=== PATIENT | male | born 1975 | race African-American/Black ===

== ENCOUNTER 2020-08-04 17:53 | Emergency (ER) | payer MEDICAID, SELFPAY ==
[2020-08-04 18:26] VITALS: BP 136/89; PULSE 88; RESP 16; TEMP 36.7; O2SAT 99; BMI 27.6
--- NOTE | 2020-08-04 19:12 | ED.SKABFB ---
HPI - Skin/Abscess/Foreign Bdy General Chief complaint: Skin/Abscess/Foreign Body Stated complaint: abscess Time Seen by Provider: 08/04/20 18:47 Source: patient Mode of arrival: ambulatory Limitations: language barrier History of Present Illness HPI narrative: 45-year-old male with past medical history of diabetes presents with a lump to his right axilla. States that it started several days ago and has gotten larger. He tried to drain it at home however he was unable to get the wound open. He does not describe any other symptoms, denies fevers, chills, chest pain or pressure, palpitations, shortness breath, abdominal pain, abdominal distention, dysuria, hematuria, and edema. Related Data Allergies Allergy/AdvReac Type Severity Reaction Status Date / Time No Known Allergies Allergy Verified 08/04/20 18:33 Review of Systems Review of Systems: Constitutional: No Fever, No Chills ENT/Mouth: No Ear Pain, No Hoarseness, No sore throat Eyes: No Eye Pain, No Swelling, No Redness, No Foreign Body Cardiovascular: No Chest Pain, No SOB Respiratory: No Cough, No Dyspnea Gastrointestinal: No Nausea, No Vomiting, No Diarrhea, No abdominal Pain Genitourinary: No Dysuria, No Hematuria Musculoskeletal: positive right axilla pain, No Myalgias, No Joint Swelling Skin: Positive abscess of right axilla, No Skin lacerations, No rash Neuro: No Weakness, No Numbness, No Paresthesias, No Loss of Consciousness, No Dizziness, No Headache Psych: No Anxiety/Panic, No Depression Heme/Lymph: no easy bruising, no Lymphadenopathy Endocrine: No Polyuria, No Polydipsia Yes all other systems are reviewed and are negative [facility] Past Medical History Attestation statement: The following information was validated with the patient. Source: old records reviewed Medical History Diabetes Social History Social History Advance Directives: No Advance Directives Information Provided: Yes Physical Exam Vital Signs: Vital Signs: Last Vital Signs Temp 98.2 F 08/04/20 20:00 Pulse 84 08/04/20 20:00 Resp 16 08/04/20 20:00 BP 132/67 08/04/20 20:00 Pulse Ox 97 08/04/20 20:00 Body Mass Index 27.6 Appearance: Alert. Oriented X3. No acute distress. Eyes: Pupils equal, round and reactive to light. ENT: Pharynx normal. Neck: Normal inspection. Neck supple. CVS: Normal heart rate and rhythm. Pulses normal. Respiratory: No respiratory distress. Breath sounds normal. Abdomen: Soft and nontender. Skin: 2 cm in diameter abscess to the right axilla, Skin warm and dry. Normal skin color. Normal skin turgor. Extremities: No lower extremity edema. Pulses equal to all extremities, no edema noted. No bilateral cervical or axillary lymphadenopathy noted. Neuro: No motor deficit. No sensory deficit. Cranial nerves 2-12 intact, no focal neural deficits. Course Course Course Narrative: 45-year-old male with past medical history of diabetes presents with abscess to the right axilla. Plan is for I&D. Prepped and draped in sterile fashion, patient tolerated procedure well. Please refer to procedure note for full details. Patient verbalized understanding of and agrees plan of care discharge home. test facility engineer utilized for all correspondence, Google translate utilized for discharge instructions. Procedures Abscess I/D Site: upper extremity Side (if applicable): right Local Anesthetic: lidocaine 2% Amount of anesthesia used (mL): 2 Technique: incised with blade Amount of fluid expressed (mL): 5 Sent for culture/gram staining?: No Irrigation: No Packing used?: none MDM - Skin/Abscess/Foreign Bdy Differential Diagnosis Differential diagnosis: Likely abscess of skin or subcutaneous tissue Medical Records Attestation: I reviewed the patient's medical records. Discharge Plan Discharge Clinical Impression: Abscess of skin or subcutaneous tissue, Encounter for incision and drainage procedure Patient Disposition: Home, Self-Care Instructions: Abscess (ED), Abscess Incision and Drainage (DC) Additional Instructions: Te evaluaron por absceso en la axilla derecha. Hicimos clotilde marlo?a incisi?n y drenamos thompson absceso. Si los s?ntomas persisten, anamaria un seguimiento con el m?dico de atenci?n primaria y/o la emergencia. Por favor, tome Tylenol y o Motrin seg?n sea necesario para el manejo del dolor. Leeanna por elegir cristy departamento de emergencias para etienne evaluaci?n. Por favor, anamaria un seguimiento con el m?dico de atenci?n primaria seg?n sea necesario. Regrese al servicio de emergencias para cualquier s?ntoma nuevo, preocupante o que empeore. You were evaluated for abscess to the right axilla. We made a small incision and drained that abscess. If symptoms persist please follow-up with primary care physician and/or emergency. Please take Tylenol and or Motrin as needed for pain management. Thank you for choosing this emergency department for evaluation. Please follow-up with primary care physician as needed. Return to the emergency department for any new, concerning, or worsening symptoms. Interventions: ED Discharge Assessment Last Done: 08/04/20 20:15 Discharge Date/Time: 08/04/20 20:15 Print Language: Citizen [place]
[2020-08-04] MEDS: Lidocaine HCl 2 % MPF 5 ML VIAL SUBCUT (19:21)
[2020-08-04 20:00] VITALS: BP 132/67; PULSE 84; RESP 16; TEMP 36.8; O2SAT 97
== END 2020-08-04 20:15 | disposition home or self-care (01) ==
PROVIDERS: Emergency Provider Emergency Medicine; PCP Internal Medicine
DX: L02.411 Cutaneous abscess of right axilla (principal); E11.9 Type 2 diabetes mellitus without complications
CPT/HCPCS: 10060; 99284

== ENCOUNTER → 2020-11-28 13:26 | Outpatient (BNVA) | payer MEDICAID, SELFPAY | PROVIDERS: PCP Internal Medicine; Referring Provider Internal Medicine; Visit Provider Nurse Practitioner Family | DX: Z01.818 Encounter for other preprocedural examination (principal); R00.2 Palpitations; I38 Endocarditis, valve unspecified; I10 Essential (primary) hypertension; Z79.899 Other long term (current) drug therapy; Z72.0 Tobacco use; Z71.6 Tobacco abuse counseling | CPT/HCPCS: 93005; 99212 ==

== ENCOUNTER → 2020-12-04 10:45 | Outpatient (REF) | payer MEDICAID, SELFPAY ==
--- NOTE | 2020-12-04 11:00 | HM_ITS ---
Total monitoring time 10 days and 22 hours. Underlying rhythm is sinus. Minimum heart rate 54/Min. Maximum 158/Min. Average 85/Min. No atrial fibrillation or flutter. No pauses or AV blocks. 3 episodes of nonsustained ventricular tachycardia; longest 4 beats. Overall PVC burden 0.23%. 3 morphologies noted. 5 couplets. Rare supraventricular ectopy. No patient events. MTDD
== END ==
LOC: HO.CARD 10:45
PROVIDERS: Visit Provider Nurse Practitioner Family
DX: R00.2 Palpitations (principal)
CPT/HCPCS: 93246

== ENCOUNTER → 2021-01-09 14:54 | Outpatient (BNVA) | payer MEDICAID, SELFPAY | PROVIDERS: PCP Internal Medicine; Visit Provider Nurse Practitioner Family | DX: I38 Endocarditis, valve unspecified (principal); I10 Essential (primary) hypertension; R00.2 Palpitations; I49.3 Ventricular premature depolarization | CPT/HCPCS: 99212 ==

== ENCOUNTER → 2021-02-13 08:23 | Outpatient (REF) | payer MEDICAID, SELFPAY ==
--- NOTE | 2021-02-13 08:27 | CA_ITS ---
Transthoracic Echocardiogram Patient (Last, First, Middle): Satya Vyas A Gender: Male Date of : 1975 Age: 46 Procedure Date: 02/13/2021 Procedure Type: Transthoracic Echocardiogram Location: OP Height: 170.18 cm Weight: 74.84 kg BSA: 1.86 m2 Heart Rate: bpm BP: 124 / 80 mmHg Retail Sales Associate: VH Referring MD: Lianne Martinez MATERIAL HANDLING WAREHOUSE SUPERVISORBharathi Symptoms: I49.3 - Ventricular premature depolarization Study Quality: Good ECG Rhythm: Sinus Conclusions: - The left ventricular systolic function is normal. The visually estimated ejection fraction is between 60-65%. - No obvious valvular pathology seen on this study. Findings Left Ventricle Normal left ventricular cavity size. There is normal left ventricular wall thickness. The left ventricular systolic function is normal. The visually estimated ejection fraction is between 60-65%. There is no evidence of regional wall motion abnormalities. Diastolic function is normal for age. Right Ventricle Normal right ventricular cavity size and systolic function. Atria Both atria are normal in size. Aortic Valve There is a normal trileaflet aortic valve. There is no aortic valve stenosis. There is trace (trivial) aortic valve regurgitation. Mitral Valve The mitral valve appears normal. There is trace mitral valve regurgitation. There is no mitral valve stenosis. Pulmonic Valve The pulmonic valve was not well visualized. Tricuspid Valve Normal tricuspid valve structure. There is no tricuspid valve regurgitation. The pulmonary artery systolic pressure is normal. Great Vessels The aortic annulus, sinuses of valsalva, and asc aorta are normal in size. Venous The inferior vena cava is normal in size and collapses greater than 50% with inspiration. Pericardium/Pleural There is no evidence of pericardial effusion. Prior Study Comparison No significant change compared to prior study dated: 11/20/2018. Recommendations, Care & Conclusions No obvious valvular pathology seen on this study. Measurements 2D Linear Measurements IVSd: 0.99 0.6-0.9/0.6-1.0 cm LVIDd: 4.15 3.9-5.3/4.2-5.9 cm LVIDd Index: 2.23 2.4-3.2/2.2-3.1 cm/m2 LVIDs: 2.31 2.0-3.6 cm LVPWd: 1.01 0.7-1.1 cm Ao Root: 3.40 2.1-3.5 cm LA Diam: 3.60 2.7-3.8/3.0-4.0 cm LAIDs Index: 1.94 1.5-2.3 cm/m2 LV Mass: 167.93 67-162/88-224 g LV Mass Index: 90.29 43-95/49-115 g/m2 LVOT Diam: 2.40 3.0+(-)1.3 cm Mitral Valve MV Pk E: 0.91 MV PK A: 0.68 MV Decel Time: 196.00 E/A: 1.30 E'Lateral: 12.50 E'Medial: 10.30 E/E' Med: 8.90 E/E' Lat: 7.30 PHT: 58.00 MVA PHT: 3.79 Decel Hidalgo: 4.65 Aortic Valve AoV Pk Jsoue: 1.32 AoV Mn Josue: 0.84 AoV VTI: 0.32 AoV Pk Grad: 7.00 Aov Mn Grad: 3.00 JAIR Cont.VTI: 2.98 LVOT LVOT Pk Josue: 0.91 LVOT Mn Josue: 0.58 LVOT VTI: 0.21 LVOT Pk Grad: 3.00 LVOT Mn Grad: 2.00 LVOT Diam: 2.40 LVOT Area: 4.52 Diastolic Function MV Pk E: 0.91 MV Pk A: 0.68 E/A: 1.30 E'Medial: 10.30 E/E' Med: 8.90 E' Laterial: 12.50 E/E' Lat: 7.30 Right Ventricle TAPSE (mm): 30.00 TVS' Josue: 13.00 Tricuspid Valve TR Pk Josue: 1.66 TR Pk Grad: 11.00 Great Vessels Aorta Ao Root-2D: 3.40 2.0-3.7 cm Ao Asc: 3.10 2.1-3.4 cm Pulmonary Valve PV Pk Josue: 1.08 Peak PV Grad: 5.00 Updated in Other Vendor System with Status of Final Jordon Hall MD electronically signed on 02/13/2021 4:42:23 PM with status of Final
[2021-02-13 10:45] LABS: Anion Gap 12 (12-20); Blood Urea Nitrogen 16 mg/dL (9-16); Calcium 9.3 mg/dL (8.4-10.2); Carbon Dioxide 26 mmol/L (22-29); Chloride 101 mmol/L (96-108); Estimated Glomerular Filt Rate 60; Potassium 5.3 mmol/L (3.3-5.1); Sodium 134 mmol/L (135-145)
[2021-02-13 11:22] LABS: Appearance Urine CLEAR; Color Urine YELLOW; Glucose Urine UA >=1000 MG/DL (NEG); Leukocyte Esterase Urine NEG (NEG); Nitrite Urine NEG (NEG); Urine Blood NEG (NEG); Urine Ketones 15 MG/DL (NEG); Urine Protein NEG (NEG-TRACE)
[2021-02-13 11:41] LABS: Squamous Epithelial Cell Urine 1+ /LPF
[2021-02-13 11:42] LABS: WBC Urine 0 /HPF (0-4)
[2021-02-13 11:56] LABS: Creatinine Urine 38.61 mg/dL; Microalbum/Creatinine Ratio Ur 225.3 ug/mg cr
== END ==
LOC: HO.CARD 08:23
PROVIDERS: Internal Medicine Nephrology; PCP Internal Medicine; Visit Provider Nurse Practitioner Family
DX: I49.3 Ventricular premature depolarization (principal); R00.2 Palpitations; I12.9 Hypertensive chronic kidney disease with stage 1 through stage 4 chronic kidney disease, or unspecified chronic kidney disease; E11.22 Type 2 diabetes mellitus with diabetic chronic kidney disease; N18.9 Chronic kidney disease, unspecified
CPT/HCPCS: 36415; 80051; 81001; 82043; 82310; 82565; 84520; 93306

== ENCOUNTER → 2021-02-20 12:57 | Outpatient (BNVA) | payer MEDICAID, SELFPAY | PROVIDERS: PCP Internal Medicine; Referring Provider Internal Medicine; Visit Provider Nurse Practitioner Family | DX: I49.3 Ventricular premature depolarization (principal); I38 Endocarditis, valve unspecified; I10 Essential (primary) hypertension; R00.2 Palpitations; R42 Dizziness and giddiness | CPT/HCPCS: 99212 ==

== ENCOUNTER → 2021-03-21 10:42 | Outpatient (REF) | payer MEDICAID, SELFPAY | LOC: HO.CARD 10:42 | PROVIDERS: PCP Internal Medicine; Visit Provider Nurse Practitioner Family | DX: R00.2 Palpitations (principal); I49.3 Ventricular premature depolarization | CPT/HCPCS: 93270 ==

== ENCOUNTER 2021-10-24 10:08 | Outpatient (REF) | payer MEDICAID, SELFPAY ==
[2021-10-24 11:04] LABS: Hematocrit 40.9 % (42.0-52.0); Hemoglobin 13.3 g/dl (14.0-18.0); Mean Corpuscular HGB Conc 32.5 g/dl (31.0-36.0); Platelet Count 302 X10*3/uL (160-400); Red Blood Count 4.93 X10*6/uL (4.60-5.80); Red Cell Distribution Width 13.3 % (11.0-16.0); White Blood Count 4.3 X10*3/uL (4.8-10.8)
[2021-10-24 12:07] LABS: TSH reflex Free T4 0.37 uIU/mL (0.32-4.0)
[2021-10-24 12:08] LABS: Alanine Aminotransferase 18 U/L (0-40); Alkaline Phosphatase 73 U/L (39-117); Anion Gap 11 (12-20); Aspartate Amino Transferase 13 U/L (5-37); Bilirubin Total 1.2 mg/dL (0.0-1.0); Blood Urea Nitrogen 16 mg/dL (9-16); Calcium 8.9 mg/dL (8.4-10.2); Carbon Dioxide 27 mmol/L (22-29); Chloride 104 mmol/L (96-108); Estimated Glomerular Filt Rate > 60; Glucose Random 220 mg/dL (60-115); Lipase 16 U/L (8-78); Sodium 137 mmol/L (135-145); Total Protein 6.9 g/dL (6.5-8.0)
== END 2021-10-24 10:09 | disposition home or self-care (01) ==
LOC: HO.LAB 10:08
PROVIDERS: PCP Internal Medicine; Visit Provider Nurse Practitioner Family
DX: R10.9 Unspecified abdominal pain (principal); K59.04 Chronic idiopathic constipation; R11.2 Nausea with vomiting, unspecified
CPT/HCPCS: 36415; 80053; 83690; 84443; 85027; 99202; 99212

== ENCOUNTER → 2021-12-04 08:28 | Outpatient (BNVA) | payer MEDICAID, SELFPAY | PROVIDERS: PCP Internal Medicine; Referring Provider Internal Medicine; Visit Provider Nurse Practitioner Family | DX: Z01.818 Encounter for other preprocedural examination (principal); K59.01 Slow transit constipation; R11.2 Nausea with vomiting, unspecified; K21.9 Gastro-esophageal reflux disease without esophagitis | CPT/HCPCS: 83013; 99212 ==

== ENCOUNTER 2021-12-04 15:50 | Outpatient (REF) | payer MEDICAID, SELFPAY ==
[2021-12-05 15:42] LABS: H Pylori Breath Test Negative (Negative)
== END 2021-12-04 15:51 | disposition home or self-care (01) ==
LOC: HO.LNP 15:50
PROVIDERS: Visit Provider Nurse Practitioner Family
DX: Z11.2 Encounter for screening for other bacterial diseases (principal)
CPT/HCPCS: 83013

== ENCOUNTER → 2022-03-28 11:25 | Day surgery (SDC) | payer MEDICAID, SELFPAY ==
[2022-03-21 14:15] VITALS: BMI 28.1
--- NOTE | 2022-03-27 14:06 | HO.ANESPROP2 ---
Documented by User: Mitzy Mcelroy NP 03/27/22 14:07 HPI - Anesthesia Eval Consult details Narrative: 47yo M for Upper Endoscopy and Colonoscopy [facility] Active Problems Active Problems: All Active Problems (Updated 03/21/22 @ 14:16 by Anna Fang, MAY) Palpitations (Acute) Preop cardiovascular exam (Acute) Ventricular ectopy (Acute) Lightheadedness (Acute) Endocarditis (Acute) HTN (hypertension) (Acute) Past Medical History Medical History Diabetes Elevated cholesterol Endocarditis HTN (hypertension) Family History Family History Father No problems noted. Mother No problems noted. Surgical History Surgical History H/O eye surgery Social History Social History Alcohol intake: never Patient Tobacco Use Status: Never used Tobacco Use of substances other than those prescribed or required for medical reasons: No Are you DNR?: No Advance Directives: No Advance Directives Information Provided: Yes Meds Allergies Allergy/AdvReac Type Severity Reaction Status Date / Time No Known Allergies Allergy Verified 03/28/22 11:49 Home Medications Medication Instructions Recorded Confirmed Last Taken Type amlodipine 5 mg tablet 5 mg PO DAILY 11/28/20 03/21/22 Unknown History atorvastatin 40 mg tablet 40 mg PO BEDTIME 11/28/20 03/21/22 Unknown History hydrochlorothiazide 12.5 mg tablet 12.5 mg PO DAILY 11/28/20 03/21/22 Unknown History insulin aspart U-100 100 unit/mL See Rx Instructions subcut TID 11/28/20 03/21/22 Unknown History (3 mL) subcutaneous pen (Novolog Flexpen U-100 Insulin aspart) insulin glargine 100 unit/mL (3 50 unit subcut QPM 11/28/20 03/21/22 Unknown History mL) subcutaneous pen (Lantus Solostar U-100 Insulin) metformin 500 mg tablet 500 mg PO BID 11/28/20 03/21/22 Unknown History hydralazine 25 mg tablet 25 mg PO BID 02/20/21 03/21/22 Unknown History cholecalciferol (vitamin D3) 25 25 mcg PO QAM 12/04/21 03/21/22 Unknown History mcg (1,000 unit) capsule (Vitamin D3) dulaglutide 1.5 mg/0.5 mL 1.5 mg subcut QWEEK 12/04/21 03/21/22 Unknown History subcutaneous pen injector (Trulicity) fluoxetine 20 mg capsule 20 mg PO QAM 12/04/21 03/21/22 Unknown History lancets 33 gauge (TRUEplus Lancets) #100 ea 12/04/21 Unknown History losartan 50 mg tablet 50 mg PO QAM 12/04/21 03/21/22 Unknown History Exam Exam Date and Time: March 27, 2022 1406 Height,Weight and Vital Signs: Height 5 ft 7 in Weight 81.647 kg Pertinent Lab Results Pertinent Lab Results: Laboratory Tests 10/24/21 10/24/21 10:29 10:29 WBC 4.3 L Hgb 13.3 L Hct 40.9 L Plt Count 302 Sodium 137 Potassium 5.0 Chloride 104 Carbon Dioxide 27 BUN 16 Creatinine 0.91 Narrative Narrative: ECHO 2020 Conclusions: - The left ventricular systolic function is normal.? The visually estimated ejection fraction is between 60-65%. ? - No obvious valvular pathology seen on this study.? ? Assessment and Plan Assessment Anesthesia Assessment: Chart Reviewed Documented by User: Tashia Ferguson MD 03/28/22 11:56 [facility] Past Medical History Medical History Diabetes Elevated cholesterol Endocarditis HTN (hypertension) Family History Family History Father No problems noted. Mother No problems noted. Surgical History Surgical History H/O eye surgery History of Problems with Anesthesia: No Social History Social History Alcohol intake: never Patient Tobacco Use Status: Never used Tobacco Use of substances other than those prescribed or required for medical reasons: No Are you DNR?: No Advance Directives: No Advance Directives Information Provided: Yes Meds Allergies Allergy/AdvReac Type Severity Reaction Status Date / Time No Known Allergies Allergy Verified 03/28/22 11:49 Home Medications Medication Instructions Recorded Confirmed Last Taken Type amlodipine 5 mg tablet 5 mg PO DAILY 11/28/20 03/21/22 Unknown History atorvastatin 40 mg tablet 40 mg PO BEDTIME 11/28/20 03/21/22 Unknown History hydrochlorothiazide 12.5 mg tablet 12.5 mg PO DAILY 11/28/20 03/21/22 Unknown History insulin aspart U-100 100 unit/mL See Rx Instructions subcut TID 11/28/20 03/21/22 Unknown History (3 mL) subcutaneous pen (Novolog Flexpen U-100 Insulin aspart) insulin glargine 100 unit/mL (3 50 unit subcut QPM 11/28/20 03/21/22 Unknown History mL) subcutaneous pen (Lantus Solostar U-100 Insulin) metformin 500 mg tablet 500 mg PO BID 11/28/20 03/21/22 Unknown History hydralazine 25 mg tablet 25 mg PO BID 02/20/21 03/21/22 Unknown History cholecalciferol (vitamin D3) 25 25 mcg PO QAM 12/04/21 03/21/22 Unknown History mcg (1,000 unit) capsule (Vitamin D3) dulaglutide 1.5 mg/0.5 mL 1.5 mg subcut QWEEK 12/04/21 03/21/22 Unknown History subcutaneous pen injector (Trulicity) fluoxetine 20 mg capsule 20 mg PO QAM 12/04/21 03/21/22 Unknown History lancets 33 gauge (TRUEplus Lancets) #100 ea 12/04/21 Unknown History losartan 50 mg tablet 50 mg PO QAM 12/04/21 03/21/22 Unknown History Exam Airway Mallampati Class: III TM Dist: >3cm Neck ROM: Full Loose/Missing/Broken Teeth: No Heart: RRR Lungs: CTA Assessment and Plan Assessment Anesthesia Assessment: Anesthesia Plan Discussed Final Anesthetic Review History of Problems with Anesthesia: No NPO: Yes ASA Class: II Final Preanesthetic Review: Meds/Allgs Chart Reviewed, Consent Obtained/Reviewed and Anes Risks/Benef Reviewed Patient Risk: Low Procedure Risk: Intermediate Anesthetic Plan Anesthetic Plan: MAC: Disposition: Standard PACU
--- NOTE | 2022-03-28 11:33 | MHC.SHP ---
Pre-Procedural Eval Section A Date of Service: 03/28/22 Section B Chief Complaint: screening,reflux Relevant Family History (Specify if Yes): No Relevant Social History: None Present Medications: see Short Stay Collaborative assessment Medical History: Significant History (Diabetes Elevated cholesterol Endocarditis HTN (hypertension)) History of Previous Operations: No relevant previous surgery Allergies: Allergies Allergy/AdvReac Type Severity Reaction Status Date / Time No Known Allergies Allergy Verified 12/04/21 08:32 Review of Systems Sugical H&P ROS: Negative: Constitution, Cardiovascular, Respiratory, Neurological, Psychiatric, Hem-Onc, Allergic/Immunologic, Gastrointestinal, Genitourinary, Musculoskeletal, Integumentary, Endocrine and Eyes/Ears/Nose/Throat Exam Surgical H&P Exam: Normal: HEENT, Normal: Heart, Normal: Lungs, Normal: Extremities, Normal: Abdomen, Normal: Skin and Normal: Neurological Plan Diagnosis/Plan: Unchanged I have reviewed the history and physical and performed a pertinent physical examination on my patient. No changes have occurred unless specified.
[2022-03-28 11:45] VITALS: BMI 29.0
[2022-03-28 11:46] LABS: Glucose, Whole Blood 144 mg/dL (60-115)
[2022-03-28 11:48] VITALS: BP 141/79; PULSE 77; RESP 16; TEMP 36.3; O2SAT 100
--- NOTE | 2022-03-28 11:52 | W.PM.OPN ---
Operative Note Operative Note Date of Service: 03/28/22 Narrative: Operative Information Procedure Description: EGD, Colonoscopy Indication: GERD,screening Anesthesia: MAC FLEXIBLE TRANSORAL UPPER GASTROINTESTINAL ENDOSCOPY AND COLONOSCOPY PROCEDURE NOTE UPPER ENDOSCOPY Consent: Indications for the procedure and potential complications of bleeding, perforation, reaction to medications and missed diagnosis were discussed with the patient and informed consent was obtained. Instrument: Olympus GIF H 190 J mid size upper endoscope Monitoring: Vital signs and clinical assessment, continuous EKG monitoring, Pulse oximetry, Carbon Dioxide monitoring and blood pressure monitoring were done throughout the procedure. Procedure: The patient was placed in the left lateral decubitis position and pre-procedure medications were administered and a bite block was placed. The endoscope was inserted into the mouth and advanced under direct vision to the third part of duodenum. A careful inspection was made as the upper endoscope was withdrawn including a retroflexed examination of the proximal stomach; Findings and interventions are described below. Findings: Larynx:normal Esophagus: GE junction at 38 cm, diaphragm hiatus at 38 cm, possible short segment barretts with few islands and tongues of salmon pink tissue, bx taken from GEJ and distal esohagus Stomach: Patchy erythema and atrophy. Biopsies were obtained. Grade 3 flap valve on retroflexed examination of the cardia consistent with lax LES Duodenum: Normal bulb and descending duodenum, Intervention: Biopsies as noted above COLONOSCOPY Instrument: Olympus variable stiffness pediatric scope 190L Colonoscopy Monitoring: Vital signs and clinical assessment, continuous EKG monitoring, Pulse oximetry, Carbon Dioxide monitoring and blood pressure monitoring were done throughout the procedure. Colon withdrawal time was 12 minutes. Procedure: The patient was placed in the left lateral decubitis position and pre-procedure medications were administered. After a digital rectal examination of the ano-rectum, the video colonoscope was inserted into the rectum and advanced through the colon to the cecum/TI. The colonoscope was slowly withdrawn in a retrograde panoramic fashion and the colon mucosa was carefully examined including a retroflexed view of the rectum. Findings and interventions are described below. Procedure Difficulty:moderate, pressure applied Findings: Terminal Ileum-normal Cecum:normal Ascending Colon: normal Transverse Colon -normal Descending Colon:normal Sigmoid Colon: moderate diverticulosis Rectum: Retroflexion with small internal hemorrhoids, grade I, 10 mm sessile polyp removed with cold snare Anorectum - normal Colon preparation: [place] Bowel Preparation Scale Right colon; 1-2 Transverse colon: 2 Left colon; 2 (0 = Unprepared colon segment with mucosa not seen due to solid stool that cannot be cleared. 1 = Portion of mucosa of the colon segment seen, but other areas of the colon segment not well seen due to staining, residual stool and/or opaque liquid. 2 = Minor amount of residual staining, small fragments of stool and/or opaque liquid, but mucosa of colon segment seen well. 3 = Entire mucosa of colon segment seen well with no residual staining, small fragments of stool or opaque liquid) Impression and Post Procedure Diagnosis: Endoscopy Findings: atrophic gastritis lax LES possible barretts Colonoscopy Findings: polyp internal hemorrhoids diverticular disease Plan: Await Pathology results Repeat Colonoscopy in 3-4 years due to polyp and fair prep or earlier if clinically indicated High fiber diet leaflet avoid straining at stool, epsom salts and sitz bath, anusol supps or cream if H pylori pos then treat Above findings were reviewed with the patient and relevant handouts were provided if indicated.
[2022-03-28 12:42] VITALS: BP 90/56; PULSE 73; RESP 16; TEMP 36.6; O2SAT 98
[2022-03-28 12:57] VITALS: BP 117/73; PULSE 64; RESP 18; O2SAT 100
[2022-03-28 13:12] VITALS: TEMP 36.6
== END | disposition home or self-care (01) ==
PROVIDERS: PCP Internal Medicine; Visit Provider Internal Medicine Gastroenterology
PROC: (CPT 45385; principal; 2022-03-28 13:00)
DX: Z12.11 Encounter for screening for malignant neoplasm of colon (principal); D12.8 Benign neoplasm of rectum; K57.30 Diverticulosis of large intestine without perforation or abscess without bleeding; K64.0 First degree hemorrhoids; K59.01 Slow transit constipation; I10 Essential (primary) hypertension; K21.9 Gastro-esophageal reflux disease without esophagitis; K29.40 Chronic atrophic gastritis without bleeding; K22.4 Dyskinesia of esophagus; K44.9 Diaphragmatic hernia without obstruction or gangrene; I38 Endocarditis, valve unspecified; E11.9 Type 2 diabetes mellitus without complications; Z79.4 Long term (current) use of insulin; Z79.899 Other long term (current) drug therapy
CPT/HCPCS: 45385; 43239; 82947; 88305; 88342

== ENCOUNTER 2022-04-10 10:19 | Outpatient (REF) | payer MEDICAID, SELFPAY ==
[2022-04-10 10:49] LABS: MANUAL DIFF FLAG NO
[2022-04-10 11:00] LABS: Basophils Absolute Auto 0.1 X10*3/uL (0.0-0.2); Basophils Percent Auto 1.3 % (0-2); Eosinophils Absolute Auto 0.2 X10*3/uL (0.0-0.4); Hematocrit 43.9 % (42.0-52.0); Hemoglobin 14.4 g/dl (14.0-18.0); Lymphocytes Absolute Auto 1.2 X10*3/uL (1.2-4.9); Lymphocytes Percent Auto 27.3 % (20-40); Mean Corpuscular HGB Conc 32.8 g/dl (31.0-36.0); Mean Corpuscular Hemoglobin 26.8 pg (27.0-33.0); Mean Corpuscular Volume 81.8 fL (80.0-98.0); Mean Platelet Volume 9.6 fL (9.4-12.4); Monocytes Absolute Auto 0.4 X10*3/uL (0.1-1.2); Monocytes Percent Auto 8.8 % (2-11); Neutrophils Absolute Auto 2.7 x10*3/uL (2.0-8.3); Neutrophils Percent Auto 58.6 % (45-73); Platelet Count 289 X10*3/uL (160-400); Red Blood Count 5.37 X10*6/uL (4.60-5.80); Red Cell Distribution Width 13.2 % (11.0-16.0); White Blood Count 4.5 X10*3/uL (4.8-10.8)
[2022-04-10 11:33] LABS: Albumin Level 3.9 g/dL (3.5-5.0); Anion Gap 13 (12-20); Blood Urea Nitrogen 15 mg/dL (9-16); Calcium 9.3 mg/dL (8.4-10.2); Carbon Dioxide 28 mmol/L (22-29); Chloride 103 mmol/L (96-108); Estimated Glomerular Filt Rate > 60; Magnesium 2.1 mg/dL (1.6-2.6); Phosphorus 3.1 mg/dL (2.7-4.5); Potassium 4.8 mmol/L (3.3-5.1); Sodium 139 mmol/L (135-145)
[2022-04-10 11:55] LABS: Vitamin D 25-OH Total 15.9 ng/mL (>30)
[2022-04-10 12:16] LABS: Appearance Urine Clear; Color Urine Dark Yellow; Glucose Urine UA >=1000 mg/dL (Negative); Leukocyte Esterase Urine Negative (Negative); Nitrite Urine Negative (Negative); PH 5.5 (5.0-9.0); Specific Gravity - Urine >= 1.030 (1.005-1.025); UMIC TRIGGER UA YES; Urine Blood Negative (Negative); Urine Ketones Trace mg/dL (Negative); Urine Protein 300 (3+) mg/dL (Neg-Trace)
[2022-04-10 12:21] LABS: Bacteria Urine None Seen (None Seen); Hyaline Casts Urine 0-2 /LPF (0-2); Squamous Epithelial Cell Urine 0-2 /HPF (0-2); WBC Urine 0-5 /HPF (0-5)
[2022-04-10 13:40] LABS: Creatinine Urine 311.45 mg/dL
[2022-04-10 13:57] LABS: Microalbum/Creatinine Ratio Ur 779.2 ug/mg cr; Protein/Creatinine Ratio, Ur 1.02 (<0.2); Total Protein Urine Random 318 mg/dL (<12)
[2022-04-12 13:44] LABS: Calcium (PTHI) 9.3 mg/dL (8.6-10.3); PTHI 57 pg/mL (16-77)
== END 2022-04-10 10:20 | disposition home or self-care (01) ==
LOC: HO.LAB 10:19
PROVIDERS: PCP Internal Medicine; Visit Provider Internal Medicine Nephrology
DX: I12.9 Hypertensive chronic kidney disease with stage 1 through stage 4 chronic kidney disease, or unspecified chronic kidney disease (principal); N18.2 Chronic kidney disease, stage 2 (mild)
CPT/HCPCS: 36415; 80051; 81001; 82040; 82043; 82306; 82310; 82565; 83735; 83970; 84100; 84156; 84520; 85025; 87086; 99212

== ENCOUNTER 2022-04-12 | Outpatient (REF) | payer MEDICAID, SELFPAY | END 2022-04-12 00:01 | disposition home or self-care (01) | LOC: HO.LNP | PROVIDERS: Visit Provider Nurse Practitioner Family | DX: K21.9 Gastro-esophageal reflux disease without esophagitis (principal); N18.2 Chronic kidney disease, stage 2 (mild) | CPT/HCPCS: 87338 ==

== ENCOUNTER 2022-05-14 16:07 | Emergency (ER) | payer MEDICAID, SELFPAY ==
--- NOTE | ~2022-05-14 | XR_ITS ---
EXAMINATION: XR CHEST CLINICAL INFORMATION: Dizziness COMPARISON: 01/11/2020 TECHNIQUE: Frontal view of the chest was obtained. FINDINGS: No significant abnormality is noted involving the heart, lungs, mediastinum, bony thorax or soft tissues. XR/XR chest 1V IMPRESSION: Unremarkable examination.
--- NOTE | ~2022-05-14 | CT_ITS ---
EXAMINATION: CT HEAD WITHOUT CONTRAST CLINICAL INFORMATION: Off balance COMPARISON: None TECHNIQUE: Contiguous axial imaging was performed from the skull base to vertex without intravenous administration of contrast. This CT examination was performed using dose optimization techniques as appropriate, variously including the following: *Automated exposure control *Adjustment of mA and/or kV according to patient size (this includes techniques or standardized protocols for targeted exams where dose is matched to indication/reason for exam; i.e. extremities or head) *Use of iterative reconstruction technique DLP: 657 mGy-cm FINDINGS: There is no evidence of acute intracranial hemorrhage or territorial infarction. No abnormal mass effect or midline shift is seen. No to white matter differentiation is well preserved. No extra-axial fluid collections are identified. The ventricles are normal in size. No abnormal attenuation in the brain parenchyma. No acute calvarial fracture.. There is opacification of the inferior left maxillary sinus, partially imaged, could represent mucosal thickening or mucocele. Paranasal sinuses otherwise and mastoid air cells are well-aerated. CT/CT head/brain wo IV con IMPRESSION: No CT evidence of acute intracranial hemorrhage or edematous territorial infarction. Etiology of the patient's symptoms has not been determined by noncontrast CT. Further evaluation with CTA or MRI as clinically warranted.
--- NOTE | 2022-05-14 17:07 | ED.NAVMDI ---
HPI - Nausea/Vomiting/Diarrhea General Chief complaint: General Medical <GUANACO Toussaint - Last Filed: 05/14/22 17:10> Stated complaint: Vomiting/ Fever after taking antibiotics <GUANACO Toussaint - Last Filed: 05/14/22 17:10> Time Seen by Provider: 05/14/22 21:53 <GUANACO Toussaint - Last Filed: 05/14/22 17:10> Source: patient and family <Cindy Goldman MD - Last Filed: 05/14/22 22:19> Mode of arrival: ambulatory <Cindy Goldman MD - Last Filed: 05/14/22 22:19> Limitations: no limitations <Cindy Goldman MD - Last Filed: 05/14/22 22:19> History of Present Illness HPI Narrative: 47-year-old male came in for evaluation of generalized body ache, joint pains, fever, chills, sneezing and coughing. Patient also been having nausea, vomiting, diarrhea.. Symptoms started 4 days ago. No exposure to sick contacts, no recent travel. <Cindy Goldman MD - Last Filed: 05/14/22 22:19> Related Data Home medications: Home Medications Medication Instructions Recorded Confirmed amlodipine 5 mg tablet 5 mg PO DAILY 11/28/20 03/21/22 atorvastatin 40 mg tablet 40 mg PO BEDTIME 11/28/20 03/21/22 hydrochlorothiazide 12.5 mg tablet 12.5 mg PO DAILY 11/28/20 03/21/22 insulin aspart U-100 100 unit/mL See Rx Instructions subcut TID 11/28/20 03/21/22 (3 mL) subcutaneous pen (Novolog FlexPen U-100 Insulin aspart) insulin glargine 100 unit/mL (3 50 unit subcut QPM 11/28/20 03/21/22 mL) subcutaneous pen (Lantus Solostar U-100 Insulin) metformin 500 mg tablet 500 mg PO BID 11/28/20 03/21/22 hydralazine 25 mg tablet 25 mg PO BID 02/20/21 03/21/22 cholecalciferol (vitamin D3) 25 25 mcg PO QAM 12/04/21 03/21/22 mcg (1,000 unit) capsule (Vitamin D3) dulaglutide 1.5 mg/0.5 mL 1.5 mg subcut QWEEK 12/04/21 03/21/22 subcutaneous pen injector (Trulicity) fluoxetine 20 mg capsule 20 mg PO QAM 12/04/21 03/21/22 lancets 33 gauge (TRUEplus Lancets) #100 ea 12/04/21 losartan 50 mg tablet 50 mg PO QAM 12/04/21 03/21/22 Previous Rx's Medication Instructions Recorded sennosides 8.6 mg tablet (Natural 8.6 mg PO BEDTIME constipation #90 04/10/22 Senna Laxative) tabs famotidine 20 mg tablet (Pepcid) 20 mg PO BEDTIME #90 tabs 04/17/22 omeprazole 20 mg capsule,delayed 20 mg PO DAILY #90 caps 04/17/22 release bismuth subsalicylate 262 mg 2 tab PO QID 14 days #112 tabs 04/22/22 chewable tablet metronidazole 500 mg tablet 1,000 mg PO BID #56 tabs 04/22/22 tetracycline 500 mg capsule 1,000 mg PO Q12H #56 caps 04/22/22 <GUANACO Toussaint - Last Filed: 05/14/22 17:10> Allergies/Adverse reactions: Allergies Allergy/AdvReac Type Severity Reaction Status Date / Time No Known Allergies Allergy Verified 04/10/22 09:37 <GUANACO Toussaint - Last Filed: 05/14/22 17:10> Review of Systems Review of Systems: All other systems are reviewed and are negative Constitutional: Reports as per HPI and Reports no additional constitutional complaints Eyes: Reports as per HPI and Reports no additional eye complaints Reports system reviewed and no additional complaints, except as documented Cardiovascular: Reports as per HPI and Reports no additional cardiovascular complaints Respiratory: Reports as per HPI and Reports no additional respiratory complaints Gastrointestinal: Reports as per HPI and Reports no additional gastrointestinal complaints Genitourinary: Reports no additional female genitourinary complaints Musculoskeletal: Reports no additional musculoskeletal complaints Skin/Breast: Reports system reviewed and no additional complaints, except as docu Psychiatric: Reports no additional psychiatric complaints Endocrine: Reports no additional endocrine complaints Hematologic/Lymphatic: Reports no additional hematologic/lymphatic complaints Allergic/Immunologic: Reports no additional allergic/immunologic complaints Reports system reviewed and no additional complaints, except as documented and Reports Abnormal speech present <Cindy Goldman MD - Last Filed: 05/14/22 22:19> [facility] Past Medical History Medical History: Medical History Diabetes Elevated cholesterol Endocarditis HTN (hypertension) Tubular adenoma <GUANACO Toussaint - Last Filed: 05/14/22 17:10> Surgical History: Surgical History H/O eye surgery History of esophagogastroduodenoscopy (EGD) Hx of colonoscopy <GUANACO Toussaint - Last Filed: 05/14/22 17:10> Family History Family History: Family History Father No problems noted. Mother No problems noted. <GUANACO Toussaint - Last Filed: 05/14/22 17:10> Social History Social History: Social History Alcohol intake: never Patient Tobacco Use Status: Never used Tobacco Advance Directives: No Advance Directives Information Provided: No <GUANACO Toussaint - Last Filed: 05/14/22 17:10> Physical Exam Vital Signs: Vital Signs: Last Vital Signs Temp 98.1 F 05/14/22 21:49 Pulse 76 05/14/22 21:49 Resp 18 05/14/22 21:49 BP 151/85 H 05/14/22 21:49 Pulse Ox 98 05/14/22 21:49 O2 Del Method 05/14/22 21:49 BMI result Body Mass Index 27.3 <GUANACO Toussaint - Last Filed: 05/14/22 17:10> Vital Signs: Last Vital Signs Temp 98.1 F 05/14/22 21:49 Pulse 76 05/14/22 21:49 Resp 18 05/14/22 21:49 BP 151/85 H 05/14/22 21:49 Pulse Ox 98 05/14/22 21:49 O2 Del Method 05/14/22 21:49 BMI result Body Mass Index 27.3 Vital signs have been reviewed as appeared to be correct. Blood pressure normal. Heart rate normal. Respiration rate normal. Temperature normal. Oxygen saturation normal. <Cindy Goldman MD - Last Filed: 05/14/22 22:19> Appearance: Alert. Oriented X3. No acute distress. Head: Normal external exam. Normocephalic. Atraumatic. No Quan signs noted. No raccoon eyes noted Eyes: PERRLA. EOMI. Conjunctiva and sclera normal. Eyelids normal. ENT: TM's Normal. Pharynx normal. Uvula midline. Moist mucous membranes. No trismus noted. No drooling noted. No muffled voice noted. Neck: Normal inspection. Neck supple. FROM. No adenopathy. Thyroid Normal. No meningeal signs. No neck mass noted. CVS: Normal heart rate and rhythm. Heart sound normal. No murmurs noted. Pulses normal throughout. Respiratory: No respiratory distress. Painless inspiration. Breath sounds normal. No wheezes/rales/rhonchi noted. Chest nontender. No accessory muscle usage noted or decreased air movement noted. Abdomen: Soft and nontender. Bowel sounds normal in all 4 quadrants. No distention noted. No organomegaly noted. No visible injury noted. Back: No CVA tenderness. Full range of motion noted. Skin: Skin warm and dry. Normal skin color. Normal skin turgor. No rashes/lesions/lacerations noted. Extremities: No lower extremity edema. Extremities exhibit normal range of motion. Extremities nontender. Neuro: Oriented X 3. Cranial nerve exam: II-XII are grossly intact No motor deficit. No sensory deficit. Reflexes normal. <Cindy Goldman MD - Last Filed: 05/14/22 22:19> Course Course Course Narrative: RME--47-year-old male with a past medical history of diabetes, HLD, endocarditis, HTN, tubular adenoma, presenting to the ED complaining of fever, diarrhea, vomiting, cough, chest pain when coughing, & dizziness described as feeling off balance x2 weeks. Ambulating with steady gait EKG, labs, UA, CXR, head CT, orthostatics ordered in triage <GUANACO Toussaint - Last Filed: 05/14/22 17:10> Reevaluation(s) Reevaluation #1: Influenza a positive with nausea and vomiting patient is hyperglycemic use insulin and Trulicity at home. Patient's symptoms started about 4 days ago no benefit from Tamiflu. Will discharge the patient instructed to drink plenty of fluids. <Cindy Goldman MD - Last Filed: 05/14/22 22:19> Time: 22:15 <Cindy Goldman MD - Last Filed: 05/14/22 22:19> Medications Administered Discontinued Medications Generic Name Dose Route Start Last Admin Trade Name Freq PRN Reason Stop Dose Admin Sodium Chloride 1,000 mls @ 999 mls/hr 05/14/22 17:15 05/14/22 21:51 Ns IV 05/14/22 18:15 999 mls/hr .Q1H1M LAKESHA Administration <GUANACO Toussaint - Last Filed: 05/14/22 17:10> Medications Administered Discontinued Medications Generic Name Dose Route Start Last Admin Trade Name Freq PRN Reason Stop Dose Admin Sodium Chloride 1,000 mls @ 999 mls/hr 05/14/22 17:15 05/14/22 21:51 Ns IV 05/14/22 18:15 999 mls/hr .Q1H1M LAKESHA Administration <Cindy Goldman MD - Last Filed: 05/14/22 22:19> Medical Decision Making Differential Diagnosis Differential Diagnoses: The differential diagnosis associated with the presentation includes (Influenza a, COVID, RSV, viral infection, hyperglycemia, DKA, intracranial pathology.) <Cindy Goldman MD - Last Filed: 05/14/22 22:19> Lab Data MDM Lab Attestation statement: I reviewed the patient's lab results. <Cindy Goldman MD - Last Filed: 05/14/22 22:19> Result Diagrams: : 05/14/22 17:34 05/14/22 17:34 <GUANACO Toussaint - Last Filed: 05/14/22 17:10> Labs: Lab Results 05/14/22 05/14/22 05/14/22 Range/Units 17:34 17:34 17:34 WBC 4.1 L (4.8-10.8) X10*3/uL RBC 5.11 (4.60-5.80) X10*6/uL Hgb 13.6 L (14.0-18.0) g/dl Hct 41.0 L (42.0-52.0) % MCV 80.2 (80.0-98.0) fL MCH 26.6 L (27.0-33.0) pg MCHC 33.2 (31.0-36.0) g/dl RDW 12.6 (11.0-16.0) % Plt Count 202 D (160-400) X10*3/uL MPV 10.1 (9.4-12.4) fL Immature Gran % (Auto) 0.0 (0.0-0.4) % Neut % (Auto) 60.4 (45-73) % Lymph % (Auto) 29.8 (20-40) % [place] % (Auto) 9.1 (2-11) % Eos % (Auto) 0.2 (0-4) % Baso % (Auto) 0.5 (0-2) % Lymph # (Auto) 1.2 (1.2-4.9) X10*3/uL [place] # (Auto) 0.4 (0.1-1.2) X10*3/uL Eos # (Auto) 0.0 (0.0-0.4) X10*3/uL Baso # (Auto) 0.0 (0.0-0.2) X10*3/uL Abs Immat Gran (auto) 0.00 (0.00-0.03) X10*3/uL Absolute Neuts (auto) 2.5 (2.0-8.3) x10*3/uL Absolute Nucleated RBC 0.000 (0.0-0.012) X10*3/uL Nucleated RBC % (auto) 0.0 (0.0-0.2) /100WBC Smear Tech's Comments VERIFIED PT 11.0 (10.0-13.1) SEC INR 1.0 (0.9-1.1) VBG pH (7.32-7.43) VBG pCO2 mmHg VBG pO2 mmHg VBG HCO3 (22-26) mmol/L VBG O2 Saturation % VBG Base Excess mmol/L Sodium 134 L (135-145) mmol/L Potassium 5.0 (3.3-5.1) mmol/L Chloride 100 (96-108) mmol/L Carbon Dioxide 28 (22-29) mmol/L Anion Gap 11 L (12-20) BUN 19 H (9-16) mg/dL Creatinine 1.31 (0.5-1.4) mg/dL Estim Creat Clear Calc 69.6 Estimated GFR 58 Random Glucose 404 H* (60-115) mg/dL Calcium 9.3 (8.4-10.2) mg/dL Magnesium 1.9 (1.6-2.6) mg/dL Total Bilirubin 0.4 (0.0-1.0) mg/dL Direct Bilirubin < 0.2 (0.0-0.5) mg/dL AST 15 (5-37) U/L ALT 21 (0-40) U/L Alkaline Phosphatase 73 (39-117) U/L Troponin I High Sens (<3.5-35.0) ng/L Total Protein 6.5 (6.5-8.0) g/dL Albumin 3.6 (3.5-5.0) g/dL Lipase 20 (8-78) U/L Urine Color Urine Appearance Urine pH (5.0-9.0) Ur Specific [place] (1.005-1.025) Urine Protein (Neg-Trace) mg/dL Urine Glucose (UA) (Negative) mg/dL Urine Ketones (Negative) mg/dL Urine Blood (Negative) Urine Nitrite (Negative) Ur Leukocyte Esterase (Negative) Urine RBC (0-2) /HPF Urine WBC (0-5) /HPF Ur Squamous Epith Cells (0-2) /HPF Urine Bacteria (None Seen) Hyaline Casts (0-2) /LPF Acetone, Qual Negative (Negative) Influenza Type A (PCR) (Negative) Influenza Type B (PCR) (Negative) RSV RNA Qual (PCR) (Negative) SARS-CoV-2 RNA (RT-PCR) (Negative) 05/14/22 05/14/22 05/14/22 Range/Units 17:34 17:34 17:47 WBC (4.8-10.8) X10*3/uL RBC (4.60-5.80) X10*6/uL Hgb (14.0-18.0) g/dl Hct (42.0-52.0) % MCV (80.0-98.0) fL MCH (27.0-33.0) pg MCHC (31.0-36.0) g/dl RDW (11.0-16.0) % Plt Count (160-400) X10*3/uL MPV (9.4-12.4) fL Immature Gran % (Auto) (0.0-0.4) % Neut % (Auto) (45-73) % Lymph % (Auto) (20-40) % [place] % (Auto) (2-11) % Eos % (Auto) (0-4) % Baso % (Auto) (0-2) % Lymph # (Auto) (1.2-4.9) X10*3/uL [place] # (Auto) (0.1-1.2) X10*3/uL Eos # (Auto) (0.0-0.4) X10*3/uL Baso # (Auto) (0.0-0.2) X10*3/uL Abs Immat Gran (auto) (0.00-0.03) X10*3/uL Absolute Neuts (auto) (2.0-8.3) x10*3/uL Absolute Nucleated RBC (0.0-0.012) X10*3/uL Nucleated RBC % (auto) (0.0-0.2) /100WBC Smear Tech's Comments PT (10.0-13.1) SEC INR (0.9-1.1) VBG pH (7.32-7.43) VBG pCO2 mmHg VBG pO2 mmHg VBG HCO3 (22-26) mmol/L VBG O2 Saturation % VBG Base Excess mmol/L Sodium (135-145) mmol/L Potassium (3.3-5.1) mmol/L Chloride (96-108) mmol/L Carbon Dioxide (22-29) mmol/L Anion Gap (12-20) BUN (9-16) mg/dL Creatinine (0.5-1.4) mg/dL Estim Creat Clear Calc Estimated GFR Random Glucose (60-115) mg/dL Calcium (8.4-10.2) mg/dL Magnesium (1.6-2.6) mg/dL Total Bilirubin (0.0-1.0) mg/dL Direct Bilirubin (0.0-0.5) mg/dL AST (5-37) U/L ALT (0-40) U/L Alkaline Phosphatase (39-117) U/L Troponin I High Sens < 3.5 (<3.5-35.0) ng/L Total Protein (6.5-8.0) g/dL Albumin (3.5-5.0) g/dL Lipase (8-78) U/L Urine Color Yellow Urine Appearance Clear Urine pH 5.5 (5.0-9.0) Ur Specific [place] >= 1.030 H (1.005-1.025) Urine Protein 30 (1+) H (Neg-Trace) mg/dL Urine Glucose (UA) >=1000 H (Negative) mg/dL Urine Ketones Negative (Negative) mg/dL Urine Blood Negative (Negative) Urine Nitrite Negative (Negative) Ur Leukocyte Esterase Negative (Negative) Urine RBC 0-2 (0-2) /HPF Urine WBC 0-5 (0-5) /HPF Ur Squamous Epith Cells 0-2 (0-2) /HPF Urine Bacteria None Seen (None Seen) Hyaline Casts 0-2 (0-2) /LPF Acetone, Qual (Negative) Influenza Type A (PCR) POSITIVE A (Negative) Influenza Type B (PCR) NEGATIVE (Negative) RSV RNA Qual (PCR) NEGATIVE (Negative) SARS-CoV-2 RNA (RT-PCR) NEGATIVE (Negative) 05/14/22 Range/Units 19:00 WBC (4.8-10.8) X10*3/uL RBC (4.60-5.80) X10*6/uL Hgb (14.0-18.0) g/dl Hct (42.0-52.0) % MCV (80.0-98.0) fL MCH (27.0-33.0) pg MCHC (31.0-36.0) g/dl RDW (11.0-16.0) % Plt Count (160-400) X10*3/uL MPV (9.4-12.4) fL Immature Gran % (Auto) (0.0-0.4) % Neut % (Auto) (45-73) % Lymph % (Auto) (20-40) % [place] % (Auto) (2-11) % Eos % (Auto) (0-4) % Baso % (Auto) (0-2) % Lymph # (Auto) (1.2-4.9) X10*3/uL [place] # (Auto) (0.1-1.2) X10*3/uL Eos # (Auto) (0.0-0.4) X10*3/uL Baso # (Auto) (0.0-0.2) X10*3/uL Abs Immat Gran (auto) (0.00-0.03) X10*3/uL Absolute Neuts (auto) (2.0-8.3) x10*3/uL Absolute Nucleated RBC (0.0-0.012) X10*3/uL Nucleated RBC % (auto) (0.0-0.2) /100WBC Smear Tech's Comments PT (10.0-13.1) SEC INR (0.9-1.1) VBG pH 7.39 (7.32-7.43) VBG pCO2 43 mmHg VBG pO2 37 mmHg VBG HCO3 26 (22-26) mmol/L VBG O2 Saturation 57.0 % VBG Base Excess 1.6 mmol/L Sodium (135-145) mmol/L Potassium (3.3-5.1) mmol/L Chloride (96-108) mmol/L Carbon Dioxide (22-29) mmol/L Anion Gap (12-20) BUN (9-16) mg/dL Creatinine (0.5-1.4) mg/dL Estim Creat Clear Calc Estimated GFR Random Glucose (60-115) mg/dL Calcium (8.4-10.2) mg/dL Magnesium (1.6-2.6) mg/dL Total Bilirubin (0.0-1.0) mg/dL Direct Bilirubin (0.0-0.5) mg/dL AST (5-37) U/L ALT (0-40) U/L Alkaline Phosphatase (39-117) U/L Troponin I High Sens (<3.5-35.0) ng/L Total Protein (6.5-8.0) g/dL Albumin (3.5-5.0) g/dL Lipase (8-78) U/L Urine Color Urine Appearance Urine pH (5.0-9.0) Ur Specific [place] (1.005-1.025) Urine Protein (Neg-Trace) mg/dL Urine Glucose (UA) (Negative) mg/dL Urine Ketones (Negative) mg/dL Urine Blood (Negative) Urine Nitrite (Negative) Ur Leukocyte Esterase (Negative) Urine RBC (0-2) /HPF Urine WBC (0-5) /HPF Ur Squamous Epith Cells (0-2) /HPF Urine Bacteria (None Seen) Hyaline Casts (0-2) /LPF Acetone, Qual (Negative) Influenza Type A (PCR) (Negative) Influenza Type B (PCR) (Negative) RSV RNA Qual (PCR) (Negative) SARS-CoV-2 RNA (RT-PCR) (Negative) <GUANACO Toussaint - Last Filed: 05/14/22 17:10> Lab Results 05/14/22 05/14/22 05/14/22 Range/Units 17:34 17:34 17:34 WBC 4.1 L (4.8-10.8) X10*3/uL RBC 5.11 (4.60-5.80) X10*6/uL Hgb 13.6 L (14.0-18.0) g/dl Hct 41.0 L (42.0-52.0) % MCV 80.2 (80.0-98.0) fL MCH 26.6 L (27.0-33.0) pg MCHC 33.2 (31.0-36.0) g/dl RDW 12.6 (11.0-16.0) % Plt Count 202 D (160-400) X10*3/uL MPV 10.1 (9.4-12.4) fL Immature Gran % (Auto) 0.0 (0.0-0.4) % Neut % (Auto) 60.4 (45-73) % Lymph % (Auto) 29.8 (20-40) % [place] % (Auto) 9.1 (2-11) % Eos % (Auto) 0.2 (0-4) % Baso % (Auto) 0.5 (0-2) % Lymph # (Auto) 1.2 (1.2-4.9) X10*3/uL [place] # (Auto) 0.4 (0.1-1.2) X10*3/uL Eos # (Auto) 0.0 (0.0-0.4) X10*3/uL Baso # (Auto) 0.0 (0.0-0.2) X10*3/uL Abs Immat Gran (auto) 0.00 (0.00-0.03) X10*3/uL Absolute Neuts (auto) 2.5 (2.0-8.3) x10*3/uL Absolute Nucleated RBC 0.000 (0.0-0.012) X10*3/uL Nucleated RBC % (auto) 0.0 (0.0-0.2) /100WBC Smear Tech's Comments VERIFIED PT 11.0 (10.0-13.1) SEC INR 1.0 (0.9-1.1) VBG pH (7.32-7.43) VBG pCO2 mmHg VBG pO2 mmHg VBG HCO3 (22-26) mmol/L VBG O2 Saturation % VBG Base Excess mmol/L Sodium 134 L (135-145) mmol/L Potassium 5.0 (3.3-5.1) mmol/L Chloride 100 (96-108) mmol/L Carbon Dioxide 28 (22-29) mmol/L Anion Gap 11 L (12-20) BUN 19 H (9-16) mg/dL Creatinine 1.31 (0.5-1.4) mg/dL Estim Creat Clear Calc 69.6 Estimated GFR 58 Random Glucose 404 H* (60-115) mg/dL Calcium 9.3 (8.4-10.2) mg/dL Magnesium 1.9 (1.6-2.6) mg/dL Total Bilirubin 0.4 (0.0-1.0) mg/dL Direct Bilirubin < 0.2 (0.0-0.5) mg/dL AST 15 (5-37) U/L ALT 21 (0-40) U/L Alkaline Phosphatase 73 (39-117) U/L Troponin I High Sens (<3.5-35.0) ng/L Total Protein 6.5 (6.5-8.0) g/dL Albumin 3.6 (3.5-5.0) g/dL Lipase 20 (8-78) U/L Urine Color Urine Appearance Urine pH (5.0-9.0) Ur Specific [place] (1.005-1.025) Urine Protein (Neg-Trace) mg/dL Urine Glucose (UA) (Negative) mg/dL Urine Ketones (Negative) mg/dL Urine Blood (Negative) Urine Nitrite (Negative) Ur Leukocyte Esterase (Negative) Urine RBC (0-2) /HPF Urine WBC (0-5) /HPF Ur Squamous Epith Cells (0-2) /HPF Urine Bacteria (None Seen) Hyaline Casts (0-2) /LPF Acetone, Qual Negative (Negative) Influenza Type A (PCR) (Negative) Influenza Type B (PCR) (Negative) RSV RNA Qual (PCR) (Negative) SARS-CoV-2 RNA (RT-PCR) (Negative) 05/14/22 05/14/22 05/14/22 Range/Units 17:34 17:34 17:47 WBC (4.8-10.8) X10*3/uL RBC (4.60-5.80) X10*6/uL Hgb (14.0-18.0) g/dl Hct (42.0-52.0) % MCV (80.0-98.0) fL MCH (27.0-33.0) pg MCHC (31.0-36.0) g/dl RDW (11.0-16.0) % Plt Count (160-400) X10*3/uL MPV (9.4-12.4) fL Immature Gran % (Auto) (0.0-0.4) % Neut % (Auto) (45-73) % Lymph % (Auto) (20-40) % [place] % (Auto) (2-11) % Eos % (Auto) (0-4) % Baso % (Auto) (0-2) % Lymph # (Auto) (1.2-4.9) X10*3/uL [place] # (Auto) (0.1-1.2) X10*3/uL Eos # (Auto) (0.0-0.4) X10*3/uL Baso # (Auto) (0.0-0.2) X10*3/uL Abs Immat Gran (auto) (0.00-0.03) X10*3/uL Absolute Neuts (auto) (2.0-8.3) x10*3/uL Absolute Nucleated RBC (0.0-0.012) X10*3/uL Nucleated RBC % (auto) (0.0-0.2) /100WBC Smear Tech's Comments PT (10.0-13.1) SEC INR (0.9-1.1) VBG pH (7.32-7.43) VBG pCO2 mmHg VBG pO2 mmHg VBG HCO3 (22-26) mmol/L VBG O2 Saturation % VBG Base Excess mmol/L Sodium (135-145) mmol/L Potassium (3.3-5.1) mmol/L Chloride (96-108) mmol/L Carbon Dioxide (22-29) mmol/L Anion Gap (12-20) BUN (9-16) mg/dL Creatinine (0.5-1.4) mg/dL Estim Creat Clear Calc Estimated GFR Random Glucose (60-115) mg/dL Calcium (8.4-10.2) mg/dL Magnesium (1.6-2.6) mg/dL Total Bilirubin (0.0-1.0) mg/dL Direct Bilirubin (0.0-0.5) mg/dL AST (5-37) U/L ALT (0-40) U/L Alkaline Phosphatase (39-117) U/L Troponin I High Sens < 3.5 (<3.5-35.0) ng/L Total Protein (6.5-8.0) g/dL Albumin (3.5-5.0) g/dL Lipase (8-78) U/L Urine Color Yellow Urine Appearance Clear Urine pH 5.5 (5.0-9.0) Ur Specific [place] >= 1.030 H (1.005-1.025) Urine Protein 30 (1+) H (Neg-Trace) mg/dL Urine Glucose (UA) >=1000 H (Negative) mg/dL Urine Ketones Negative (Negative) mg/dL Urine Blood Negative (Negative) Urine Nitrite Negative (Negative) Ur Leukocyte Esterase Negative (Negative) Urine RBC 0-2 (0-2) /HPF Urine WBC 0-5 (0-5) /HPF Ur Squamous Epith Cells 0-2 (0-2) /HPF Urine Bacteria None Seen (None Seen) Hyaline Casts 0-2 (0-2) /LPF Acetone, Qual (Negative) Influenza Type A (PCR) POSITIVE A (Negative) Influenza Type B (PCR) NEGATIVE (Negative) RSV RNA Qual (PCR) NEGATIVE (Negative) SARS-CoV-2 RNA (RT-PCR) NEGATIVE (Negative) 05/14/22 Range/Units 19:00 WBC (4.8-10.8) X10*3/uL RBC (4.60-5.80) X10*6/uL Hgb (14.0-18.0) g/dl Hct (42.0-52.0) % MCV (80.0-98.0) fL MCH (27.0-33.0) pg MCHC (31.0-36.0) g/dl RDW (11.0-16.0) % Plt Count (160-400) X10*3/uL MPV (9.4-12.4) fL Immature Gran % (Auto) (0.0-0.4) % Neut % (Auto) (45-73) % Lymph % (Auto) (20-40) % [place] % (Auto) (2-11) % Eos % (Auto) (0-4) % Baso % (Auto) (0-2) % Lymph # (Auto) (1.2-4.9) X10*3/uL [place] # (Auto) (0.1-1.2) X10*3/uL Eos # (Auto) (0.0-0.4) X10*3/uL Baso # (Auto) (0.0-0.2) X10*3/uL Abs Immat Gran (auto) (0.00-0.03) X10*3/uL Absolute Neuts (auto) (2.0-8.3) x10*3/uL Absolute Nucleated RBC (0.0-0.012) X10*3/uL Nucleated RBC % (auto) (0.0-0.2) /100WBC Smear Tech's Comments PT (10.0-13.1) SEC INR (0.9-1.1) VBG pH 7.39 (7.32-7.43) VBG pCO2 43 mmHg VBG pO2 37 mmHg VBG HCO3 26 (22-26) mmol/L VBG O2 Saturation 57.0 % VBG Base Excess 1.6 mmol/L Sodium (135-145) mmol/L Potassium (3.3-5.1) mmol/L Chloride (96-108) mmol/L Carbon Dioxide (22-29) mmol/L Anion Gap (12-20) BUN (9-16) mg/dL Creatinine (0.5-1.4) mg/dL Estim Creat Clear Calc Estimated GFR Random Glucose (60-115) mg/dL Calcium (8.4-10.2) mg/dL Magnesium (1.6-2.6) mg/dL Total Bilirubin (0.0-1.0) mg/dL Direct Bilirubin (0.0-0.5) mg/dL AST (5-37) U/L ALT (0-40) U/L Alkaline Phosphatase (39-117) U/L Troponin I High Sens (<3.5-35.0) ng/L Total Protein (6.5-8.0) g/dL Albumin (3.5-5.0) g/dL Lipase (8-78) U/L Urine Color Urine Appearance Urine pH (5.0-9.0) Ur Specific [place] (1.005-1.025) Urine Protein (Neg-Trace) mg/dL Urine Glucose (UA) (Negative) mg/dL Urine Ketones (Negative) mg/dL Urine Blood (Negative) Urine Nitrite (Negative) Ur Leukocyte Esterase (Negative) Urine RBC (0-2) /HPF Urine WBC (0-5) /HPF Ur Squamous Epith Cells (0-2) /HPF Urine Bacteria (None Seen) Hyaline Casts (0-2) /LPF Acetone, Qual (Negative) Influenza Type A (PCR) (Negative) Influenza Type B (PCR) (Negative) RSV RNA Qual (PCR) (Negative) SARS-CoV-2 RNA (RT-PCR) (Negative) <Cindy Goldman MD - Last Filed: 05/14/22 22:19> Independent Interpretation I performed an independent interpretation of an: EKG (Normal sinus rhythm at 82 beats per minutes, normal intervals, normal axis deviation, no ST-T changes.), Plain X-Ray (No acute intrathoracic pathology.) and CT Scan (Head: No acute intracranial pathology.) <Cindy Goldman MD - Last Filed: 05/14/22 22:19> Radiology Impression Discussion of test interpretation with radiology: I have reviewed the radiologist's reading. <Cindy Goldman MD - Last Filed: 05/14/22 22:19> Discharge Plan Discharge Clinical Impression: Influenza A, Hyperglycemia <GUANACO Toussaint - Last Filed: 05/14/22 17:10> Patient Disposition: Home, Self-Care <GUANACO Toussaint - Last Filed: 05/14/22 17:10> Instructions: Influenza (ED) <GUANACO Toussaint - Last Filed: 05/14/22 17:10> Prescriptions: No Action omeprazole 20 mg capsule,delayed release(DR/EC) 20 mg PO DAILY Qty: 90 3RF famotidine [Pepcid] 20 mg tablet 20 mg PO BEDTIME Qty: 90 3RF bismuth subsalicylate 262 mg tablet,chewable 2 tab PO QID 14 Days Qty: 112 0RF metronidazole 500 mg tablet 1,000 mg PO BID Qty: 56 0RF tetracycline 500 mg capsule 1,000 mg PO Q12H Qty: 56 0RF hydrochlorothiazide 12.5 mg tablet 12.5 mg PO DAILY amlodipine 5 mg tablet 5 mg PO DAILY atorvastatin 40 mg tablet 40 mg PO BEDTIME metformin 500 mg tablet 500 mg PO BID Lantus Solostar U-100 Insulin 100 unit/mL (3 mL) insulin pen 50 unit subcut QPM insulin aspart U-100 [Novolog FlexPen U-100 Insulin] 100 unit/mL (3 mL) insulin pen See Rx Instructions subcut TID Rx Instructions: as directed per sliding scale subcut 3 times a day; hydralazine 25 mg tablet 25 mg PO BID Trulicity 1.5 mg/0.5 mL pen injector 1.5 mg subcut QWEEK (DME) lancets [TRUEplus Lancets] 33 gauge misc See Rx Instructions Not Applicable QID Qty: 100 Rx Instructions: As directed cholecalciferol (vitamin D3) [Vitamin D3] 25 mcg (1,000 unit) capsule 25 mcg PO QAM fluoxetine 20 mg capsule 20 mg PO QAM losartan 50 mg tablet 50 mg PO QAM sennosides [Natural Senna Laxative] 8.6 mg tablet 8.6 mg PO BEDTIME Qty: 90 3RF <GUANACO Toussaint - Last Filed: 05/14/22 17:10> Referrals: Vince River MD [Primary Care Provider] - <GUANACO Toussaint - Last Filed: 05/14/22 17:10>
[2022-05-14 17:08] VITALS: BP 142/83; PULSE 87; RESP 18; TEMP 36.4; O2SAT 97; BMI 27.3
--- NOTE | 2022-05-14 17:09 | ECG_ITS ---
Test Reason : CHEST PAIN Blood Pressure : / mmHG Vent. Rate : 082 BPM Atrial Rate : 082 BPM P-R Int : 162 ms QRS Dur : 072 ms QT Int : 390 ms P-R-T Axes : 060 014 041 degrees QTc Int : 455 ms Normal sinus rhythm Normal ECG When compared with ECG of 04-SEP-2011 07:14, Vent. rate has increased BY 28 BPM Referred By: Vera Garcia Electronically Signed By:АННА CERVANTES
[2022-05-14 17:47] LABS: Basophils Percent Auto 0.5 % (0-2); Eosinophils Percent Auto 0.2 % (0-4); Hemoglobin 13.6 g/dl (14.0-18.0); Lymphocytes Absolute Auto 1.2 X10*3/uL (1.2-4.9); Lymphocytes Percent Auto 29.8 % (20-40); MANUAL DIFF FLAG SCAN; Mean Corpuscular HGB Conc 33.2 g/dl (31.0-36.0); Mean Corpuscular Hemoglobin 26.6 pg (27.0-33.0); Mean Corpuscular Volume 80.2 fL (80.0-98.0); Mean Platelet Volume 10.1 fL (9.4-12.4); Monocytes Absolute Auto 0.4 X10*3/uL (0.1-1.2); Monocytes Percent Auto 9.1 % (2-11); Neutrophils Absolute Auto 2.5 x10*3/uL (2.0-8.3); Neutrophils Percent Auto 60.4 % (45-73); Platelet Count 202 X10*3/uL (160-400); Red Blood Count 5.11 X10*6/uL (4.60-5.80); Red Cell Distribution Width 12.6 % (11.0-16.0); SCAN SMEAR FLAG 1; White Blood Count 4.1 X10*3/uL (4.8-10.8)
[2022-05-14 17:55] LABS: Appearance Urine Clear; Color Urine Yellow; Glucose Urine UA >=1000 mg/dL (Negative); Leukocyte Esterase Urine Negative (Negative); Nitrite Urine Negative (Negative); PH 5.5 (5.0-9.0); Specific Gravity - Urine >= 1.030 (1.005-1.025); UMIC TRIGGER UACC YES; Urine Blood Negative (Negative); Urine Ketones Negative (Negative); Urine Protein 30 (1+) mg/dL (Neg-Trace)
[2022-05-14 18:00] LABS: Bacteria Urine None Seen (None Seen); Hyaline Casts Urine 0-2 /LPF (0-2); RBC Urine 0-2 /HPF (0-2); Squamous Epithelial Cell Urine 0-2 /HPF (0-2); WBC Urine 0-5 /HPF (0-5)
[2022-05-14 18:06] LABS: SLIDE REVIEW VERIFIED
[2022-05-14 18:14] LABS: Alanine Aminotransferase 21 U/L (0-40); Albumin Level 3.6 g/dL (3.5-5.0); Alkaline Phosphatase 73 U/L (39-117); Anion Gap 11 (12-20); Aspartate Amino Transferase 15 U/L (5-37); Bilirubin Direct < 0.2 mg/dL (0.0-0.5); Bilirubin Total 0.4 mg/dL (0.0-1.0); Blood Urea Nitrogen 19 mg/dL (9-16); Calcium 9.3 mg/dL (8.4-10.2); Carbon Dioxide 28 mmol/L (22-29); Chloride 100 mmol/L (96-108); Creatinine Clr Calc Pharmacy 69.6; Estimated Glomerular Filt Rate 58; Glucose Random 404 mg/dL (60-115); Lipase 20 U/L (8-78); Magnesium 1.9 mg/dL (1.6-2.6); Sodium 134 mmol/L (135-145); Total Protein 6.5 g/dL (6.5-8.0)
[2022-05-14 18:17] LABS: Troponin-I High Sensitivity < 3.5 ng/L (<3.5-35.0)
[2022-05-14 18:25] LABS: Influenza A PCR POSITIVE (Negative); Influenza B PCR NEGATIVE (Negative); Resp Syncy Virus RNA Qual PCR NEGATIVE (Negative); SARS COV2 PCR INHOUSE NEGATIVE (Negative)
[2022-05-14 19:05] LABS: Venous Blood Gas Refer to POC result
[2022-05-14 19:06] LABS: VBG Base Excess 1.6 mmol/L; VBG HCO3 26 mmol/L (22-26); VBG pCO2 43 mmHg; VBG pH 7.39 (7.32-7.43); VBG pO2 37 mmHg
[2022-05-14 20:45] LABS: Acetone, serum QL Negative (Negative)
[2022-05-14 21:49] VITALS: BP 151/85; PULSE 76; RESP 18; TEMP 36.7; O2SAT 98
[2022-05-14] MEDS: 0.9 % Sodium Chloride 1,000 ML 999 ML IV ×2 (21:51→23:04)
--- NOTE | 2022-05-14 21:57 | PC.NURSE ---
Patient is alert and oriented x3. 20G was placed to Left AC with no problem. Patient is on Fluids right now, continue with plan of care.
[2022-05-14] MEDS: Insulin Regular, Human 100 UNIT/ML 3 ML VIAL IVPUSH (23:02)
[2022-05-14 23:07] VITALS: BP 161/82; PULSE 70
[2022-05-14 23:12] VITALS: BP 161/85; PULSE 78
[2022-05-14 23:13] VITALS: BP 148/82; PULSE 91
[2022-05-14 23:54] LABS: Glucose, Whole Blood 124 mg/dL (60-115)
== END 2022-05-15 00:18 | disposition home or self-care (01) ==
PROVIDERS: Physician Assistant; Emergency Provider Emergency Medicine; PCP Internal Medicine
DX: J11.1 Influenza due to unidentified influenza virus with other respiratory manifestations (principal); E11.65 Type 2 diabetes mellitus with hyperglycemia; R11.2 Nausea with vomiting, unspecified; Z20.822 Contact with and (suspected) exposure to COVID-19; I10 Essential (primary) hypertension; E78.5 Hyperlipidemia, unspecified; Z79.02 Long term (current) use of antithrombotics/antiplatelets; Z79.4 Long term (current) use of insulin; Z79.899 Other long term (current) drug therapy
CPT/HCPCS: 0241U; 36415; 70450; 71045; 80048; 80076; 81001; 82009; 82803; 82947; 83690; 83735; 84484; 85025; 85610; 93005; 96361; 96374; 99284

== ENCOUNTER → 2022-08-09 08:52 | Outpatient (BNVA) | payer MEDICAID, SELFPAY | PROVIDERS: PCP Internal Medicine; Visit Provider Nurse Practitioner Family | DX: K21.00 Gastro-esophageal reflux disease with esophagitis, without bleeding (principal); A04.8 Other specified bacterial intestinal infections | CPT/HCPCS: 99212 ==

== ENCOUNTER → 2022-10-22 14:11 | Outpatient (BNVA) | payer MEDICAID, SELFPAY | PROVIDERS: PCP Internal Medicine; Visit Provider Nurse Practitioner Family | DX: K21.9 Gastro-esophageal reflux disease without esophagitis (principal); A04.8 Other specified bacterial intestinal infections; K59.01 Slow transit constipation; Z86.010 Personal history of colon polyps | CPT/HCPCS: 99212 ==

== ENCOUNTER 2022-12-17 17:58 | Outpatient (REF) | payer MEDICAID, SELFPAY ==
[2022-12-17 18:50] LABS: Influenza A PCR NEGATIVE (Negative); Influenza B PCR NEGATIVE (Negative); Resp Syncy Virus RNA Qual PCR NEGATIVE (Negative); SARS COV2 PCR INHOUSE NEGATIVE (Negative)
== END 2022-12-17 17:59 | disposition home or self-care (01) ==
LOC: HO.HHCLNP 17:58
PROVIDERS: Visit Provider Nurse Practitioner Primary Care
DX: J02.9 Acute pharyngitis, unspecified (principal); Z20.822 Contact with and (suspected) exposure to COVID-19
CPT/HCPCS: 0241U; 87070; 87147

== ENCOUNTER 2023-03-14 11:35 | Outpatient (REF) | payer OTHER, SELFPAY | END 2023-03-14 11:36 | disposition home or self-care (01) | LOC: HO.LNP 11:35 | PROVIDERS: Visit Provider Nurse Practitioner Family | DX: K21.9 Gastro-esophageal reflux disease without esophagitis (principal) | CPT/HCPCS: 87338 ==

== ENCOUNTER 2023-06-17 09:47 | Outpatient (AMB) | payer OTHER, SELFPAY ==
--- NOTE | 2023-06-17 09:53 | A.OFFVIS_ITS ---
Intake Vital Signs 06/17/23 09:58 Height 5 ft 7 in Weight 170 lb BMI 26.6 BP 142/69 H Blood Pressure Location Lt brachial Position Sitting Pulse 82 Intake Visit Reasons: 6 mnth followup Intake Note: Patient 6 month follow up for acid reflex. Patient cc: acid reflex with gasses and constipation. Denies any other GI issues. 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 Will add famotidine at bedtime. Patient continues to her the epigastric burning night time in morning. History of H pylori will need to repeat that. Patient was encouraged to get the stool to the lab for testing. Will treat empirically positive. Helicobacter pylori (H. pylori) History of H pylori treated in the past. Will check for eradication. He continues to have mild symptoms, better with omeprazole. Constipation Occasional constipation patient can take senna daily or on as needed basis if no bowel movement in 1-2 days. Patient was encouraged to increase fluid intake and activity to promote better bowel motility. I will see him in 6 months, sooner on as needed basis. Patient is agreeable to this plan and verbalizes understanding of instructions. He was given the opportunity to ask questions and all questions answered. ? Thank you for allowing participate in care Plan Medications Refilled famotidine (Pepcid) 20 mg PO BEDTIME 90 tabs 3RF K21.9 - Gastro-esophageal reflux disease without esophagitis TODAY'S VISIT: Patient is here today for follow-up. Patient reports that he has been feeling better, however he continues to have constipation. Patient currently is using senna moves his bowels, however sometimes patient will feel constipated. Patient reports occasional dyspepsia depending on what he eats. Patient is taking omeprazole in the morning and famotidine at bedtime. Patient denies any nausea or vomiting. Patient eats mostly [place] food. Denies abdominal pain or discomfort. Denies melena, hematochezia, unintentional weight loss or ribbon like stools. Patient will be due to go for colonoscopy in March of 2025 [facility] Medical History Diabetes Elevated cholesterol Endocarditis HTN (hypertension) Tubular adenoma Surgical History Hx of colonoscopy History of esophagogastroduodenoscopy (EGD) H/O eye surgery Family History Father No problems noted. Mother No problems noted. Social History Alcohol intake: never Patient Tobacco Use Status: Never used Tobacco Review of Systems Const Denies weight gain and Denies weight loss ENT Reports no additional complaints, Denies dysphagia and Denies odynophagia Card Reports no additional complaints Resp Reports no additional complaints GI Reports abdominal pain (Epigastric pain), Denies belching, Denies melena, Reports bloating, Reports constipation, Denies dysphagia, Denies excessive flatus, Reports dyspepsia, Reports heartburn, Denies diarrhea, Denies loose stools, Denies nausea, Denies odynophagia and Denies vomiting Reports no additional complaints Musc Reports no additional complaints Neuro Reports no additional complaints Psych Reports no additional complaints Endo Reports no additional complaints Physical Exam Vital Signs: Last Vital Signs Pulse 82 06/17/23 09:58 BP 142/69 H 06/17/23 09:58 BMI result Body Mass Index 26.6 Const General: healthy appearing, no acute distress and well developed Nutritional Appearance: well nourished Orientation/consciousness: patient oriented x3 Resp Effort & Inspection: normal respiratory effort, able to speak in complete sentences, no tracheal deviation and symmetric chest movement Auscultation: clear to auscultation bilaterally Cardio Rate: regular rate GI Inspection: Yes normal to inspection and No distended Palpation (GI): Soft to palpation, not firm, nontender and No hepatosplenomegaly present Auscultation: normal bowel sounds General: Yes no CVA tenderness Back/Spine/Pelvis Back: no CVA tenderness Skin General skin exam: elasticity normal, turgor normal and dry skin Neuro General: patient oriented x3 Psych Appearance: grossly normal Mental Status: mental status grossly normal Assessment & Plan Assessment & Plan (1) GERD (gastroesophageal reflux disease): Code(s): K21.9 - Gastro-esophageal reflux disease without esophagitis Qualifiers: Esophagitis presence: esophagitis presence not specified Qualified Code(s): K21.9 - Gastro-esophageal reflux disease without esophagitis (2) Constipation: Code(s): K59.00 - Constipation, unspecified Qualifiers: Constipation type: slow transit constipation Qualified Code(s): K59.01 - Slow transit constipation (3) Postprandial epigastric pain: Code(s): R10.13 - Epigastric pain (4) History of Helicobacter pylori infection: Code(s): Z86.19 - Personal history of other infectious and parasitic diseases Plan H pylori negative. Discussed with patient avoiding dietary triggers and late night snacking. Patient can continue omeprazole in the morning and famotidine at bedtime. Patient can continue with senna. Can start taking stool softeners. Patient was also encouraged to increase fluid intake and activity to promote better bowel motility. I will see him in 6 months, sooner on as needed basis. Patient is agreeable to this plan and verbalizes understanding he was questions and all questions Thank you for allowing me to participate in his care Medications: New docusate sodium 100 mg PO BEDTIME 90 caps 3RF K59.00 - Constipation, unspecified Refilled famotidine (Pepcid) 20 mg PO BEDTIME 90 tabs 3RF K21.9 - Gastro-esophageal reflux disease without esophagitis omeprazole 20 mg PO DAILY 90 caps 3RF K21.9 - Gastro-esophageal reflux disease without esophagitis Coding Level of Care Code Est Pt Level 3 (01413) Diagnoses Gastroesophageal reflux disease, unspecified whether esophagitis present K21.9 Esophagitis presence: esophagitis presence not specified Slow transit constipation K59.01 Constipation type: slow transit constipation Postprandial epigastric pain R10.13 History of Helicobacter pylori infection Z86.19 Time Spent (min) 25 Comment 15 minutes spent with patient and additional 10 minutes spent reviewing his records
[2023-06-17 09:58] VITALS: BP 142/69; PULSE 82; BMI 26.6
== END 2023-06-17 10:18 | disposition home or self-care (01) ==
PROVIDERS: PCP Internal Medicine; Visit Provider Nurse Practitioner Family
DX: K21.9 Gastro-esophageal reflux disease without esophagitis (principal); K59.01 Slow transit constipation; R10.13 Epigastric pain; Z86.19 Personal history of other infectious and parasitic diseases
CPT/HCPCS: 99213

== ENCOUNTER → 2023-06-17 09:47 | Outpatient (BNVA) | payer OTHER, SELFPAY | PROVIDERS: PCP Internal Medicine; Visit Provider Nurse Practitioner Family | DX: K21.9 Gastro-esophageal reflux disease without esophagitis (principal); K59.01 Slow transit constipation; R10.13 Epigastric pain; Z86.19 Personal history of other infectious and parasitic diseases | CPT/HCPCS: 99212 ==

== ENCOUNTER 2023-10-29 10:05 | Outpatient (REF) | payer OTHER, SELFPAY ==
[2023-10-29 11:00] LABS: Appearance Urine Clear; Color Urine Yellow; Glucose Urine UA >=1000 mg/dL (Negative); Leukocyte Esterase Urine Negative (Negative); Nitrite Urine Negative (Negative); Specific Gravity - Urine >= 1.030 (1.005-1.025); UMIC TRIGGER UA YES; UMIC TRIGGER UACC YES; Urine Blood Negative (Negative); Urine Ketones Negative (Negative); Urine Protein 30 (1+) mg/dL (Neg-Trace)
[2023-10-29 11:03] LABS: Bacteria Urine None Seen (None Seen); Hyaline Casts Urine 0-2 /LPF (0-2); RBC Urine 0-2 /HPF (0-2); Squamous Epithelial Cell Urine 0-2 /HPF (0-2); WBC Urine 0-5 /HPF (0-5)
[2023-10-29 12:02] LABS: Anion Gap 9 (12-20); Blood Urea Nitrogen 10 mg/dL (9-16); Calcium 8.6 mg/dL (8.4-10.2); Carbon Dioxide 25 mmol/L (22-29); Chloride 105 mmol/L (96-108); Estimated Glomerular Filt Rate > 60; Potassium 4.6 mmol/L (3.3-5.1); Sodium 134 mmol/L (135-145)
[2023-10-29 12:05] LABS: Creatinine Urine 33.15 mg/dL; Protein/Creatinine Ratio, Ur 1.21 (<0.2); Total Protein Urine Random 40 mg/dL (<12)
== END 2023-10-29 10:06 | disposition home or self-care (01) ==
LOC: HO.LAB 10:05
PROVIDERS: Visit Provider Internal Medicine Nephrology
DX: I12.9 Hypertensive chronic kidney disease with stage 1 through stage 4 chronic kidney disease, or unspecified chronic kidney disease (principal); N18.2 Chronic kidney disease, stage 2 (mild); R80.1 Persistent proteinuria, unspecified
CPT/HCPCS: 36415; 80051; 81001; 81003; 82310; 82565; 82570; 84156; 84520

== ENCOUNTER 2023-11-08 07:58 | Outpatient (REF) | payer OTHER, SELFPAY ==
[2023-11-08 09:48] LABS: Alanine Aminotransferase 13 U/L (0-40); Albumin Level 3.3 g/dL (3.5-5.0); Alkaline Phosphatase 76 U/L (39-117); Anion Gap 10 (12-20); Aspartate Amino Transferase 10 U/L (5-37); Bilirubin Total 0.8 mg/dL (0.0-1.0); Blood Urea Nitrogen 14 mg/dL (9-16); Calcium 8.9 mg/dL (8.4-10.2); Carbon Dioxide 30 mmol/L (22-29); Chloride 104 mmol/L (96-108); Cholesterol 172 mg/dL (<200); Estimated Glomerular Filt Rate > 60; Glucose Random 277 mg/dL (60-115); HDL Cholesterol 44 mg/dL (>40); LDL Cholesterol Calculated 108 mg/dL (<100); Potassium 4.5 mmol/L (3.3-5.1); Sodium 139 mmol/L (135-145); Total Protein 6.3 g/dL (6.5-8.0); Triglycerides 101 mg/dL (<150)
[2023-11-08 10:06] LABS: TSH reflex Free T4 0.58 uIU/mL (0.32-4.0)
[2023-11-08 10:14] LABS: Creatinine Urine 122.34 mg/dL; Microalbum/Creatinine Ratio Ur 601.6 ug/mg cr (<30)
== END 2023-11-08 07:59 | disposition home or self-care (01) ==
LOC: HO.LAB 07:58
PROVIDERS: PCP Internal Medicine; Visit Provider Internal Medicine
DX: E78.2 Mixed hyperlipidemia (principal); E11.3491 Type 2 diabetes mellitus with severe nonproliferative diabetic retinopathy without macular edema, right eye; Z79.4 Long term (current) use of insulin; I10 Essential (primary) hypertension
CPT/HCPCS: 36415; 80053; 80061; 82043; 82570; 84443

== ENCOUNTER 2023-12-16 09:48 | Outpatient (AMB) | payer OTHER, SELFPAY ==
--- NOTE | 2023-12-16 09:57 | MHC.OFFVIS ---
Vital Signs 12/16/23 09:58 Height 5 ft 7 in Weight 171 lb 15.369 oz BMI 26.9 BP 153/88 H Blood Pressure Location Lt brachial Position Sitting Pulse 81 Intake Visit Reasons: 6 month follow up Intake Note: Satya presents in the office as a 6 month follow up. CC: He states that he gets reflux in his epigastric region. 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 Discussed with patient avoiding dietary triggers and late night snacking. Patient can continue omeprazole in the morning and famotidine at bedtime. Patient can continue with senna. Can start taking stool softeners. Patient was also encouraged to increase fluid intake and activity to promote better bowel motility. I will see him in 6 months, sooner on as needed basis. Patient is agreeable to this plan and verbalizes understanding he was questions and all questions ? Thank you for allowing me to participate in his care Medications New docusate sodium 100 mg PO BEDTIME 90 caps 3RF K59.00 Refilled famotidine (Pepcid) 20 mg PO BEDTIME 90 tabs 3RF K21.9 omeprazole 20 mg PO DAILY 90 caps 3RF K21.9 TODAY'S VISIT Patient is here today for follow-up. Patient reports that he was unable to get his medication as insurance was not covering. He has not been taking anything for his reflux. Patient reports that his reflux happens few times throughout the day depending on what he eats. Patient reports occasional dyspepsia without dysphagia or odynophagia. Patient reports postprandial abdominal bloating and epigastric discomfort. Patient was given omeprazole 20 mg in the morning and famotidine 20 mg at bedtime. Patient denies any melena, hematochezia, unintentional weight loss or ribbon like stools. Patient had colonoscopy in March of 2022 suboptimal prep and recommendation was made for patient to return for colorectal screening in 3-5 years. [facility] Medical History Tubular adenoma Elevated cholesterol HTN (hypertension) Endocarditis Diabetes Surgical History Hx of colonoscopy History of esophagogastroduodenoscopy (EGD) H/O eye surgery Family History Father No problems noted. Mother No problems noted. Social History Alcohol intake: never Patient Tobacco Use Status: Never used Tobacco Review of Systems Const Denies weight gain and Denies weight loss ENT Reports no additional complaints, Denies dysphagia and Denies odynophagia Card Reports no additional complaints Resp Reports no additional complaints GI Reports abdominal pain (Epigastric pain), Denies belching, Denies melena, Reports bloating, Denies constipation, Denies dysphagia, Denies excessive flatus, Denies dyspepsia, Reports heartburn, Denies diarrhea, Denies loose stools, Denies nausea, Denies odynophagia and Denies vomiting Reports no additional complaints Musc Reports no additional complaints Neuro Reports no additional complaints Psych Reports no additional complaints Endo Reports no additional complaints Physical Exam Vital Signs: Last Vital Signs Pulse 81 12/16/23 09:58 BP 153/88 H 12/16/23 09:58 BMI result Body Mass Index 26.9 Const General: healthy appearing, no acute distress and well developed Nutritional Appearance: well nourished Orientation/consciousness: patient oriented x3 Resp Effort & Inspection: normal respiratory effort, able to speak in complete sentences, no tracheal deviation and symmetric chest movement Auscultation: clear to auscultation bilaterally Cardio Rate: regular rate GI Inspection: Yes normal to inspection and No distended Palpation (GI): Soft to palpation, not firm, nontender and No hepatosplenomegaly present Auscultation: normal bowel sounds General: Yes no CVA tenderness Back/Spine/Pelvis Back: no CVA tenderness Skin General skin exam: elasticity normal, turgor normal and dry skin Neuro General: patient oriented x3 Psych Appearance: grossly normal Mental Status: mental status grossly normal Assessment & Plan Assessment & Plan (1) GERD (gastroesophageal reflux disease): Code(s): K21.9 - Gastro-esophageal reflux disease without esophagitis Qualifiers: Esophagitis presence: esophagitis presence not specified Qualified Code(s): K21.9 - Gastro-esophageal reflux disease without esophagitis (2) Constipation: Code(s): K59.00 - Constipation, unspecified Qualifiers: Constipation type: slow transit constipation Qualified Code(s): K59.01 - Slow transit constipation (3) Postprandial epigastric pain: Code(s): R10.13 - Epigastric pain (4) History of Helicobacter pylori infection: Code(s): Z86.19 - Personal history of other infectious and parasitic diseases Plan Patient will start taking pantoprazole in the morning. Will order 40 mg daily. Avoid dietary triggers and late night snacking. Staying upright for minimum 3 hours after meals discussed with patient. Patient reports that he is no longer need to take senna as he is moving his bowels without any issues. Increase fluid intake and activity to promote better bowel motility. Patient report in the office in 6 months, sooner on as needed basis. He is agreeable to this plan and verbalizes understanding of instructions. He was given the opportunity to ask questions and all questions answered. Thank you for allowing me to participate in his care Patient will be due to go for colonoscopy in March of 2025, sooner if clinically necessary Medications: New pantoprazole take one tablet half an hour before breakfast 40 mg PO DAILY 30 tabs 2RF K21.9 - Gastro-esophageal reflux disease without esophagitis Discontinued sennosides (Natural Senna Laxative) Discontinued Reason: Patient no longer taking 8.6 mg PO BEDTIME 90 tabs 3RF constipation K59.00 - Constipation, unspecified famotidine (Pepcid) Discontinued Reason: Doctor's Order 20 mg PO BEDTIME 90 tabs 3RF K21.9 - Gastro-esophageal reflux disease without esophagitis omeprazole Discontinued Reason: Doctor's Order 20 mg PO DAILY 90 caps 3RF K21.9 - Gastro-esophageal reflux disease without esophagitis Coding Level of Care Code Est Pt Level 3 (21401) Diagnoses Gastroesophageal reflux disease, unspecified whether esophagitis present K21.9 Esophagitis presence: esophagitis presence not specified Slow transit constipation K59.01 Constipation type: slow transit constipation Postprandial epigastric pain R10.13 History of Helicobacter pylori infection Z86.19 Time Spent (min) 25 Comment 15 minutes spent with patient and additional 10 minutes spent reviewing his records
[2023-12-16 09:58] VITALS: BP 153/88; PULSE 81; BMI 26.9
== END 2023-12-16 10:19 | disposition home or self-care (01) ==
PROVIDERS: PCP Internal Medicine; Visit Provider Nurse Practitioner Family
DX: K21.9 Gastro-esophageal reflux disease without esophagitis (principal); K59.01 Slow transit constipation; R10.13 Epigastric pain; Z86.19 Personal history of other infectious and parasitic diseases
CPT/HCPCS: 99213

== ENCOUNTER → 2023-12-16 09:48 | Outpatient (BNVA) | payer OTHER, SELFPAY | PROVIDERS: PCP Internal Medicine; Visit Provider Nurse Practitioner Family | DX: K21.9 Gastro-esophageal reflux disease without esophagitis (principal); K59.01 Slow transit constipation; R10.13 Epigastric pain; Z86.19 Personal history of other infectious and parasitic diseases | CPT/HCPCS: 99212 ==

== ENCOUNTER 2024-02-02 16:37 | Outpatient (REF) | payer OTHER, SELFPAY ==
[2024-02-02 18:14] LABS: MANUAL DIFF FLAG NO
[2024-02-02 18:31] LABS: Basophils Absolute Auto 0.1 X10*3/uL (0.0-0.2); Basophils Percent Auto 0.8 % (0-2); Eosinophils Absolute Auto 0.2 X10*3/uL (0.0-0.4); Eosinophils Percent Auto 2.6 % (0-4); Hematocrit 40.8 % (42.0-52.0); Hemoglobin 13.5 g/dl (14.0-18.0); Imm Gran Abs Auto 0.02 X10*3/uL (0.00-0.03); Imm Gran Pct Auto 0.3 % (0.0-0.4); Lymphocytes Absolute Auto 1.2 X10*3/uL (1.2-4.9); Lymphocytes Percent Auto 20.2 % (20-40); Mean Corpuscular HGB Conc 33.1 g/dl (31.0-36.0); Mean Corpuscular Hemoglobin 27.1 pg (27.0-33.0); Mean Corpuscular Volume 81.8 fL (80.0-98.0); Mean Platelet Volume 10.6 fL (9.4-12.4); Monocytes Absolute Auto 0.5 X10*3/uL (0.1-1.2); Monocytes Percent Auto 7.4 % (2-11); Neutrophils Absolute Auto 4.2 x10*3/uL (2.0-8.3); Neutrophils Percent Auto 68.7 % (45-73); Platelet Count 281 X10*3/uL (160-400); Red Blood Count 4.99 X10*6/uL (4.60-5.80); Red Cell Distribution Width 13.3 % (11.0-16.0); White Blood Count 6.1 X10*3/uL (4.8-10.8)
[2024-02-02 18:47] LABS: B Type Natriuretic Peptide 16 pg/mL (<100)
[2024-02-02 19:06] LABS: Alanine Aminotransferase 10 U/L (0-40); Albumin Level 3.5 g/dL (3.5-5.0); Alkaline Phosphatase 86 U/L (39-117); Anion Gap 13 (12-20); Aspartate Amino Transferase 9 U/L (5-37); Bilirubin Total 0.6 mg/dL (0.0-1.0); Blood Urea Nitrogen 15 mg/dL (9-16); Calcium 9.2 mg/dL (8.4-10.2); Carbon Dioxide 24 mmol/L (22-29); Chloride 93 mmol/L (96-108); Estimated Glomerular Filt Rate 50; Glucose Random 846 mg/dL (60-115); Potassium 5.5 mmol/L (3.3-5.1); Sodium 124 mmol/L (135-145); Total Protein 6.7 g/dL (6.5-8.0)
[2024-02-03 08:05] LABS: HIV AB/AG Nonreactive (Nonreactive); HIV Num 1 0.05 S/CO (0.00-0.99)
[2024-02-03 15:13] LABS: RPR Rapid Plasma Reagin NON-REACTIVE (NON-REACTIVE)
== END 2024-02-02 16:38 | disposition home or self-care (01) ==
LOC: HO.HHCL 16:37
PROVIDERS: Visit Provider Nurse Practitioner Family
DX: R60.0 Localized edema (principal); N48.1 Balanitis
CPT/HCPCS: 36415; 80053; 83880; 85025; 86592; 87389

== ENCOUNTER 2024-03-23 13:35 | Outpatient (REF) | payer OTHER, SELFPAY ==
[2024-03-23 16:57] LABS: Alanine Aminotransferase 11 U/L (0-40); Albumin Level 3.3 g/dL (3.5-5.0); Alkaline Phosphatase 78 U/L (39-117); Anion Gap 13 (12-20); Aspartate Amino Transferase 14 U/L (5-37); Bilirubin Total 0.4 mg/dL (0.0-1.0); Blood Urea Nitrogen 13 mg/dL (9-16); Calcium 8.9 mg/dL (8.4-10.2); Carbon Dioxide 24 mmol/L (22-29); Chloride 101 mmol/L (96-108); Estimated Glomerular Filt Rate 56; Glucose Random 408 mg/dL (60-115); Potassium 4.2 mmol/L (3.3-5.1); Sodium 134 mmol/L (135-145); Total Protein 6.3 g/dL (6.5-8.0)
== END 2024-03-23 13:36 | disposition home or self-care (01) ==
LOC: HO.HHCL 13:35
PROVIDERS: Visit Provider Internal Medicine
DX: E11.3491 Type 2 diabetes mellitus with severe nonproliferative diabetic retinopathy without macular edema, right eye (principal); Z79.4 Long term (current) use of insulin
CPT/HCPCS: 36415; 80053

== ENCOUNTER 2024-04-20 10:15 | Outpatient (AMB) | payer OTHER, SELFPAY ==
[2024-04-20 10:19] VITALS: BP 98/64; PULSE 107; BMI 26.8
--- NOTE | 2024-04-20 10:19 | A.OFFVIS_ITS ---
Vital Signs 04/20/24 10:19 Height 5 ft 7 in Weight 171 lb 4.787 oz BMI 26.8 BP 98/64 Blood Pressure Location Rt brachial Position Sitting Pulse 107 H Pulse Source Pulse Oximeter Intake Visit Reasons: T2DM/CONF Intake Note: New patient externally referred by PCP for T2DM management. Last Diabetic Eye exam: About 2 years ago Last Podiatry Visit: Doesn't have one Random Glucose: 333 mg/dl HgA1C: 15.0% 03/23/24 PCP office Relay Worker Required: Yes Relay Worker Language: [place] Manager Services: Relay Worker Present Information Interpreted: non-clinical & clinical Accompanied by: Self / Same As Patient Allergies No Known Allergies Allergy (Verified 04/20/24 10:24) HPI Comments Details: This is a 49-year-old male with a past medical history of hypertension, endocarditis, tubular adenoma, CKD 3a, diabetic retinopathy and palpitations presenting for initial consult for diabetic management. Vietnamese video network liaison used her visit. He was diagnosed with Type II diabetes more than 12 years ago. He endorses a family history of Type II diabetes (mother, father, uncle). Hemoglobin a1c 15% 03/23/24. Current medication regimen: Trulicity 0.75 mg weekly, NovoLog 3 times a day with meals per sliding scale (100-149 8 units, 150-199 10 units, 200-249 12 units, and greater than 250 14 units, Lantus 50 units at bedtime, metformin 500 mg 2 tablets twice daily, Januvia 100 mg. His emg technician prescribed Farxiga, but it was denied due to insurance. Compliance issues: Patient says his insurance stopped covering Trulicity so that is why he started Januvia couple of months ago, taking Metformin only 1 tablet twice daily, misses. 2-3 Lantus injections per week, not taking Novolog He checks his blood sugar sometimes, but not consistently. No download today. 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 Hyperlipidemia: treated with atorvastatin 40 mg ROS: Constitutional: + weight fluctuations with diabetes, no fevers or chills, +fatigue Eyes: Per HPI Respiratory: No shortness of breath Cardiovascular: No chest pain, chest pressure or chest discomfort. No palpitations or pedal edema. Gastrointestinal: No anorexia, nausea, vomiting or diarrhea. No abdominal pain Neurologic: No headache, dizziness, syncope or weakness. Skin: No wounds or ulcers. Endocrine: See HPI Physical exam: Constitutional: Alert, in no distress. Head: Normocephalic. Neck: Supple, Full range of motion. No lymphadenopathy. No palpable thyroid masses. Respiratory: Clear to auscultation. Cardiovascular: S1 S2 regular. No murmurs. Right foot: Warm and well perfused. No clubbing, cyanosis or edema. Decreased vi bratory sensation. Intact sensation to monofilament. Left foot: Warm and well perfused. No clubbing, cyanosis or edema. Decreased vibratory sensation. Intact sensation to monofilament. [facility] Medical History (Updated 04/20/24 @ 12:43 by GUANACO Albrecht) Diabetes mellitus with microalbuminuria CKD stage 3a, GFR 45-59 ml/min Proliferative diabetic retinopathy of both eyes Type 2 diabetes mellitus with hyperglycemia Tubular adenoma Elevated cholesterol HTN (hypertension) Endocarditis Diabetes Surgical History Hx of colonoscopy History of esophagogastroduodenoscopy (EGD) H/O eye surgery Family History Father No problems noted. Mother No problems noted. Social History Alcohol intake: never Patient Tobacco Use Status: Never used Tobacco Physical Exam Vital Signs: Last Vital Signs Pulse 107 H 04/20/24 10:19 BP 98/64 04/20/24 10:19 BMI result Body Mass Index 26.8 Results Reviewed Results Reviewed: Laboratory Last Values Glucose (Clinic) 333 mg/dL (60-115) H 04/20/24 10:27 Laboratory Tests 11/08/23 11/08/23 02/02/24 08:12 08:56 16:42 Creatinine 1.02 1.49 H Estimated GFR 50 Triglycerides 101 Cholesterol 172 LDL Cholesterol, Calc 108 H HDL Cholesterol 44 TSH 0.58 Urine Creatinine 122.34 Urine Microalbumin 736.0 Microalb/Creat Ratio 601.6 H 03/23/24 13:40 Creatinine 1.34 Estimated GFR 56 Triglycerides Cholesterol LDL Cholesterol, Calc HDL Cholesterol TSH Urine Creatinine Urine Microalbumin Microalb/Creat Ratio Assessment & Plan Assessment & Plan (1) Type 2 diabetes mellitus with hyperglycemia: Code(s): E11.65 - Type 2 diabetes mellitus with hyperglycemia Category: Medical (2) Proliferative diabetic retinopathy of both eyes: Code(s): E11.3593 - Type 2 diabetes mellitus with proliferative diabetic retinopathy without macular edema, bilateral Category: Medical (3) CKD stage 3a, GFR 45-59 ml/min: Code(s): N18.31 - Chronic kidney disease, stage 3a Category: Medical (4) Diabetes mellitus with microalbuminuria: Code(s): E11.29 - Type 2 diabetes mellitus with other diabetic kidney complication; R80.9 - Proteinuria, unspecified Category: Medical Plan In summary this is a 49-year-old male with uncontrolled type 2 diabetes with macrovascular complications. BMI is only 26.8. Weight loss could be due to hyperglycemia however I will check labs to evaluate for type 1 versus type 2. I will send Trulicity 0.75 mg weekly to the pharmacy. This will require a prior authorization which may take a couple weeks to process. The medication is medically necessary since he is taking Januvia, metformin and basal insulin with continued hyperglycemia. Increase Lantus 55 units nightly. Change metformin to extended release to improve compliance and take 4 tablets q.a.m. Continue Januvia 100 mg daily. Patient is not willing to do prandial insulin. We will revisit this. If it is necessary after adjusting his medications and improving compliance we could consider a Cequr device for him. We reviewed complications of uncontrolled diabetes and lifestyle modifications in detail. I will submit the sensors to the pharmacy. This will require a prior authorization which may take a couple weeks to process. If it is too expensive for the co-pay I asked him to let me know so I can send an alternative device. Advised patient to start checking blood every every morning and evening and try checking blood sugars twice during the day. 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 I sent glucose tablets to the pharmacy and reviewed proper treatment of hypoglycemia. Patient referred to dietitian and supervisor treating and pumping. Follow up for type 2 diabetes 05/07/2024. Orders: Orders C Peptide Today E11.65 - Type 2 diabetes mellitus with hyperglycemia Glutamic acid decarboxylase Ab Today E11.65 - Type 2 diabetes mellitus with hyperglycemia B Type Natriuretic Peptide Today E11.65 - Type 2 diabetes mellitus with hyperglycemia, E11.9 - Type 2 diabetes mellitus without complications Islet Cell Antibody Scrn/Titer Today E11.65 - Type 2 diabetes mellitus with hyperglycemia Creatinine Today E11.65 - Type 2 diabetes mellitus with hyperglycemia Referrals Diabetes Education Referral E11.65 - Type 2 diabetes mellitus with hyperglycemia Flyer Maker Nutrition Referral E11.65 - Type 2 diabetes mellitus with hyperglycemia Medications: New metformin ER 2,000 mg (4 x 500 mg) PO DAILY 360 tabs 1RF 90 days dulaglutide (Trulicity) 0.75 mg (0.5 mL) subcut QWEEK 2 mL 2RF insulin glargine (Lantus Solostar U-100 Insulin) 55 units (0.55 mL) subcut BEDTIME 30 mL 5RF glucose (Dex4 Glucose) until symptoms of low blood sugar are controlled 16 grams (4 x 4 gram) PO Q15M PRN 10 tabs 4RF hypoglycemia blood-glucose sensor (Dexcom G7 Sensor device) apply new sensor every 10 days as directed 3 ea 11RF E11.65 - Type 2 diabetes mellitus with hyperglycemia blood-glucose meter,continuous (Dexcom G7 Chopped Strand Operator) As directed 1 ea 0RF E11.65 - Type 2 diabetes mellitus with hyperglycemia Patient Instructions: Change Metformin to extended release pill and take 4 tablets in the morning. I will send Trulicity 0.75 mg weekly to the pharmacy. This will require a prior authorization which may take a couple weeks to process. Increase Lantus 55 units nightly. Continue Januvia 100 mg daily. I will submit the sensors to the pharmacy. This will require a prior authorization which may take a couple weeks to process. If it is too expensive for the co-pay please let me know so I can send an alternative. If you experience low blood sugar, treat this by eating a chewable fruit candy like skittles or jelly beans (about 8 pieces), 4 ounces (1/2 cup) of fruit juice (not diet), 1 tablespoon of honey or 4 glucose tablets. If your blood sugar is under 50, take double the amount of one of the above. Recheck your blood sugar in 15 minutes. We will call for you to schedule an appointment with munitions worker and supervisor treating and pumping. Bring your sensors and machine to the appointment with the supervisor treating and pumping if you receive them from the pharmacy. Cambie la metformina por clotilde pastilla de liberaci?n prolongada y tome 4 pastillas por la ma?martell. Enviar? Trulicity 0.75 mg semanalmente a la farmacia. [place] [employer] requerir? clotilde autorizaci?n previa que puede tardar un par de semanas en procesarse. Aumente Lantus 55 unidades cada noche. Contin?e con Januvia 100 mg al d?a. Enviar? los sensores a la farmacia. [place] requerir? clotilde autorizaci?n previa que puede tardar un par de semanas en procesarse. Si es demasiado cline para el copago, h?gamelo saber para poder enviarle clotilde alternativa. Si experimenta un nivel bajo de az?car en la isidro, tr?telo comiendo un joleen de fruta masticable nimco bolos o gominolas (aproximadamente 8 piezas), 4 onzas (1/2 taza) de jugo de fruta (no diet?latrice), 1 cucharada de miel o 4 tabletas de glucosa. . Si etienne nivel de az?car en isidro es inferior a 50, tome el doble de frankie de los anteriores. Vuelva a controlar etienne nivel de az?car en la isidro en 15 minutos. Le llamaremos para programar clotilde monique con un dietista y un educador en diabetes. Lleva tus sensores y m?quina a la monique con el educador en diabetes si los recibes en la farmacia. Coding Level of Care Code New Pt Level 5 (60835) Complex EM visit Add On G2211 Diagnoses Type 2 diabetes mellitus with hyperglycemia E11.65 Proliferative diabetic retinopathy of both eyes E11.3593 CKD stage 3a, GFR 45-59 ml/min N18.31 Diabetes mellitus with microalbuminuria E11.29; R80.9 Time Spent (min) 70 Comment Direct patient care, chart review, completing documentation
[2024-04-20 10:31] LABS: Glucose, Whole Blood 333 mg/dL (60-115)
--- OUTSIDE RECORDS SUMMARY | 2024-04-21 19:46 | XMS_ITS ---
Author Name [facility] Organization Unknown Results Test Name/Text Value Interpretation Date Range Source POC Glucose 196mg/dL Above high normal [id number] 65 - 99 [facility] B-OH-Butyr SerPl-sCnc 0.12mmol/L Normal [id number] - 0. 28 [facility] Hgb BldA-mCnc 13g/dL Normal [id number] 12.6 - [address] COHgb MFr BldA 2.3% Above high normal [id number] 0 - 1.5 [facility] SaO2 % BldV from pO2 46.7% Below low normal [id number] 60 - 80 [facility] Base deficit BldA-sCnc 1.1mmol/L Normal [id number] [facility] MetHgb MFr Bld 0% Below low normal [id number] 0.4 - 1.5 [facility] pH BldV 7.3 Below low normal [id number] 7.31 - 7.4 1 [facility] pCO2 BldV 53mmHG Above high normal [id number] 41 - 51 [facility] pO2 BldV 32mmHG Normal [id number] 30 - 40 [facility] HCO3 26.1mmol/L Above high normal [id number] 22 - 26 [facility] O2 Hb Measured, Venous 45.6 Normal [id number] 40 - 70 [facility] Respiratory Information ROOM AIR Normal [id number] [facility] Magnesium SerPl-mCnc 2.5mg/dL Normal [id number] 1.6 - 2.7 [facility] Globulin Ser Calc-mCnc 3.5g/dL Normal [id number] 1.5 - 3.9 [facility] ALT SerPl-cCnc 14U/L Normal [id number] 10 - 55 HH CCT AST SerPl-cCnc 15U/L Normal [id number] 10 - 55 HH CCT GFR/BSA.pred SerPlBld TSA-BQV-UxEMjh 57 Below low normal [id number] 59 - [facility] Albumin SerPl-mCnc 4g/dL Normal [id number] 3.5 - 5 [facility] Albumin/Glob SerPl 1.1Ratio Normal [id number] 1 - 3 [facility] Creat SerPl-mCnc 1.5mg/dL Above high normal [id number] 0. 5 - 1.3 [facility] Bilirub SerPl-mCnc 0.6mg/dL Normal [id number] 0.2 - 1 [facility] Anion Gap Bld-sCnc 12 Normal [id number] 7 - 17 [facility] Sodium SerPl-sCnc 136mmol/L Normal [id number] 136 - 145 [facility] Potassium SerPl-sCnc 4.4mmol/L Normal [id number] 3.4 - 5.3 [facility] Chloride SerPl-sCnc 99mmol/L Normal [id number] 98 - 10 7 [facility] Glucose SerPl-mCnc 239mg/dL Above high normal [id number] 65 - 99 [facility] Prot SerPl-mCnc 7.5g/dL Normal [id number] 6.3 - 8.3 H [facility] BUN/Creat SerPl 22Ratio Normal [id number] 10 - 25 H [facility] Calcium SerPl-mCnc 10mg/dL Normal [id number] 8.7 - 10 .5 [facility] CO2 SerPl-sCnc 25mmol/L Normal [id number] 22 - 33 HH CCT BUN SerPl-mCnc 33mg/dL Above high normal [id number] 8 - 21 [facility] ALP SerPl-cCnc 82U/L Normal [id number] 45 - 128 HH CCT Troponin T SerPl-mCnc 17ng/L Normal [id number] - 23 [facility] Delta Normal [id number] - 3 [facility] Imm Granulocytes/leuk NFr Bld Auto 0.4% Normal [id number] [facility] Lymphocytes/leuk NFr Bld Auto 13.6% Normal [id number] [facility] PMV Bld Auto 9.4fL Normal [id number] 7.5 - 12.[address] Monocytes num Bld Auto 0.57Thou/uL Normal [id number] 0. 2 - 1.5 [facility] Hct VFr Bld Auto 42.4% Normal [id number] 39 - 54 [facility] Neutrophils num Bld Auto 6.48Thou/uL Normal [id number] 2 - 7.5 [facility] Neutrophils/leuk NFr Bld Auto 76.3% Normal [id number] [facility] Basophils/leuk NFr Bld Auto 0.8% Normal [id number] [facility] Basophils num Bld Auto 0.07Thou/uL Normal [id number] 0 - 0.2 [facility] Monocytes/leuk NFr Bld Auto 6.7% Normal [id number] [facility] Eosinophil num Bld Auto 0.19Thou/uL Normal [id number] 0 - 0.7 [facility] MCH RBC Qn Auto 26.7pg Below low normal [id number] 27 - 31 [facility] Eosinophil/leuk NFr Bld Auto 2.2% Normal [id number] [facility] Imm Granulocytes num Bld Auto 0.03Thou/uL Normal [id number] 0 - 0.1 [facility] RDW RBC Auto-Rto 13% Normal [id number] 11.5 - 14. 5 [facility] Platelet num Bld Auto 301Thou/uL Normal [id number] 150 - 450 [facility] MCHC RBC Auto-mCnc 32.1g/dL Normal [id number] 30 - 36 [facility] MCV RBC Auto 83fL Normal [id number] 80 - 100 [facility] T WBC num Bld Auto 8.5Thou/uL Normal [id number] 4 - 11 [facility] RBC num Bld Auto 5.09Mil/uL Normal [id number] 4.5 - 6.2 [facility] Hgb Bld-mCnc 13.6g/dL Normal [id number] 13 - 17.7 [facility] T Lymphocytes num Bld Auto 1.16Thou/uL Below low normal [id number] 1.5 - 4.5 H[facility]CT
== END 2024-04-20 11:33 | disposition home or self-care (01) ==
PROVIDERS: PCP Internal Medicine; Visit Provider Physician Assistant Medical
DX: E11.65 Type 2 diabetes mellitus with hyperglycemia (principal); E11.3593 Type 2 diabetes mellitus with proliferative diabetic retinopathy without macular edema, bilateral; N18.31 Chronic kidney disease, stage 3a; E11.29 Type 2 diabetes mellitus with other diabetic kidney complication; R80.9 Proteinuria, unspecified

== ENCOUNTER → 2024-04-20 10:15 | Outpatient (BNVA) | payer OTHER, SELFPAY | PROVIDERS: PCP Internal Medicine; Visit Provider Physician Assistant Medical | DX: E11.22 Type 2 diabetes mellitus with diabetic chronic kidney disease (principal); E11.65 Type 2 diabetes mellitus with hyperglycemia; E11.3593 Type 2 diabetes mellitus with proliferative diabetic retinopathy without macular edema, bilateral; E11.29 Type 2 diabetes mellitus with other diabetic kidney complication; R80.9 Proteinuria, unspecified; I12.9 Hypertensive chronic kidney disease with stage 1 through stage 4 chronic kidney disease, or unspecified chronic kidney disease; N18.31 Chronic kidney disease, stage 3a; Z83.3 Family history of diabetes mellitus; Z79.84 Long term (current) use of oral hypoglycemic drugs; Z79.4 Long term (current) use of insulin | CPT/HCPCS: 82947; 99202 ==

== ENCOUNTER 2024-04-22 08:19 | Emergency (ER) | payer OTHER, SELFPAY ==
--- NOTE | ~2024-04-22 | CT_ITS ---
EXAMINATION: CT HEAD WITHOUT CONTRAST CLINICAL INFORMATION: Left-sided headache. COMPARISON: CT head 05/14/2022. TECHNIQUE: Contiguous axial imaging was performed from the skull base to vertex without intravenous administration of contrast. This CT examination was performed using dose optimization techniques as appropriate, variously including the following: *Automated exposure control *Adjustment of mA and/or kV according to patient size (this includes techniques or standardized protocols for targeted exams where dose is matched to indication/reason for exam; i.e. extremities or head) *Use of iterative reconstruction technique DLP: 638 mGy-cm FINDINGS: There is no evidence of intracranial hemorrhage or extra-axial fluid collection. There is no mass effect, or edema. No CT evidence of acute territorial infarct. Mildly prominent extra-axial spaces overlying the frontal convexities. Ventricles, sulci, and cisterns are otherwise normal in size and configuration for patient age. No hydrocephalus. No midline shift. There is white matter hypoattenuation notable in the left greater than right occipital lobes, new from the prior exam. (Refer to series 3, images 19-22). No additional white matter abnormalities. Normal sella. Mild atheromatous calcification of the bilateral carotid siphons and V4 segments vertebral arteries bilaterally. Globes and orbital contents image normally. No extracranial soft tissue abnormalities. Small mucous retention cyst left maxillary antrum. The paranasal sinuses, mastoid air cells, and tympanic cavities are otherwise normally aerated. No suspicious bony abnormalities. CT/CT head/brain wo IV con IMPRESSION: 1. 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 Is the patient hypertensive?. MRI may be of benefit if the clinical presentation is not in agreement with symptoms of PRES. 2. Otherwise, no intracranial hemorrhage, acute infarction, or mass effect. Electronically signed by: Carlitos Thacker MD 04/22/2024 03:38 PM NARCISA
[2024-04-22 08:42] VITALS: BP 120/77; PULSE 82; RESP 16; TEMP 36.2; O2SAT 98; BMI 26.7
--- NOTE | 2024-04-22 09:52 | ECG_ITS ---
Test Reason : DIZZY Blood Pressure : / mmHG Vent. Rate : 075 BPM Atrial Rate : 075 BPM P-R Int : 148 ms QRS Dur : 078 ms QT Int : 376 ms P-R-T Axes : 029 016 037 degrees QTc Int : 419 ms Normal sinus rhythm Normal ECG When compared with ECG of 14-MAY-2022 17:26, No significant change was found Referred By: Savana Almodovar Electronically Signed By:EDWARD HAAS MD
[2024-04-22 10:30] LABS: MANUAL DIFF FLAG NO
[2024-04-22 10:33] LABS: Basophils Absolute Auto 0.1 X10*3/uL (0.0-0.2); Basophils Percent Auto 0.6 % (0-2); Eosinophils Absolute Auto 0.3 X10*3/uL (0.0-0.4); Eosinophils Percent Auto 2.9 % (0-4); Hematocrit 37.1 % (42.0-52.0); Hemoglobin 12.3 g/dl (14.0-18.0); Imm Gran Abs Auto 0.03 X10*3/uL (0.00-0.03); Imm Gran Pct Auto 0.4 % (0.0-0.4); Lymphocytes Absolute Auto 1.2 X10*3/uL (1.2-4.9); Lymphocytes Percent Auto 14.5 % (20-40); Mean Corpuscular HGB Conc 33.2 g/dl (31.0-36.0); Mean Corpuscular Hemoglobin 26.8 pg (27.0-33.0); Mean Corpuscular Volume 80.8 fL (80.0-98.0); Mean Platelet Volume 9.6 fL (9.4-12.4); Monocytes Absolute Auto 0.7 X10*3/uL (0.1-1.2); Monocytes Percent Auto 8.3 % (2-11); Neutrophils Absolute Auto 6.3 x10*3/uL (2.0-8.3); Neutrophils Percent Auto 73.3 % (45-73); Platelet Count 263 X10*3/uL (160-400); Red Blood Count 4.59 X10*6/uL (4.60-5.80); White Blood Count 8.5 X10*3/uL (4.8-10.8)
[2024-04-22 10:34] VITALS: BP 115/67; PULSE 77; RESP 17; TEMP 36.6; O2SAT 98
[2024-04-22 10:56] LABS: Albumin Level 3.2 g/dL (3.5-5.0); Anion Gap 12 (12-20); Aspartate Amino Transferase 12 U/L (5-37); Bilirubin Direct 0.1 mg/dL (0.0-0.5); Bilirubin Total 0.9 mg/dL (0.0-1.0); Blood Urea Nitrogen 17 mg/dL (9-16); Calcium 9.3 mg/dL (8.4-10.2); Carbon Dioxide 26 mmol/L (22-29); Chloride 103 mmol/L (96-108); Creatinine Clr Calc Pharmacy 73.7; Estimated Glomerular Filt Rate > 60; Glucose Random 242 mg/dL (60-115); Magnesium 1.8 mg/dL (1.6-2.6); Potassium 4.5 mmol/L (3.3-5.1); Sodium 136 mmol/L (135-145); Total Protein 5.9 g/dL (6.5-8.0)
[2024-04-22 11:01] LABS: Alanine Aminotransferase 8 U/L (0-40); Alkaline Phosphatase 64 U/L (39-117)
[2024-04-22 11:08] LABS: Influenza A PCR NEGATIVE (Negative); Influenza B PCR NEGATIVE (Negative); Resp Syncy Virus RNA Qual PCR NEGATIVE (Negative); SARS COV2 PCR INHOUSE NEGATIVE (Negative)
--- NOTE | 2024-04-22 11:36 | ED_ITS ---
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 Patient reports this headache started 4 days ago. He denies any nausea vomiting, lightheadedness. He reports that he occasionally feels ?off balance. He denies any respiratory symptoms including fever, cough, sore throat. Denies any sick contacts. Denies any trauma to the head or neck The patient reports a his diabetes is poorly controlled despite being compliant with his medications He has headache is currently a 6/10, constant He reports some improvement with NSAIDs at home Related Data Home Medications ?Medication ?Instructions ?Recorded ?Confirmed amlodipine 5 mg tablet 5 mg PO DAILY 11/28/20 03/21/22 atorvastatin 40 mg tablet 40 mg PO BEDTIME 11/28/20 03/21/22 hydrochlorothiazide 12.5 mg tablet 12.5 mg PO DAILY 11/28/20 03/21/22 insulin aspart U-100 100 unit/mL See Rx Instructions subcut TID 11/28/20 03/21/22 (3 mL) subcutaneous pen (Novolog FlexPen U-100 Insulin aspart) hydralazine 25 mg tablet 25 mg PO BID 02/20/21 03/21/22 cholecalciferol (vitamin D3) 25 25 mcg PO QAM 12/04/21 03/21/22 mcg (1,000 unit) capsule (Vitamin D3) fluoxetine 20 mg capsule 20 mg PO QAM 12/04/21 03/21/22 lancets 33 gauge (TRUEplus Lancets) #100 ea 12/04/21 losartan 50 mg tablet 50 mg PO QAM 12/04/21 03/21/22 gabapentin 100 mg capsule 100 mg PO 12/16/23 hydroxyzine HCl 25 mg tablet 25 mg PO Q6H PRN itch 12/16/23 insulin lispro 100 unit/mL subcut 12/16/23 subcutaneous pen trazodone 50 mg tablet 50 mg PO BEDTIME 12/16/23 sitagliptin phosphate 100 mg 100 mg PO DAILY 04/20/24 04/20/24 tablet (Januvia) Previous Rx's ?Medication ?Instructions ?Recorded docusate sodium 100 mg capsule 100 mg PO BEDTIME #90 caps 06/17/23 pantoprazole 40 mg tablet,delayed 40 mg PO DAILY #30 tabs 12/16/23 release blood-glucose meter,continuous #1 ea 04/20/24 (Dexcom G7 Color Sprayer) blood-glucose sensor (Dexcom G7 #3 ea 04/20/24 Sensor device) dulaglutide 0.75 mg/0.5 mL 0.75 mg (0.5 mL) subcut QWEEK #2 mL 04/20/24 subcutaneous pen injector (Trulicity) glucose 4 gram chewable tablet 16 g (4 x 4 gram) PO Q15M PRN 04/20/24 (Dex4 Glucose) hypoglycemia #10 tabs insulin glargine 100 unit/mL (3 55 unit (0.55 mL) subcut BEDTIME 04/20/24 mL) subcutaneous pen (Lantus #30 mL Solostar U-100 Insulin) metformin 500 mg tablet,extended 2,000 mg (4 x 500 mg) PO DAILY 90 04/20/24 release 24 hr days #360 tabs Allergies Allergy/AdvReac Type Severity Reaction Status Date / Time No Known Allergies Allergy Verified 04/22/24 08:43 Review of Systems 2 Constitutional: Constitutional: Denies body ache(s), Denies chills, Denies fever(s), Denies frequent falls, Reports headache(s) and Denies malaise Eyes: Eyes: Denies blurry vision and Denies irritation ENT: Denies vertigo, Reports dizziness and Reports headache(s) Cardiovascular: Cardiovascular: Denies chest pain and Denies dyspnea Respiratory: Respiratory: Denies cough and Denies dyspnea Gastrointestinal: Gastrointestinal: Denies abdominal pain, Denies nausea and Denies vomiting Musculoskeletal: Musculoskeletal: Denies back pain Integumentary/Breasts: Skin/Breast: Denies rash Neurologic: Denies vertigo, Reports dizziness, Denies frequent falls and Reports headache(s) Psychiatric: Psychiatric: Denies anxiety PMFSH Past Medical History Medical History (Updated 04/22/24 @ 11:45 by Eloy Geronimo) Diabetes mellitus with microalbuminuria CKD stage 3a, GFR 45-59 ml/min Proliferative diabetic retinopathy of both eyes Type 2 diabetes mellitus with hyperglycemia Tubular adenoma Elevated cholesterol HTN (hypertension) Endocarditis Diabetes Surgical History Hx of colonoscopy History of esophagogastroduodenoscopy (EGD) H/O eye surgery Family History Family History Father No problems noted. Mother No problems noted. Social History Social History Alcohol intake: never Patient Tobacco Use Status: Never used Tobacco Advance Directives: No Advance Directives Information Provided: Yes Physical Exam ED Vital Signs: Vital Signs - 24 hr 04/22/24 08:42 04/22/24 10:34 04/22/24 12:14 Temperature 97.2 F 97.8 F Pulse Rate 82 77 77 Respiratory Rate 16 17 17 Blood Pressure 120/77 115/67 114/72 Pulse Oximetry 98 98 98 Oxygen Delivery Method Room Air Room Air Room Air BMI result Body Mass Index 26.7 Const General: healthy appearing, comfortable, no acute distress, alert and awake Nutritional Appearance: well nourished Orientation/consciousness: patient oriented x3 HENMT Head: Yes normocephalic and Yes atraumatic Eyes Eyelids: Yes eyelids normal Conjunctivae: conjunctivae normal Sclerae: sclerae normal Corneas: corneas normal Pupils: Equal, round and reactive pupils present EOM: EOMs intact bilaterally Neck Neck: Yes full ROM Resp Effort & Inspection: normal respiratory effort, able to speak in complete sentences and not labored Cardio Rate: regular rate Rhythm: regular rhythm GI Inspection: No distended Palpation (GI): Soft to palpation, not firm, nontender, no guarding and not rigid Skin General skin exam: elasticity normal Neuro General: patient oriented x3 Cranial nerves: Yes CN's II-XII intact bilaterally, Yes Equal, round and reactive pupils present and Yes Bilaterally intact EOM present Cognition (Neuro): normal cognition Gait exam (Neuro): Normal gait present and not ataxic Motor exam (neuro): 5/5 motor strength present throughout, Pronator motor function not present, no tremor noted, no asterixis and Motor fasciculations not present Coordination: [id number] test normal Extrem Other: Moving all extremities well without any obvious deformities Course Reevaluation(s) Reevaluation #1: Patient's headache has resolved. He was requesting discharge. I did discuss the CT findings with the patient and he will follow up with his PCP. Time: 17:11 Medications Administered Discontinued Medications Generic Name Dose Route Start Last Admin Trade Name [place] PRN Reason Stop Dose Admin Diphenhydramine HCl 25 mg 04/22/24 11:29 04/22/24 11:44 Diphenhydramine Hcl 50 Mg/Ml Vial IVPUSH 04/22/24 11:30 25 mg ONCE ONE Administration Sodium Chloride 1,000 mls @ 999 mls/hr 04/22/24 11:30 04/22/24 13:49 Ns IV 04/22/24 12:30 Infused .Q1H1M LAKESHA Infusion Ketorolac Tromethamine 15 mg 04/22/24 11:29 04/22/24 11:44 Ketorolac Tromethamine 15 Mg/Ml Vial IVPUSH 04/22/24 11:30 15 mg ONCE ONE Administration Metoclopramide HCl 10 mg 04/22/24 11:29 04/22/24 11:44 Metoclopramide Hcl 10 Mg/2 Ml Vial IVPUSH 04/22/24 11:30 10 mg ONCE ONE Administration Medical Decision Making Medical Decision Making [facility] Narrative: 49-year-old male past medical history as documented above presents for evaluation of left-sided headache and some dizziness cyst started 4 days ago. There was no trauma to the head or neck. The patient had labs, EKG ordered in triage. The patient's labs are significant for a chronic anemia that is consistent with his baseline. He has no leukocytosis but does have a very mild left shift. Chemistries are significant for a BUN of 17 with a normal creatinine of 1.12. The patient does have a history of chronic kidney disease. Random glucose of 242, no evidence of DKA. LFTs within normal limits. Plan for CT scan of the brain. The patient has no neurologic deficits, his cerebellar exam is reassuring. I doubt posterior CVA. We will treat his headache with fluids, Reglan, Benadryl, Toradol. Differential Diagnosis Differential Diagnoses: The differential diagnosis associated with the presentation includes Acute headache Orthostasis Migraine headache Tension headache Influenza COVID-19 Vertigo Hyperglycemia Lab Data [facility] Lab Attestation statement: I reviewed the patient's lab results. As above 04/22/24 10:25 04/22/24 10:25 Labs: Lab Results 04/22/24 Range/Units 10:25 WBC 8.5 (4.8-10.8) X10*3/uL RBC 4.59 L (4.60-5.80) X10*6/uL Hgb 12.3 L (14.0-18.0) g/dl Hct 37.1 L (42.0-52.0) % MCV 80.8 (80.0-98.0) fL MCH 26.8 L (27.0-33.0) pg MCHC 33.2 (31.0-36.0) g/dl RDW 13.0 (11.0-16.0) % Plt Count 263 (160-400) X10*3/uL MPV 9.6 (9.4-12.4) fL Immature Gran % (Auto) 0.4 (0.0-0.4) % Neut % (Auto) 73.3 H (45-73) % Lymph % (Auto) 14.5 L (20-40) % [place] % (Auto) 8.3 (2-11) % Eos % (Auto) 2.9 (0-4) % Baso % (Auto) 0.6 (0-2) % Lymph # (Auto) 1.2 (1.2-4.9) X10*3/uL [place] # (Auto) 0.7 (0.1-1.2) X10*3/uL Eos # (Auto) 0.3 (0.0-0.4) X10*3/uL Baso # (Auto) 0.1 (0.0-0.2) X10*3/uL Abs Immat Gran (auto) 0.03 (0.00-0.03) X10*3/uL Absolute Neuts (auto) 6.3 (2.0-8.3) x10*3/uL Absolute Nucleated RBC 0.000 (0.0-0.012) X10*3/uL Nucleated RBC % (auto) 0.0 (0.0-0.2) /100WBC Sodium 136 (135-145) mmol/L Potassium 4.5 (3.3-5.1) mmol/L Chloride 103 (96-108) mmol/L Carbon Dioxide 26 (22-29) mmol/L Anion Gap 12 (12-20) BUN 17 H (9-16) mg/dL Creatinine 1.12 (0.5-1.4) mg/dL Estim Creat Clear Calc 73.7 Estimated GFR > 60 Random Glucose 242 H (60-115) mg/dL Calcium 9.3 (8.4-10.2) mg/dL Magnesium 1.8 (1.6-2.6) mg/dL Total Bilirubin 0.9 (0.0-1.0) mg/dL Direct Bilirubin 0.1 (0.0-0.5) mg/dL AST 12 (5-37) U/L ALT 8 (0-40) U/L Alkaline Phosphatase 64 (39-117) U/L Total Protein 5.9 L (6.5-8.0) g/dL Albumin 3.2 L (3.5-5.0) g/dL Influenza Type A (PCR) NEGATIVE (Negative) Influenza Type B (PCR) NEGATIVE (Negative) RSV RNA Qual (PCR) NEGATIVE (Negative) SARS-CoV-2 RNA (RT-PCR) NEGATIVE (Negative) Independent Interpretation I performed an independent interpretation of an: EKG (Normal sinus rhythm with a rate of [address] segment elevation or depression) and CT Scan (No acute intracranial hemorrhage) Radiology Impression Discussion of test interpretation with radiology: I have reviewed the radiologist's reading. (IMPRESSION: 1. 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 Is the patient hypertensive?. MRI may be of benefit if the clinical presentation i) Discharge Plan Discharge Clinical Impression: Headache Patient Disposition: Home, Self-Care Instructions: Acute Headache (ED) Additional Instructions: Your CT scan showed an abnormal finding called posterior reversible encephalopathy syndrome. This can be caused by high blood pressure. Follow-up with your primary doctor regarding your blood pressure You may follow-up with neurology if your symptoms persist The remainder of your workup was reassuring Follow-up with your primary doctor, return for new or worsening symptoms Prescriptions: No Action hydrochlorothiazide 12.5 mg tablet 12.5 mg PO DAILY amlodipine 5 mg tablet 5 mg PO DAILY atorvastatin 40 mg tablet 40 mg PO BEDTIME insulin aspart U-100 [Novolog FlexPen U-100 Insulin] 100 unit/mL (3 mL) insulin pen See Rx Instructions subcut TID Rx Instructions: as directed per sliding scale subcut 3 times a day; hydralazine 25 mg tablet 25 mg PO BID (DME) lancets [TRUEplus Lancets] [facility] See Rx Instructions Not Applicable QID Qty: 100 Rx Instructions: As directed cholecalciferol (vitamin D3) [Vitamin D3] 25 mcg (1,000 unit) capsule 25 mcg PO QAM fluoxetine 20 mg capsule 20 mg PO QAM losartan 50 mg tablet 50 mg PO QAM docusate sodium 100 mg capsule 100 mg PO BEDTIME Qty: 90 3RF gabapentin 100 mg capsule 100 mg PO hydroxyzine HCl 25 mg tablet 25 mg PO Q6H PRN (Reason: itch) insulin lispro 100 unit/mL insulin pen subcut trazodone 50 mg tablet 50 mg PO BEDTIME pantoprazole 40 mg tablet,delayed release (DR/EC) 40 mg PO DAILY Qty: 30 2RF Rx Instructions: take one tablet half an hour before breakfast metformin 500 mg tablet extended release 24 hr 2,000 mg PO DAILY 90 Days Qty: 360 1RF Trulicity 0.75 mg/0.5 mL pen injector 0.75 mg subcut QWEEK Qty: 2 2RF insulin glargine [Lantus Solostar U-100 Insulin] 100 unit/mL (3 mL) insulin pen 55 unit subcut BEDTIME Qty: 30 5RF glucose [Dex4 Glucose] 4 gram tablet,chewable 16 g PO Q15M PRN (Reason: hypoglycemia) Qty: 10 4RF Rx Instructions: until symptoms of low blood sugar are controlled Januvia 100 mg tablet 100 mg PO DAILY (DME) Dexcom G7 Sensor Device See Rx Instructions .ROUTE .MEDSUPPLY Qty: 3 11RF Rx Instructions: apply new sensor every 10 days as directed (DME) Dexcom G7 Color Sprayer [facility] See Rx Instructions .ROUTE .MEDSUPPLY Qty: 1 0RF Rx Instructions: As directed Referrals: Salvador Jarrell MD [Physician] - (Posterior Reversible Encephalopathy Syndrome) Print Language: [place]
[2024-04-22] MEDS: 0.9 % Sodium Chloride 1,000 ML 999 ML IV (11:43)
[2024-04-22] MEDS: Metoclopramide HCl 10 MG/2 ML VIAL IVPUSH (11:44)
[2024-04-22] MEDS: Ketorolac Tromethamine 15 MG/ML VIAL IVPUSH (11:44)
[2024-04-22] MEDS: diphenhydrAMINE HCL 50 MG/ML VIAL 25 MG IVPUSH (11:44)
[2024-04-22 12:14] VITALS: BP 114/72; PULSE 77; RESP 17; O2SAT 98
[2024-04-22 17:18] VITALS: BP 132/65; PULSE 75; RESP 18; TEMP 36.6; O2SAT 98
[2024-04-22 17:20] VITALS: BP 132/65; PULSE 75; RESP 18; TEMP 36.6; O2SAT 98
== END 2024-04-22 17:20 | disposition home or self-care (01) ==
PROVIDERS: Physician Assistant; Emergency Provider Student in an Organized Health Care Education/Training Program; PCP Internal Medicine
DX: R51.9 Headache, unspecified (principal); Z03.818 Encounter for observation for suspected exposure to other biological agents ruled out; E11.22 Type 2 diabetes mellitus with diabetic chronic kidney disease; I12.9 Hypertensive chronic kidney disease with stage 1 through stage 4 chronic kidney disease, or unspecified chronic kidney disease; N18.30 Chronic kidney disease, stage 3 unspecified; Z79.4 Long term (current) use of insulin; Z79.899 Other long term (current) drug therapy; Z79.02 Long term (current) use of antithrombotics/antiplatelets; Z79.84 Long term (current) use of oral hypoglycemic drugs; Z79.85 Long-term (current) use of injectable non-insulin antidiabetic drugs
CPT/HCPCS: 0241U; 36415; 70450; 80048; 80076; 83735; 85025; 93005; 96361; 96374; 96375; 99284; 99285; J1200; J1885; J2765

== ENCOUNTER → 2024-04-22 09:52 | Outpatient (BNV) | payer OTHER, SELFPAY | PROVIDERS: Emergency Provider Student in an Organized Health Care Education/Training Program; PCP Internal Medicine; Visit Provider Internal Medicine Cardiovascular Disease | DX: R55 Syncope and collapse (principal) | CPT/HCPCS: 93010 ==

== ENCOUNTER → 2024-04-22 11:29 | Outpatient (BNV) | payer OTHER, SELFPAY | PROVIDERS: Emergency Provider Student in an Organized Health Care Education/Training Program; PCP Internal Medicine; Visit Provider Radiology Diagnostic Radiology | DX: R51.9 Headache, unspecified (principal) | CPT/HCPCS: 70450 ==

== ENCOUNTER 2024-05-07 10:25 | Outpatient (AMB) | payer OTHER, SELFPAY ==
--- NOTE | 2024-05-07 10:31 | MHC.OFFVIS ---
Vital Signs 05/07/24 10:34 Height 5 ft 7 in Weight 172 lb 13.478 oz BMI 27.1 BP 110/70 Blood Pressure Location Rt brachial Position Sitting Pulse 87 Pulse Source Pulse Oximeter Intake Visit Reasons: T2DM Intake Note: New patient externally referred by PCP for T2DM management. Last Diabetic Eye exam: About 2 years ago Last Podiatry Visit: Doesn't have one Random Glucose: 221 mg/dl HgA1C: 15.0% 03/23/24 PCP office Assistant Plant Control Operator Required: Yes Assistant Plant Control Operator Language: Salesperson [employer]: Assistant Plant Control Operator Present Assistant Plant Control Operator Name: Carol Information Interpreted: non-clinical & clinical Accompanied by: Self / Same As Patient Allergies No Known Allergies Allergy (Verified 05/07/24 10:34) HPI Comments Details: This is a 49-year-old male with a past medical history of hypertension, endocarditis, tubular adenoma, CKD 3a, diabetic retinopathy and palpitations presenting for diabetic management. Occitan video rock loader [id number] used initially, but the video failed and then swager operator (Carol) present. Patient mentions that he was seen at the emergency department and urgent care due to flashing lights in his right eye, headache and feeling off balance for the last [address] weeks[address] He had a [address] scan which was suggestive of PRES. They are calling his primary care office today to schedule an ER follow up and request a neurology referral. Patient says his symptoms are stable. He denies seizures, tremors, falls or worsening balance. He was diagnosed with Type II diabetes more than 12 years ago. He endorses a family history of Type II diabetes (mother, father, uncle). Hemoglobin a1c 15% 03/23/24. Current medication regimen: Trulicity 0.75 mg weekly, Lantus 55 units at bedtime, metformin ER 500 mg 4 tablets qam, Januvia 100 mg. His boring machine operator vertical prescribed Farxiga, but it was denied due to insurance. Compliance issues: Trulicity was approved, but he did not pick it up from the pharmacy yet. CGM was also approved but not picked up yet. He checks his blood sugar sometimes, but not consistently. Reviewed glucose summary Average glucose 330 In range 17% Lowest 105 Highest: High Readings per day: 1.6 Hypoglycemia symptoms: Denies episodes/symptoms Hyperglycemia symptoms: polyuria, polydipsia and fatigue and cramping Eye exam: Up-to-date Microvascular complications: neuropathy, nephropathy (CKD and microalbuminuria-followed by nephrology), Bilateral retinopathy ([facility]) Macrovascular complications: none Hypertension: treated with amlodipine 5 mg, hydralazine 25 mg b.i.d., hydrochlorothiazide 12.5 mg daily, losartan 50 mg daily YARITZA inhibitor discontinued in the past due to PRANEETH. Hyperlipidemia: treated with atorvastatin 40 mg ROS: Constitutional: + weight fluctuations with diabetes, no fevers or chills, +fatigue Eyes: Per HPI Respiratory: No shortness of breath Cardiovascular: No chest pain, chest pressure or chest discomfort. No palpitations or pedal edema. Gastrointestinal: No anorexia, nausea, vomiting or diarrhea. No abdominal pain Neurologic: See HPI, no numbness, tingling, weakness, seizure or tremor Skin: No wounds or ulcers. Endocrine: See HPI Physical exam: Constitutional: Alert, in no distress. Head: Normocephalic. Neck: Supple, Full range of motion. No lymphadenopathy. No palpable thyroid masses. Respiratory: Clear to auscultation. Cardiovascular: S1 S2 regular. No murmurs. [facility] Medical History (Updated 04/23/24 @ 00:01 by Shannan Lerma) Diabetes mellitus with microalbuminuria CKD stage 3a, GFR 45-59 ml/min Proliferative diabetic retinopathy of both eyes Type 2 diabetes mellitus with hyperglycemia Tubular adenoma Elevated cholesterol HTN (hypertension) Endocarditis Diabetes Surgical History Hx of colonoscopy History of esophagogastroduodenoscopy (EGD) H/O eye surgery Family History Father No problems noted. Mother No problems noted. Social History Alcohol intake: never Patient Tobacco Use Status: Never used Tobacco Physical Exam Vital Signs: Last Vital Signs Pulse 87 05/07/24 10:34 BP 110/70 05/07/24 10:34 BMI result Body Mass Index 27.1 Results Reviewed Results Reviewed: Laboratory Last Values Glucose (Clinic) 221 mg/dL (60-115) H 05/07/24 10:48 Laboratory Tests 11/08/23 11/08/23 02/02/24 08:12 08:56 16:42 Creatinine 1.02 1.49 H Estimated GFR 50 Triglycerides 101 Cholesterol 172 LDL Cholesterol, Calc 108 H HDL Cholesterol 44 TSH 0.58 Urine Creatinine 122.34 Urine Microalbumin 736.0 Microalb/Creat Ratio 601.6 H 12/ 13:40 Creatinine 1.34 Estimated GFR 56 Triglycerides Cholesterol LDL Cholesterol, Calc HDL Cholesterol TSH Urine Creatinine Urine Microalbumin Microalb/Creat Ratio Assessment & Plan Assessment & Plan (1) Type 2 diabetes mellitus with hyperglycemia: Code(s): E11.65 - Type 2 diabetes mellitus with hyperglycemia Category: Medical (2) Proliferative diabetic retinopathy of both eyes: Code(s): E11.3593 - Type 2 diabetes mellitus with proliferative diabetic retinopathy without macular edema, bilateral Category: Medical (3) CKD stage 3a, GFR 45-59 ml/min: Code(s): N18.31 - Chronic kidney disease, stage 3a Category: Medical (4) Diabetes mellitus with microalbuminuria: Code(s): E11.29 - Type 2 diabetes mellitus with other diabetic kidney complication; R80.9 - Proteinuria, unspecified Category: Medical Plan In summary this is a 49-year-old male with uncontrolled type 2 diabetes with macrovascular complications. BMI is only 26.8. Weight loss could be due to hyperglycemia however I will check labs to evaluate for type 1 versus type 2. Patient reminded to have labs done. He will start Trulicity 0.75 mg weekly. Continue Lantus 55 units nightly. Continue metformin 500 mg extended release take 4 tablets q.a.m. Continue Januvia 100 mg daily. Patient is not willing to do prandial insulin at this time. We will revisit this. If it is necessary after adjusting his medications and improving compliance we could consider a Cequr device for him. We reviewed complications of uncontrolled diabetes and lifestyle modifications in detail. He will diamond picker the CGM and see me next week for education and placement. Coding Level of Care Code Est Pt Level 4 (94805) Complex EM visit Add On G2211 Diagnoses Type 2 diabetes mellitus with hyperglycemia E11.65 Proliferative diabetic retinopathy of both eyes E11.3593 CKD stage 3a, GFR 45-59 ml/min N18.31 Diabetes mellitus with microalbuminuria E11.29; R80.9
[2024-05-07 10:34] VITALS: BP 110/70; PULSE 87; BMI 27.1
[2024-05-07 10:56] LABS: Glucose, Whole Blood 221 mg/dL (60-115)
== END 2024-05-07 11:22 | disposition home or self-care (01) ==
PROVIDERS: PCP Internal Medicine; Visit Provider Physician Assistant Medical
DX: E11.65 Type 2 diabetes mellitus with hyperglycemia (principal); E11.3593 Type 2 diabetes mellitus with proliferative diabetic retinopathy without macular edema, bilateral; N18.31 Chronic kidney disease, stage 3a; E11.29 Type 2 diabetes mellitus with other diabetic kidney complication; R80.9 Proteinuria, unspecified

== ENCOUNTER 2024-05-07 10:25 | Outpatient (REF) | payer OTHER, SELFPAY ==
[2024-05-07 12:58] LABS: B Type Natriuretic Peptide < 10 pg/mL (<100); Estimated Glomerular Filt Rate > 60
[2024-05-11 10:14] LABS: C Peptide 1.08 ng/mL (0.80-3.85)
[2024-05-11 13:39] LABS: Glutamic acid decarboxylase Ab <5 IU/mL (<5)
[2024-05-14 14:53] LABS: Islet Cell Antibody Screen NEGATIVE (NEGATIVE)
== END 2024-05-07 10:26 | disposition home or self-care (01) ==
LOC: HO.LAB 10:25
PROVIDERS: PCP Internal Medicine; Visit Provider Physician Assistant Medical
DX: E11.65 Type 2 diabetes mellitus with hyperglycemia (principal); E11.9 Type 2 diabetes mellitus without complications
CPT/HCPCS: 36415; 82565; 82947; 83880; 84681; 86341; 99212

== ENCOUNTER 2024-06-21 08:47 | Outpatient (AMB) | payer OTHER, SELFPAY ==
[2024-06-21 09:02] VITALS: BMI 28.0
--- NOTE | 2024-06-21 09:02 | MHC.AMNUTRGE ---
VS Expanded 06/21/24 09:02 06/21/24 12:30 Height 5 ft 7 in 5 ft 7 in Weight 178 lb 9.191 oz 178 lb BMI 28.0 27.9 Intake Visit Reasons: Dm/Confirmed Allergies No Known Allergies Allergy (Verified 05/07/24 10:34) Nutrition Presentation Details: Pt presents for MNT for T2DM Pt presents with his during this appt. 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 Most Recent Diabetes Results: Creatinine 0.88 mg/dL (0.5-1.4) 05/07/24 Blood Urea Nitrogen 17 mg/dL (9-16) H 04/22/24 Sodium 136 mmol/L (135-145) 04/22/24 Potassium 4.5 mmol/L (3.3-5.1) 04/22/24 Chloride 103 mmol/L (96-108) 04/22/24 Carbon Dioxide 26 mmol/L (22-29) 04/22/24 Calcium 9.3 mg/dL (8.4-10.2) 04/22/24 AST 12 U/L (5-37) 04/22/24 ALT 8 U/L (0-40) 04/22/24 Total Protein 5.9 g/dL (6.5-8.0) L 04/22/24 Albumin 3.2 g/dL (3.5-5.0) L 04/22/24 WHU-Pnomhy[facility]-Jb.Jeor Equation Height: 5 ft 7 in Weight: 178 lb Resting Metabolic Rate: 1629.21 Calculated Activity Level: Mild Activity Calories Needed to Maintain Weight: 2240.16 Diagnosis Nutrition problem #1: altered nutrition labs As related to (etiology) #1: excess energy intake As evidenced by (sign/symptom) #1: abnormal lab values Monitoring/Goals Nutrition problem monitoring: level of knowledge/skill, total PRO intake and total CHO intake Nutrition goal/outcome: list 3 CHO foods Outcome progress: verbalized understanding Learning/Education Readiness to learn: fair Stages of change: contemplation Educational materials provided: Yes (meal planning, protein sources of foods ) PFSH Medical History (Updated 04/23/24 @ 00:01 by Shannan Lerma) Diabetes mellitus with microalbuminuria CKD stage 3a, GFR 45-59 ml/min Proliferative diabetic retinopathy of both eyes Type 2 diabetes mellitus with hyperglycemia Tubular adenoma Elevated cholesterol HTN (hypertension) Endocarditis Diabetes Surgical History Hx of colonoscopy History of esophagogastroduodenoscopy (EGD) H/O eye surgery Family History Father No problems noted. Mother No problems noted. Social History Alcohol intake: never Patient Tobacco Use Status: Never used Tobacco Assessment & Plan Assessment & Plan (1) Type 2 diabetes mellitus with hyperglycemia: Code(s): E11.65 - Type 2 diabetes mellitus with hyperglycemia Category: Medical Plan: Wt: 81 Kg ( 2.25 ) Est kcal needs as per MSJ: 2240 (40% carb, 30% protein/fat) Est fluid needs as per 25-30 ml/d: 1239-6021 Est prot per day as per 0.8-1 g/kg bw: 65- 81 Recommend fiber intake : 8-10 g per day and gradually increase to 25-28 g per day for women and 35-38 g for men or as tolerated Recommend sodium intake per day : less than 1500 mg less than 2000 mg Educated patient on: ( R = reviewed V = verbalizes understanding N/R = needs review N/A = not applicable Food sources of carbohydrate, adequate serving sizes and its role in various health conditions: R Differences between complex carbohydrates a simple carbohydrates, role of fiber in diet: R V N/R Lean protein sources of foods: R Differences between types of fats and role in diet (mono on saturated fat fatty acids, saturated fatty acids, trans fats): R V N/R Food sources of sodium in salt and healthy modifications for heart health in kidney health: R V R/V Vitamins and minerals: R V N/R Healthy plate method concept: R V N/R Physical activity: Benefits a precaution: R V N/R Hypoglycemia protocol (rule of 15): R V N/R Dietary prevention of Hyperglycemia: R INTRO to carbohydrate counting - R Patient Instructions: Switch to low sugar beverages (water, herb/fruit infused water, diluted juices with water, diet beverages -diet catherine suzan/sprite, diet lemonade) Have a sandwich (tuna/eggsalad/chicken, vary the protein) at lunch time with a fruit in place of chips/soda Choose yogurt in place of ice cream as bedtime snack (working on reducing carbs to 90 g at meal following healthy plate method vs 90 g carb/no protein) Coding Level of Care Code Nutr Indiv Intake (12202) Diagnoses Type 2 diabetes mellitus with hyperglycemia E11.65 Time Spent (min) 40
[2024-06-21 12:30] VITALS: BMI 27.9
== END 2024-06-21 10:01 | disposition home or self-care (01) ==
PROVIDERS: PCP Internal Medicine; Visit Provider Dietitian, Registered
DX: E11.65 Type 2 diabetes mellitus with hyperglycemia (principal)

== ENCOUNTER → 2024-06-21 08:47 | Outpatient (BNVA) | payer OTHER, SELFPAY | PROVIDERS: PCP Internal Medicine; Visit Provider Dietitian, Registered | DX: E11.65 Type 2 diabetes mellitus with hyperglycemia (principal); Z71.3 Dietary counseling and surveillance | CPT/HCPCS: 97802 ==

== ENCOUNTER 2024-07-22 13:19 | Outpatient (AMB) | payer OTHER, SELFPAY ==
[2024-07-22 13:20] VITALS: BP 147/75; BMI 29.6
--- NOTE | 2024-07-22 13:20 | MHC.OFFVIS ---
Vital Signs 07/22/24 13:20 Height 5 ft 7 in Weight 188 lb 11.451 oz BMI 29.6 BP 147/75 H Blood Pressure Location Rt brachial Position Sitting Intake Visit Reasons: lesion of the right posterior scalp Intake Note: New patient in office today for lesion of right posterior scalp. CC: Patient reports a mass from his posterior right scalp. He c/o swelling and pain that started about 3 months ago on and off. Denies drainage from mass. Ion Implant Machine Operator Required: Yes Ion Implant Machine Operator Language: Electrical Products Sales Engineer Services: Ion Implant Machine Operator Present Ion Implant Machine Operator Name: Grant Good LM Allergies No Known Allergies Allergy (Verified 07/22/24 13:27) Medication List - Last Reconciled 07/22/24 by Kris Kwong MD amlodipine 5 mg PO DAILY atorvastatin 40 mg PO BEDTIME blood-glucose meter,continuous (Dexcom G7 Wellness Nurse Rn) As directed blood-glucose sensor (Dexcom G7 Sensor device) apply new sensor every 10 days as directed cholecalciferol (vitamin D3) (Vitamin D3) 25 mcg PO QAM docusate sodium 100 mg PO BEDTIME dulaglutide (Trulicity) 0.75 mg (0.5 mL) subcut QWEEK fluoxetine 20 mg PO QAM gabapentin 100 mg PO glucose (Dex4 Glucose) 16 grams (4 x 4 gram) PO Q15M PRN hydralazine 25 mg PO BID hydrochlorothiazide 12.5 mg PO DAILY hydroxyzine HCl 25 mg PO Q6H PRN insulin aspart U-100 (Novolog FlexPen U-100 Insulin aspart) as directed per sliding scale subcut 3 times a day; insulin glargine (Lantus Solostar U-100 Insulin) 55 units (0.55 mL) subcut BEDTIME insulin lispro subcut lancets (TRUEplus Lancets) As directed losartan 50 mg PO QAM metformin ER 2,000 mg (4 x 500 mg) PO DAILY 90 days pantoprazole 40 mg PO QAM trazodone 50 mg PO BEDTIME HPI Comments Details: 49-year-old male patient presenting for evaluation of a lesion of the scalp which has been present for several years but has gradually increasing in size. He reports some discomfort associated with this mass. He denies any previous trauma or surgery in this location. He also denies any bleeding or discharge. He has requested excision of the lesion. [facility] Medical History Diabetes mellitus with microalbuminuria CKD stage 3a, GFR 45-59 ml/min Proliferative diabetic retinopathy of both eyes Type 2 diabetes mellitus with hyperglycemia Tubular adenoma Elevated cholesterol HTN (hypertension) Endocarditis Diabetes Surgical History Hx of colonoscopy History of esophagogastroduodenoscopy (EGD) H/O eye surgery Family History Father No problems noted. Mother No problems noted. Paternal Uncle Bone cancer Paternal Uncle Prostate cancer Paternal Uncle Lung cancer Paternal Uncle Heart attack Throat cancer Social History Alcohol intake: never Patient Tobacco Use Status: Current everyday Tobacco user Review of Systems Const All systems reviewed & are unremarkable except as noted in HPI and below Physical Exam Vital Signs: Last Vital Signs BP 147/75 H 07/22/24 13:20 BMI result Body Mass Index 29.6 Const General: cooperative and no acute distress Nutritional Appearance: well nourished Orientation/consciousness: patient oriented x3 Limitations: no limitations HEENT Head: Yes normocephalic and Yes atraumatic Head images: 1. 2 cm soft tissue mass suggestive of a epidermal inclusion cyst or Pilar cyst of the posterior scalp right side. No skin redness or discharge is identified. Ears: hearing grossly normal bilaterally Resp Effort & Inspection: normal respiratory effort, no audible wheezes, no cough and no respiratory distress Cardio Jugular venous distension: no JVD GI Inspection: Yes normal to inspection Skin Other: Warm, dry, no rash Neuro General: patient oriented x3 Extrem General: Yes no clubbing, cyanosis or edema Assessment & Plan Assessment & Plan (1) Pilar cyst of scalp: Code(s): L72.11 - Pilar cyst Category: Medical Plan 49-year-old male patient presenting with a possible Pilar cyst of the posterior scalp. On examination there is a 2 cm soft tissue mass with no overlying skin change indicate infection. There is some tenderness to palpation. I discussed the options for treatment including excision under local verses excision under anesthesia. Given the size of the lesion and its location I recommended an excision under anesthesia the lesion is quite deep and may be difficult to remove. After discussion of the procedure, risks, and alternatives, he consents to an excision of the posterior right scalp cyst under anesthesia. Coding Level of Care Code New Pt Level 4 (14188) Diagnoses Pilar cyst of scalp L72.11
--- OUTSIDE RECORDS SUMMARY | 2024-07-22 16:52 | XMS_ITS | Encounter Summary ---
Author Organization [employer] Address [address] [place] [address] Care Team Providers Care Paradichlorobenzene Tender Name Role Phone Vince Maya MD Primary Care Provide r Melanie Reyes PharmD Unavailable Reason for Visit * Reason Comments Med Refill Encounter Details Date Type Department Care Team ([facility] Contact Info) Description 12/11/2023 Refill [facility] [address] [place], [place] [phone] Holly Singh MD [address] [place], [place] [phone] Social History Tobacco Use Types Packs/Day Years Used Date Smoking Tobacco: Never Passive Smoke Exposure: Never Smokeless Tobacco: Never Alcohol Use Standard Drinks/Week Comments Defer 0 (1 standard drink = 0.6 oz pur e alcohol) Alcohol Answer Date Recorded Frequency of Alcohol Consumption Not on file 11/04/2023 Average Number of Drinks Not on file 024 Frequency of Binge Drinking Not on file 10/11 Score 0 11/04/2023 Depression Answer Date Recorded Patient Health Questionnaire-9 Score 5 11/04/2023 Patient Health Questionnaire-9 Score 5 11/04/2023 Last PHQ-9: Questionnaire Data Not on file 0 11/04/2023 Housing Stability Answer Date Recorded What is your housing situation today? I have joann burden 11/04/[address] you li ve. Do you have problems with any of the following? None of the above 11/04/2023 Food Insecurity Answer Date Recorded Within the past 12 months, y ou worried that your food would run out before you got money to buy more: Never True 11/04/2023 Within the past 12 months,th e food you bought just didn't last and you didn't have enough money to get more: Never True Transportation Answer Date Recorded In the past 12 months, has l ack of transportation kept you from medical appts, meetings, work or from getting things needed for daily living? No 11/04/2023 Utilities Answer Date Recorded In the past 12 months, has t he [employer], gas, oil or water company threatened to shut off services in your home? No 11/04/2023 Depression Answer Date Recorded Patient Health Questionnaire-2 Score 2 11/04/2023 Sex and Gender Information Value Date Recorded Sex Assigned at Male 03/11/2022 10:20 AM EDT Legal Sex Male 10:20 AM EDT Gender Identity Male 03/11/2022 10:20 AM EDT Sexual Orientation Choose not to disclose 2021 10:20 AM EDT documented as of this encounter Plan of Treatment Upcoming Encounters Date Type Department Care Team (Late st Contact Info) Description 08/26/2024 3:00 PM EDT Office Visit [facility] [address] [place] [address] Vince Maya MD [address] [place] [phone] 09/13/2024 3:30 PM EDT Medication Management [facility] [address] [place] [address] Melanie Reyes, PharmD [address] [place] [address] documented as of this encounter Visit Diagnoses Not on filedocumented in this encounter Additional Health Concerns Assessment Noted Time PHQ-9 Depression Total Score: 5 11/04/19 24 1:48 PM EDT documented as of this encounter Care Teams Paradichlorobenzene Tender Relationship Specialty Start Date End Date Vince Maya MD [address] [place] [phone] PCP - General Internal Medicine 8/11/17 Melanie Reyes, Kiki [address] [place] [phone] Pharmacist Internal Medicine 06/15/24 documented as of this encounter
--- OUTSIDE RECORDS SUMMARY | 2024-07-22 16:52 | XMS_ITS | Encounter Summary ---
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 No 11/04/2023 Depression Answer Date Recorded Patient Health Questionnaire-2 Score 2 11/04/2023 Internet Access Answer Date Recorded Internet Access Q1 Yes 2024 Internet Access Q2 I do not want or need it 06/2023 Sex and Gender Information Value Date Recorded [...] Description 08/26/2024 3:00 PM EDT Office Visit [facility] [address] [place] [phone] Vince Maya MD [address] [place] [phone] 09/13/2024 3:30 PM EDT Medication Management [facility] [address] [place] [address] Melanie Reyes, Kiki [address] [place] [address] documented as of this encounter Visit Diagnoses Diagnosis 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
--- OUTSIDE RECORDS SUMMARY | 2024-07-22 16:52 | XMS_ITS | Encounter Summary ---
Author Organization [facility] Address [address] [place] [address] Care Team Providers Care Fuel Handler Name Role Phone Pcp, No Primary Care Provider Unavailabl e Encounter Details Date Type Department Care Team (Late st Contact Info) Description 10/28/2023 Procedure Pass [facility], Radiology (CT Scan) [address] [place] [phone] Social History Tobacco Use Types Packs/Day Years Used Date Smoking Tobacco: Never Assessed Sex and Gender Information Value Date Recorded Sex Assigned at Not on file Legal Sex Male 9:01 AM EDT Gender Identity Not on file Sexual Orientation Not on file documented as of this encounter Plan of Treatment Not on file documented as of this encounter Visit Diagnoses Not on filedocumented in this encounter Care Teams Fuel Handler Relationship Specialty Start Date End Date Pcp, No [place] [address] PCP - General 01/03/20 documented as of this encounter
--- OUTSIDE RECORDS SUMMARY | 2024-07-22 16:52 | XMS_ITS | Encounter Summary ---
Author Organization [employer] Address [address] [place] [address] Care Team Providers Care Materials Management Clerk Name Role Phone Vince Maya MD Primary Care Provide r Melanie Reyes PharmD Unavailable [phone] Encounter Details Date Type Department Care Team ([facility] st Contact Info) Description 06/06/2023 Telephone [facility] D[facility] [address] [place], [place] [phone] Duran Barnett DDS [address] [place], [place] [phone] Social History Tobacco Use Types Packs/Day Years Used Date Smoking Tobacco: Never Passive Smoke Exposure: Never Smokeless Tobacco: Never Alcohol Use Standard Drinks/Week Comments Defer 0 (1 standard drink = 0.6 oz pur e alcohol) Depression Answer Date Recorded Patient Health Questionnaire-9 Score 3 09/05/2022 Housing Stability Answer Date Recorded What is your housing situation today? I have joann burden 03/03/[address] you li ve. Do you have problems with any of the following? None of the above 03/03/2023 Food Insecurity Answer Date Recorded Within the past 12 months, y ou worried that your food would run out before you got money to buy more: Never True 03/03/2023 Within the past 12 months,th e food you bought just didn't last and you didn't have enough money to get more: Never True Transportation Answer Date Recorded In the past 12 months, has l ack of transportation kept you from medical appts, meetings, work or from getting things needed for daily living? No 03/03/2023 Utilities Answer Date Recorded In the past 12 months, has t he electric, gas, oil or water company threatened to shut off services in your home? No 03/03/2023 Depression Answer Date Recorded Patient Health Questionnaire-2 Score 0 09/05/2022 Sex and Gender Information Value Date Recorded Sex Assigned at Male 03/11/2022 10:20 AM EDT Legal Sex Male 10:20 AM EDT Gender Identity Male 03/11/2022 10:20 AM EDT Sexual Orientation Choose not to disclose 2021 10:20 AM EDT documented as of this encounter Miscellaneous Notes * Telephone Encounter - Annalise Hassan - 06/06/2023 1:24 PM EST Patient say dr barnett today his waiting for his medication to be send to pharmacy documented in this encounter Plan of Treatment Upcoming Encounters Date Type Department Care Team (Late st Contact Info) Description 08/26/2024 3:00 PM EDT Office Visit [facility] MEDICINE [address] [place] [phone] Vince Maya MD [address] [place] [address] 09/13/2024 3:30 PM EDT Medication Management [facility]INE [address] [place] [address] Melanie Reyes PharmD [address] [place] [address] documented as of this encounter Visit Diagnoses Not on filedocumented in this encounter Additional Health Concerns Assessment Noted Time PHQ-9 Depression Total Score: 3 09/06/19 10:39 AM EDT documented as of this encounter Care Teams Materials Management Clerk Relationship Specialty Start Date End Date Vince Maya MD [address] [place] [address] PCP - General Internal Medicine 12/20/16 Melanie Reyes PharmD [address] [place] [address] Pharmacist Internal Medicine 06/15/24 documented as of this encounter
--- OUTSIDE RECORDS SUMMARY | 2024-07-22 16:52 | XMS_ITS | Encounter Summary ---
Author Organization [employer] Address [address] [place] [address] Care Team Providers Care Sewing Pattern Layout Technician Name Role Phone Vince Maya MD Primary Care Provide r Melanie Reyes PharmD Unavailable [phone] Reason for Visit * Reason Comments Med Refill Encounter Details Date Type Department Care Team ([facility] st Contact Info) Description 09/02/2023 Refill [facility] [address] [place], [place] [phone] Vince Maya MD [address] [place] [address] Primary hypertension Social History Tobacco Use Types Packs/Day Years [...] Description 08/26/2024 3:00 PM EDT Office Visit [facility] [address] [place] [address] Vince Maya MD [address] [place] [address] 09/13/2024 3:30 PM EDT Medication Management [facility] [address] [place] [address] Melanie Reyes PharmD [address] [place] [address] documented as of this encounter Visit Diagnoses Diagnosis Primary hypertension Unspecified essential hypertension documented in this encounter Additional Health Concerns Assessment Noted Time PHQ-9 Depression Total Score: 3 09/06/19 10:39 AM EDT documented as of this encounter Care Teams Sewing Pattern Layout Technician Relationship Specialty Start Date End Date Vince Maya MD [address] [place] [phone] PCP - General Internal Medicine 12/20/16 Melanie Reyes PharmD [address] [place] [phone] Pharmacist Internal Medicine 06/15/24 documented as of this encounter
--- OUTSIDE RECORDS SUMMARY | 2024-07-22 16:52 | XMS_ITS | Encounter Summary ---
Author Organization [employer] [facility] Address [address] 7t [place] [address] Care Team Providers Care Senior C Software Engineer Name Role Phone Vince Maya MD Primary Care Provide r Melanie Reyes PharmD Unavailable [phone] Reason for Visit * Reason Comments Med Refill Encounter Details Date Type Department Care Team ([facility] Contact Info) Description 07/26/2022 Refill [facility] [address] [place], [place] [phone] Vince Maya MD [address] [place] [address] Mixed hyperlipidemia (Primary Dx); Primary hypertension Social History Tobacco Use Types Packs/Day Years Used Date Smoking Tobacco: Never Smokeless Tobacco: Never Sex and Gender Information Value Date Recorded Sex Assigned at Male 03/11/2022 10:20 AM EDT Legal Sex Male 10:20 AM EDT Gender Identity Male 03/11/2022 10:20 AM EDT Sexual Orientation Choose not to disclose 2021 10:20 AM EDT COVID-19 Exposure Response Date Recorded In the last 10 days, have yo u been in contact with someone who was confirmed or suspected to have Coronavirus/COVID-19? No / Unsure 07/26/2022 8:50 AM EDT documented as of this encounter Plan of Treatment Upcoming Encounters Date Type Department Care Team (Late Contact Info) Description 08/26/2024 3:00 PM EDT Office Visit [facility] [address] [place], [place] [phone] Vince Maya MD [address] [place] [address] 09/13/2024 3:30 PM EDT Medication Management [facility] [address] [place], [place] [phone] Melanie Reyes PharmD [address] [place], [place] [phone] documented as of this encounter Visit Diagnoses Diagnosis Mixed hyperlipidemia- Primary Primary hypertension Unspecified essential hypertension documented in this encounter Care Teams Senior C Software Engineer Relationship Specialty Start Date End Date Vince Maya MD [address] [place] [address] [phone] PCP - General Internal Medicine 12/20/16 Melanie Reyes PharmD [address] [place] [address] [phone] Pharmacist Internal Medicine 06/15/24 documented as of this encounter
--- OUTSIDE RECORDS SUMMARY | 2024-07-22 16:52 | XMS_ITS | Encounter Summary ---
Author Organization [employer] Address [address] [place] [address] Care Team Providers Care Boiler Repair Supervisor Name Role Phone Vince Maya MD Primary Care Provide r Melanie Reyes PharmD Unavailable [phone] Reason for Visit * Reason Comments lump on head Encounter Details Date Type Department Care Team ([facility] st Contact Info) Description 07/21/2024 11:00 AM EDT Office Visit [facility] [address] [place] [phone] Yvan Roper MD [address] [place] [address] Scalp mass (Primary Dx); Primary hypertension; Stage 3 chronic kidney disease, unspecified whether stage 3a or 3b CKD (CMS/HCC) Social History Tobacco Use Types Packs/Day Years [...] AM EDT documented as of this encounter Last Filed Vital Signs Vital Sign Reading Time Taken Comments Blood Pressure 142/92 07/21/2024 11:49 AM EDT Pulse 73 07/21/2024 11:37 AM EDT Temperature 36 ??C (96.8 ??F) 07/21/2024 11: 37 AM EDT Respiratory Rate 18 07/21/2024 11:3 7 AM EDT Oxygen Saturation 98% 07/21/2024 11: 37 AM EDT Inhaled Oxygen Concentration - - Weight 85.6 kg (188 lb 12.8 oz) 025 11:37 AM EDT Height - - Body Mass Index 29.57 05/25/2024 10:05 AM EST documented in this encounter Progress Notes * Yvan Roper MD - 07/21/2024 11:00 AM EDT Subjective Patient ID: Satya Torres is a 49 y.o. male. Heel Seat Filler: Lana golden phone HPI Satya has several day h/o constant pain and swelling in right posterior head, includes adjacent neck. Motrin helps sx. Nothing makes sx worse. States had similar sx 3-4x in past; last time was 04/22/2024 when he was seen in [facility] ED. Labs and CT scan of head were done. ED notes mention left sided headache, but pt states pain has always been on the right side. CT report: IMPRESSION: 1. 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 Is the patient hypertensive?. MRI may be of benefit if the clinical presentation is not in agreement with symptoms of PRES. 2. Otherwise, no intracranial hemorrhage, acute infarction, or mass effect. On 06/21/2024 he had appt[address] by Dr. Jarrell, neurologist; we are unable to find office notes in [facility], and their office was closed when we called. Lives with son. 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 Never smoked. 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 ([facility]/HCC) Recurrent major depressive episodes, moderate ([facility]) Type 2 diabetes mellitus with retinopathy, with long-term current use of insulin ([facility]) Primary hypertension Severe nonproliferative diabetic retinopathy of right eye without macular edema associated with type 2 diabetes mellitus ([facility]/HCC) Erectile dysfunction due to diseases classified elsewhere Helicobacter pylori stool test positive Primary insomnia Periodontal disease Earache on left Balanitis Localized edema Preventative health care Posterior reversible encephalopathy syndrome The following portions of the chart were reviewed this encounter and updated as appropriate: Tobacco Allergies Meds Problems Med Hx Surg Hx Fam Hx Review of Systems Constitutional: Negative for fever. Respiratory: Negative for shortness of breath. Cardiovascular: Negative for chest pain. Gastrointestinal: Negative for abdominal pain. Musculoskeletal: Positive for neck pain. Skin: Negative for rash. Neurological: Positive for headaches. Objective Physical Exam Constitutional: Appearance: Normal appearance. HENT: Right Ear: Tympanic membrane, ear canal and external ear normal. Left Ear: Tympanic membrane, ear canal and external ear normal. Nose: Nose normal. Mouth/Throat: Mouth: Mucous membranes are moist. Pharynx: Oropharynx is clear. Eyes: Conjunctiva/sclera: Conjunctivae normal. Pupils: Pupils are equal, round, and reactive to light. Cardiovascular: Rate and Rhythm: Normal rate and regular rhythm. Heart sounds: No murmur heard. Pulmonary: Effort: Pulmonary effort is normal. Breath sounds: Normal breath sounds. Musculoskeletal: General: Normal range of motion. Cervical back: No tenderness. Skin: Findings: No rash. Comments: Right posterior scalp: tender, firm swollen area which Satya states is at center of pain. Scalp surrounding the swollen area is identified by him as also painful in addition to adjacent right upper neck. Neurological: Mental Status: He is alert. Cranial Nerves: Cranial nerves 2-12 are intact. Sensory: Sensation is intact. Motor: Motor function is intact. Gait: Gait is intact. Psychiatric: Mood and Affect: Mood normal. Behavior: Behavior normal. Procedures Assessment/Plan Diagnoses and all orders for this visit: Scalp mass Appears to be source of his pain. Prescribed acetaminophen and doxycycline. Advised to avoid all NSAIDs because of chronic kidney disease. I spoke with [facility], and they kindly scheduled appointment for tomorrow. I will call Dr. Jarrell's office tomorrow to request faxed copy of office notes from 06/21/2024. Primary hypertension Did not take his blood pressure meds today yet. States that home BP readings have been in normal range. Other orders - doxycycline (Vibramycin) 100 MG capsule; Take 1 capsule (100 mg) by mouth 2 times daily for 7 days. Take with at least 8 ounces (large glass) of water, do not lie down for 30 minutes after - acetaminophen (Tylenol) 500 MG tablet; Take 2 tablets (1,000 mg) by mouth every 6 (six) hours if needed for moderate pain or fever for up to 25 doses. documented in this encounter Plan of Treatment Upcoming Encounters Date Type Department Care Team (Late st Contact Info) Description 08/26/2024 3:00 PM EDT Office Visit [address] [address] [place] [address] 09/13/2024 3:30 PM EDT Medication Management [facility] [address] [place] [address] Melanie Reyes PharmD [address] [place] [address] documented as of this encounter Visit Diagnoses Diagnosis Scalp mass- Primary Primary hypertension Unspecified essential hypertension Stage 3 chronic kidney disease, unspecified whether stage 3a or 3b CKD ([facility]) documented in this encounter Additional Health Concerns Assessment Noted Time PHQ-9 Depression Total Score: 5 11/04/19 24 1:48 PM EDT documented as of this encounter Care Teams Boiler Repair Supervisor Relationship Specialty Start Date End Date Vince Maya MD [address] [place] [phone] PCP - General Internal Medicine 12/20/16 Melanie Reyes PharmD [address] [place] [address] [phone] Pharmacist Internal Medicine 06/15/24 documented as of this encounter
--- OUTSIDE RECORDS SUMMARY | 2024-07-22 16:52 | XMS_ITS | Clinical Summary ---
Author Organization [facility] Address [address] [address] Care Team Providers Care Food And Beverage Analyst Name Role Phone Vince Patel MD Primary Care Provider Unav ailable Allergies No known active allergies Medications atorvastatin (LIPITOR) 40 MG tablet Take 1 tablet by mouth at bed time Active ferrous sulfate 325 (65 Fe) MG EC tablet Take 1 tablet by mouth every morning Active hydrALAZINE (APRESOLINE) 25 MG tablet Take 1 tablet by mouth 3 (three) times a day Active insulin aspart (NovoLOG FLEXPEN) 100 UNIT/ML injection Active insulin glargine (Lantus SoloStar) 100 UNIT/ML injection Comments: Patient Notes: INJECT 45 UNITS SUBCUTANEOUSLY AT BEDTIME Duration: 30 Active FREESTYLE LITE test strip TEST BLOOD SUGAR 4 TIMES A DAY 09/12/19 21 Active metFORMIN (GLUCOPHAGE) 500 MG tablet TAKE 1 TABLET BY MOUTH TWICE DAILY IN THE MORNING AND IN THE EVENING 09/12/19 21 Active triamcinolone (KENALOG) 0.025 % cream APPLY A THIN LAYER TOPICALLY AFFECTED AREA(S) TWICE DAILY NEEDED 12/05/19 22 Active senna (SENOKOT) 8.6 MG tablet TAKE 1 TABLET BY MOUTH AT BEDTIME FOR CONSTIPATION 10/25/19 22 Active omeprazole (PriLOSEC) [address] capsule Take by mouth 1 (one) time each day 12/05/19 22 Active FLUoxetine (PROzac) 20 MG capsule Take 20 mg by mouth 12/13/19 22 Active Vitamin D High Potency 25 MCG (1000 UT) capsule Take 1,000 Units by mouth 11/10/19 22 Active Trulicity 1.5 MG/0.5ML solution pen-injector INJECT ONE PEN (=1.5MG) SUBCUTANEOUSLY ONCE A WEEK DIRECTED 12/12/19 22 Active famotidine (PEPCID) 20 MG tablet Take 20 mg by mouth at bed time 12/05/19 22 Active amLODIPine (NORVASC) 5 MG tablet Take 5 mg by mouth 12/13/19 22 Active losartan (COZAAR) 50 MG tablet TAKE 1 TABLET BY MOUTH EVERY MORNING 90 tablet 2 04/01/20 23 Active Dapagliflozin Propanediol (Farxiga) 10 MG tablet Take 10 mg by mouth 1 (one) time each day 90 tablet 2 11/04/19 24 Active gabapentin (NEURONTIN) 100 MG capsule TAKE 1 CAPSULE BY MOUTH TWICE DAILY IN THE MORNING AND IN THE EVENING 60 capsule 2 05/07/20 24 Active hydroCHLOROthia zide 12.5 MG tabletIndicatio ns:Stage 3 chronic kidney disease, not otherwise specified (HCC),Hypertens ion,Type 2 diabetes mellitus with diabetic chronic kidney disease (HCC),Iron deficiency anemia, not otherwise specified,Anemi a in chronic kidney disease Take 1 tablet (12.5 mg total) by mouth 1 (one) time each day 30 tablet 05/14/19 25 Active Active Problems Problem Noted Date Diagnosed Date Proteinuria 01/14/2023 Chronic kidney disease, stage 2 (mild) 2 Chronic kidney disease due to benign hypertensio n 12/25/2020 Type 2 diabetes mellitus wit h diabetic chronic kidney disease 12/25/2020 Acute nontraumatic kidney injury 09/05/2020 Encounters Date Type Department Care Team Description 05/14/2024 Refill [facility] [address] [place] [address] [address] [place] [phone] Kourtney Peralta [place] Stage 3 chronic kidney disease, not otherwise specified (HCC); Hypertension; Type 2 diabetes mellitus with diabetic chronic kidney disease (HCC); Iron deficiency anemia, not otherwise specified; Anemia in chronic kidney disease 05/07/2024 [facility]ill [facility] [address] [place] [phone] eKi Moreno MD from Last 3 Months Family History Medical History Relation Comments Diabetes Father Diabetes Mother Relation Status Comments Father Unknown Mother Unknown Social History Tobacco Use Types Packs/Day Years Used Date Smoking Tobacco: Never Smokeless Tobacco: Never Tobacco Cessation:Counseling Given: Not Answered Alcohol Use Standard Drinks/Week Comments No 0 (1 standard drink = 0.6 oz pur e alcohol) Sex and Gender Information Value Date Recorded Sex Assigned at Not on file Legal Sex Male 4:55 PM EST Gender Identity Not on file Sexual Orientation Not on file Last Filed Vital Signs Vital Sign Reading Time Taken Comments Blood Pressure 130/80 11/04/2023 3:42 PM EDT Pulse 85 11/04/2023 3:42 PM EDT Temperature - - Respiratory Rate - - Oxygen Saturation 98% 11/04/2023 3:42 PM EDT Inhaled Oxygen Concentration - - Weight 78.7 kg (173 lb 9.6 oz) 11/04/2023 3:42 P M EDT Height 170.2 cm (5' 7 ) 12/08/2018 12:00 PM EDT Body Mass Index 27.19 12/08/2018 12:00 PM EDT Plan of Treatment Upcoming Encounters Date Type Department Care Team (Late st Contact Info) Description 08/02/2024 4:00 PM EDT Office Visit [facility] [address] [place] [address] Kei Moreno MD [address] [facility] [address] [place] [address] Health Maintenance Due Date Last Done Comments Hepatitis B Vaccine (1 of 3 - 19+ 3-dose series) 1993 01/19/2008, 09/17/2007, 07/30/2007 Pneumococcal Vaccine: Pediat rics (0 to 5 Years) and At-Risk Patients (6 to 64 Years) (2 of 2 - PCV) 07/29/2008 07/30/2007 Diabetes: Ophthalmology Exam 10/25/2020 Diabetes: Pedal Pulse Checked 10/25/2020 Diabetes: Sensory Foot Exam 10/25/2020 Diabetes: Visual Foot Exam 10/25/2020 Colorectal Cancer Screening: Annual FOBT 2023 Colorectal Cancer Screening: Colonoscopy 2023 Colorectal Cancer Screening: Sigmoidoscopy 2023 Influenza Vaccine (#1) 2024 Diabetes: Hemoglobin A1C 06/23/2024 03/23/2024, 06/2 09/2023 Insurance Care Teams Food And Beverage Analyst Relationship Specialty Start Date End Date Vince Patel MD PCP - General 05/22/20
--- OUTSIDE RECORDS SUMMARY | 2024-07-22 16:52 | XMS_ITS | Clinical Summary ---
Author Organization [employer] Address [address] [place] [phone] Care Team Providers Care Administrative Volunteer Name Role Phone Pcp, No Primary Care Provider Unavailabl e Allergies No known active allergies Medications amLODIPine (NORVASC) 5 mg tablet Take 5 mg by mouth 1 (one) time each day in the morning. 10/01/19 Active atorvastatin (LIPITOR) 40 mg tablet Take 40 mg by mouth every night. 11/08/19 Active FreeStyle Lite Strips test strip TEST BLOOD SUGAR FOUR TIMES DAILY 11/08/19 Active ferrous sulfate 325 mg (65 mg iron) tablet Take 1 tablet by mouth 1 (one) time each day in the morning. 11/08/19 Active hydrALAZINE (APRESOLINE) 25 mg tablet TAKE 1 TABLET BY MOUTH THREE TIMES DAILY IN THE MORNING, EVENING, AND BEDTIME WITH FOOD 11/09/19 Active NovoLOG U-100 Insulin aspart 100 unit/mL injection INJECT DIRECTED (AFTER LUNCH AND AFTER supperBG 70-99=8 units;100-149=10u, 150-199=12u,200-24 9=14u,250+=16u DECREASE BY 2 UNITS BEFORE GREGG 11/08/19 Active TRUEplus Lancets 33 gauge misc TEST BLOOD SUGAR FOUR TIMES DAILY 11/08/19 Active Lantus U-100 Insulin 100 unit/mL injection INJECT 45 UNITS SUBCUTANEOUSLY EVERY EVENING DIRECTED 11/08/19 Active metFORMIN XR (GLUCOPHATE-XR) 500 mg 24 hr tablet Take 1,000 mg by mouth every night. 11/09/19 20 Active ondansetron ODT (Zofran ODT) 4 mg dispersible tablet Take 1 tablet (4 mg total) by mouth 4 (four) times a day if needed for nausea or vomiting. 12 tablet 01/03/20 Active Social History Tobacco Use Types Packs/Day Years Used Date Smoking Tobacco: Never Assessed Sex and Gender Information Value Date Recorded Sex Assigned at Not on file Legal Sex Male 9:01 AM EDT Gender Identity Not on file Sexual Orientation Not on file Last Filed Vital Signs Vital Sign Reading Time Taken Comments Blood Pressure 117/97 10/28/2023 4:37 PM EDT Pulse 76 10/28/2023 4:00 PM EDT Temperature 36.7 ??C (98.1 ??F) 10/28/2023 1:39 PM ED T Respiratory Rate 20 10/28/2023 4:37 PM EDT Oxygen Saturation 100% 10/28/2023 4:37 PM EDT Inhaled Oxygen Concentration - - Weight 77.5 kg (170 lb 13.7 oz) 10/28/2023 1:39 PM EDT Height 172.7 cm (5' 8 ) 10/28/2023 4:52 PM EDT Body Mass Index 25.98 10/28/2023 1:39 PM EDT Plan of Treatment Health Maintenance Due Date Last Done Comments CT Colonography 1974 Colonoscopy 1974 Colorectal Cancer Screening 1974 FIT-DNA 1974 FIT 1974 FOBT 1974 Hepatitis C Screening 1974 Sigmoidoscopy 1974 Ophthalmology Exam 01/13/1984 Annual Physical Exam 01/13/1992 Urine Protein Screening 1993 COVID-19 Vaccine (3 - 2023-2 5 season) 2024 09/28/2020, 08/31/2020 Influenza Vaccine (#1) 2024 Pneumococcal Vaccine: 50+ Years (2 of 2 - PCV) 01/13/2024 07/30/2007 Zoster Vaccines (1 of 2) 01/13/2024 Tdap and Td Vaccines Adult 11/07/202411/07, 07/30/2007 Pneumococcal Vaccine: Peds ( 0 to 5 Yrs) and At-Risk Pts (6 to 49 Yrs) Aged Out 07/30/2007 No longer eligible based on patient's age to complete this topic MMR Vaccines Discontinued 03/22/2008 HIB Vaccines Aged Out No longer eligi ble based on patient's age to complete this topic HPV Vaccines Aged Out No longer eligi ble based on patient's age to complete this topic Hepatitis A Vaccines Aged Out No long er eligible based on patient's age to complete this topic IPV Vaccines Aged Out No longer eligi ble based on patient's age to complete this topic Lipid Panel Discontinued Meningococcal Vaccine Aged Out No deng tiara eligible based on patient's age to complete this topic RSV <20 Months Aged Out No longer julio gible based on patient's age to complete this topic Insurance MEDICAID OUT-STATE Care Teams Administrative Volunteer Relationship Specialty Start Date End Date Pcp, No No PCP On File COLTON Garcia [phone] PCP - General 01/03/20
--- OUTSIDE RECORDS SUMMARY | 2024-07-22 16:52 | XMS_ITS | Encounter Summary ---
Author Organization [employer] Address [address] [place] [address] Care Team Providers Care Mixer Tender Name Role Phone Vince Maya MD Primary Care Provide r Melanie Reyes PharmD Unavailable [phone] Reason for Visit * Reason Comments Med Refill Encounter Details Date Type Department Care Team ([facility] Contact Info) Description 03/08/2024 Refill [facility] [address] [place], [place] [phone] Vince Maya MD [address] [place] [address] Social History Tobacco Use Types Packs/Day Years [...] the past 12 months, has t he [employer], gas, oil or water company threatened to [...] Description 08/26/2024 3:00 PM EDT Office Visit [facility] [address] [place] [phone] Vince Maya MD [address] [place] [phone] 09/13/2024 3:30 PM EDT Medication Management [facility] [address] [place] [phone] Melanie Reyes, PharmD [address] [place] [phone] documented as of this encounter Visit Diagnoses Not on filedocumented in this encounter Additional Health Concerns Assessment Noted Time PHQ-9 Depression Total Score: 5 11/04/19 24 1:48 PM EDT documented as of this encounter Care Teams Mixer Tender Relationship Specialty Start Date End Date Vince Maya MD [address] [place] [address] PCP - General Internal Medicine 12/20/16 Melanie Reyes PharmD [address] [place] [address] Pharmacist Internal Medicine 06/15/24 documented as of this encounter
--- OUTSIDE RECORDS SUMMARY | 2024-07-22 16:53 | XMS_ITS | Clinical Summary ---
Author Organization [employer] Address [address] [place] [address] Care Team Providers Care Engineering Technologist Name Role Phone Vince Maya MD Primary Care Provide r Melanie Reyes PharmD Unavailable [phone] Allergies No known active allergies Medications triamcinolone (Kenalog) 0.025 % cream Apply topically twice a day. 022 Active famotidine (Pepcid) 20 MG tablet Take 20 mg by mouth at bedtime. 022 Active senna (Senokot) 8.6 MG tablet TAKE 1 TABLET BY MOUTH AT BEDTIME FOR CONSTIPATION 022 Active sildenafil (Viagra) 100 MG tabletIndications: Erectile dysfunction due to diseases classified elsewhere Take 1 tablet (100 mg) by mouth if needed for erectile dysfunction. 40 tablet 023 Active losartan (Cozaar) 50 MG tablet Take 1 tablet (50 mg) by mouth in the morning. 90 tablet 3 024 Active cholecalciferol (Vitamin D High Potency) 25 MCG (1000 UT) capsule Take 1 capsule (25 mcg) by mouth in the morning. 90 capsule 3 024 Active amLODIPine (Norvasc) 5 MG tabletIndications: Essential (primary) hypertension Take 1 tablet (5 mg) by mouth in the morning. 90 tablet 1 024 Active atorvastatin (Lipitor) 40 MG tabletIndications: Mixed hyperlipidemia Take 1 tablet (40 mg) by mouth at bedtime. 90 tablet 3 024 Active hydrALAZINE (Apresoline) 25 MG tabletIndications: Primary hypertension TAKE 1 TABLET BY MOUTH THREE TIMES DAILY IN THE MORNING, EVENING, AND BEDTIME WITH FOOD 270 tablet Active insulin pen needle 32G x 4 mm miscIndications:Ty pe 2 diabetes mellitus with right eye affected by severe nonproliferative retinopathy without macular edema, with long-term current use of insulin (CMS/HCC) Use as instructed 4 times a day 100 each 12 024 11/03 Active fluticasone (Flonase) 50 MCG/ACT nasal sprayIndications:E arache on left Administer 1-2 sprays into each nostril 2 times daily. Shake gently. Before first use, prime pump. After use, clean tip and replace cap. 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 4 each 1 Active gabapentin (Neurontin) 100 MG capsule TAKE 1 CAPSULE BY MOUTH TWICE DAILY IN THE MORNING AND IN THE EVENING 023 Active pantoprazole (ProtoNix) 40 MG EC tablet Take 40 mg by mouth before breakfast. Active Alcohol Swabs 70 % pads Use 4 times a day as needed for insulin injection or checking BG 100 each Active glucose blood (FREESTYLE LITE) test stripIndications:T ype 2 diabetes mellitus with right eye affected by severe nonproliferative retinopathy without macular edema, with long-term current use of insulin (CMS/HCC) Test TID 100 strip Active TRUEplus Lancets 33G misc Check blood sugar 4 times a day, 3 month supply 100 each Active metFORMIN XR (Glucophage-XR) 500 MG 24 hr tablet Take 1,000 mg by mouth 2 times daily. Do not crush, chew, or split. 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 90 tablet 1 025 Active glucose 4 g chewable tablet TAKE 4 TABLETS BY MOUTH EVERY 15 MINUTES NEEDED FOR HYPOGLYCEMIA UNTIL SYMPTOMS IMPROVE 024 Active Continuous Glucose Sensor (FreeStyle Mary 2 Sensor) miscIndications:Ty pe 2 diabetes mellitus with right eye affected by severe nonproliferative retinopathy without macular edema, with long-term current use of insulin (CMS/HCC) 1 each every 14 (fourteen) days. 025 Active Lantus SoloStar 100 UNIT/ML pen Inject 52 Units under the skin at bedtime. 15 mL 025 Active insulin aspart (NovoLOG FLEXPEN) 100 UNIT/ML penIndications:Typ e 2 diabetes mellitus with right eye affected by severe nonproliferative retinopathy without macular edema, with long-term current use of insulin (CMS/HCC) INJECT 10 units SUBCUTANEOUSLY AFTER BREAKFAST, AFTER LUNCH, AND AFTER SUPPER 15 mL 025 Active doxycycline (Vibramycin) 100 MG capsule Take 1 capsule (100 mg) by mouth 2 times daily for 7 days. Take with at least 8 ounces (large glass) of water, do not lie down for 30 minutes after 14 capsule 025 07/28 Active acetaminophen (Tylenol) 500 MG tablet Take 2 tablets (1,000 mg) by mouth every 6 (six) hours if needed for moderate pain or fever for up to 25 doses. 50 tablet 025 Active insulin aspart (NovoLOG FLEXPEN) 100 UNIT/ML penIndications:Typ e 2 diabetes mellitus with right eye affected by severe nonproliferative retinopathy without macular edema, with long-term current use of insulin (CMS/HCC) INJECT SUBCUTANEOUSLY AFTER BREAKFAST, AFTER LUNCH, AND AFTER SUPPER PER SLIDING SCALE: 100-149=8 U,150-199=10 UNITS, 200-249=12 UNITS, AND >250=14 UNITS 15 mL 11 024 06/23 Discontinued( Reorder (will not trigger notification to Pharmacy)) Lantus SoloStar 100 UNIT/ML pen Inject 55 Units under the skin at bedtime. 024 06/23 Discontinued( Reorder (will not trigger notification to Pharmacy)) Active Problems Problem Noted Date Diagnosed Date Stage 3 chronic kidney disease 07/21/2024 Posterior reversible encephalopathy syndrome Assessment & Plan (05/25/2024 8:38 AM EST): Pt seen in the ER with c/o headaches as part of the evaluation had Head CT that showed: (IMPRESSION: 1. 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 Is the patient hypertensive?. MRI may be of benefit if the clinical presentation ) BP stable today.BP log given to patient, will check BP at home,take meds as usual. Pt was referred to Neurology appointment scheduled for 06/16.2024 Preventative health care 03/23/2024 Assessment & Plan (03/23/2024 1:02 PM EST): According to patient's refrigeration specialist Patient had colonoscopy in March of 2022 suboptimal prep and recommendation was made for patient to return for colorectal screening in 3 years. Which will be Mar 2025. Localized edema 02/04/2024 Balanitis 02/02/2024 Assessment & Plan (02/04/2024 5:50 PM EDT): Suspect balanitis, rx as written below, Advised cleaning and then applying creams Referral to urology Pt will seek emergent care with any worsening pain or inability to urinate Earache on left 11/11/2023 Assessment & Plan (11/27/2023 2:52 PM EDT): Pt with c/o persistent left earache x 1 month On exam he was tender to palpation around the ear, but there is no redness, nor swelling. TM seems intact Etiology ? Otitis Previous visit I treated him with Augmentin x 10 days ENT evaluation given persistence of symptoms scheduled for 02/2024 Assessment & Plan (11/11/2023 3:18 PM EDT): Pt with c/o persistent left earache x 1 month On exam he is tender to palpation around the ear, but there is no redness, nor swelling. TM seems intact Etiology ? Otitis Plan Augmentin x 10 days ENT evaluation given persistence of symptoms Periodontal disease 06/06/2023 Primary insomnia 09/05/2022 Assessment & Plan (09/05/2022 10:50 AM EDT): Pt with c/o this, not improving despite the use of Melatonin Plan: Good sleep hygiene habits discussed Start Trazodone 100 mg po qhs Helicobacter pylori stool test positive 05/21/19 Assessment & Plan (05/21/2022 10:21 AM EST): Pt was tested by GI, he tells me he already completed treatment x 14 days Primary hypertension 04/18/2022 Assessment & Plan (05/25/2024 10:10 AM EST): Pt is here for a follow up. BP uncontrolled. Pt is on a regimen of: Amlodipine 5 mg po daily, Hydralazine 25 mg po TID and Hctz 12.5 mg po daily Most recent electrolytes, Bun and Creatinine done on: Lab Results Component Value Date NA 136 04/22/2024 NA 134 (L) 03/23/2024 K 4.5 04/22/2024 K 4.2 03/23/2024 CL 103 04/22/2024 CL 101 03/23/2024 BUN 17 (H) 04/22/2024 BUN 13 03/23/2024 CREATININE 0.88 05/07/2024 CREATININE 1.12 04/22/2024 Plan: Increase hydrochlorothiazide to 25 mg po daily Follow up 3 months patient advised to adhere to a low sodium diet, encouraged about medication compliance, counseled about weight loss. Assessment & Plan (03/23/2024 1:04 PM EST): Pt is here for a follow up. BP uncontrolled, due to non compliance Pt is supposed to be on a regimen of: Amlodipine 5 mg po daily, Hydralazine 25 mg po TID and Hctz 12.5 mg po daily Most recent electrolytes, Bun and Creatinine done on: Lab Results Component Value Date NA 124 (L) 02/02/2024 NA 139 11/08/2023 K 5.5 (H) 02/02/2024 K 4.5 11/08/2023 CL 93 (L) 02/02/2024 CL 104 11/08/2023 BUN 15 02/02/2024 BUN 14 11/08/2023 CREATININE 1.49 (H) 02/02/2024 CREATININE 1.02 11/08/2023 Today will repeat. For now, will continue with current medical regimen. Again discussed the need to be compliant with his medications. patient advised to adhere to a low sodium diet, encouraged about medication compliance, counseled about weight loss. Assessment & Plan (11/04/2023 3:22 PM EDT): Pt is here for a follow up. BP uncontrolled, due to non compliance Confirmed with Pharmacy pt had not been picking his medboxes regularly. Pt is supposed to be on a regimen of: Amlodipine 5 mg po daily, Hydralazine 25 mg po TID and Hctz 12.5 mg po daily Most recent electrolytes, Bun and Creatinine done on: 05/14/2022 were within normal limits. Today will repeat. For now, will continue with current medical regimen. Again discussed the need to be compliant with his medications. patient advised to adhere to a low sodium diet, encouraged about medication compliance, counseled about weight loss. Assessment & Plan (09/05/2022 11:04 AM EDT): BP elevated, due to the fact that he has not been taking his medications Pt is supposed to be on a regimen of: Amlodipine 5 mg po daily, Hydralazine 25 mg po TID and Hctz 12.5 mg po daily Most recent electrolytes, Bun and Creatinine done on: 05/14/2022 were within normal limits. For now, will continue with current medical regimen. Again discussed the need to be compliant with his medications. patient advised to adhere to a low sodium diet, encouraged about medication compliance, counseled about weight loss. Assessment & Plan (04/18/2022 11:47 AM EST): Controlled Pt is on a regimen of: Amlodipine 5 mg po daily, Hydralazine 25 mg po TID and Hctz 12.5 mg po daily, but he admits not being 100% compliant, did not take medications this AM before visit For now, will continue with current medical regimen. Most recent electrolytes, Bun and Creatinine done on: 10/24/2021 were within normal limits. Repeat labs today. patient advised to adhere to a low sodium diet, encouraged about medication compliance, counseled about weight loss. 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 He tells me he has been following with them regularly. Assessment & Plan (04/18/2022 11:37 AM EST): Under the care of Dr Perkins and Retinal specialist, last note they recommended panretinal photocoagulation to the left eye. 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 He tells me he has been following with them regularly. Assessment & Plan (04/18/2022 11:38 AM EST): Under the care of Dr Perkins and Retinal specialist, last note they recommended panretinal photocoagulation to the left eye. He tells me he has been following with them Recurrent major depressive episodes, moderate Assessment & Plan (11/04/2023 3:24 PM EDT): Pt is seeing a therapist Used to be under the care of [facility] Previously I had started him on Fluixetine 20 mg po daily, pt tells me he is doing well. Assessment & Plan (04/18/2022 11:52 AM EST): Pt is seeing a therapist Under the care of [facility] I had started him on Fluixetine 20 mg po daily, pt tells me he is doing well 4 months f/u Type 2 diabetes mellitus wit h retinopathy, with long-term current use of insulin 03/29/2022 Assessment & Plan (05/25/2024 8:31 AM EST): Pt here for a follow up. He is enrolled in [facility] DM uncontrolled due to poor adherence to medical treatment. He did not bring his glucometer. He is supposed to be on a regimen of: Lantus 55 units sc q pm, Metformin ER 2 tabs 500 mg po BID, Januvia 100 mg po daily and Trulicity 0.75 weekly Collar Cutter prescribed Farxiga but was denied by insurance. He admits to not using the Novolog Insulin sliding scale He is back under the care of Endocrinology, last seen 05/07/2024 He is not adhering to a Diabetic diet Hgb A1c 03/23/2024: 15 Eye exam: Pt under the care of retinal specialist ([facility]) has diabetic retinopathy , per pt receiving q 2 mo L eye injections Microalbumin 02/09/2020 was 21.1 Pt is no longer on an YARITZA inhibitor due to Hx of PRANEETH Foot check not done Pt is no longer on Asa Plan: As per Endocrinology. Continue current regimen, asked to bring glucometer. I discussed need to adhere to his medical regimen first and foremost, Pt advised to: adhere to diabetic diet. Patient will continue to follow with our [facility] team check your blood sugars regularly check your feet on a daily basis 8 weeks follow up with me. Assessment & Plan (03/23/2024 1:22 PM EST): Pt here for a follow up, he missed previous appointments. He is enrolled in [facility] DM uncontrolled due to poor adherence to medical treatment. Glucose today 416. He did not bring his glucometer. He is supposed to be on a regimen of: Lantus 50 units sc q pm, Metformin ER 2 tabs 500 mg po BID.and Januvia 100 mg po daily. There was a confusion that he had stopped it due to the fact that he could not tolerate it (made him feel very tired). Today he tells me he is actually taking it. Collar Cutter prescribed Farxiga but was denied by insurance. He admits to not using the Novolog Insulin sliding scale No longer under the care of Endocrinology He is not adhering to a Diabetic diet Hgb A1c 03/23/2024: 15 Eye exam: Pt under the care of retinal specialist ([facility]) has diabetic retinopathy , per pt receiving q 2 mo L eye injections Microalbumin 02/09/2020 was 21.1 Pt is no longer on an YARITZA inhibitor due to Hx of PRANETEH Foot check not done Pt is no longer on Asa Plan: Continue current regimen, asked to bring glucometer. Refer to Endocrinology I discussed need to adhere to his medical regimen first and foremost, Pt advised to: adhere to diabetic diet. Patient will continue to follow with our [facility] team check your blood sugars regularly check your feet on a daily basis 4 weeks follow up with me. Assessment & Plan (11/27/2023 4:06 PM EDT): Pt here for a short term follow up DM improving Glucose today:184 Glucometer fluctuating between 112 and 450 He is on a regimen of: Lantus 50 units sc q pm, Metformin ER 2 tabs 500 mg po BID.and on November 03 he was started on Farxiga 10 mg po daily by Collar Cutter He admits to not using the Novolog Insulin sliding scale No longer under the care of Endocrinology He reports he is trying to adhere to a Diabetic diet Hgb A1c 11/04/2023: 15 Eye exam: Pt under the care of retinal specialist ([facility] ) has diabetic retinopathy , Pt under the care of retinal specialist ([facility]) has diabetic retinopathy , per pt receiving q 2 mo L eye injections Microalbumin 02/09/2020 was 21.1 Pt is no longer on an YARITZA inhibitor due to Hx of PRANEETH Foot check not done Pt is no longer on Asa Blood glucose today Plan: Re start Trulicity. 0.75 q week I discussed need to adhere to his medical regimen first and foremost, Pt advised to: adhere to diabetic diet. Patient previously referred to our Pharmacy [facility], appointment pending check your blood sugars regularly check your feet on a daily basis 4 weeks follow up with me. Assessment & Plan (11/11/2023 3:21 PM EDT): Pt here for a short term follow up He is on a regimen of: Lantus 45 units sc q pm,and Novolog Insulin sliding scale as well as Metformin ER 2 tabs 500 mg po BID He used to follow but no longer under the care of Endocrinology He reports he is trying to adhere to a Diabetic diet Hgb A1c 11/04/2023: 15 Eye exam: Pt under the care of retinal specialist ([facility] ) has diabetic retinopathy , Pt under the care of retinal specialist ([facility]) has diabetic retinopathy , per pt receiving q2 mo L eye injections Microalbumin 02/09/2020 was 21.1 Pt is no longer on an YARITZA inhibitor due to Hx of PRANEETH Foot check not done Pt is no longer on Asa Blood glucose today HIGH Plan: 20 units of Rapid Insulin Increase Lantus to 50 un its subcutaneous qhs Reviewed glucometer BG fluctuating between 93 and 450, testing TID. For now given his level of hyperglycemia and A1c of 15 will HOLD off on restarting Trulicity. I discussed need to adhere to his medical regimen first and foremost, Pt advised to: adhere to diabetic diet. Patient previously referred to our Pharmacy [facility] check your blood sugars regularly check your feet on a daily basis 2 weeks follow up with me. Assessment & Plan (11/04/2023 3:30 PM EDT): Pt here for a f/u after a long hiatus Pt not taking care of himself Seen in [facility] earlier this month for hyperglycemia. He is Supposed to be on a regimen of: Lantus 45 units sc q pm,and Humalog Insulin sliding scale as well as Metformin ER 2 tabs 500 mg po BID and Trulicity 3 mg once a week. He admits he did not inject insulin last night nor did he take his medications He used to follow but no longer under the care of Endocrinology He reports he is trying to adhere to a Diabetic diet Hgb A1c today: 15 Eye exam: Pt under the care of retinal specialist ([facility] ) has diabetic retinopathy , Pt under the care of retinal specialist ([facility]) has diabetic retinopathy , per pt receiving q2 mo L eye injections Microalbumin 02/09/2020 was 21.1 Pt is no longer on an YARITZA inhibitor due to Hx of PRANEETH Foot check not done Pt is no longer on Asa Pt has a med box but admits even then does not take his meds regularly. This was confirmed today with Pharmacy Plan: I gave him a total of 20 units of Rapid Insulin ( Pt's blood glucose was HIGH ) He was not able to gie us any urine to check for ketones I confirmed pt had a glucometer , test strips and Lancets and pt agreed to start testing TID. I started him on a Novolog Flex Pen Sliding Scale to use prior to breakfast Lunch and Dinner and He will continue with lantus 45 units subcutaneous.He also promised to start taking his Metformin regularly. For now given his level of hyperglycemia and A1c of 15 will HOLD off on restarting Trulicity. I discussed need to adhere to his medical regimen first and foremost, no changes until he does that,Pt advised to: adhere to diabetic diet. Will refer to our Pharmacy [facility] check your blood sugars regularly check your feet on a daily basis 1 week follow up with me. Assessment & Plan (09/05/2022 10:52 AM EDT): Pt here for a f/u He tells me he was in [place] and while there he was not taking his medications regularly He is Supposed to be on a regimen of: Lantus 45 units sc q pm, Humalog Insulin sliding scale and Metformin ER 2 tabs 500 mg po BID and Trulicity 3 mg once a week No longer under Endocrinology He reports he is trying to adhere to a Diabetic diet Hgb A1c 9.0 Eye exam: Pt under the care of retinal specialist ([facility] ) has diabetic retinopathy , Pt under the care of retinal specialist ([facility]) has diabetic retinopathy , per pt receiving q2 mo L eye injections Microalbumin 02/09/2020 was 21.1 Pt is no longer on an YARITZA inhibitor due to PRANEETH last hospitalization. His Renal function is back to baseline will consider restarting YARITZA Foot check not done Pt is no longer on Asa Pt has a med box but admits even then does not take his meds regularly Plan: discussed need to adhere to his medical regimen first and foremost, no changes until he does that, a new glucometer sent to his pharmacy, bertrand tells me he left his in [place] Pt advised to: adhere to diabetic diet check your blood sugars regularly check your feet on a daily basis Assessment & Plan (05/21/2022 10:20 AM EST): Pt here for a f/u, recently seen in the ER (05/14/2021) with Influenza, found to be hyperglicemic Previous visit , pt wasnot checking his glucometer, I again stressed how dangerous was to inject insulin and not check his levels of glucose, this could even be deadly pt verbalized understanding He is Supposed to be on a regimen of: Lantus 45 units sc q pm, Humalog Insulin sliding scale and Metformin ER 2 tabs 500 mg po BID and Trulicity 1.5 mg once a week No longer under endocrinology He reports he is trying to adhere to a Diabetic diet Hgb A1c 04/18/2022: 9.8 Eye exam: Pt under the care of retinal specialist ([facility] ) has diabetic retinopathy , Pt under the care of retinal specialist ([facility] ) has diabetic retinopathy , per pt receiving q2 mo L eye injections Microalbumin 02/09/2020 was 21.1 Pt is no longer on an YARITZA inhibitor due to PRANEETH last hospitalization. His Renal function is back to baseline will consider restarting YARITZA Foot check not done Pt is no longer on Asa Pt has a med box but admits even then does not take his meds regularly Plan: Increase Trulicity 3 mg once a week Pt advised to: adhere to diabetic diet check your blood sugars regularly check your feet on a daily basis F/u 3 momnths Hemoglobin A1C Date Value Ref Range Status 04/18/2022 9.8 (A) 4.0 - 6.0 % Final Assessment & Plan (04/18/2022 12:28 PM EST): Pt here for a f/u Pt is not checking his glucometer, I again stressed how dangerous is to inject insulin and not check his levels of glucose, this could even be deadly pt verbalizes understanding He is on a regimen of: Lantus 45 units sc q pm, Humalog Insulin sliding scale and Metformin ER 2 tabs 500 mg po BID and Trulicity 1.5 mg once a week No longer under endocrinology likely to initiate SGLT-2 as recent A1c dropped below 10% His renal function is back to normal He reports he is trying to adhere to a Diabetic diet Hgb A1c 04/18/2022: 9.8 Eye exam: Pt under the care of retinal specialist ([facility] ) has diabetic retinopathy , Pt under the care of retinal specialist ([facility] ) has diabetic retinopathy , per pt receiving q2 mo L eye injections Microalbumin 02/09/2020 was 21.1 Pt is no longer on an YARITZA inhibitor due to PRANEETH last hospitalization. His Renal function is back to baseline will consider restarting YARITZA Foot check not done Pt is no longer on Asa Pt has a med box but admits even then does not take his meds regularly Plan: continue f/u with [facility] endocrinology Pt advised to: adhere to diabetic diet check your blood sugars regularly check your feet on a daily basis Hemoglobin A1C Date Value Ref Range Status 04/18/2022 9.8 (A) 4.0 - 6.0 % Final Hidradenitis suppurativa 09/08/2017 Hyperlipidemia 10/30/2012 Assessment & Plan (05/25/2024 8:35 AM EST): Most recent lipid profile from: Lab Results Component Value Date TRIG 101 11/08/2023 TRIG 117 04/22/2022 CHOL 172 11/08/2023 CHOL 227 (A) 08/23/2021 LDLCHOLCAL 108 (H) 11/08/2023 HDL 44 11/08/2023 HDL 49 08/23/2021 Continue Atorvastatin 40 mg po at bedtime. Advised to try to adhere to a low cholesterol diet, counseled and educated about diet and exercise, Patient encouraged to come up with a personal goal for weight loss. Assessment & Plan (03/23/2024 1:03 PM EST): Most recent lipid profile from: Lab Results Component Value Date TRIG 101 11/08/2023 TRIG 117 04/22/2022 CHOL 172 11/08/2023 CHOL 227 (A) 08/23/2021 LDLCHOLCAL 108 (H) 11/08/2023 HDL 44 11/08/2023 HDL 49 08/23/2021 Continue Atorvastatin 40 mg po at bedtime. I asked him to have a repeat Lipid profile Advised to try to adhere to a low cholesterol diet, counseled and educated about diet and exercise, Patient encouraged to come up with a personal goal for weight loss. Assessment & Plan (11/04/2023 1:46 PM EDT): Most recent lipid profile from: 04/22/2022 shows a total cholesterol of: 193 Triglycerides of: 117 HDL of: 44 and LDL of: 127 Continue Atorvastatin 40 mg po at bedtime. I asked him to have a repeat Lipid profile Advised to try to adhere to a low cholesterol diet, counseled and educated about diet and exercise, Patient encouraged to come up with a personal goal for weight loss. Assessment & Plan (09/04/2022 2:47 PM EDT): Most recent lipid profile from: 04/22/2022 shows a total cholesterol of: 193 Triglycerides of: 117 HDL of: 44 and LDL of: 127 Continue Atorvastatin 40 mg po at bedtime. Advised to try to adhere to a low cholesterol diet, counseled and educated about diet and exercise, Patient encouraged to come up with a personal goal for weight loss. Assessment & Plan (04/18/2022 11:36 AM EST): Most recent lipid profile from: 08/23/2021 shows a total cholesterol of: 227 triglycerides of: 121 HDL of: 49 and LDL of: 154 Continue Atorvastatin 40 mg po qhs Advised to try to adhere to a low cholesterol diet, counseled and educated about diet and exercise, Patient encouraged to come up with a personal goal for weight loss. Encounters Date Type Department Care Team Description 07/21/2024 11:00 AM EDT Office Visit [facility] [address] [address] Yvan Roper MD Scalp mass (Primary Dx); Primary hypertension; Stage 3 chronic kidney disease, unspecified whether stage 3a or 3b CKD ([facility]) 06/21/2024 Travel 06/15/2024 Travel 06/14/2024 Travel 05/25/2024 10:00 AM EST Office Visit 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 [address] [place] [address] Vince Maya MD Chart Prep 05/06/2024 10:40 AM EST Office Visit [facility] [address] [place] [address] Shirley Zuniga MD Posterior reversible encephalopathy syndrome (Primary Dx) 05/06/[address] [facility] [address] [place] [phone] Karol Vila RN 04/26/[address] 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, with long-term current use of insulin ([facility]) from Last 3 Months Immunizations Name Administration Dates Next Due Hep B, adult 01/19/2008,09/17/2007,07/30/2007 MMR 03/22/2008 Moderna Covid-19 Vaccine 12+ 09/28/2020,09/01/19 21 Pneumococcal Polysaccharide PPSV23 07/30/2007 TD (adult), 2 Lf tetanus tox oid, preservative free, adsorbed 07/30/2007 Tdap 11/07/2014 Social History Tobacco Use Types Packs/Day Years Used Date Smoking Tobacco: Never Passive Smoke Exposure: Never Smokeless Tobacco: Never Tobacco Cessation:Counseling Given: Not Answered Alcohol Use Standard Drinks/Week Comments Defer 0 [...] your housing situation today? I have joann jenise 11/04/[address] you li [...] not to disclose 2021 10:20 AM EDT Last Filed Vital Signs Vital Sign Reading [...] 12.8 oz) 025 11:37 AM EDT Height 170.2 cm (5' 7 ) 05/25/2024 10:0 5 AM EST Body Mass Index 29.57 05/25/2024 10:05 AM EST Plan of Treatment Upcoming Encounters Date Type Department Care Team (Late st Contact Info) Description 08/26/2024 3:00 PM EDT Office Visit [facility] [address] [place] [phone] Vince Maya MD [address] [place] [address] 09/13/2024 3:30 PM EDT Medication Management [facility] [address] [place] [address] Melanie Reyes, UshaD [address] [place], [place] [phone] Health Maintenance Due Date Last Done Comments CT Colonography 1974 Colonoscopy 1974 Colorectal Cancer Screening 1974 Dental Oral Exam 1974 Dental Prophylaxis 1974 Dental X-Ray: Bitewings 1974 FIT DNA/Cologuard 1974 FIT 1974 FOBT 1974 Sigmoidoscopy 1974 Diabetes: Foot Exam 01/13/1984 Eye Exam 01/13/1984 Family Planning (PISQ) 1989 Pneumococcal Vaccine: 50+ Years (2 of 2 - PCV) 07/29/2008 07/30/2007 COVID-19 Vaccine ( - season) 2024 07/02/2021, 09/28/2020, 08/31/2020 Influenza Vaccine (#1) 2024 Zoster Vaccines (1 of 2) 01/13/2024 Diabetes: Hemoglobin A1C 06/23/2024 024, 11/27/2023, 11/04/2023, Additional history exists Depression Screening 11/03/2024 11/04/2023, 11/04/19 SDOH Screening 11/03/2024 11/04/2023 DTaP/Tdap/Td Vaccines (2 - Td or Tdap) 11/07/2024 11/07/2014, 07/30/2007 Diabetes: Urine Protein Screening 11/07/2024 11/08/2023, 04/10/2022, 04/10/2022, Additional history exists Lipid Panel 11/07/2024 11/08/2023, 04/11, 08/23/2021, Additional history exists Alcohol/Substance Use Screening 05/25/2025 05/25/2024 Tobacco Screening 07/21/2025 07/21/2024 Dental X-Ray: Full Mouth 06/07/2026 06/06/2023 RSV Patients and Patients Aged 60 years or older (1 - 1-dose 75+ series) 2049 Hepatitis B Vaccines Completed 01/19/2008, 09/17/2007, 07/30/2007 Hepatitis C Screening Completed 08/23/2021 HIV Screening Completed 02/02/2024 HIB Vaccines Aged Out No longer eligi [...] on patient's age to complete this topic Meningococcal Vaccine Aged Out No deng tiara eligible based on patient's age to complete this topic RSV under 20 months Aged Out No longe r eligible based on patient's age to complete this topic Rotavirus Vaccines Aged Out No longer eligible based on patient's age to complete this topic Procedures Procedure Name Priority Date/Time Associated Diagnosis Comments AMB REFERRAL TO NEUROLOGY Urgent 06/21/2024 Posterior reversible encephalopathy syndrome POCT GLUCOSE Routine 05/25/2024 10:07 AM EST 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, with long-term current use of insulin ([facility]) ISLET CELL AB SCREEN W/REFL TITER Routine 05/07/2024 11:49 AM EST GLUTAMIC ACID DECARBOXYLASE 65 AB Routine 05/07/2024 11:49 AM EST C-PEPTIDE Routine 05/07/2024 11:49 AM EST B TYPE NATRIURETIC PEPTIDE (BNP) Routine 05/07/2024 11:49 AM EST CREATININE, SERUM Routine 05/07/2024 11: 49 AM EST GLUCOSE, WHOLE BLOOD Routine 05/07/2024 10:48 AM EST POCT GLYCATED HEMOGLOBIN, TOTAL Routine 03/23/2024 1:07 PM EST 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, with long-term current use of insulin (CMS/HCC) HIV 1/2 ANTIGEN/ANTIBODY, FOURTH GENERATION W/RFL Routine 02/02/2024 4:42 PM EDT Balanitis Localized edema ALBUMIN, RANDOM URINE W/CREATININE Routine 11/08/2023 8:56 AM EDT 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, with long-term current use of insulin (CMS/HCC) LIPID PANEL, STANDARD Routine 11/08/2023 8:12 AM EDT Mixed hyperlipidemia PANORAMIC RADIOGRAPHIC IMAGE Routine 06/06/2023 11:30 AM EST ZZZ HISTORICAL HEPATITIS C AB W/REFL TO HCV RNA, QN, PCR Routine 08/23/2021 10:46 AM EDT from Last 3 Months or Most Recently Relevant to Health Maintenance Results * Referral to Neurology (06/21/2024) us Shirley Zuniga MD OUTPATIENT REFERRAL ORDERABLE S Final Result * (ABNORMAL) POCT Glucose (05/25/2024 10:07 AM EST) Glucose Blood, POC 337(A) 60 - 200 mg/dL QC Media Lot # [id number] Lot# Expiration Date ,847,706 Blood Capillary blood specimen / Unknown 05/25/2024 10:07 AM EST Vince Thomas MD POINT OF CARE TEST EN TER/EDIT ORDERABLES Final Result * Creatinine, Serum (05/07/2024 11:49 AM EST) Creatinine, Serum 0.88 0.5 - 1.4 mg/dL [facility] Estimated Glomerular Filt Rate >60 [facility] Comment:Chronic Kidney Disea se: Estimated GFR < 60 mL/min/1.25l3Xjhwsm Kidney Disease: Estimated GFR < 15 mL/min/1.73m2 05/07/2024 11:4 9 AM EST 05/07/2024 11:49 AM EST Generic External Data Provider LAB BLOOD ORDERAB LES Final Result Performing Organization Address [facility] Co de Phone Number [facility] [address] [place] [phone] * Glutamic Acid Decarboxylase 65 Antibody (05/07/2024 11:49 AM EST) Glutamic acid decarboxylase Ab <5 <5 IU/mL [facility] Comment:This test was perfor med using the GAD65 RADHA method,which is standardized against the Internationalreference preparation 97/550.THIS TEST WAS PERFORMED AT:[employer]/[id number] [place] [address]IORMPPGCANDELARIO WALDEN MD,PHD 05/07/2024 11:4 9 AM EST 05/07/2024 11:49 AM EST Generic External Data Provider LAB BLOOD ORDERAB LES Final Result Performing Organization Address [facility] Co de Phone Number [facility] [address] [place] [phone] * C-Peptide (05/07/2024 11:49 AM EST) Pathologist [facility] C-Peptide 1.08 0.80 - 3.85 ng/mL [facility] Comment:THIS TEST WAS PERFOR MED AT:[facility] [place] [id number] ZAMAN MD 05/07/2024 11:4 9 AM EST 05/07/2024 11:49 AM EST Generic External Data Provider LAB BLOOD ORDERAB LES Final Result Performing Organization Address [facility] Co de Phone Number [facility] [address] [place] [phone] * Islet Cell Antibody Screen W/Reflex to Titer (05/07/2024 11:49 AM EST) [facility] Islet Cell Antibody Screen NEGATIVE NEGATIVE [facility] Comment:This test was develo ped and its analytical performancecharacteristics have been determined by [employer].It has not been cleared or approved by FDA. This assay hasbeen validated pursuant to the CLIA regulations and is usedfor clinical purposes.THIS TEST WAS PERFORMED AT:[employer]/GUAMAN [id number] [address]IMA [address]AL[address] [facility] [place] [address]PSTWPRUTHY BAUER MD,PHD,GEORGE Islet Cell Antibody Titer TNP [facility] 05/07/2024 11:4 9 AM EST 05/07/2024 11:49 AM EST Generic External Data Provider LAB BLOOD ORDERAB LES Final Result Performing Organization Address [facility]/ZIP Co de Phone Number [facility] [address] [place] [phone] * B Type Natriuretic Peptide (BNP) (05/07/2024 11:49 AM EST) Pathologist [facility] B Type Natriuretic Peptide <10 <100 pg/mL [facility] Comment:For those patients w ho are being treated with Natrecor(nesiritide, recombinant BNP), BNP testing should beperformed at least two hours post treatment in order toensure that only endogenous levels of BNP are detected. 05/07/2024 11:4 9 AM EST 05/07/2024 11:49 AM EST Generic External Data Provider LAB BLOOD ORDERAB LES Final Result Performing Organization Address City/[facility]/ZIP Co de Phone Number [facility] [address] [place] [phone] * (ABNORMAL) Glucose, Whole Blood (05/07/2024 10:48 AM EST) Pathologist [facility] Glucose, Whole Blood 221(H) 60 - 115 mg/dL [facility] Comment:METER #: [id number] Testing performed in the Endocrinology Department [address] , [address], [facility]. 05/07/2024 10:4 8 AM EST 05/07/2024 10:56 AM EST Generic External Data Provider LAB BLOOD ORDERAB LES Final Result Performing Organization Address [facility] Co de Phone Number [facility] [address] [place] [phone] * (ABNORMAL) POCT HGB A1C (03/23/2024 1:07 PM EST) Pathologist [facility] Hemoglobin A1C 15.0(A) 4.0 - 6.0 % Comment:>15.0% QC Media Lot # [id number] Lot# Expiration Date Blood 03/23/2024 1:07 PM EST Vince Thomas MD POINT OF CARE TEST EN TER/EDIT ORDERABLES Final Result * HIV-1/2 Antigen and Antibodies, Fourth Generation, with Reflexes (02/02/2024 4:42 PM EDT) Pathologist [facility] HIV AB/AG Nonreactive Nonreactive [facility] Comment:HIV-1 p24 Ag and/or HIV-1/HIV-2 Ab not detected.A test result that is nonreactive does not exclude thepossibility of exposure to or infection with HIV-1 and/orHIV-2. Nonreactive results in this assay for individualswith prior exposure to HIV-1 and/or HIV-2 may be due toantigen and antibody levels that are below the limit ofdetection of this assay.The [employer]antage HIV Ag/Ab Combo assay result andsupplemental assay results should be interpreted inconjunction with the patient's clinical presentation,history and other laboratory results. If the results areinconsistent with clinical evidence, additional testing issuggested to confirm the result. Blood Venous blood specimen / Unknown 02/02/2024 4:42 PM EDT 02/02/2024 6:10 PM EDT us Marlin Curiel NP LAB BLOOD ORDERABLES Final Resul t Performing Organization Address City/[facility] Co de Phone Number [facility] [address] [place] [phone] * (ABNORMAL) Albumin, Random Urine W/Creatinine (11/08/2023 8:56 AM EDT) Creatinine, Urine 122.34 mg/dL [facility] Microalbumin Urine 736.0 mg/L H [facility] Microalbum Creatinine Ratio Ur 601.6(H) <30 ug/mg cr [facility] Comment:Albumin/Creatinine R atio Reference Ranges: Normal: < 30 ug/mg creatinine Microalbuminuria: 30 - 300 ug/mg creatinineClinical Albuminuria: > 300 ug/mg creatinine Urine (Urine, Random) 11/08/2023 8:56 AM EDT 11/08/2023 9:06 AM EDT us Vince Thomas MD LAB URINE ORDERABLES Final Result Performing Organization Address [facility] Co de Phone Number [facility] [address] [place] [phone] * (ABNORMAL) Lipid Panel, Standard (11/08/2023 8:12 AM EDT) Triglycerides 101 <150 mg/dL [facility] Comment:Desirable Triglyceri de: less than 150 mg/dLBorderline High Triglyceride 150-199 mg/dLHigh Triglyceride: 200-499 mg/dLVery High Triglyceride: greater than or equal to 5OO mg/dL Cholesterol 172 <200 mg/dL [facility] Comment:Desirable Cholestero l: less than 200 mg/dLBorderline High Cholesterol: 200-239 mg/dLHigh Cholesterol: greater than 239 mg/dL LDL Cholesterol Calculated 108(H) <100 mg/dL [facility] Comment:Desirable LDL: less than 100 mg/dLNear Optimal/Above Optimal LDL: 110- 129 mg/dLBorderline High LDL: 130-159 mg/dLHigh LDL: 160-189 mg/dLVery High LDL: greater than or equal to 190 mg/dL HDL Cholesterol 44 >40 mg/dL [facility] Comment:Desirable HDL: great er than 40 mg/dL Note: This HDL assay may give artificially low results in patients with liver disease. Blood Venous blood specimen / Unknown 11/08/2023 8:12 AM EDT 11/08/2023 8:12 AM EDT us Vince Thomas MD LAB BLOOD ORDERABLES Final Result [facility] [address] [place] [phone] * HEPATITIS C AB W/REFL TO HCV RNA, QN, PCR (08/23/2021 10:46 AM EDT) HEPATITIS C ANTIBODY NON-REACT [facility] NON-REACT [facility] INDEX 0.01 <1.00 [facility] Comment: ?? HCV antibody was non-reactive. There is no laboratory ?? evidence of HCV infection. ?? In most cases, no further action is required. However, if recent HCV exposure is suspected, a test for HCV RNA (test code 69987) is suggested. ?? For additional information please refer to http://education.ActiveO.LoveSpace/faq/JIE39j5 (This link is being provided for informational/ educational purposes only.) ?? 08/23/2021 10:4 6 AM EDT us Abby Bell NP HISTORICAL/NON ORDERABLE LABS Final Result Performing Organization Address City/State/[facility] Co de Phone Number [facility] [address] from Last 3 Months or Most Recently Relevant to Health Maintenance Insurance [facility] Care Teams Engineering Technologist Relationship Specialty Start Date End Date Vince Maya MD [address] [place] [address] PCP - General Internal Medicine 12/20/16 Melanie Reyes, Kiki [address] [place] [address] Pharmacist Internal Medicine 06/15/24
--- OUTSIDE RECORDS SUMMARY | 2024-07-22 16:53 | XMS_ITS | Clinical Summary ---
Author Organization [facility] Address [address] [place] [phone] Care Team Providers Care Steelworker Name Role Phone Unknown Primary Care Provider [phone] Allergies No known active allergies Social History Tobacco Use Types Packs/Day Years Used Date Smoking Tobacco: Never Assessed Sex and Gender Information Value Date Recorded Sex Assigned at Not on file Gender Identity Not on file Sexual Orientation Not on file Last Filed Vital Signs Vital Sign Reading Time Taken Comments Blood Pressure 144/68 05/29/2021 3:31 PM EST Pulse 82 05/29/2021 3:31 PM EST Temperature 36.3 ??C (97.3 ??F) 05/29/2021 3:31 PM ES T Respiratory Rate 18 05/29/2021 3:31 PM EST Oxygen Saturation 98% 05/29/2021 3:31 PM EST Inhaled Oxygen Concentration - - Weight - - Height - - Body Mass Index - - Plan of Treatment Health Maintenance Due Date Last Done Comments Hepatitis C Virus Screening 1974 HIV Screening 1987 DTaP/Tdap/Td Vaccines (1 - Tdap) 1993 Hepatitis B Vaccines (1 of 3 - 19+ 3-dose series) 1993 Colonoscopy 2019 Influenza Vaccine 12/11/2023 COVID-19 Vaccine ( - 2023-2 5 season) 2024 Pneumococcal Vaccines 50+ (1 of 1 - PCV) 01/13/2024 Zoster (Shingles) Vaccine (1 of 2) 01/13/2024 Pneumococcal Vaccine: Pediat ren (0-5 Years) and At-Risk Patients (6 to 49 Years) Aged Out No longer eligible b ased on patient's age to complete this topic Care Teams Steelworker Relationship Specialty Start Date End Date Unknown Unknow Provider Address PCP - General 05/29/21
--- OUTSIDE RECORDS SUMMARY | 2024-07-22 16:53 | XMS_ITS | Encounter Summary ---
Author Organization [facility] Address [address] [place] [address] Care Team Providers Care Relocation Associate Name Role Phone Vince Maya MD Primary Care Provide r Melanie Reyes PharmD Unavailable [phone] Encounter Details Date Type Department Care Team (Late st Contact Info) Description 03/29/2022 Abstract [facility] [address] [place] [phone] Vince Maya MD [address] [place] [phone] Social History Tobacco Use Types Packs/Day Years [...] Description 08/26/2024 3:00 PM EDT Office Visit [facility] [address] [place] [address] [phone] Vince Maya MD [address] [place] [address] 09/13/2024 3:30 PM EDT Medication Management [facility] [address] [place] [address] [phone] Melanie Reyes, PharmD [address] [place] [address] documented as of this encounter Procedures Procedure Name Priority Date/Time Associated Diagnosis Comments HEMOGLOBIN A1C Routine 12/04/2021 LIPID PANEL, STANDARD Routine 08/23/2021 documented in this encounter Results * (ABNORMAL) Hemoglobin A1c (12/04/2021) Hemoglobin A1C 8.8(A) 4.0 - 6.0 % Blood Venous blood specimen / Unknown Historical Provider LAB BLOOD ORDERABLES Virginia l Result * (ABNORMAL) Lipid Panel, Standard (08/23/2021) LDL HDL Ratio 4.6 Triglycerides 121 40 - 160 mg/dL Cholesterol 227(A) 0 - 200 mg/dL HDL Cholesterol 49 35 - 70 mg/dL LDL Cholesterol 154 mg/dL Blood Venous blood specimen / Unknown Historical Provider LAB BLOOD ORDERABLES Virginia l Result documented in this encounter Visit Diagnoses Not on filedocumented in this encounter Care Teams Relocation Associate Relationship Specialty Start Date End Date Vince Maya MD [address] [place] [address] PCP - General Internal Medicine 12/20/16 Melanie Reyes, Kiki [address] [place] [address] Pharmacist Internal Medicine 06/15/24 documented as of this encounter
== END 2024-07-22 14:22 | disposition home or self-care (01) ==
LOC: HO.HGS 13:19
PROVIDERS: PCP Internal Medicine; Referring Provider Emergency Medicine; Visit Provider Surgery
DX: L72.11 Pilar cyst (principal)
CPT/HCPCS: 99204

== ENCOUNTER → 2024-07-22 13:19 | Outpatient (BNVA) | payer OTHER, SELFPAY | PROVIDERS: PCP Internal Medicine; Referring Provider Emergency Medicine; Visit Provider Surgery | DX: L72.11 Pilar cyst (principal) | CPT/HCPCS: 99202 ==

== ENCOUNTER 2024-09-03 19:06 | Outpatient (REF) | payer OTHER, SELFPAY ==
--- NOTE | ~2024-09-03 | MR_ITS ---
EXAMINATION: MR BRAIN WITHOUT CONTRAST CLINICAL INFORMATION: Posterior reversible encephalopathy syndrome. COMPARISON: Correlated to CT dated April 22, 2024. TECHNIQUE: MRI of the brain was obtained using routine sequences without contrast. FINDINGS: There is a focal, cerebral cortex, hyperintense T2 FLAIR and T2 shining through, minimal susceptibility signal abnormality, center within the left calcarine fissure/lingual gyrus. No acute intracranial hemorrhage, mass effect, midline shift, hydrocephalus or herniation. There is a less than 1 cm cluster of fluid signal characteristic nonrestricted signal abnormality at the subcortical white matter of the right temporal occipital lobe. Prominence of the extra-axial CSF spaces cerebral sulci involving mostly the bifrontal and to a lesser extent bitemporal lobes. Flow-void signal within the main cerebral vessels is normal. Sellar/suprasellar region demonstrated no signal abnormality or gross masses. There is slight asymmetric prominent left occipital lobe when compared with the opposite/contralateral side. Craniocervical junction is intact and normal. MR/MR head/brain wo con IMPRESSION: Concerning the prior vascular insult, left calcarine fissures/lingual gyrus. Left occipital petalia. Questionable cluster of prominent Virchow-Ford spaces, right temporal occipital. Recommend follow-up. Electronically signed by: Joshua Willis MD 09/07/2024 11:05 AM EDT
--- OUTSIDE RECORDS SUMMARY | 2024-09-03 19:08 | XMS_ITS | Encounter Summary ---
Author Organization [employer] Address [address] [place] [address] Care Team Providers Care Bullet Maker Name Role Phone Vince Maya MD Primary Care Provide r Melanie Reyes PharmD Unavailable [phone] Reason for Visit * Reason Comments Med Refill Encounter Details Date Type Department Care Team ([facility] Contact Info) Description 12/11/2023 Refill [facility] [address] [place], [place] [phone] Holly Singh MD [address] [place], [place] [phone] Social History Tobacco Use Types Packs/Day Years [...] the past 12 months, has t he [employer], gas, oil or water company threatened to [...] Care Team (Late st Contact Info) Description 09/13/2024 3:30 PM EDT Medication Management [facility] [address] [place] [phone] Melanie Reyes, PharmD [address] [place] [phone] 11/25/2024 1:15 PM EDT Office Visit [facility] [address] [place] [address] Vince Maya MD [address] [place] [phone] documented as of this encounter Visit Diagnoses Not on filedocumented in this encounter Additional Health Concerns Assessment Noted Time PHQ-9 Depression Total Score: 5 11/04/19 24 1:48 PM EDT documented as of this encounter Care Teams Bullet Maker Relationship Specialty Start Date End Date Vince Maya MD [address] [place] [phone] PCP - General Internal Medicine 8/11/17 Melanie Reyes, Kiki [address] [place] [phone] Pharmacist Internal Medicine 06/15/24 documented as of this encounter
--- OUTSIDE RECORDS SUMMARY | 2024-09-03 19:08 | XMS_ITS | Clinical Summary ---
Author Organization [employer] Address [address] [place] [address] Care Team Providers Care Groundman Name Role Phone Pcp, No Primary Care [...] - 2023-2 5 season) 2024 09/28/2020, 08/31/2020 Pneumococcal Vaccine: 50+ Years (2 of 2 - PCV) 01/13/2024 07/30/2007 Zoster Vaccines (1 of 2) 01/13/2024 Tdap and Td Vaccines Adult 11/07/202411/07, 07/30/2007 Influenza Vaccine (Season Ended) 2025 Pneumococcal Vaccine: Peds ( 0 to 5 [...] this topic Insurance MEDICAID OUT-STATE Care Teams Groundman Relationship Specialty Start Date End Date Pcp, No No PCP On File COLTON Garcia [id number] PCP - General 01/03/20
--- OUTSIDE RECORDS SUMMARY | 2024-09-03 19:08 | XMS_ITS | Encounter Summary ---
Author Organization [facility] Address [address] [facility] 7t [place] [address] Care Team Providers Care Retail Business Manager Name Role Phone Vince Maya MD Primary Care Provide r Melanie Reyes PharmD Unavailable [phone] Encounter Details Date Type Department Care Team (Late st Contact Info) Description 03/29/2022 Abstract [facility] [address] [place] [phone] Vince Maya MD [address] [place] [address] Social History Tobacco Use Types Packs/Day Years [...] Description 09/13/2024 3:30 PM EDT Medication Management [facility] [address] [place] [phone] Melanie Reyes PharmD [address] [place] [address] 11/25/2024 1:15 PM EDT Office Visit [facility] [address] [place] [phone] Vince Maya MD [address] [facility] [place] [address] documented as of this encounter Procedures Procedure [...] on filedocumented in this encounter Care Teams Retail Business Manager Relationship Specialty Start Date End Date Vince Maya MD [address] [facility] [place] [address] PCP - General Internal Medicine 12/20/16 Melanie Reyes PharmD [address] [facility] [place] [address] Pharmacist Internal Medicine 06/15/24 documented as of this encounter
--- OUTSIDE RECORDS SUMMARY | 2024-09-03 19:08 | XMS_ITS | Encounter Summary ---
Author Organization [facility] [employer] Address [address] [facility] [address] 7t [place] [address] Care Team Providers Care Product Design Specialist Name Role Phone Vince Maya MD Primary Care Provide r Melanie Reyes PharmD Unavailable [phone] Reason for Visit * Reason Comments Med Refill Encounter Details Date Type Department Care Team ([facility] st Contact Info) Description 09/02/2023 Refill [facility] [address] [place], [place] [phone] Vince Maya MD 230 [place] [address] Primary hypertension Social History Tobacco Use Types [...] Description 09/13/2024 3:30 PM EDT Medication Management [facility] [address] [place] [phone] Melanie Reyes PharmD [address] [place] [phone] 11/25/2024 1:15 PM EDT Office Visit [facility] [address] [place] [address] Vince Maya MD [address] [place] [address] documented as of this encounter Visit Diagnoses Diagnosis Primary hypertension Unspecified essential hypertension documented in this encounter Additional Health Concerns Assessment Noted Time PHQ-9 Depression Total Score: 3 09/06/19 10:39 AM EDT documented as of this encounter Care Teams Product Design Specialist Relationship Specialty Start Date End Date Vince Maya MD [address] [place] [phone] PCP - General Internal Medicine 12/20/16 Melanie Reyes PharmD [address] [place] [phone] Pharmacist Internal Medicine 06/15/24 documented as of this encounter
--- OUTSIDE RECORDS SUMMARY | 2024-09-03 19:08 | XMS_ITS | Clinical Summary ---
Author Organization [facility] Address [address] [address] Care Team Providers Care Shingle Weaver Name Role Phone Vince Patel MD Primary [...] day 90 tablet 2 11/04/19 24 Active hydroCHLOROthia zide 12.5 MG tabletIndicatio ns:Stage 3 chronic kidney disease, not otherwise specified (HCC),Hypertens ion,Type 2 diabetes mellitus with diabetic chronic kidney disease (HCC),Iron deficiency anemia, not otherwise specified,Anemi a in chronic kidney disease Take 1 tablet (12.5 mg total) by mouth 1 (one) time each day 30 tablet 05/14/19 25 Active gabapentin (NEURONTIN) 100 MG capsule Take 2 capsules (200 mg total) by mouth in the morning and 2 capsules (200 mg total) in the evening. 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 hypertensio n 12/25/2020 Type 2 diabetes mellitus wit h diabetic chronic kidney disease 12/25/2020 Acute nontraumatic kidney injury 09/05/2020 Encounters Date Type Department Care Team Description 08/02/2024 4:00 PM EDT Office Visit [facility] [address] [place], [place] [address] Kei Moreno MD Chronic kidney disease, stage 2 (mild) (Primary Dx); Persistent proteinuria from Last 3 Months Family History Medical [...] Sign Reading Time Taken Comments Blood Pressure 130/84 08/02/2024 3:49 PM EDT Pulse 78 08/02/2024 3:49 PM EDT Temperature - - Respiratory Rate - - Oxygen Saturation 99% 08/02/2024 3:49 PM EDT Inhaled Oxygen Concentration - - Weight 88 kg (194 lb) 08/02/2024 3:49 PM EDT Height 170.2 cm (5' 7 ) 12/08/2018 12:00 PM EDT Body Mass Index 30.38 12/08/2018 12:00 PM EDT Plan of Treatment Upcoming Encounters Date Type Department Care Team (Late st Contact Info) Description 08/08/2025 1:15 PM EDT Office Visit [facility] [address] [place] [address] Kei Moreno MD [address] [facility] [address] [place] [address] Health Maintenance Due Date Last Done Comments Hepatitis B Vaccine (1 of 3 - 19+ 3-dose series) 1993 01/19/2008, 09/17/2007, 07/30/2007 Pneumococcal Vaccine: 50+ Ye ars (2 of 2 - PCV) 07/29/2008 07/30/2007 Diabetes: Ophthalmology Exam 10/25/2020 Diabetes: Pedal Pulse Checked 10/25/2020 Diabetes: Sensory Foot Exam 10/25/2020 Diabetes: Visual Foot Exam 10/25/2020 Colorectal Cancer Screening: Annual FOBT 2023 Colorectal Cancer Screening: Colonoscopy 2023 Colorectal Cancer Screening: Sigmoidoscopy 2023 Diabetes: Hemoglobin A1C 06/23/2024 03/23/2024, 10/11 Influenza Vaccine (Season Ended) 2025 Pneumococcal Vaccine: Peds ( 0 to 5 Years) and At-Risk Patients (6 to 49 Years) Discontinued 07/30/2007 Insurance [facility] Medicaid Care Teams Shingle Weaver Relationship Specialty Start Date End Date Vince Patel MD PCP - General 05/22/20
--- OUTSIDE RECORDS SUMMARY | 2024-09-03 19:08 | XMS_ITS | Encounter Summary ---
Author Organization [employer] Address [address] [facility] [address] 7t [place] [address] Care Team Providers Care Derrick Operator Name Role Phone Vince Maya MD Primary Care Provide r Melanie Reyes PharmD Unavailable [phone] Encounter Details Date Type Department Care Team ([facility] st Contact Info) Description 06/06/2023 Telephone [facility] [address] [place], [place] [phone] Duran Barnett DDS [address] [place], [place] [phone] Social History Tobacco Use Types Packs/Day Years [...] Description 09/13/2024 3:30 PM EDT Medication Management [facility] [address] [place] [phone] Melanie Reyes PharmD 230 [place] [address] 11/25/2024 1:15 PM EDT Office Visit [facility] [address] [place] [phone] Vince Maya MD [address] [place] [address] documented as of this encounter Visit Diagnoses Not on filedocumented in this encounter Additional Health Concerns Assessment Noted Time PHQ-9 Depression Total Score: 3 09/06/19 10:39 AM EDT documented as of this encounter Care Teams Derrick Operator Relationship Specialty Start Date End Date Vince Maya MD [address] [place] [address] PCP - General Internal Medicine 12/20/16 Melanie Reyes PharmD 230 [place] [address] Pharmacist Internal Medicine 06/15/24 documented as of this encounter
--- OUTSIDE RECORDS SUMMARY | 2024-09-03 19:08 | XMS_ITS | Encounter Summary ---
Author Organization [facility] Address [address] [place] [address] Care Team Providers Care Manager Aerospace Name Role Phone Pcp, No Primary Care Provider Unavailabl e Encounter Details Date Type Department Care Team (Late st Contact Info) Description 10/28/2023 Procedure Pass [facility], Radiology (CT Scan) [address] [place] [address] [phone] Social History Tobacco Use Types Packs/Day Years [...] on filedocumented in this encounter Care Teams Manager Aerospace Relationship Specialty Start Date End Date Pcp, [place] [address] PCP - General 01/03/20 documented as of this encounter
--- OUTSIDE RECORDS SUMMARY | 2024-09-03 19:08 | XMS_ITS | Encounter Summary ---
Author Organization [facility] Address [address] [facility] 7t [place] [address] Care Team Providers Care Electrical Wirer Name Role Phone Vince Maya MD Primary Care Provide r Melanie Reyes PharmD Unavailable [phone] Reason for Visit * Reason Comments Med Refill Encounter Details Date Type Department Care Team ([facility] Contact Info) Description 07/26/2022 Refill [facility] [address] [place] [address] Vince Maya MD 230 [place] [address] Mixed hyperlipidemia (Primary Dx); Primary hypertension Social [...] Department Care Team (Late Contact Info) Description 09/13/2024 3:30 PM EDT Medication Management [facility] [address] [place] [address] Melanie Reyes, PharmD [address] [facility] [place] [address] 11/25/2024 1:15 PM EDT Office Visit [facility] [place] [address] Vince Maya MD [facility] [place] [address] documented as of this encounter Visit Diagnoses Diagnosis Mixed hyperlipidemia- Primary Primary hypertension Unspecified essential hypertension documented in this encounter Care Teams Electrical Wirer Relationship Specialty Start Date End Date Vince Maya MD [address] [place], [place] [phone] PCP - General Internal Medicine 12/20/16 Melanie Reyes, Kiki [facility] [place] [address] Pharmacist Internal Medicine 06/15/24 documented as of this encounter
--- OUTSIDE RECORDS SUMMARY | 2024-09-03 19:08 | XMS_ITS | Clinical Summary ---
Author Organization [facility] Address [address] [place] [address] Care Team Providers Care Coat Repair Inspector Name Role Phone Unknown Primary Care Provider [phone] Artie Vivas DO Unavailable Allergies No known active allergies Encounters Date Type Department Care Team Description 07/27/2024 8:55 AM EDT - 07/27/2024 12:09 PM EDT Emergency Day [facility] Emergency Department [address] [place] [address] Chi Brooks MD RUQ abdominal pain (Primary Dx) Discharge Disposition: Home or Self Care 07/27/2024 Travel from Last 3 Months Social History Tobacco Use Types Packs/Day Years Used Date Smoking Tobacco: Never Smokeless Tobacco: Never Tobacco Cessation:Counseling Given: Not Answered Sex and Gender Information Value Date Recorded Sex Assigned at Male 07/27/2024 5:38 PM EDT Legal Sex Male 3:08 PM EST Gender Identity Male 07/27/2024 5:38 PM EDT Sexual Orientation Heterosexual (straight) 07/27 5:38 PM EDT Last Filed Vital Signs Vital Sign Reading Time Taken Comments Blood Pressure 117/83 07/27/2024 8:52 AM EDT Pulse 84 07/27/2024 8:52 AM EDT Temperature 36.4 ??C (97.6 ??F) 07/27/2024 8:52 AM ED T Respiratory Rate 16 07/27/2024 8:52 AM EDT Oxygen Saturation 98% 07/27/2024 8:52 AM EDT Inhaled Oxygen Concentration - - Weight - - Height - - Body Mass Index - - Plan of Treatment Health Maintenance Due Date Last Done Comments Hepatitis C Virus Screening 1974 HIV Screening 1987 DTaP/Tdap/Td Vaccines (1 - Tdap) 1993 Hepatitis B Vaccines (1 of 3 - 19+ 3-dose series) 07/1992 Colonoscopy 2019 Influenza Vaccine 12/11/2023 COVID-19 Vaccine (1 - 2023-25 season) 2024 Pneumococcal Vaccines 50+ (1 of 1 - PCV) 01/13/2024 Zoster (Shingles) Vaccine (1 of 2) 01/13/2024 Procedures Procedure Name Priority Date/Time Associated Diagnosis Comments ECG 12-LEAD STAT 07/27/2024 11:29 AM EDT US ABDOMEN-LIMITED STAT 07/27/2024 10 :49 AM EDT POCT GLUCOSE, FINGERSTICK (CHARGE) Routine 07/27/2024 9:25 AM EDT LIPASE STAT 07/27/2024 9:05 AM EDT COMPREHENSIVE METABOLIC PANEL STAT 07/27/2024 9:05 AM EDT COMPLETE BLOOD COUNT, WITH DIFFERENTIAL STAT 07/27/2024 9:05 AM EDT from Last 3 Months Results * ECG 12 lead (07/27/2024 11:29 AM EDT) Ventricular rate 85 BPM EKG [facility] Atrial rate 85 BPM EKG [facility] P-R interval 154 ms EKG [facility] QRS duration 82 ms EKG [facility] Q-T interval 388 ms EKG [facility] QTC calculation (Bazett) 462 ms EKG [facility] P axis 44 degrees EKG [facility] R axis 22 degrees EKG [facility] T axis 40 degrees EKG [facility] 07/27/2024 11:2 9 AM EDT Narrative EKG [facility] - 07/27/2024 11:33 AM EDT Normal sinus rhythm Poor R wave progression Otherwise normal ECG No previous ECGs available Confirmed by MD Lee Daniel ([id number]) on 07/27/2024 11:33:24 AM Procedure Note Eloy Lee MD - 07/27/2024 Normal sinus rhythm Poor R wave progression Otherwise normal ECG No previous ECGs available Confirmed by MD Lee Daniel ([id number]) on 07/27/2024 11:33:24 AM us Isidro Martinez PA-C ECG ORDERABLES Final Result EKG [facility] * US Abdomen-Limited (07/27/2024 10:49 AM EDT) Anatomical Region Laterality Modality Abdomen Ultrasound 07/27/2024 10:0 9 AM EDT Impressions 07/27/2024 3:29 PM EDT 1. ??Top normal common bile duct caliber of 0.7 cm. 2. ??No other abnormality on this sonographic exam of the right upper quadrant. Interpreted by: ??Lio Nunes MD Coffee Grower I personally reviewed the images and the resident's preliminary report and AGREE with the report as it is now presented ([id number]). Narrative 07/27/2024 3:29 PM EDT EXAMINATION: US ABDOMEN LIMITED (RIGHT UPPER QUADRANT) CLINICAL INFORMATION: RUQ abd pain COMPARISON: None available. TECHNIQUE: Real-time imaging of the right upper quadrant abdominal viscera. FINDINGS: LIVER: The liver demonstrates normal size, contour and echogenicity. ?? No focal liver lesion. No intrahepatic biliary duct dilatation. GALLBLADDER: The gallbladder is physiologically distended without evidence of stones, sludge, polyps, wall thickening or pericholecystic fluid. COMMON BILE DUCT: Top normal in caliber measuring 0.7 cm in diameter. PANCREAS: Not seen, obscured from visualization by the overlying bowel gas. RIGHT KIDNEY: No hydronephrosis. No renal calculi or focal parenchymal lesions. The kidney measures 11.4 cm in maximum dimension Procedure Note Gretta Ruvalcaba DO - 07/27/2024 EXAMINATION: US ABDOMEN LIMITED (RIGHT UPPER QUADRANT) CLINICAL INFORMATION: RUQ abd pain COMPARISON: None available. TECHNIQUE: Real-time imaging of the right upper quadrant abdominal viscera. FINDINGS: LIVER: The liver demonstrates normal size, contour and echogenicity. No focal liver lesion. No intrahepatic biliary duct dilatation. GALLBLADDER: The gallbladder is physiologically distended without evidence of stones, sludge, polyps, wall thickening or pericholecystic fluid. COMMON BILE DUCT: Top normal in caliber measuring 0.7 cm in diameter. PANCREAS: Not seen, obscured from visualization by the overlying bowel gas. RIGHT KIDNEY: No hydronephrosis. No renal calculi or focal parenchymal lesions. The kidney measures 11.4 cm in maximum dimension IMPRESSION: 1. Top normal common bile duct caliber of 0.7 cm. 2. No other abnormality on this sonographic exam of the right upper quadrant. Interpreted by: Lio Nunes MD Coffee Grower I personally reviewed the images and the resident's preliminary report and AGREE with the report as it is now presented (RADPAL1). Margo MOTA US ORDERABLES Final Result * (ABNORMAL) POCT Glucose, Fingerstick (07/27/2024 9:25 AM EDT) Pathologist [facility] POC Glucose 229(H) 65 - 99 mg/dL 07/27/2024 9:25 AM EDT Blood specimen / Unknown 07/27/2024 9:25 AM EDT 07/27/2024 9:26 AM EDT Generic Provider POINT OF CARE TEST ORDERABLES F inal Result HOSPITAL LAB See Below * (ABNORMAL) Complete Blood Count, with Differential (07/27/2024 9:05 AM EDT) Pathologist [facility] White Blood Cell Count 8.5 4.0 - 11.0 Thou/uL 07/27/2024 9:30 AM EDT [facility] Platelet Count 363 150 - 450 Thou/uL 07/27/2024 9:30 AM [facility] Hemoglobin 15.0 13.0 - 17.7 g/dL 07/27/2024 9:30 AM [facility] Hematocrit 46.7 39.0 - 54.0 % 07/27/2024 9:30 AM [facility] Red Blood Cell Count 5.65 4.50 - 6.20 Mil/uL 07/27/2024 9:30 AM [facility] MCV 83 80 - 100 fL 07/27/2024 9:30 AM [facility] MCH 26.5(L) 27.0 - 31.0 pg 07/27/2024 9:30 AM [facility] MCHC 32.1 30.0 - 36.0 g/dL 07/27/2024 9:30 AM [facility] RDW 12.8 11.5 - 14.5 % 07/27/2024 9:30 AM [facility] MPV 9.7 7.5 - 12.5 fL 07/27/2024 9:30 AM [facility] Neutrophils Auto 75.7 % 07/28/19 9:30 AM [facility] Immature Granulocytes 0.6 % 07/27/2024 9:30 AM [facility] Lymphocytes Auto 15.5 % 07/28/19 9:30 AM [facility] Monocytes Auto 5.9 % 07/27/2024 9:30 AM [facility] Eosinophils Auto 1.6 % 07/28/19 9:30 AM [facility] Basophils Auto 0.7 % 07/27/2024 9:30 AM [facility] Abs Neutrophils Auto 6.47 2.00 - 7.50 Thou/uL 07/27/2024 9:30 AM [facility] Abs Immature Granulocytes 0.05 0.00 - 0.10 Thou/uL 07/27/2024 9:30 AM [facility] Abs Lymphocytes Auto 1.32(L) 1.50 - 4.50 Thou/uL 07/27/2024 9:30 AM [facility] Abs Monocytes Auto 0.50 0.20 - 1.50 Thou/uL 07/27/2024 9:30 AM [facility] Abs Eosinophils Auto 0.14 0.00 - 0.70 Thou/uL 07/27/2024 9:30 AM EDT [facility] Abs Basophils Auto 0.06 0.00 - 0.20 Thou/uL 07/27/2024 9:30 AM EDT [facility] Blood Blood specimen / Unknown 07/27/2024 9:05 AM EDT 07/27/2024 9:23 AM EDT us [facility]o [facility] BLOOD ORDERABLES Final Resul t Performing Organization Address City/[facility]/[place] [address], [place] [address] * Lipase (07/27/2024 9:05 AM EDT) Lipase 35 13 - 60 U/L 07/27/2024 9:48 AM EDT [facility] Blood Blood specimen / Unknown 07/27/2024 9:05 AM EDT 07/27/2024 9:23 AM EDT us [facility] BLOOD ORDERABLES Final Resul t Performing Organization Address City/[facility] [place] [address], [place] [address] * (ABNORMAL) Comprehensive Metabolic Panel (07/27/2024 9:05 AM EDT) Glucose 208(H) 65 - 99 mg/dL 07/27/2024 9:48 AM EDT [facility] Comment:Fasting: <100 mg/dL, Non-Fasting: <200 mg/dL (ADA 2004) Blood Urea Nitrogen (BUN) 30(H) 8 - 21 mg/dL 07/27/2024 9:48 AM EDT [facility] Creatinine 1.3 0.5 - 1.3 mg/dL 07/27/2024 9:48 AM EDT [facility] eGFR 67 >59 07/27/2024 9:48 AM EDT [facility] Comment:CKD-EPI (2020) in mL /min/1.73 sq meters. Sodium 135(L) 136 - 145 mmol/L 07/27/2024 9:48 AM [facility] Potassium 4.5 3.4 - 5.3 mmol/L 07/27/2024 9:48 AM [facility] Chloride 101 98 - 107 mmol/L 07/27/2024 9:48 AM [facility] CO2 24 22 - 33 mmol/L 07/27/2024 9:48 AM [facility] Calcium 9.3 8.7 - 10.5 mg/dL 07/27/2024 9:48 AM [facility] Alkaline Phosphatase 71 45 - 128 U/L 07/27/2024 9:48 AM [facility] Aspartate Aminotrans (AST) 12 10 - 55 U/L 07/27/2024 9:48 AM [facility] Alanine Aminotrans (ALT) 19 10 - 55 U/L 07/27/2024 9:48 AM [facility] Bilirubin, Total 0.6 0.2 - 1.0 mg/dL 07/27/2024 9:48 AM [facility] Protein, Total 7.0 6.3 - 8.3 g/dL 07/27/2024 9:48 AM [facility] Albumin 3.7 3.5 - 5.0 g/dL 07/27/2024 9:48 AM [facility] BUN/Creatinine Ratio 23 10.0 - 25.0 Ratio 07/27/2024 9:48 AM [facility] Globulin 3.3 1.5 - 3.9 g/dL 07/27/2024 9:48 AM [facility] Albumin/Globulin Ratio 1.1 1.0 - 3.0 Ratio 07/27/2024 9:48 AM [facility] Anion Gap 10 7 - 17 07/27/2024 9:48 AM [facility] Blood Blood specimen / Unknown 07/27/2024 9:05 AM EDT 07/27/2024 9:23 AM EDT us [facility] BLOOD ORDERABLES Final Resul t [address] [address], [address] [place] [address] from Last 3 Months Insurance MEDICAID OUT OF STATE [facility] [place]ICA[place] OF STATE [facility] [facility] [address] [facility] [place] [id number] Care Teams Coat Repair Inspector Relationship Specialty Start Date End Date Unknown Unknow Provider Address PCP - General 05/29/21 Artie Vivas DO [address] [facility] [address] [place] [address] 05/29/21
--- OUTSIDE RECORDS SUMMARY | 2024-09-03 19:08 | XMS_ITS | Encounter Summary ---
Author Organization [employer] Address [address] [facility] [place] [address] Care Team Providers Care Council Member Name Role Phone Vince Maya MD Primary Care Provide r Melanie Reyes PharmD Unavailable [phone] Reason for Visit * Reason Comments Med Refill Encounter Details Date Type Department Care Team ([facility] Contact Info) Description 03/08/2024 Refill [facility] [address] [place], [place] [phone] Vince Maya MD [address] [place] [address] Social History Tobacco Use Types Packs/Day Years [...] the past 12 months, has t he [employer] gas, oil or water company threatened to [...] Description 09/13/2024 3:30 PM EDT Medication Management [facility] [address] [place] [phone] Melanie Reyes, PharmD [address] [place] [phone] 11/25/2024 1:15 PM EDT Office Visit [facility] [address] [place] [phone] Vince Maya MD [address] [place] [phone] documented as of this encounter Visit Diagnoses Not on filedocumented in this encounter Additional Health Concerns Assessment Noted Time PHQ-9 Depression Total Score: 5 11/04/19 24 1:48 PM EDT documented as of this encounter Care Teams Council Member Relationship Specialty Start Date End Date Vince Maya MD [address] [place] [address] PCP - General Internal Medicine 12/20/16 Melanie Reyes PharmD [address] [place] [address] Pharmacist Internal Medicine 06/15/24 documented as of this encounter
--- OUTSIDE RECORDS SUMMARY | 2024-09-03 19:08 | XMS_ITS | Clinical Summary ---
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 12/05/19 22 Active famotidine (Pepcid) 20 MG tablet Take 20 mg by mouth at bedtime. 04/10/20 22 Active senna (Senokot) 8.6 MG tablet TAKE 1 TABLET BY MOUTH AT BEDTIME FOR CONSTIPATION 05/07/20 22 Active sildenafil (Viagra) 100 MG tabletIndications:E rectile dysfunction due to diseases classified elsewhere Take 1 tablet (100 mg) by mouth if needed for erectile dysfunction. 40 tablet 01/25/20 23 Active losartan (Cozaar) 50 MG tablet Take 1 tablet (50 mg) by mouth in the morning. 90 tablet 3 08/28/19 24 Active cholecalciferol (Vitamin D High Potency) 25 MCG (1000 UT) capsule Take 1 capsule (25 mcg) by mouth in the morning. 90 capsule 3 08/28/19 24 Active amLODIPine (Norvasc) 5 MG tabletIndications:E ssential (primary) hypertension Take 1 tablet (5 mg) by mouth in the morning. 90 tablet 1 11/04/19 24 Active atorvastatin (Lipitor) 40 MG tabletIndications:M ixed hyperlipidemia Take 1 tablet (40 mg) by mouth at bedtime. 90 tablet 3 11/04/19 24 Active hydrALAZINE (Apresoline) 25 MG tabletIndications:P rimary hypertension TAKE 1 TABLET BY MOUTH THREE TIMES DAILY IN THE MORNING, EVENING, AND BEDTIME WITH FOOD 270 tablet 1 11/04/19 Active insulin pen needle 32G x 4 mm miscIndications:Typ e 2 diabetes mellitus with right eye affected by severe nonproliferative retinopathy without macular edema, with long-term current use of insulin (CMS/HCC) Use as instructed 4 times a day 100 each 12 11/04/19 24 2024 Active fluticasone (Flonase) 50 MCG/ACT nasal sprayIndications:Ea giulia on left Administer 1-2 sprays into each nostril 2 times daily. Shake gently. Before first use, prime pump. After use, clean tip and replace cap. 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 4 each 1 11/27/19 24 Active gabapentin (Neurontin) 100 MG capsule TAKE 1 CAPSULE BY MOUTH TWICE DAILY IN THE MORNING AND IN THE EVENING 04/04/20 23 Active pantoprazole (ProtoNix) 40 MG EC tablet Take 40 mg by mouth before breakfast. 12/23/19 24 Active Alcohol Swabs 70 % pads Use 4 times a day as needed for insulin injection or checking BG 100 each 02/02/20 24 Active glucose blood (FREESTYLE LITE) test stripIndications:Ty pe 2 diabetes mellitus with right eye affected by severe nonproliferative retinopathy without macular edema, with long-term current use of insulin (CMS/HCC) Test TID 100 strip 02/03/20 Active TRUEplus Lancets 33G misc Check blood sugar 4 times a day, 3 month supply 100 each 02/03/20 24 Active metFORMIN XR (Glucophage-XR) 500 MG 24 hr tablet Take 1,000 mg by mouth 2 times daily. Do not crush, chew, or split. Active metFORMIN (Glucophage) 500 MG tabletIndications:T ype 2 diabetes mellitus with right eye affected by severe nonproliferative retinopathy without macular edema, with long-term current use of insulin (CMS/HCC) TAKE 2 TABLETS BY MOUTH TWICE DAILY IN THE MORNING AND IN THE EVENING WITH MEALS 360 tablet 07/14/19 25 Active hydroCHLOROthiazide (HYDRODiuril) 25 MG tabletIndications:E ssential (primary) hypertension Take 1 tablet (25 mg) by mouth in the morning. 90 tablet 1 05/25/19 25 Active glucose 4 g chewable tablet TAKE 4 TABLETS BY MOUTH EVERY 15 MINUTES NEEDED FOR HYPOGLYCEMIA UNTIL SYMPTOMS IMPROVE 04/20/20 24 Active Continuous Glucose Sensor (FreeStyle Mary 2 Sensor) miscIndications:Typ e 2 diabetes mellitus with right eye affected by severe nonproliferative retinopathy without macular edema, with long-term current use of insulin (CMS/HCC) 1 each every 14 (fourteen) days. 06/15/19 25 Active Lantus SoloStar 100 UNIT/ML pen Inject 52 Units under the skin at bedtime. 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 50 tablet 07/22/19 25 Active amLODIPine (Norvasc) 2.5 MG tabletIndications:P rimary hypertension Take 1 tablet (2.5 mg) by mouth Once per day. 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 2 cm soft tissue mass with no overlying skin change indicate infection. He discussed the options for treatment including excision under local verses excision under anesthesia. Given the size of the lesion and its location , he recommended an excision under anesthesia the lesion is quite deep and may be difficult to remove. Pt tells me Dr Almeida is waiting until his Dm is better controlled Stage 3 chronic kidney disease 07/21/2024 Posterior reversible encephalopathy syndrome Assessment & Plan (08/26/2024 2:41 PM EDT): Pt here for a follow up Previously seen in the ER with c/o headaches as part of the evaluation had Head CT that showed: Findings of white matter hypoattenuation in the left greater than right occipital lobes, new from the prior examination, and highly suggestive of PRES (Posterior Reversible Encephalopathy Syndrome). Is the patient hypertensive?. MRI may be of benefit if the clinical presentation ) Pt was referred to Neurology and was seen 06/2024. 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 BP uncontrolled Pt is on a regimen of: Amlodipine 5 mg po daily, Hydralazine 25 mg po TID, Losartan 50 mg po daily, and Hctz 25 mg po daily Most recent electrolytes, Bun and Creatinine done on: Lab Results Component Value Date NA 136 04/22/2024 NA 134 (L) 03/23/2024 K 4.5 04/22/2024 K 4.2 03/23/2024 CL 103 04/22/2024 CL 101 03/23/2024 BUN 17 (H) 04/22/2024 BUN 13 03/23/2024 CREATININE 0.88 05/07/2024 CREATININE 1.12 04/22/2024 Plan: Increase Amlodipine to 7.5 mg po daily Follow up 3 months patient advised to adhere to a low sodium diet, encouraged about medication compliance, counseled about weight loss. Assessment & Plan (05/25/2024 10:10 AM EST): [...] Used to be under the care of [facility] Previously I had started him on Fluixetine 20 mg po daily, pt tells me he is doing well. Assessment & Plan (04/18/2022 11:52 AM EST): Pt is seeing a therapist Under the care of [facility] I had started him on Fluixetine 20 mg po daily, pt tells me he is doing well 4 months f/u Type 2 diabetes mellitus wit h retinopathy, with long-term current use of insulin 03/29/2022 Assessment & Plan (08/26/2024 2:45 PM EDT): Pt here for a follow up. Under the care of Endocrinology, last note 05/07/2024, being followed by catering coordinator as well last seen 06/2024 DM improving, although still uncontrolled due to poor adherence to medical treatment and diabetic diet. He did not bring his glucometer. He is supposed to be on a regimen of: Lantus 55 units sc q pm, Metformin ER 2 tabs 500 mg po BID, Januvia 100 mg po daily and Trulicity 0.75 weekly [employer] prescribed Farxiga but was denied by insurance. He admits to not using the Novolog Insulin sliding scale He is not adhering to a Diabetic diet Hgb A1c 08/26/2024: 12.7 from 15 Eye exam: Pt under the care of retinal specialist ([facility]) has diabetic retinopathy , per [...] Pt advised to: adhere to diabetic diet. check your blood sugars regularly check your feet on a daily basis 3 months follow up with me. Assessment & Plan (05/25/2024 8:31 AM EST): Pt here for a follow up. He is enrolled in [facility] DM uncontrolled due to poor adherence to medical treatment. He did not bring his glucometer. He is supposed to be on a regimen of: Lantus 55 units sc q pm, Metformin ER 2 tabs 500 mg po BID, Januvia 100 mg po daily and Trulicity 0.75 weekly [employer] prescribed Farxiga but was denied by insurance. He admits to not using the Novolog Insulin sliding scale He is back under the care of Endocrinology, last seen 05/07/2024 He is not adhering to a Diabetic diet Hgb A1c 03/23/2024: 15 Eye exam: Pt under the care of retinal specialist ([facility]) has diabetic retinopathy , per [...] missed previous appointments. He is enrolled in [facility] DM uncontrolled due to poor adherence to [...] tells me he is actually taking it. [employer] prescribed Farxiga but was denied by insurance. He admits to not using the Novolog Insulin sliding scale No longer under the care of Endocrinology He is not adhering to a Diabetic diet Hgb A1c 03/23/2024: 15 Eye exam: Pt under the care of retinal specialist ([facility]) has diabetic retinopathy , per [...] on Farxiga 10 mg po daily by [employer] He admits to not using the Novolog Insulin sliding scale No longer under the care of Endocrinology He reports he is trying to adhere to a Diabetic diet Hgb A1c 11/04/2023: 15 Eye exam: Pt under the care of retinal specialist ([facility] ) has diabetic retinopathy , Pt under the care of retinal specialist ([facility]) has diabetic retinopathy , per [...] Pt under the care of retinal specialist ([facility] ) has diabetic retinopathy , Pt under the care of retinal specialist ([facility]) has diabetic retinopathy , per [...] not taking care of himself Seen in [facility] earlier this month for hyperglycemia. He [...] Pt under the care of retinal specialist ([facility] ) has diabetic retinopathy , Pt under the care of retinal specialist ([facility]) has diabetic retinopathy , per [...] f/u He tells me he was in [place] and while there he was not taking [...] Pt under the care of retinal specialist ([facility] ) has diabetic retinopathy , Pt under the care of retinal specialist ([facility]) has diabetic retinopathy , per [...] bertrand tells me he left his in [place] Pt advised to: adhere to diabetic diet [...] Pt under the care of retinal specialist ([facility] ) has diabetic retinopathy , Pt under the care of retinal specialist ([facility] ) has diabetic retinopathy , [...] feet on a daily basis F/u 3 [facility] Hemoglobin A1C Date Value Ref Range Status [...] Pt under the care of retinal specialist ([facility] ) has diabetic retinopathy , Pt under the care of retinal specialist ([facility] ) has diabetic retinopathy , [...] his meds regularly Plan: continue f/u with [facility] endocrinology Pt advised to: adhere to [...] Encounters Date Type Department Care Team Description 08/26/2024 3:00 PM EDT Office Visit [facility] [address] [place] [phone] Vince Maya MD 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) (Primary Dx); Posterior reversible encephalopathy syndrome; Primary hypertension; Mass of scalp 08/26/2024 Travel 08/18/2024 Telephone [facility] [address] [place] [phone] Vince Maya MD Appointment Confirmation 08/18/[address] [phone] Vince Maya MD Elisa Recall 08/10/2024 Telephone [facility] [address] [place] [phone] Vince Maya MD Chart Prep 07/28/2024 Telephone [facility] [address] [place] [address] Vince Maya MD novolog 07/21/2024 11:00 AM EDT Office Visit [facility] [address] [place] [phone] Yvan Roper MD Scalp mass (Primary Dx); Primary hypertension; Stage 3 chronic kidney disease, unspecified whether stage 3a or 3b CKD (CMS/HCC) 06/21/2024 Travel 06/15/2024 Travel 06/14/2024 Travel from Last 3 Months Immunizations Name Administration [...] Sign Reading Time Taken Comments Blood Pressure 159/99 08/26/2024 2:41 PM EDT Pulse 104 08/26/2024 2:41 PM EDT Temperature 36 ??C (96.8 ??F) 08/26/2024 2:41 PM EDT Respiratory Rate 19 08/26/2024 2:41 PM EDT Oxygen Saturation 99% 08/26/2024 2:41 PM EDT Inhaled Oxygen Concentration - - Weight 85.3 kg (188 lb) 08/26/2024 2:41 PM EDT Height 170.2 cm (5' 7 ) 08/26/2024 2:41 PM EDT Body Mass Index 29.44 08/26/2024 2:41 PM EDT Plan of Treatment Upcoming Encounters Date Type Department Care Team (Late st Contact Info) Description 09/13/2024 3:30 PM EDT Medication Management [facility] [address] [place] [phone] Melanie Reyes, PharmD [address] [place] [address] 11/25/2024 1:15 PM EDT Office Visit [facility] [address] [place] [phone] Vince Maya MD [address] [place] [address] Health Maintenance Due Date Last Done Comments CT Colonography 1974 Colonoscopy 1974 Colorectal Cancer Screening 1974 Dental Oral Exam 1974 Dental Prophylaxis 1974 Dental X-Ray: Bitewings 1974 FIT DNA/Cologuard 1974 FIT 1974 FOBT 1974 Sigmoidoscopy 1974 Diabetes: Foot Exam 01/13/1984 Eye Exam 01/13/1984 Family Planning (PISQ) 1989 Pneumococcal Vaccine: 50+ Years (2 of 2 - PCV) 07/29/2008 07/30/2007 COVID-19 Vaccine ( season) 2024 07/02/2021, 09/28/2020, 08/31/2020 Influenza Vaccine (#1) 2024 Zoster Vaccines (1 of 2) 01/13/2024 Depression Screening 11/03/2024 11/04/2023, 11/04/19 24 SDOH Screening 11/03/2024 11/04/2023 DTaP/Tdap/Td Vaccines (2 - Td or Tdap) 11/07/2024 11/07/2014, 07/30/2007 Diabetes: Urine Protein Screening 11/07/2024 11/08/2023, 04/10/2022, 04/10/2022, Additional history exists Lipid Panel 11/07/2024 11/08/2023, 04/11, 08/23/2021, Additional history exists Diabetes: Hemoglobin A1C 11/25/2024 025, 03/23/2024, 11/27/2023, Additional history exists Alcohol/Substance Use Screening 05/25/2025 [...] Procedure Name Priority Date/Time Associated Diagnosis Comments POCT GLYCOSYLATED HEMOGLOBIN (HGB A1C) Routine 08/26/2024 2:45 PM EDT 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, with long-term current use of insulin (CMS/HCC) POCT GLUCOSE Routine 08/26/2024 2:44 PM EDT 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, with long-term current use of insulin (CMS/HCC) AMB REFERRAL TO NEUROLOGY Urgent 06/21/2024 Posterior reversible encephalopathy syndrome HIV 1/2 ANTIGEN/ANTIBODY, FOURTH GENERATION W/RFL Routine [...] Recently Relevant to Health Maintenance Results * (ABNORMAL) POCT glycosylated hemoglobin (Hgb A1c) (08/26/2024 2:45 PM EDT) Hemoglobin A1C 12.7(A) 4.0 - 6.0 % QC Media Lot # [id number] Lot# Expiration Date [id number] Blood Capillary blood specimen / Unknown 08/26/2024 2:45 PM EDT Vince Thomas MD POINT OF CARE TEST EN TER/EDIT ORDERABLES Final Result * (ABNORMAL) POCT glucose manually resulted (08/26/2024 2:44 PM EDT) Glucose Blood, POC 335(A) 60 - 200 mg/dL QC Media Lot # [id number] Lot# Expiration Date [id number] Blood Capillary blood specimen / Unknown 08/26/2024 2:44 PM EDT Result [facility] Vince Thomas MD POINT OF CARE TEST ENTER/EDIT ORDERABLES Edited Result - Final * Referral to Neurology (06/21/2024) Result [facility] Shirley Zuniga MD OUTPATIENT REFERRAL ORDERABLE S Final Result * HIV-1/2 Antigen and Antibodies, Fourth Generation, with Reflexes (02/02/2024 4:42 PM EDT) Pathologist [facility] HIV AB/AG Nonreactive Nonreactive [facility] Comment:HIV-1 p24 Ag and/or HIV-1/HIV-2 Ab not detected.A test result that is nonreactive does not exclude thepossibility of exposure to or infection with HIV-1 and/orHIV-2. Nonreactive results in this assay for individualswith prior exposure to HIV-1 and/or HIV-2 may be due toantigen and antibody levels that are below the limit ofdetection of this assay.The [employer] HIV Ag/Ab Combo assay result andsupplemental assay results should be interpreted inconjunction with the patient's clinical presentation,history and other laboratory results. If the results areinconsistent with clinical evidence, additional testing issuggested to confirm the result. Blood Venous blood specimen / Unknown 02/02/2024 4:42 PM EDT 02/02/2024 6:10 PM EDT Marlin Curiel NP LAB BLOOD ORDERABLES Final Resul t [facility] [address] [place] [phone] * (ABNORMAL) Albumin, Random Urine W/Creatinine (11/08/2023 8:56 AM EDT) Creatinine, Urine 122.34 mg/dL [facility] Microalbumin Urine 736.0 mg/L H [facility] Microalbum Creatinine Ratio Ur 601.6(H) <30 ug/mg cr [facility] Comment:Albumin/Creatinine R atio Reference Ranges: Normal: < 30 ug/mg creatinine Microalbuminuria: 30 - 300 ug/mg creatinineClinical Albuminuria: > 300 ug/mg creatinine Urine (Urine, Random) 11/08/2023 8:56 AM EDT 11/08/2023 9:06 AM EDT us Vince Thomas MD LAB URINE ORDERABLES Final Result [facility] [address] [place] [phone] * (ABNORMAL) Lipid Panel, Standard (11/08/2023 8:12 AM EDT) Triglycerides 101 <150 mg/dL [facility] Comment:Desirable Triglyceri de: less than 150 mg/dLBorderline High Triglyceride 150-199 mg/dLHigh Triglyceride: 200-499 mg/dLVery High Triglyceride: greater than or equal to 5OO mg/dL Cholesterol 172 <200 mg/dL [facility] Comment:Desirable Cholestero l: less than 200 mg/dLBorderline High Cholesterol: 200-239 mg/dLHigh Cholesterol: greater than 239 mg/dL LDL Cholesterol Calculated 108(H) <100 mg/dL [facility] Comment:Desirable LDL: less than 100 mg/dLNear Optimal/Above Optimal LDL: 110- 129 mg/dLBorderline High LDL: 130-159 mg/dLHigh LDL: 160-189 mg/dLVery High LDL: greater than or equal to 190 mg/dL HDL Cholesterol 44 >40 mg/dL [facility] Comment:Desirable HDL: great er than 40 mg/dL Note: This HDL assay may give artificially low results in patients with liver disease. Blood Venous blood specimen / Unknown 11/08/2023 8:12 AM EDT 11/08/2023 8:12 AM EDT us Vince Thomas MD LAB BLOOD ORDERABLES Final Result [facility] [address] [place] [phone] * HEPATITIS C AB W/REFL TO HCV RNA, QN, PCR (08/23/2021 10:46 AM EDT) HEPATITIS C ANTIBODY NON-REACT [facility] NON-REACT [facility] INDEX 0.01 <1.00 [facility] Comment: ?? HCV antibody was non-reactive. There is no laboratory ?? evidence of HCV infection. ?? In most cases, no further action is required. However, if recent HCV exposure is suspected, a test for HCV RNA (test code 10262) is suggested. ?? For additional information please refer to [email or web address] (This link is being provided for informational/ educational purposes only.) ?? 08/23/2021 10:4 6 AM EDT us Abby Bell NP HISTORICAL/NON ORDERABLE LABS Final Result Performing Organization Address City/[facility] Co de Phone Number [facility] [address] from Last 3 Months or Most Recently Relevant to Health Maintenance Insurance [facility] Care Teams Tailor [employer]ter[employer] Relationship Specialty Start Date End Date Vince Maya MD [address] [place] [address] PCP - General Internal Medicine 12/20/16 Melanie Reyes PharmD [address] [place] [address] Pharmacist Internal Medicine 06/15/24
== END 2024-09-03 19:07 | disposition home or self-care (01) ==
LOC: HO.MRI 19:06
PROVIDERS: PCP Internal Medicine; Visit Provider Internal Medicine
DX: I67.83 Posterior reversible encephalopathy syndrome (principal)
CPT/HCPCS: 70551

== ENCOUNTER → 2024-09-03 19:19 | Outpatient (BNV) | payer OTHER, SELFPAY | PROVIDERS: PCP Internal Medicine; Visit Provider Radiology Diagnostic Radiology | DX: I67.83 Posterior reversible encephalopathy syndrome (principal) | CPT/HCPCS: 70551 ==

== ENCOUNTER 2024-10-22 13:42 | Outpatient (AMB) | payer OTHER, SELFPAY ==
--- NOTE | 2024-10-22 13:43 | A.OFFVIS_ITS ---
Vital Signs 10/22/24 13:46 Height 5 ft 7 in Weight 182 lb 8.684 oz BMI 28.6 BP 138/82 Blood Pressure Location Rt brachial Position Sitting Pulse 100 Pulse Source Pulse Oximeter Pulse Oximetry (%) 97 Oxygen Delivery Method Room Air Intake Visit Reasons: T2DM Intake Note: Patient present today for T2DM follow up. Last Diabetic Eye exam: Has an appointment 11/04/24 Last Podiatry Visit: Doesn't have one Random Glucose: 597 mg/dl @ 1:54 pm, 482 mg/dl 3:38 pm HgA1C:>14.0% 10/22/2024 Urine Ketone: Neg 10/22/2024 Certified Physician'S Assistant Required: Yes Certified Physician'S Assistant Language: Celery Tier Services: Certified Physician'S Assistant Present Certified Physician'S Assistant Name: Derek [id number] Information Interpreted: non-clinical & clinical Accompanied by: Self / Same As Patient Allergies No Known Allergies Allergy (Verified 10/22/24 13:47) Medication List - Last Reconciled 10/22/24 by GUANACO Albrecht amlodipine 5 mg PO DAILY atorvastatin 40 mg PO BEDTIME cholecalciferol (vitamin D3) (Vitamin D3) 25 mcg PO QAM docusate sodium 100 mg PO BEDTIME dulaglutide (Trulicity) 1.5 mg (0.5 mL) subcut QWEEK fluoxetine 20 mg PO QAM gabapentin 100 mg PO glucose (Dex4 Glucose) 16 grams (4 x 4 gram) PO Q15M PRN hydralazine 25 mg PO BID hydrochlorothiazide 12.5 mg PO DAILY hydroxyzine HCl 25 mg PO Q6H PRN insulin aspart U-100 (Novolog FlexPen U-100 Insulin aspart) as directed per sliding scale subcut 3 times a day; insulin glargine (Lantus Solostar U-100 Insulin) 65 units subcut BEDTIME insulin lispro 10 units subcut TID lancets (TRUEplus Lancets) As directed losartan 50 mg PO QAM metformin ER 1,000 mg PO BID pantoprazole 40 mg PO QAM trazodone 50 mg PO BEDTIME HPI Comments Details: This is a 49-year-old male with a past medical history of hypertension, endocarditis, tubular adenoma, CKD 3a, diabetic retinopathy and palpitations presenting for diabetic management. [place] video solar photovoltaic installer used. I last saw him in April 2024. He has chronically uncontrolled type 2 diabetes. POC 597. Endorses polyuria/polydipsia. Denies fatigue, lightheadedness, dizziness, weakness, vomiting or nausea today. No history of DKA. MEREDITH antibody, islet cell antibody and C-peptide normal. He was diagnosed with Type II diabetes more than 12.5 years ago. He endorses a family history of Type II diabetes (mother, father, uncle). Hemoglobin A1c over 14% today. Hemoglobin a1c 15% 03/23/24. Reviewed CGM data He is very hyperglycemic 99% of the time, hyperglycemic 1% of the time and has 0% in target range and hypoglycemia. He has severe hyperglycemia throughout 24 hours. Current medication regimen: Trulicity 0.75 mg weekly (compliant), Lantus 52 units at bedtime (did not administer the last 3 nights), lispro 10 units before meals (noncompliant), metformin ER 500 mg 2 tablets twice daily (compliant). Past meds: Jardiance discontinued but the reason is unclear. Compliance issues: See above. He is not following a diabetic diet. He saw the dietitian 1 time. Hypoglycemia symptoms: No recent episodes. He has glucose tablets. Microvascular complications: neuropathy, nephropathy (CKD and microalbuminuria- followed by nephrology), Bilateral retinopathy ([facility]) Macrovascular complications: none Hypertension: treated with amlodipine 5 mg, hydralazine 25 mg b.i.d., hydrochlorothiazide 12.5 mg daily, losartan 50 mg daily YARITZA inhibitor discontinued in the past due to PRANEETH. Hyperlipidemia: treated with atorvastatin 40 mg ROS: Constitutional: + weight fluctuations with diabetes, no fevers or chills, +fatigue Eyes: Denies vision loss or vision changes with hyperglycemia today. Respiratory: No shortness of breath or cough Cardiovascular: No chest pain, chest pressure or chest discomfort. No palpitations or pedal edema. Gastrointestinal: No anorexia, nausea, vomiting or diarrhea. No abdominal pain Neurologic: Denies confusion, numbness, tingling, weakness, seizures or tremors Skin: No wounds or ulcers. Endocrine: See HPI Physical exam: Constitutional: Alert, in no distress. Head: Normocephalic. Neck: Supple, Full range of motion. No lymphadenopathy. No palpable thyroid masses. Respiratory: Clear to auscultation. Cardiovascular: S1 S2 regular. No murmurs. Extremities: Warm and well perfused, no edema PFSH Medical History Diabetes mellitus with microalbuminuria CKD stage 3a, GFR 45-59 ml/min Proliferative diabetic retinopathy of both eyes Type 2 diabetes mellitus with hyperglycemia Tubular adenoma Elevated cholesterol HTN (hypertension) Endocarditis Diabetes Surgical History Hx of colonoscopy History of esophagogastroduodenoscopy (EGD) H/O eye surgery Family History Father No problems noted. Mother No problems noted. Paternal Uncle Bone cancer Paternal Uncle Prostate cancer Paternal Uncle Lung cancer Paternal Uncle Heart attack Throat cancer Social History Alcohol intake: never Patient Tobacco Use Status: Current everyday Tobacco user Physical Exam Vital Signs: Last Vital Signs Pulse 100 10/22/24 13:46 BP 138/82 10/22/24 13:46 Pulse Ox 97 10/22/24 13:46 Oxygen Delivery Method Room Air 10/22/24 13:46 BMI result Body Mass Index 28.6 Office Meds Humalog U-100 Insulin 100 unit/mL subcutaneous solution Performing Provider: GUANACO Albrecht Performing Location: [facility] Administered by: Alesha Elizondo RN on 10/22/24 14:41 Dose Route Admin Location Dispensed Lot Number Expiration Date [facility] Casing Fluid Tender 10 unit subcut right upper arm 0.1 mL [id number] 04/22/25 0322-8597-43 [employer] Comments: Verbal order placed by Cece Osorio for 10 units of Insulin Lispro for patient with elevated blood sugar. Patient is refusing urine ketones at this time as well as an ambulance. Patient agreeable to plan. Insulin lispro drawn up in insulin syringe and verified by Anna Mosley RN and Cece BLANC. Patient provided with water to continue to push fluids. Advised we will recheck blood glucose levels in one hour. Photo Mask Pattern Generator aware that 10 units of insulin given at 2:35pm. Results AMB Hemoglobin A1c AMB Hemoglobin A1c > 14.0 % Last Edit by CAROL Edwards on 10/22/24 14:03 UR Ketone Dip UR Ketone Dip Negative Last Edit by CAROL Edwards on 10/22 15:00 Results Reviewed Results Reviewed: Laboratory Last Values Glucose (Clinic) 597 mg/dL (60-115) H* 10/22/24 13:54 Hgb A1c (Clinic) > 14.0 % (4.0-6.0) H 10/22/24 13:58 Ur Ketones (Stick) Negative 10/22/24 14:58 Laboratory Tests 05/07/24 11:49 Creatinine 0.88 Estimated GFR > 60 C-Peptide 1.08 B-Natriuretic Peptide < 10 Islet Cell Ab Screen NEGATIVE MEREDITH Antibody <5 Assessment & Plan Assessment & Plan (1) Type 2 diabetes mellitus with hyperglycemia: Code(s): E11.65 - Type 2 diabetes mellitus with hyperglycemia Category: Medical Qualifiers: Diabetes mellitus predatory animal exterminator insulin use: with prison use Qualified Code(s): E11.65 - Type 2 diabetes mellitus with hyperglycemia; Z79.4 - half-way (current) use of insulin (2) Proliferative diabetic retinopathy of both eyes: Code(s): E11.3593 - Type 2 diabetes mellitus with proliferative diabetic retinopathy without macular edema, bilateral Category: Medical Qualifiers: Diabetes mellitus type: type 2 (3) CKD stage 3a, GFR 45-59 ml/min: Code(s): N18.31 - Chronic kidney disease, stage 3a Category: Medical (4) Diabetes mellitus with microalbuminuria: Code(s): E11.29 - Type 2 diabetes mellitus with other diabetic kidney complication; R80.9 - Proteinuria, unspecified Category: Medical Plan In summary this is a 49-year-old male with uncontrolled type 2 diabetes with severe hyperglycemia today. I advised the patient that his blood sugar is dangerously high. He can become dehydrated and fall. Hyperglycemia can cause end-organ damage and diabetic ketoacidosis and coma/. I recommended he go to the emergency room for treatment of acute hyperglycemia and advised him he could be admitted possibly to get better control of his blood sugar. He adamantly declined this. Initially he refused urine test for ketones, but he ended up agreeing to the test, and this is negative. He was treated in the office with 10 units of Humalog, and after an hour his glucose level decreased, but it was still severely elevated at 482. At this time I advised him that he needs to go to the emergency department, but he refused and is leaving to go home against medical advice. Increase Trulicity to 1.5 mg weekly. Reviewed the importance of taking his lispro insulin. Take 10 units 3 times daily before meals. Discussed Cequr to improve compliance. He will meet with the traveling inventory associate about this. Increase Lantus from 52 units to 65 units nightly. Continue metformin a 1000 mg twice daily. We reviewed complications of uncontrolled diabetes and lifestyle modifications in detail. Declined referral to dietitian. Provided with a prescription for ketone urine strips, instructions and information on DKA. Reviewed treatment of hypoglycemia and advised not to drive if blood sugar is low or he has symptoms of low blood sugar or does not have a way to monitor his blood sugar accurately. Recommended follow up in 1-2 weeks, but he was unavailable. He will schedule a follow up the week of November. Orders: Orders Creatinine Today E11.29 - Type 2 diabetes mellitus with other diabetic kidney complication, E11.9 - Type 2 diabetes mellitus without complications, N18.31 - Chronic kidney disease, stage 3a, R80.9 - Proteinuria, unspecified AMB Glucose Monitoring Today E11.9 - Type 2 diabetes mellitus without complications AMB Hemoglobin A1c Today E11.65 - Type 2 diabetes mellitus with hyperglycemia AMB Insulin Lispro Injection Practice Supplied Today E11.65 - Type 2 diabetes mellitus with hyperglycemia AMB Ketone Urine Dipstick Today E11.65 - Type 2 diabetes mellitus with hyperglycemia TSH reflex Free T4 Today E11.29 - Type 2 diabetes mellitus with other diabetic kidney complication, N18.31 - Chronic kidney disease, stage 3a, R80.9 - Proteinuria, unspecified Microalbumin, Random (w Creat) Today E11.29 - Type 2 diabetes mellitus with other diabetic kidney complication, E11.9 - Type 2 diabetes mellitus without complications, N18.31 - Chronic kidney disease, stage 3a, R80.9 - Proteinuria, unspecified Lipid Panel Today E11.29 - Type 2 diabetes mellitus with other diabetic kidney complication, E78.5 - Hyperlipidemia, unspecified, N18.31 - Chronic kidney disease, stage 3a, R80.9 - Proteinuria, unspecified Platelet Count Today E11.29 - Type 2 diabetes mellitus with other diabetic kidney complication, E11.9 - Type 2 diabetes mellitus without complications, N18.31 - Chronic kidney disease, stage 3a, R80.9 - Proteinuria, unspecified Aspartate Amino Transferase Today E11.29 - Type 2 diabetes mellitus with other diabetic kidney complication, N18.31 - Chronic kidney disease, stage 3a, R80.9 - Proteinuria, unspecified Alanine Aminotransferase Today E11.29 - Type 2 diabetes mellitus with other diabetic kidney complication, N18.31 - Chronic kidney disease, stage 3a, R80.9 - Proteinuria, unspecified Vitamin B12 Today E11.29 - Type 2 diabetes mellitus with other diabetic kidney complication, N18.31 - Chronic kidney disease, stage 3a, R80.9 - Proteinuria, unspecified, Z91.89 - Other specified personal risk factors, not elsewhere classified Medications: New dulaglutide (Trulicity) 1.5 mg (0.5 mL) subcut QWEEK 2 mL 0RF Changed From insulin glargine (Lantus Solostar U-100 Insulin) 55 units (0.55 mL) subcut BEDTIME 30 mL 5RF To insulin glargine (Lantus Solostar U-100 Insulin) 65 units subcut BEDTIME From metformin ER 2,000 mg (4 x 500 mg) PO DAILY 90 days 360 tabs 1RF To metformin ER 1,000 mg PO BID Refilled glucose (Dex4 Glucose) until symptoms of low blood sugar are controlled 16 grams (4 x 4 gram) PO Q15M PRN 30 tabs 4RF hypoglycemia Discontinued dulaglutide (Trulicity) Discontinued Reason: Doctor's Order 0.75 mg (0.5 mL) subcut QWEEK 2 mL 0RF Patient Instructions: Increase Lantus to 65 units at bedtime. Administer lispro insulin 10 units 5-10 minutes before meals three times daily. Increase Trulicity to 1.5 mg weekly. Continue metformin ER 500 mg 2 tablets twice daily. Aumente la dosis de Lantus a 65 unidades antes de acostarse. Administre 10 unidades de insulina lispro 5-10 minutos antes de las comidas, ginny veces al d?a. Aumente la dosis de Trulicity a 1,5 mg a la semana. Contin?e con metformina de liberaci?n prolongada (LR) de 500 mg, 2 comprimidos dos veces al d?a. Diabetic ketoacidosis (DKA) A serious condition that can lead to diabetic coma (passing out for a long time) or even When your cells don't get the glucose they need for energy, your body begins to burn fat for energy, which produces ketones. Ketones are chemicals that the body creates when it breaks down fat to use for energy. The body does this when it doesn?t have enough insulin to use glucose, the body?s normal source of energy. When ketones build up in the blood, they make it more acidic. They are a warning sign that your diabetes is out of control or that you are getting sick. Symptoms of Diabetic Ketoacidosis (DKA) DKA usually develops slowly. But when vomiting occurs, this life-threatening condition can develop in a few hours. Early symptoms include the following: ? Thirst or a very dry mouth ? Frequent urination ? High blood glucose (blood sugar) levels ? High levels of ketones in the urine Then, other symptoms appear: ? Constantly feeling tired ? Dry or flushed skin ? Nausea, vomiting, or abdominal pain ? (Vomiting can be caused by many illnesses, not just ketoacidosis. If vomiting continues for more than 2 hours, contact your health care provider.) ? Difficulty breathing ? Fruity odor on breath ? A hard time paying attention, or confusion When should you test for ketones? It is advisable to check for ketones under the following conditions when: Your blood glucose is higher than 250mg/dl. Feeling nauseated, throwing up, or have pains in your abdominal region. Have a cold or flu. Have general body fatigue. Feel thirsty or have a very dry mouth. Have flushed skin. Have a fruity breath or a hard time breathing. You feel confused or in fog. Negative, trace or light ketones: hydrate, bring sugars down with insulin You should go to the ER if you have moderate or large ketones. Cetoacidosis diab?marcy (CAD) Clotilde afecci?n grave que puede provocar coma diab?latrice (desmayo prolongado) o incluso la muerte. Cuando las c?lulas no reciben la glucosa que necesitan para obtener energ?a, el cuerpo comienza a quemar grasa, lo que produce cetonas. Las cetonas son sustancias qu?micas que el cuerpo crea al descomponer la grasa para usarla nimco energ?a. El cuerpo produce esto cuando no tiene suficiente insulina para utilizar la glucosa, la marlon normal de energ?a del cuerpo. Cuando las cetonas se acumulan en la isidro, la acidifican. Son clotilde se?al de advertencia de que la diabetes est? fuera de control o de que se est? enfermando. S?ntomas de la cetoacidosis diab?marcy (CAD) La CAD suele desarrollarse lentamente. Sin embargo, cuando se presentan v?mitos, esta afecci?n potencialmente mortal puede desarrollarse en pocas horas. Los primeros s?ntomas incluyen los siguientes: ? Sed o boca muy seca ? Micci?n frecuente ? Niveles altos de glucosa en isidro (az?car) ? Niveles altos de cetonas en la orina Luego aparecen otros s?ntomas: ? Cansancio sobeida ? Piel seca o enrojecida ? N?useas, v?mitos o dolor abdominal ? (Los v?mitos pueden ser causados ??por muchas enfermedades, no solo por cetoacidosis. Si los v?mitos contin?an atilio m?s de 2 horas, contacte a stratton profesional de la marisa). ? Dificultad para respirar ? Aliento con olor afrutado ? Dificultad para prestar atenci?n o confusi?n ?Cu?ndo debe hacerse la prueba de cetonas? Es recomendable hacerse la prueba de cetonas en las siguientes circunstancias: Stratton nivel de glucosa en isidro es superior a 250 mg/dl. Siente n?useas, v?mitos o dolor abdominal. Tiene un resfriado o gripe. Tiene fatiga general. Tiene sed o sequedad bucal muy russ. Tiene la piel enrojecida. Tiene aliento afrutado o dificultad para respirar. Se siente confundido o aturdido. Negativo, trazas o cetonas leves: hidr?tese y reduzca los niveles de az?car con insulina. Debe acudir a urgencias si tiene un nivel de cetonas moderado o alto. Coding Level of Care Code Est Pt Level 5 (14765) Diagnoses Type 2 diabetes mellitus with hyperglycemia, with long-term current use of insulin E11.65; Z79.4 Diabetes mellitus prison insulin use: with predatory animal exterminator use Proliferative diabetic retinopathy of both eyes E11.3593 Diabetes mellitus type: type 2 CKD stage 3a, GFR 45-59 ml/min N18.31 Diabetes mellitus with microalbuminuria E11.29; R80.9 Time Spent (min) 60 Comment Direct patient care and completing documentation and chart review
[2024-10-22 13:46] VITALS: BP 138/82; PULSE 100; O2SAT 97; BMI 28.6
--- OUTSIDE RECORDS SUMMARY | 2024-10-22 13:50 | XMS_ITS | Encounter Summary ---
Author Organization [facility] Address [address] [place] [address] [address] [place] [address] Care Team Providers Care Vest Busheler Name Role Phone Vince Maya MD Primary Care Provide r Melanie Reyes PharmD Unavailable [phone] Reason for Visit * Reason Comments Med Refill Encounter Details Date Type Department Care Team ([facility] Contact Info) Description 07/26/2022 Refill [facility] MEDICINE [address] [place] [address] Vince Maya MD [address] [place] [address] Mixed hyperlipidemia (Primary Dx); Primary hypertension Social [...] Department Care Team (Late Contact Info) Description 11/04/2024 11:00 AM EDT Medication Management [facility] [address] [place] [address] Melanie Reyes, PharmD [address] [place] [address] 11/09/2024 10:20 AM EDT Office Visit [facility] [address] [facility] [address] 11/25/2024 1:15 PM EDT Office Visit [facility] [address] [facility] [place] [address] Vince Maya MD [address] [place] [address] documented as of this encounter Visit Diagnoses Diagnosis Mixed hyperlipidemia- Primary Primary hypertension Unspecified essential hypertension documented in this encounter Care Teams Vest Busheler Relationship Specialty Start Date [place] [address] PCP - General Internal Medicine 12/20/16 Melanie Reyes, [place] [address] Pharmacist Internal Medicine 06/15/24 documented as of this encounter
[2024-10-22 15:03] LABS: Glucose, Whole Blood 597 mg/dL (60-115)
[2024-10-22 15:42] LABS: Glucose, Whole Blood 482 mg/dL (60-115)
== END 2024-10-22 16:03 | disposition home or self-care (01) ==
LOC: HO.ENCR 13:42
PROVIDERS: PCP Internal Medicine; Visit Provider Physician Assistant Medical
DX: E11.65 Type 2 diabetes mellitus with hyperglycemia (principal); Z79.4 Long term (current) use of insulin; E11.3593 Type 2 diabetes mellitus with proliferative diabetic retinopathy without macular edema, bilateral; N18.31 Chronic kidney disease, stage 3a; E11.29 Type 2 diabetes mellitus with other diabetic kidney complication; R80.9 Proteinuria, unspecified

== ENCOUNTER → 2024-10-22 13:42 | Outpatient (BNVA) | payer OTHER, SELFPAY | PROVIDERS: PCP Internal Medicine; Visit Provider Physician Assistant Medical | DX: E11.65 Type 2 diabetes mellitus with hyperglycemia (principal); E11.3593 Type 2 diabetes mellitus with proliferative diabetic retinopathy without macular edema, bilateral; E11.29 Type 2 diabetes mellitus with other diabetic kidney complication; N18.31 Chronic kidney disease, stage 3a; R80.9 Proteinuria, unspecified; Z79.4 Long term (current) use of insulin | CPT/HCPCS: 81002; 82947; 83036; 96372; 99212; J1815 ==

== ENCOUNTER 2024-11-08 15:10 | Outpatient (AMB) | payer OTHER, SELFPAY ==
--- OUTSIDE RECORDS SUMMARY | 2024-11-08 15:34 | XMS_ITS | Clinical Summary ---
Author Organization [email or web address] Address [address] [place] [address] Care Team Providers Care Hazardous Waste Remover Name Role Phone Pcp, No Primary Care [...] 76 10/28/2023 4:00 PM EDT Temperature 36.7 C (98.1 F) 10/28/2023 1:39 PM EDT Respiratory Rate 20 10/28/2023 4:37 PM EDT [...] this topic Insurance MEDICAID OUT-STATE Care Teams Hazardous Waste Remover Relationship Specialty Start Date End Date Pcp, No No PCP On File COLTON Garcia [id number] PCP - General 01/03/20
--- OUTSIDE RECORDS SUMMARY | 2024-11-08 15:34 | XMS_ITS | Clinical Summary ---
Author Organization [facility] Address [address] [place] [address] Care Team Providers Care Rent And Miscellaneous Remittance Clerk Name Role Phone Unknown Primary Care Provider [phone] Artie Vivas DO Unavailable [phone] Allergies No known active allergies Social History [...] 84 07/27/2024 8:52 AM EDT Temperature 36.4 C (97.6 F) 07/27/2024 8:52 AM EDT Respiratory Rate 16 07/27/2024 8:52 AM EDT [...] - 19+ 3-dose series) 07/1992 Colonoscopy 2019 COVID-19 Vaccine (1 - 2023-25 season) 2024 Pneumococcal Vaccines 50+ (1 of 1 - PCV) 01/13/2024 Zoster (Shingles) Vaccine (1 of 2) 01/13/2024 Influenza Vaccine 12/10/2024 Insurance [facility] LATA [id number] MEDICAID OUT OF STATE [facility] MEDICAID OUT OF STATE [facility] [address] [facility] LATA BRICEÑO [id number] Care Teams Rent And Miscellaneous Remittance Clerk Relationship Specialty Start Date End Date Unknown Unknow Provider Address PCP - General 05/29/21 Artie Vivas DO [address] [place] [address] [address] [place] [address] 05/29/21
--- OUTSIDE RECORDS SUMMARY | 2024-11-08 15:34 | XMS_ITS | Encounter Summary ---
Author Organization [employer] Address [address] [facility] [address] [place] [address] Care Team Providers Care Certified Art Therapist Name Role Phone Vince Maya MD Primary Care Provide r Melanie Reyes PharmD Unavailable [phone] Reason for Visit * Reason Comments Med Refill Encounter Details Date Type Department Care Team ([facility] Contact Info) Description 07/26/2022 Refill [facility] [address] [place] [address] Vince Maya MD [address] [place] [address] Mixed hyperlipidemia (Primary Dx); Primary hypertension Social [...] Upcoming Encounters Date Type Department Care Team ([facility] Contact Info) Description 11/09/2024 10:20 AM EDT Office Visit [facility] OPTOMETRY [address] [place], [place] [id number] 11/25/2024 1:15 PM EDT Office Visit [facility] [place] [address] [place] [address] 12/02/2024 3:00 PM EDT Medication Management [facility] [place] [address] [place] [address] documented as of this encounter Visit Diagnoses Diagnosis Mixed hyperlipidemia- Primary Primary hypertension Unspecified essential hypertension documented in this encounter Care Teams Certified Art Therapist Relationship Specialty Start Date End [place] [address] PCP - General Internal Medicine 12/20/16 Melanie Reyes PharmD [facility] [place] [address] Pharmacist Internal Medicine 06/15/24 documented as of this encounter
--- OUTSIDE RECORDS SUMMARY | 2024-11-08 15:34 | XMS_ITS ---
Author Name [facility] Organization Unknown Results Test Name/Text Value Interpretation Date Range Source POC Glucose 229.0 mg/dL Above high normal 07/27/2024 65 - 99 [facility] Lipase SerPl-cCnc 35.0 U/L Normal 07/27/2024 13 - 60 H [facility] Anion Gap Bld-sCnc 10.0 Normal 07/27/2024 7 - 17 [facility] Calcium SerPl-mCnc 9.3 mg/dL Normal 07/27/2024 8.7 - 10.5 [facility] Glucose SerPl-mCnc 208.0 mg/dL Above high normal 07/27/2024 65 - 99 [facility] Creat SerPl-mCnc 1.3 mg/dL Normal 07/27/2024 0.5 - 1.3 HH CCT ALT SerPl-cCnc 19.0 U/L Normal 07/27/2024 10 - 55 [facility] T Globulin Ser Calc-mCnc 3.3 g/dL Normal 07/27/2024 1.5 - 3.9 H[facility] AST SerPl-cCnc 12.0 U/L Normal 07/27/2024 10 - 55 [facility] T BUN/Creat SerPl 23.0 Ratio Normal 07/27/2024 10 - 25 HH CCT Potassium SerPl-sCnc 4.5 mmol/L Normal 07/27/2024 3.4 - 5 .3 [facility] BUN SerPl-mCnc 30.0 mg/dL Above high normal 07/27/2024 8 - 2 1 H[facility] Bilirub SerPl-mCnc 0.6 mg/dL Normal 07/27/2024 0.2 - 1 [facility] ALP SerPl-cCnc 71.0 U/L Normal 07/27/2024 45 - 128 [facility] T Sodium SerPl-sCnc 135.0 mmol/L Below low normal 07/27/2024 1 36 - 145 H[facility] Prot SerPl-mCnc 7.0 g/dL Normal 07/27/2024 6.3 - 8.[address] Albumin/Glob SerPl 1.1 Ratio Normal 07/27/2024 1 - 3 [facility] Chloride SerPl-sCnc 101.0 mmol/L Normal 07/27/2024 98 - 1 07 [facility] CO2 SerPl-sCnc 24.0 mmol/L Normal 07/27/2024 22 - 33 HH CCT Albumin SerPl-mCnc 3.7 g/dL Normal 07/27/2024 3.5 - 5 H[facility] GFR/BSA.pred SerPlBld [id number] 67.0 Normal 07/27/2024 59 - HHCCT Lymphocytes num Bld Auto 1.32 Thou/uL Below low normal 07/27/2024 1.5 - 4.5 [facility] Neutrophils/leuk NFr Bld Auto 75.7 % Normal 07/27/2024 H[facility]CT Eosinophil num Bld Auto 0.14 Thou/uL Normal 07/27/2024 0 - 0.7 H[facility] Imm Granulocytes num Bld Auto 0.05 Thou/uL Normal 07/27/2024 0 - 0.1 [facility] Basophils num Bld Auto 0.06 Thou/uL Normal 07/27/2024 0 - 0.2 [facility] Platelet num Bld Auto 363.0 Thou/uL Normal 07/27/2024 150 - 450 [facility] Hgb Bld-mCnc 15.0 g/dL Normal 07/27/2024 13 - 17.7 [facility] Basophils/leuk NFr Bld Auto 0.7 % Normal 07/27/2024 H[facility]CT MCV RBC Auto 83.0 fL Normal 07/27/2024 80 - 100 [facility] Eosinophil/leuk NFr Bld Auto 1.6 % Normal 07/27/2024 H[facility]CT Neutrophils num Bld Auto 6.47 Thou/uL Normal 07/27/2024 2 - 7.5 [facility]CT Lymphocytes/leuk NFr Bld Auto 15.5 % Normal 07/27/2024 H[facility]CT RDW RBC Auto-Rto 12.8 % Normal 07/27/2024 11.5 - 14.5 H[facility] RBC num Bld Auto 5.65 Mil/uL Normal 07/27/2024 4.5 - 6.2 H[facility]CT WBC num Bld Auto 8.5 Thou/uL Normal 07/27/2024 4 - 11 [facility] Monocytes/leuk NFr Bld Auto 5.9 % Normal 07/27/2024 H[facility]CT MCH RBC Qn Auto 26.5 pg Below low normal 07/27/2024 27 - 3 1 H[facility]CT Hct VFr Bld Auto 46.7 % Normal 07/27/2024 39 - 54 HH CCT PMV Bld Auto 9.7 fL Normal 07/27/2024 7.5 - 12.5 H[facility]CT MCHC RBC Auto-mCnc 32.1 g/dL Normal 07/27/2024 30 - 36 [facility] Imm Granulocytes/leuk NFr Bld Auto 0.6 % Normal 07/27/2024 H[facility]CT Monocytes num Bld Auto 0.5 Thou/uL Normal 07/27/2024 0.2 - 1.5 H[facility]CT POC Glucose 196.0 mg/dL Above high normal 11/17/2023 65 - 99 [facility] O2 Hb Measured, Venous 45.6 Normal 11/17/2023 40 - 70 [facility] Base deficit BldA-sCnc 1.1 mmol/L Normal 11/17/2023 H[facility]CT Hgb BldA-mCnc 13.0 g/dL Normal 11/17/2023 12.6 - 17 H[facility]CT SaO2 % BldV from pO2 46.7 % Below low normal 11/17/2023 6 0 - 80 H[facility]CT pCO2 BldV 53.0 mmHG Above high normal 11/17/2023 41 - 51 H HCCT MetHgb MFr Bld 0.0 % Below low normal 11/17/2023 0.4 - 1 .5 H[facility]CT HCO3 26.1 mmol/L Above high normal 11/17/2023 22 - 26 H[facility]CT COHgb MFr BldA 2.3 % Above high normal 11/17/2023 0 - 1. 5 H[facility]CT pH BldV 7.3 Below low normal 11/17/2023 7.31 - 7.41 H[facility]CT pO2 BldV <32.0 mmHG Normal 11/17/2023 30 - 40 [facility] Respiratory Information ROOM AIR Normal 11/17/2023 H[facility]CT B-OH-Butyr SerPl-sCnc 0.12 mmol/L Normal 11/17/2023 - 0.2 8 H[facility]CT Troponin T SerPl-mCnc 17.0 ng/L Normal 11/17/2023 - 23 [facility] Delta NO PREVIOUS RESULT Normal 11/17/2023 - 3 [facility]CT Magnesium SerPl-mCnc 2.5 mg/dL Normal 11/17/2023 1.6 - 2. 7 [facility]CT Anion Gap Bld-sCnc 12.0 Normal 11/17/2023 7 - 17 H[facility]CT ALT SerPl-cCnc 14.0 U/L Normal 11/17/2023 10 - 55 [facility] T CO2 SerPl-sCnc 25.0 mmol/L Normal 11/17/2023 22 - 33 HH CCT Glucose SerPl-mCnc 239.0 mg/dL Above high normal 11/17/2023 65 - 99 H[facility]CT Albumin/Glob SerPl 1.1 Ratio Normal 11/17/2023 1 - 3 H[facility]CT Albumin SerPl-mCnc 4.0 g/dL Normal 11/17/2023 3.5 - 5 H[facility]CT Calcium SerPl-mCnc 10.0 mg/dL Normal 11/17/2023 8.7 - 10. 5 H[facility]CT Potassium SerPl-sCnc 4.4 mmol/L Normal 11/17/2023 3.4 - 5 .3 H[facility]CT Prot SerPl-mCnc 7.5 g/dL Normal 11/17/2023 6.3 - 8.[address] Globulin Ser Calc-mCnc 3.5 g/dL Normal 11/17/2023 1.5 - 3.9 H[facility]CT BUN/Creat SerPl 22.0 Ratio Normal 11/17/2023 10 - 25 HH CCT AST SerPl-cCnc 15.0 U/L Normal 11/17/2023 10 - 55 [facility] T ALP SerPl-cCnc 82.0 U/L Normal 11/17/2023 45 - 128 [facility] T GFR/BSA.pred SerPlBld [id number]-[id number] 57.0 Below low normal 11/17/2023 59 - HHCCT BUN SerPl-mCnc 33.0 mg/dL Above high normal 11/17/2023 8 - 2 1 H[facility]CT Creat SerPl-mCnc 1.5 mg/dL Above high normal 11/17/2023 0.5 - 1.3 H[facility]CT Chloride SerPl-sCnc 99.0 mmol/L Normal 11/17/2023 98 - 10 7 H[facility]CT Sodium SerPl-sCnc 136.0 mmol/L Normal 11/17/2023 136 - 14 5 H[facility]CT Bilirub SerPl-mCnc 0.6 mg/dL Normal 11/17/2023 0.2 - 1 H[facility]CT WBC num Bld Auto 8.5 Thou/uL Normal 11/17/2023 4 - 11 H[facility]CT Imm Granulocytes num Bld Auto 0.03 Thou/uL Normal 11/17/2023 0 - 0.1 HHCCT MCHC RBC Auto-mCnc 32.1 g/dL Normal 11/17/2023 30 - 36 H[facility]CT Monocytes/leuk NFr Bld Auto 6.7 % Normal 11/17/2023 H[facility]CT Platelet num Bld Auto 301.0 Thou/uL Normal 11/17/2023 150 - 450 H[facility]CT RBC num Bld Auto 5.09 Mil/uL Normal 11/17/2023 4.5 - 6.2 H[facility]CT MCH RBC Qn Auto 26.7 pg Below low normal 11/17/2023 27 - 3 1 [facility]CT Basophils/leuk NFr Bld Auto 0.8 % Normal 11/17/2023 H[facility]CT Neutrophils/leuk NFr Bld Auto 76.3 % Normal 11/17/2023 H[facility]CT Eosinophil num Bld Auto 0.19 Thou/uL Normal 11/17/2023 0 - 0.7 H[facility]CT Lymphocytes num Bld Auto 1.16 Thou/uL Below low normal 11/17/2023 1.5 - 4.5 HHCCT Hgb Bld-mCnc 13.6 g/dL Normal 11/17/2023 13 - 17.7 HHCCT Hct VFr Bld Auto 42.4 % Normal 11/17/2023 39 - 54 HH CCT Neutrophils num Bld Auto 6.48 Thou/uL Normal 11/17/2023 2 - 7.5 H[facility]CT Monocytes num Bld Auto 0.57 Thou/uL Normal 11/17/2023 0.2 - 1.5 H[facility]CT Imm Granulocytes/leuk NFr Bld Auto 0.4 % Normal 11/17/2023 H[facility]CT Basophils num Bld Auto 0.07 Thou/uL Normal 11/17/2023 0 - 0.2 H[facility]CT RDW RBC Auto-Rto 13.0 % Normal 11/17/2023 11.5 - 14.5 H[facility]CT Eosinophil/leuk NFr Bld Auto 2.2 % Normal 11/17/2023 H[facility]CT Lymphocytes/leuk NFr Bld Auto 13.6 % Normal 11/17/2023 H[facility]CT PMV Bld Auto 9.4 fL Normal 11/17/2023 7.5 - 12.5 HHCCT MCV RBC Auto 83.0 fL Normal 11/17/2023 80 - 100 H[facility]CT Encounters Encounter Type Encounter Reason Primary Diagnosis Location Date Emergency Right upper quadrant pain Right upper quadrant pain [facility] 07/27/2024 Emergency Dehydration De[facility] 11/17/2023 Emergency Hyperglycemia, unspecified Hyperglycemia, unspecified [facility] 10/28/2023 Emergency Hyperglycemia, unspecified [facility] 05/29/2021 Care Team Organization Name Specialty Phone Email Start Date End [facility] te [facility] Primary Care 07/29/2024 08/28/2024 [facility] 07/27/2024 [facility] NO PCP Primary Care 11/17/2023 [facility] 11/17/2023 07/28/2024 [facility] 11/17/2023 [facility] 10/28/2023 [facility] 10/28/2023 [facility] 05/29/2021 12/29/2023 [facility] 05/29/2021 05/29/2021
--- OUTSIDE RECORDS SUMMARY | 2024-11-08 15:34 | XMS_ITS | Clinical Summary ---
Author Organization [facility] Facility Address [address] [address] Care Team Providers Care Import Export Clerk Name Role Phone Vince Patel MD Primary [...] the evening. 180 capsule 2 08/03/19 25 Active Active Problems Problem Noted Date Diagnosed Date Proteinuria 01/14/2023 Chronic kidney disease, stage 2 (mild) 2 Chronic kidney disease due to benign hypertensio n 12/25/2020 Type 2 diabetes mellitus wit h diabetic chronic kidney disease 12/25/2020 Acute nontraumatic kidney injury 09/05/2020 Family History Medical History Relation Comments Diabetes [...] Visit [facility] [address] [place] [address] Kei Moreno MD [address] [facility] [address] [place] [address] Health Maintenance Due Date Last [...] (6 to 49 Years) Discontinued 07/30/2007 Insurance [facility] Medicaid [facility] Medicaid Care Teams Import Export Clerk Relationship Specialty Start Date End Date Vince Patel MD PCP - General 05/22/20
--- NOTE | 2024-11-08 15:47 | MHC.AMDMED ---
Intake Intake Visit Reasons: T2DM/Discuss Cequer Drapery Sewer Hand Required: Yes Drapery Sewer Hand Language: Potato Chip Cooker Machine Name: Jasper Schaeffer Accompanied by: Self / Same As Patient Allergies No Known Allergies Allergy (Verified 10/22/24 13:47) [facility] Medical History Diabetes mellitus with microalbuminuria CKD stage 3a, GFR 45-59 ml/min Proliferative diabetic retinopathy of both eyes Type 2 diabetes mellitus with hyperglycemia Tubular adenoma Elevated cholesterol HTN (hypertension) Endocarditis Diabetes Surgical History Hx of colonoscopy History of esophagogastroduodenoscopy (EGD) H/O eye surgery Family History Father No problems noted. Mother No problems noted. Paternal Uncle Bone cancer Paternal Uncle Prostate cancer Paternal Uncle Lung cancer Paternal Uncle Heart attack Throat cancer Social History Alcohol intake: never Patient Tobacco Use Status: Current everyday Tobacco user Assessment & Plan Assessment & Plan (1) Type 2 diabetes mellitus with hyperglycemia: Code(s): E11.65 - Type 2 diabetes mellitus with hyperglycemia Qualifiers: Diabetes mellitus manager long term care insulin use: with manager long term care use Qualified Code(s): E11.65 - Type 2 diabetes mellitus with hyperglycemia; Z79.4 - prison (current) use of insulin Plan: Pt at visit forCeQue Simplicity informatiom Demonstrated for patient how to fill syringe from vial, and insert, needle to fill patch Instructed patient on how to administer mealtime insulin, instructed patient that each click is equal to 2 units of mealtime insulin Patient will follow-up with elementary educator as instructed Instructions: Wash your hands Lock patch by clicking buttons on each side until the will no longer click Fill syringe from vial up to 150 units. Insert, needle into blue hole to fill patch To prime patch proceed with 4 clicks Apply placed sticker, to patch, count forward 4 days Prepare site where you will place patch with either alcohol or soap and water, avoid waist band and belt line Do not insert through scar tissue, piercings and tattoos be sure to place patch at least 2 in from belly button. If you have excess body hair adhesive will attach better to clean shaven skin Place patch in coverstitch machine operator while holding coverstitch machine operator with both hands use thumbs to push down on blue cap in on patch Squeeze at both ends a blue cap and carefully began to pull cap, this should also remove adhesive pad liner. Be cautious of exposed needle, check to make sure needle is not bent Do not to push green button until coverstitch machine operator is against prepared site Place patch on your body, slide yellow safety and press green button down Push until you hear a click Press coverstitch machine operator firmly for 10 seconds, remove coverstitch machine operator by lifting it away To remove needle squeeze clear sides of registered dental hygienist at the base Discard needle in sharps container Press down firmly on patch with palm of your hand for 10 seconds Be sure to rotate patch regularly 5 clicks before each meal which equals 10 units Patient agreed to start Ce[facility] insulin patch Portions of this note were created using voice recognition software, please excuse any words or phrases that may have been misinterpreted. Coding Level of Care Code Est Pt Level 1 (79273) Diagnoses Type 2 diabetes mellitus with hyperglycemia, with long-term current use of insulin E11.65; Z79.4 Diabetes mellitus nursing home insulin use: with nursing home use
== END 2024-11-08 15:51 | disposition home or self-care (01) ==
LOC: HO.ENCR 15:11
PROVIDERS: PCP Internal Medicine; Visit Provider Registered Nurse Diabetes Educator
DX: E11.65 Type 2 diabetes mellitus with hyperglycemia (principal); Z79.4 Long term (current) use of insulin

== ENCOUNTER → 2024-11-08 15:10 | Outpatient (BNVA) | payer OTHER, SELFPAY | PROVIDERS: PCP Internal Medicine; Visit Provider Registered Nurse Diabetes Educator | DX: E11.65 Type 2 diabetes mellitus with hyperglycemia (principal); Z79.4 Long term (current) use of insulin | CPT/HCPCS: 99211 ==

== ENCOUNTER 2024-12-07 08:36 | Outpatient (AMB) | payer OTHER, SELFPAY ==
--- NOTE | 2024-12-07 09:52 | A.OFFVIS_ITS ---
Vital Signs 12/07/24 09:53 Height 5 ft 7 in Weight 180 lb 12.465 oz BMI 28.3 BP 130/80 Blood Pressure Location Rt brachial Position Sitting Pulse 78 Pulse Source Pulse Oximeter Pulse Oximetry (%) 97 Oxygen Delivery Method Room Air Intake Visit Reasons: T2DM Intake Note: Patient present today for T2DM follow up. Last Diabetic Eye exam: [facility] 11/04/24 Last Podiatry Visit: Doesn't have one Random Glucose: 249 mg/dL HgA1C:>14.0% 10/22/2024 Screen Printer Required: Yes Screen Printer Language: Card Decorator Services: Screen Printer Present Screen Printer Name: CAROL Moss Information Interpreted: non-clinical & clinical Accompanied by: Self / Same As Patient Allergies No Known Allergies Allergy (Verified 12/07/24 09:53) Medication List - Last Reconciled 12/07/24 by GUANACO Albrecht amlodipine 5 mg PO DAILY atorvastatin 40 mg PO BEDTIME blood-glucose sensor (FreeStyle Mary 3 Plus Sensor device) Apply 1 new sensor every 15 days as directed to monitor blood glucose continuously. bolus insulin pump, 200 unit (CeQur Simplicity) As directed to administer short acting insulin three times daily before meals. cholecalciferol (vitamin D3) (Vitamin D3) 25 mcg PO QAM diabetic supplies, Sysomoscellan. (CeQur Simplicity International Recruiter) As directed docusate sodium 100 mg PO BEDTIME dulaglutide (Trulicity) 1.5 mg (0.5 mL) subcut QWEEK fluoxetine 20 mg PO QAM gabapentin 100 mg PO glucose (Dex4 Glucose) 16 grams (4 x 4 gram) PO Q15M PRN hydralazine 25 mg PO BID hydrochlorothiazide 12.5 mg PO DAILY hydroxyzine HCl 25 mg PO Q6H PRN insulin glargine (Lantus Solostar U-100 Insulin) 74 units subcut BEDTIME insulin lispro 14 units subcut TID lancets (TRUEplus Lancets) As directed losartan 50 mg PO QAM metformin ER 1,000 mg PO BID pantoprazole 40 mg PO QAM trazodone 50 mg PO BEDTIME HPI Comments Details: This is a 49-year-old male with a past medical history of hypertension, endocarditis, tubular adenoma, CKD 3a, diabetic retinopathy and palpitations presenting for diabetic management. He was diagnosed with Type II diabetes more than 12.5 years ago. He endorses a family history of Type II diabetes (mother, father, uncle). Reviewed Mary data November 24 to December 07 Average glucose 361 G AZ 11.9% Very high 91% High 7% Target range 2% 0% hypoglycemia There is a pattern of hyperglycemia throughout 24 hours. There is modest improvement overnight in blood sugars. Hemoglobin A1c 14% 10/22/2024. He has chronically uncontrolled type 2 diabetes. No history of DKA. MEREDITH antibody, islet cell antibody and C-peptide normal. Current medication regimen: Trulicity 1.5 mg weekly (started this dose 1 week ago), Lantus 65 units at bedtime (only missed 2 doses since last visit), lispro 10 units before meals (noncompliant - takes once or twice per day), metformin ER 500 mg 2 tablets twice daily (compliant). Past meds: Jardiance discontinued but the reason is unclear. He saw the addiction social worker today. Cequr requires appeal. Hypoglycemia symptoms: No recent episodes. He has glucose tablets. Microvascular complications: neuropathy, nephropathy (CKD and microalbuminuria- followed by nephrology), Bilateral retinopathy ([facility]) Macrovascular complications: none Hypertension: treated with amlodipine 5 mg, hydralazine 25 mg b.i.d., hydrochlorothiazide 12.5 mg daily, losartan 50 mg daily YARITZA inhibitor discontinued in the past due to PRANEETH. Hyperlipidemia: treated with atorvastatin 40 mg ROS: Constitutional: No weight loss, fevers, chills or fatigue Eyes: Denies vision loss or vision changes Respiratory: No shortness of breath or cough Cardiovascular: No chest pain, chest pressure or chest discomfort. No palpitations or pedal edema. Gastrointestinal: No anorexia, nausea, vomiting or diarrhea. No abdominal pain Neurologic: Denies confusion, numbness, tingling, weakness, seizures or tremors Skin: No wounds or ulcers. Endocrine: See HPI Physical exam: Constitutional: Alert, in no distress. Head: Normocephalic. Neck: Supple, Full range of motion. No lymphadenopathy. No palpable thyroid masses. Respiratory: Clear to auscultation. Cardiovascular: S1 S2 regular. No murmurs. Extremities: Warm and well perfused, no edema PFSH Medical History Diabetes mellitus with microalbuminuria CKD stage 3a, GFR 45-59 ml/min Proliferative diabetic retinopathy of both eyes Type 2 diabetes mellitus with hyperglycemia Tubular adenoma Elevated cholesterol HTN (hypertension) Endocarditis Diabetes Surgical History Hx of colonoscopy History of esophagogastroduodenoscopy (EGD) H/O eye surgery Family History Father No problems noted. Mother No problems noted. Paternal Uncle Bone cancer Paternal Uncle Prostate cancer Paternal Uncle Lung cancer Paternal Uncle Heart attack Throat cancer Social History Alcohol intake: never Patient Tobacco Use Status: Current everyday Tobacco user Physical Exam Vital Signs: Last Vital Signs Pulse 78 12/07/24 09:53 BP 130/80 12/07/24 09:53 Pulse Ox 97 12/07/24 09:53 Oxygen Delivery Method Room Air 12/07/24 09:53 BMI result Body Mass Index 28.3 Results Reviewed Results Reviewed: Laboratory Last Values Glucose (Clinic) 249 mg/dL (60-115) H 12/07/24 10:01 Laboratory Tests 05/07/24 11:49 Creatinine 0.88 Estimated GFR > 60 C-Peptide 1.08 B-Natriuretic Peptide < 10 Islet Cell Ab Screen NEGATIVE MEREDITH Antibody <5 Assessment & Plan Assessment & Plan (1) Type 2 diabetes mellitus with hyperglycemia: Code(s): E11.65 - Type 2 diabetes mellitus with hyperglycemia Category: Medical Qualifiers: Diabetes mellitus senior care insulin use: with intermediate school teacher 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 Qualified Code(s): E11.65 - Type 2 diabetes mellitus with hyperglycemia; Z79.4 - snf (current) use of insulin (2) Proliferative diabetic retinopathy of both eyes: Code(s): E11.3593 - Type 2 diabetes mellitus with proliferative diabetic retinopathy without macular edema, bilateral Category: Medical Qualifiers: Diabetes mellitus type: type 2 (3) CKD stage 3a, GFR 45-59 ml/min: Code(s): N18.31 - Chronic kidney disease, stage 3a Category: Medical (4) Diabetes mellitus with microalbuminuria: Code(s): E11.29 - Type 2 diabetes mellitus with other diabetic kidney complication; R80.9 - Proteinuria, unspecified Category: Medical Plan In summary this is a 49-year-old male with uncontrolled type 2 diabetes. He will continue Trulicity 1.5 mg weekly for now. He just started it a week ago. The plan will be to increase to 3 mg weekly when he finishes this prescription. Reviewed the importance of taking his lispro insulin. Increase insulin lispro to 14 units 3 times daily before meals. Increase Lantus from 65 units to 74 units nightly. Continue metformin a 1000 mg twice daily. We discussed adding Actos. He declined. Once he has better glycemic control we can discuss restarting SGLT2. We reviewed complications of uncontrolled diabetes and lifestyle modifications in detail. Declined referral to dietitian. The patient has a prescription for ketone urine strips and instructions and information on DKA. Reviewed treatment of hypoglycemia and advised not to drive if blood sugar is low or he has symptoms of low blood sugar or does not have a way to monitor his blood sugar accurately. Follow up in 1 month. Orders: Orders AMB Glucose Monitoring Today E11.9 - Type 2 diabetes mellitus without complications Medications: New blood-glucose sensor (FreeStyle Mary 3 Plus Sensor device) Apply 1 new sensor every 15 days as directed to monitor blood glucose continuously. 2 ea 11RF Patient Instructions: Continue Trulicity to 1.5 mg weekly. Take lispro 14 units 3 times daily before meals. Increase Lantus from 65 to 74 units daily. Continue metformin 1000 mg twice daily. Contin?e con Trulicity a 1.5 mg semanales. Lecompte 14 unidades de lispro 3 veces al d?a antes de las comidas. Aumente la dosis de Lantus de 65 a 74 unidades cada noche. Contin?e con metformina 1000 mg dos veces al d?a. 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
[2024-12-07 09:53] VITALS: BP 130/80; PULSE 78; O2SAT 97; BMI 28.3
[2024-12-07 10:05] LABS: Glucose, Whole Blood 249 mg/dL (60-115)
== END 2024-12-07 11:05 | disposition home or self-care (01) ==
LOC: HO.ENCR 08:37
PROVIDERS: PCP Internal Medicine; Visit Provider Physician Assistant Medical
DX: E11.65 Type 2 diabetes mellitus with hyperglycemia (principal); Z79.4 Long term (current) use of insulin; E11.3593 Type 2 diabetes mellitus with proliferative diabetic retinopathy without macular edema, bilateral; N18.31 Chronic kidney disease, stage 3a; E11.29 Type 2 diabetes mellitus with other diabetic kidney complication; R80.9 Proteinuria, unspecified

== ENCOUNTER 2024-12-07 08:36 | Outpatient (AMB) | payer OTHER, SELFPAY ==
--- OUTSIDE RECORDS SUMMARY | 2024-12-07 08:54 | XMS_ITS | Clinical Summary ---
Author Organization [employer] Address [address] [place] [address] Care Team Providers Care Claims Adjuster Supervisor Name Role Phone Pcp, No Primary Care [...] 45 UNITS SUBCUTANEOUSLY EVERY EVENING DIRECTED 11/08/19 20 Active metFORMIN XR (GLUCOPHATE-XR) 500 mg 24 [...] Td Vaccines Adult 11/07/202411/07, 07/30/2007 Influenza Vaccine (#1) 2025 Pneumococcal Vaccine: Peds ( 0 to 5 Yrs) and At-Risk Pts (6 to 49 Yrs) Aged Out 07/30/2007 No longer eligible based on patient's age to complete this topic MMR Vaccines Discontinued 03/22/2008 HIB Vaccines Aged Out No longer eligi ble based on patient's age to complete this topic HPV Vaccines (No Doses Required) Completed Hepatitis A Vaccines Aged Out No long [...] this topic Insurance MEDICAID OUT-STATE Care Teams Claims Adjuster Supervisor Relationship Specialty Start Date End Date Pcp, No No PCP On File COLTON Garcia [id number] PCP - General 01/03/20
--- OUTSIDE RECORDS SUMMARY | 2024-12-07 08:54 | XMS_ITS | Clinical Summary ---
Author Organization [facility] Facility Address [address] [address] Care Team Providers Care Scrap Preparer Name Role Phone Vince Patel MD Primary [...] Visit [facility] [address] [place] [address] Kei Moreno MD [address] [facility] [address] [place] [address] Health Maintenance Due Date Last [...] Hemoglobin A1C 06/23/2024 03/23/2024, 10/11 Influenza Vaccine (#1) 2025 Pneumococcal Vaccine: Peds ( 0 to 5 Years) and At-Risk Patients (6 to 49 Years) Discontinued 07/30/2007 Insurance [facility] Medicaid [facility] Medicaid Care Teams Scrap Preparer Relationship Specialty Start Date End Date Vince Patel MD PCP - General 05/22/20
--- OUTSIDE RECORDS SUMMARY | 2024-12-07 08:54 | XMS_ITS | Clinical Summary ---
Author Organization [facility] Address [address] [place] [address] Care Team Providers Care Mud Jack Nozzle Worker Name Role Phone Unknown Primary Care Provider [phone] Artie Vivas DO Unavailable [phone] Allergies No known active allergies Social History [...] 01/13/2024 Influenza Vaccine 12/10/2024 Insurance [address] [facility] LATA [id number] MEDICAID OUT OF [place] [facility] [place] [facility] [place] [facility] [address] LATA BRICEÑO [id number] Care Teams Mud Jack Nozzle Worker Relationship Specialty Start Date End Date Unknown Unknow Provider Address PCP - General 05/29/21 Artie Vivas DO [address] [place] [address] [address] [place] [address] 05/29/21
--- OUTSIDE RECORDS SUMMARY | 2024-12-07 08:54 | XMS_ITS | Encounter Summary ---
Author Organization [employer] Address [address] [facility] [address] [place] [address] Care Team Providers Care Robotic Welder Name Role Phone Vince Maya MD Primary Care Provide r Melanie Reyes PharmD Unavailable [phone] Encounter Details Date Type Department Care Team ([facility] st Contact Info) Description 12/02/2024 Abstract [facility] MEDICINE [address] [place], [place] [phone] Melanie Reyes, PharmD [address] [place] [address] Social History Tobacco Use Types Packs/Day Years [...] Answer Date Recorded Patient Health Questionnaire-9 Score 11 12/03/2024 Patient Health Questionnaire-9 Score 11 12/03/2024 Last PHQ-9: Questionnaire Data Not on file 0 12/03/2024 Housing Stability Answer Date Recorded What is [...] Answer Date Recorded Patient Health Questionnaire-2 Score 4 12/03/2024 Internet Access Answer Date Recorded Internet Access Q1 Yes 11/04/2024 Internet Access Q2 Not on file 11/04/2024 Sex and Gender Information Value Date Recorded Sex Assigned at Male 03/11/2022 10:20 AM EDT Legal Sex Male 10:20 AM EDT Gender Identity Male 03/11/2022 10:20 AM EDT Sexual Orientation Choose not to disclose 2021 10:20 AM EDT documented as of this encounter Plan of Treatment Upcoming Encounters Date Type Department Care Team (Late st Contact Info) Description 02/03/2025 10:30 AM EDT Office Visit [facility] MEDICINE [address] [place] [address] Vince Maya MD [address] [place] [address] 02/03/2025 1:45 PM EDT Office Visit [facility] OPTOMETRY [address] [place] [address] Alesha Potts, OD [address] [place] [address] documented as of this encounter Procedures Procedure Name Priority Date/Time Associated Diagnosis Comments HEMOGLOBIN A1C Routine 10/22/2024 documented in this encounter Results * (ABNORMAL) Hemoglobin A1c (10/22/2024) Hemoglobin A1C 14.0(A) 4.0 - 5.7 % Comment:Per endocrinology vi sit Blood Venous blood specimen / Unknown us Historical Provider LAB BLOOD ORDERABLES [place] l Result documented in this encounter Visit Diagnoses Not on filedocumented in this encounter Additional Health Concerns Assessment Noted Time PHQ-9 Depression Total Score: 5 11/04/19 24 1:48 PM EDT documented as of this encounter Care Teams Robotic Welder Relationship Specialty Start Date End Date Vince Maya MD [address] [place] [address] PCP - General Internal Medicine 12/20/16 Melanie Reyes PharmD [address] [place] [address] Pharmacist Internal Medicine 06/15/24 documented as of this encounter
--- NOTE | 2024-12-07 09:38 | MHC.AMDMED ---
Intake Intake Visit Reasons: T2DM/Discuss [employer]equer Car Rental Service Attendant Required: Yes Car Rental Service Attendant Language: Aeronautics Teacher Name: Aldo Wang Accompanied by: Self / Same As Patient Allergies No Known Allergies Allergy (Verified 12/07/24 09:53) HPI Comprehensive Diabetes Asmnt Most Recent Diabetes Results: Microalb/Creat Ratio, (<30) 601.6 ug/mg cr H 11/08/23 Cholesterol, (<200) 172 mg/dL 11/08/23 HDL Cholesterol, (>40) 44 mg/dL 11/08/23 Triglycerides, (<150) 101 mg/dL 11/08/23 Creatinine, (0.5-1.4) 0.88 mg/dL 05/07/24 BUN, (9-16) 17 mg/dL H 04/22/24 Sodium, (135-145) 136 mmol/L 04/22/24 Potassium, (3.3-5.1) 4.5 mmol/L 04/22/24 Chloride, (96-108) 103 mmol/L 04/22/24 Carbon Dioxide, (22-29) 26 mmol/L 04/22/24 Calcium, (8.4-10.2) 9.3 mg/dL 04/22/24 AST, (5-37) 12 U/L 04/22/24 ALT, (0-40) 8 U/L 04/22/24 Total Protein, (6.5-8.0) 5.9 g/dL L 04/22/24 Albumin, (3.5-5.0) 3.2 g/dL L 04/22/24 ON LICENSE OF [facility] Medical History Diabetes mellitus with microalbuminuria CKD stage 3a, GFR 45-59 ml/min Proliferative diabetic retinopathy of both eyes Type 2 diabetes mellitus with hyperglycemia Tubular adenoma Elevated cholesterol HTN (hypertension) Endocarditis Diabetes Surgical History Hx of colonoscopy History of esophagogastroduodenoscopy (EGD) H/O eye surgery Family History Father No problems noted. Mother No problems noted. Paternal Uncle Bone cancer Paternal Uncle Prostate cancer Paternal Uncle Lung cancer Paternal Uncle Heart attack Throat cancer Social History Alcohol intake: never Patient Tobacco Use Status: Current everyday Tobacco user Assessment & Plan Assessment & Plan (1) Type 2 diabetes mellitus with hyperglycemia: Code(s): E11.65 - Type 2 diabetes mellitus with hyperglycemia Qualifiers: Diabetes mellitus [facility]: with [facility] use Qualified Code(s): E11.65 - Type 2 diabetes mellitus with hyperglycemia; Z79.4 - correction (current) use of insulin Plan: Diabetes self-management education and support participation record Assessment/scale: 1= needs instructed? 2= needs review? 3= comprehend keep point? 4= demonstrates understanding/ competent? NC= Not Covered Topics Learning Objective: Initial visit Initial or post srvc Initial or post srvc Initial or post srvc Initial or post srvc Initial or post srvc Post srvc Comments Pre Edu-assessment/plan Outcome or reassess Outcome or reassess Outcome or reassess Outcome or reassess Outcome or reassess Outcome or reassess Diabetes pathophysiology 1 Healthy eating 1 Being active 1 Taking medication 1 Monitoring glucose 1 Acute complication 1 Chronic complicated 1 Lifestyle and healthy coping 1 Diabetes distress in support 1 ?Diabetes pathophysiology: ?Defined diabetes med identify own type of diabetes; list 3 options for treating diabetes Healthy eating: ?Described effect of type, amount and ?timing of food on blood glucose; list 3 methods for planning meal Being active: ?State effect of exercise on blood glucose level Taking medication: ?State effect of diabetes medications on diabetes; name diabetes medications taking, action and side effects Monitoring glucose: ?Identify recommended blood glucose targets and personal target Acute complication: ?List symptoms and treatment of hyper and hypoglycemia, DKA, sick day guidelines and guidelines for severe weather or situations of crisis and diabetes supply manage Chronic complication: ?To find the relationship of blood glucose levels to long-term complications of diabetes in screening and preventative measures Lifestyle and healthy coping: ?Described lifestyle and healthy coping strategies to rule out diabetes self-management Diabetes to stress and support: ?Recognize Diabetes to stress and be able to identified support options Learning objectives: The patient was provided with verbal and written education on the following topics as outlined below. The patient met all learning objectives and was able to verbalize understanding and provide teach back of education topics discussed . The patient was provided with the opportunity to ask questions and all questions were answered. Patient Assessment Assess patient education level/literacy/barriers, waiting on appeal for CeQur insulin delivery patch Patient's A1c is her than 14% 10/22/24 Patient questions/concerns, Pt reports eating high carb diet What is Diabetes? Pathophysiology How the body produces and uses insulin Identify type of DM Risk factors Signs of Diabetes Brief overview of Diabetes Management Monitoring blood sugar Following a meal plan Regular exercise Maintaining a healthy weight Taking medication as needed Members of the care team (PCP, RN, MA, RD, CDE, keg varnisher) Blood glucose monitoring When/how often to test Target blood sugar ranges Introduction to Nutrition Importance of healthy diet in managing DM Diet is personalized to individual preference Review patient?s regular diet/food preferences Who prepares meals/does food shopping/ Dining out?/ Barriers? How diet effects glucose Eating 3 balanced meals a day with small, healthy snacks between meals Review food groups Carbohydrates: What is a carbohydrate/Which food/food groups are considered carbohydrates Effect of carbohydrates on blood glucose Portion sizes Reading food labels Basic carb counting (if applicable per nursing assessment) Plate method Meal planning Recommendations: Follow plate method, consistent carbs and read nutritional labels. Smart Goal:Pt will identify foods that contain carbohydrates in current meal plan Educational Materials: The patient was provided with the following written educational materials: Planning Healthy Meals Handout Patient Response to instructions: Comprehension of Instructions: Fair Readiness to make changes: Contemplation How confident they feel about making changes: Poor Portions of this note were created using voice recognition software, please excuse any words or phrases that may have been misinterpreted. Patient Instructions: Incluir actividad diaria regular. ADA recomienda 30 minutos de ejercicio 5 d?as a la semana. P?rdida de peso, hable con el PCP o el cardi?logo antes de comenzar un nuevo plan. Mida el nivel de az?car en la isidro seg?n las indicaciones; Ayuno y comida m?s ebony de 2hpp. Observe las tendencias en los resultados. Utilice los resultados y eval?e c?mo los alimentos, la actividad f?cecilia y los medicamentos afectan los resultados de az?car en la isidro. Lleve el gluc?metro o CGM a la pr?xima visita. Conocer los medicamentos para la diabetes, etienne acci?n, los efectos secundarios, la eficacia, la toxicidad, la dosis prescrita, el momento y la frecuencia de administraci?n apropiados, el efecto de las dosis olvidadas y retrasadas y las instrucciones de almacenamiento, viaje y seguridad. T?cnicas de resoluci?n de problemas para el seguimiento de episodios de hipo/hiperglucemia y tratamientos. Reducir los comportamientos de reducci?n de riesgos, dejar de fumar, ex?menes regulares de ojos, pies y dentales. Coding Level of Care Code Est Pt Level 1 (13616) Diagnoses Type 2 diabetes mellitus with hyperglycemia, with long-term current use of insulin E11.65; Z79.4 Diabetes mellitus [facility] use: with [facility] use
== END 2024-12-07 09:51 | disposition home or self-care (01) ==
LOC: HO.ENCR 08:37
PROVIDERS: PCP Internal Medicine; Visit Provider Registered Nurse Diabetes Educator
DX: E11.65 Type 2 diabetes mellitus with hyperglycemia (principal); Z79.4 Long term (current) use of insulin

== ENCOUNTER → 2024-12-07 08:36 | Outpatient (BNVA) | payer OTHER, SELFPAY | PROVIDERS: PCP Internal Medicine; Visit Provider Registered Nurse Diabetes Educator | DX: E11.65 Type 2 diabetes mellitus with hyperglycemia (principal); E11.3593 Type 2 diabetes mellitus with proliferative diabetic retinopathy without macular edema, bilateral; N18.31 Chronic kidney disease, stage 3a; Z79.4 Long term (current) use of insulin; R80.9 Proteinuria, unspecified | CPT/HCPCS: 82947; 99211; 99212 ==

== ENCOUNTER 2024-12-11 09:00 | Outpatient (REF) | payer OTHER, SELFPAY ==
--- OUTSIDE RECORDS SUMMARY | 2024-12-11 09:03 | XMS_ITS | Clinical Summary ---
Author Organization [facility]ly [facility] Address [address] [place] [address] Care Team Providers Care University Administrative Assistant Name Role Phone Unknown Primary Care Provider [phone] Artie Vivas DO Unavailable [phone] Allergies No known active allergies Social History [...] 01/13/2024 Influenza Vaccine 12/10/2024 Insurance O BOX [facility] LATA BRICEÑO21 MEDICAID OUT OF STATE [place] MED[place] OUT [place] [address]OX [facility] LATA BRICEÑO [id number] Care Teams University Administrative Assistant Relationship Specialty Start Date End Date Unknown Unknow Provider Address PCP - General 05/29/21 Artie Vivas DO [address] [place] [address] [address] [place] [address] 05/29/21
--- OUTSIDE RECORDS SUMMARY | 2024-12-11 09:03 | XMS_ITS | Clinical Summary ---
Author Organization [facility] Address [address] [address] Care Team Providers Care Ent Physician Name Role Phone Vince Patel MD Primary [...] Visit [facility] [address] [place] [id number] Kei Moreno MD [phone] [facility] [address] [place] [address] Health Maintenance Due Date Last [...] (6 to 49 Years) Discontinued 07/30/2007 Insurance [facility] Medicaid [facility] Medicaid Care Teams Ent Physician Relationship Specialty Start Date End Date Vince Patel MD PCP - General 05/22/20
--- OUTSIDE RECORDS SUMMARY | 2024-12-11 09:03 | XMS_ITS | Clinical Summary ---
Author Organization [facility] Address [address] [place] [id number] Care Team Providers Care Cloud Physicist Name Role Phone Pcp, No Primary Care [...] this topic Insurance MEDICAID OUT-STATE Care Teams Cloud Physicist Relationship Specialty Start Date End Date Pcp, No No PCP On File COLTON Garcia [id number] PCP - General 01/03/20
[2024-12-11 09:26] LABS: Platelet Count 302 X10*3/uL (160-400)
[2024-12-11 10:22] LABS: Alanine Aminotransferase 13 U/L (0-40); Aspartate Amino Transferase 16 U/L (5-37); Cholesterol 225 mg/dL (<200); Estimated Glomerular Filt Rate > 60; HDL Cholesterol 43 mg/dL (>40); Triglycerides 108 mg/dL (<150)
[2024-12-11 10:33] LABS: Vitamin B12 440 pg/mL (200-900)
[2024-12-11 11:11] LABS: Microalbum/Creatinine Ratio Ur 1869.5 ug/mg cr (<30)
== END 2024-12-11 09:01 | disposition home or self-care (01) ==
LOC: HO.LAB 09:00
PROVIDERS: PCP Internal Medicine; Visit Provider Physician Assistant Medical
DX: E11.22 Type 2 diabetes mellitus with diabetic chronic kidney disease (principal); N18.31 Chronic kidney disease, stage 3a; E78.5 Hyperlipidemia, unspecified; R80.9 Proteinuria, unspecified; Z91.89 Other specified personal risk factors, not elsewhere classified
CPT/HCPCS: 36415; 80061; 82043; 82565; 82570; 82607; 84443; 84450; 84460; 85049

== ENCOUNTER 2025-01-01 15:53 | Emergency (ER) | payer OTHER, SELFPAY ==
--- NOTE | ~2025-01-01 | CT_ITS ---
CLINICAL HISTORY: DIAZ hypertensive blurred vision CT head without contrast Comparison: MR - MR HEAD/BRAIN WO CON - 09/03/24 19:[address]/MS/SR - CT HEAD/BRAIN WO IV CON - 04/22/24 13:25 EST Findings: No intra-axial mass, midline shift, hydrocephalus, or acute hemorrhage. No significant atrophy-like change or white matter disease. Again noted is rvlv-ekxtuin-jvxk-right white matter hypoattenuation in the bilateral occipital lobes, which can be seen in posterior reversible encephalopathy syndrome in this patient with hypertension and ocular symptoms. Mastoid air cells well aerated. Left maxillary sinus disease. The orbits are unremarkable. There is no acute fracture. IMPRESSION: Suggestion of posterior reversible encephalopathy syndrome in this patient with hypertension and ocular symptoms, as seen on 05/01/2024 CT. No intracranial hemorrhage. This document has been electronically signed by: Abdi Call MD on 01/01/2025 17:57:41
[2025-01-01 15:55] VITALS: BP 169/81; PULSE 93; RESP 20; TEMP 36.2; O2SAT 98; BMI 28.2
--- NOTE | 2025-01-01 15:55 | ED_ITS ---
HPI - General Adult General Chief complaint: Dizziness Stated complaint: HBP/dizzy Time Seen by Provider: 01/01/25 16:28 Source: patient, RN notes reviewed and old records reviewed Mode of arrival: ambulatory Limitations: language barrier (Patient declined interpreting services) History of Present Illness ED Provider: Grazyna HPI narrative: 49-year-old male past medical history significant for type 2 diabetes, poorly controlled, chronic kidney disease stage 3, palpitations, hypertension, history of endocarditis presents for evaluation of headache. Patient reports headache starting last night with associated dizziness. He reports the pain behind his right eye He also endorses blurry vision. Denies any fevers, chills, cough, sore throat. He reports that he took his insulin yesterday in his blood pressure dropped to 68 He states that he is still took his insulin today Denies any sick contacts or recent travel Related Data Home Medications ?Medication ?Instructions ?Recorded ?Confirmed amlodipine 5 mg tablet 5 mg PO DAILY 11/28/2010/22 hydrochlorothiazide 12.5 mg tablet 12.5 mg PO DAILY 10/22/24 hydralazine 25 mg tablet 25 mg PO BID 02/20/21 cholecalciferol (vitamin D3) 25 25 mcg PO QAM 12/04/21 10/22/24 mcg (1,000 unit) capsule (Vitamin D3) fluoxetine 20 mg capsule 20 mg PO QAM 12/04/21 lancets 33 gauge (TRUEplus Lancets) #100 ea 12/04/21 0 10/22/24 losartan 50 mg tablet 50 mg PO QAM 12/04/21 gabapentin 100 mg capsule 100 mg PO 12/16/23 10/22/24 hydroxyzine HCl 25 mg tablet 25 mg PO Q6H PRN itch 11/0210/22/24 trazodone 50 mg tablet 50 mg PO BEDTIME 12/16/23 metformin 500 mg tablet,extended 1,000 mg PO BID 10/2210/22/24 release 24 hr insulin glargine 100 unit/mL (3 74 unit subcut BEDTIME 12/07/24 mL) subcutaneous pen (Lantus Solostar U-100 Insulin) insulin lispro 100 unit/mL 14 unit subcut TID 12/07/24 subcutaneous pen Previous Rx's ?Medication ?Instructions ?Recorded docusate sodium 100 mg capsule 100 mg PO BEDTIME #90 c aps 06/17/23 glucose 4 gram chewable tablet 16 g (4 x 4 gram) PO Q1 5M PRN 10/22/24 (Dex4 Glucose) hypoglycemia #30 tabs bolus insulin pump, 200 unit 2 #8 ea 11/08/24 unit bolus insulin patch pump, 200 unit, disposable (CeQur Simplicity) diabetic supplies, miscellan. #1 ea 11/08/24 (CeQur Simplicity Cardiac Cath Tech) pantoprazole 40 mg tablet,delayed 40 mg PO QAM #30 tab s 11/10/24 release blood-glucose sensor (FreeStyle #2 ea 12/07/24 Mary 3 Plus Sensor device) dulaglutide 1.5 mg/0.5 mL 1.5 mg (0.5 mL) subcut QWEEK #2 mL 12/16/24 subcutaneous pen injector (Trulicity) atorvastatin 80 mg tablet (Lipitor) 80 mg PO QPM #90 t abs 12/17/24 Allergies Allergy/AdvReac Type Severity Reaction Status Date / Time No Known Allergies Allergy Verified 01/01/25 15:57 Review of Systems 2 Constitutional: Constitutional: Denies body ache(s), Denies chills, Denies fever(s) and Reports headache(s) Eyes: Eyes: Denies blurry vision, Denies change in vision, Denies diplopia, Denies loss of peripheral vision, Denies loss of vision, Denies other visual disturbances, Denies eye pain, Denies seeing flashes and Denies spots in vision ENT: Reports dizziness and Reports headache(s) Cardiovascular: Cardiovascular: Denies chest pain and Denies dyspnea on exertion Respiratory: Respiratory: Denies cough and Denies dyspnea on exertion Gastrointestinal: Gastrointestinal: Denies abdominal pain, Denies nausea and Denies vomiting Musculoskeletal: Musculoskeletal: Denies back pain Integumentary/Breasts: Skin/Breast: Denies rash Neurologic: Denies Abnormal speech present, Reports dizziness, Reports headache(s) and Denies loss of vision Psychiatric: Psychiatric: Denies anxiety PMFSH Past Medical History Medical History Diabetes mellitus with microalbuminuria CKD stage 3a, GFR 45-59 ml/min Proliferative diabetic retinopathy of both eyes Type 2 diabetes mellitus with hyperglycemia Tubular adenoma Elevated cholesterol HTN (hypertension) Endocarditis Diabetes Surgical History Hx of colonoscopy History of esophagogastroduodenoscopy (EGD) H/O eye surgery Family History Family History Father No problems noted. Mother No problems noted. Paternal Uncle Bone cancer Paternal Uncle Prostate cancer Paternal Uncle Lung cancer Paternal Uncle Heart attack Throat cancer Social History Social History Alcohol intake: never Patient Tobacco Use Status: Current everyday Tobacco user Smoked in Last 30 Days: No Use of substances other than those prescribed or required for medical reasons: No Advance Directives: No Advance Directives Information Provided: No Physical Exam ED Vital Signs: Vital Signs - 24 hr 01/01/25 15:55 01/01/25 18:29 Temperature 97.1 F Pulse Rate 93 88 Respiratory Rate 20 18 Blood Pressure 169/81 H 166/88 H Pulse Oximetry 98 99 Oxygen Delivery Method Room Air Room Air BMI result Body Mass Index 28.2 Const General: healthy appearing, comfortable, no acute distress, alert and awake Nutritional Appearance: well nourished Orientation/consciousness: patient oriented x3 HENMT Head: Yes normocephalic and Yes atraumatic Eyes Eyelids: Yes eyelids normal Conjunctivae: conjunctivae normal Sclerae: sclerae normal Corneas: corneas normal Pupils: Equal, round and reactive pupils present EOM: EOMs intact bilaterally Neck Neck: Yes full ROM Resp Effort & Inspection: normal respiratory effort, able to speak in complete sentences and not labored Cardio Rate: regular rate Rhythm: regular rhythm GI Inspection: No distended Palpation (GI): Soft to palpation, not firm, nontender, no guarding and not rigid Auscultation: normoactive bowel sounds Skin General skin exam: no rashes or lesions noted and elasticity normal Neuro General: patient oriented x3 Cranial nerves: Yes CN's II-XII intact bilaterally, Yes Equal, round and reactive pupils present and Yes Bilaterally intact EOM present Cognition (Neuro): normal cognition Speech: No Abnormal speech present Gait exam (Neuro): Normal gait present Motor exam (neuro): 5 motor strength present throughout Coordination: [id number]-[id number] test normal, tandem gait normal and Normal rapid alternating movements of the distal upper extremity present (Neuro) Romberg Test: Negative Extrem Other: Moving all extremities well without any obvious deformities Course Course Course Narrative: This is a Rapid Medical Examination (RME) performed by Joaquim Foley PA-C in triage. Full HPI, ROS, assessment and treatment plan per primary provider in the Main ED. Hx: 49 yo M hx DM, CKD, HTN here for eval of headache, dizziness, blurred vision from both eyes and elevated BP readings today. bp 188/90 at home. states that the only meds he takes at home is insulin - on chart review, it appears that he is supposed to take amlodipine however he denies taking any PO meds at home. Plan: labs, ekg, CT head Reevaluation(s) Reevaluation #1: Patient's CT scan shows possible press syndrome. When I discussed with the patient he reports that he has been informed of this in the past on his last CT scan. He is currently following with his primary doctor for his blood pressure as well as his glucose. After medications he reports feeling much better, his headache has resolved. The patient will be discharged to follow up his PCP, glucose has improved as well Time: 19:45 Medications Administered Discontinued Medications Generic Name Dose Route Start Last Admin Trade Name [place] PRN Reason Stop Dose Admin Diphenhydramine HCl 25 mg 01/01/25 16:54 01/01/25 17:11 Diphenhydramine Hcl 25 Mg Capsule PO 01/01/25 16:55 25 mg ONCE ONE Administration Sodium Chloride 1,000 mls @ 999 mls/hr 01/01/25 17:00 01/01/25 19:00 Ns IV 01/01/25 18:00 Infused .Q1H1M LAKESHA Infusion Insulin Human Regular 5 unit 01/01/25 16:54 01/01/25 17:11 Insulin Regular, Human 100 Unit/Ml 10 Ml Vial IVPUSH 01/01/25 16:55 5 unit ONCE ONE Administration Ketorolac Tromethamine 30 mg 01/01/25 16:54 01/01/25 17:11 Ketorolac Tromethamine 30 Mg/Ml Vial IVPUSH 01/01/25 16:55 30 mg ONCE ONE Administration Metoclopramide HCl 10 mg 08/23/25 16:54 01/01/25 17:11 Metoclopramide Hcl 10 Mg Tablet PO 01/01/25 16:55 10 mg ONCE ONE Administration Medical Decision Making Medical Decision Making [facility] Narrative: 49-year-old male past medical history as above presenting for evaluation of headache and dizziness. His symptoms started yesterday. Denies any trauma to the head or neck. He has no neurologic deficits on exam. Does describe some blurry vision. This is expected with the blurry vision may be related to his significant hyperglycemia. There is no evidence of DKA. The patient reports that he has been compliant with his insulin. The patient's glucose was 465. We will treat with IV fluids. The patient has no neurologic deficits in his complain of the headache, CT scan is ordered in triage. His symptoms seem more consistent with a migraine headache. The CT scan is currently pending we will treat with Toradol, Reglan and Benadryl. I did review the CT scan did not see any obvious intracranial hemorrhage. The patient again has no neurologic deficits, a negative cerebellar exam. His dizziness is less likely related to a central vertigo Differential Diagnosis Differential Diagnoses: The differential diagnosis associated with the presentation includes Acute headache Viral syndrome Vertigo Orthostasis Hyperglycemia DKA Lab Data [facility] Lab Attestation statement: I reviewed the patient's lab results. No leukocytosis. The patient has a stable anemia with a hemoglobin of 12.2 and a hematocrit of 36.7. The patient's MCV is just below normal at 79.3 representing a microcytic anemia. Patient denies any black or bloody stool. Chemistries significant for an anion gap just below normal at 11, BUN is elevated to 17 than normal creatinine 1.04. Glucose elevated as above. 01/01/25 16:08 01/01/25 16:08 Labs: Lab Results 01/01/25 01/01/25 01/01/25 Range/Units 16:08 17:07 18:28 WBC 5.8 (4.8-10.8) X10*3/uL RBC 4.63 (4.60-5.80) X10*6/uL Hgb 12.2 L (14.0-18.0) g/dl Hct 36.7 L (42.0-52.0) % MCV 79.3 L (80.0-98.0) fL MCH 26.3 L (27.0-33.0) pg MCHC 33.2 (31.0-36.0) g/dl RDW 13.2 (11.0-16.0) % Plt Count 300 (160-400) X10*3/uL MPV 9.4 (9.4-12.4) fL Immature Gran % (Auto) 0.2 (0.0-0.4) % Neut % (Auto) 69.8 (45-73) % Lymph % (Auto) 19.0 L (20-40) % [place] % (Auto) 6.0 (2-11) % Eos % (Auto) 4.1 H (0-4) % Baso % (Auto) 0.9 (0-2) % Lymph # (Auto) 1.1 L (1.2-4.9) X10*3/uL [place] # (Auto) 0.4 (0.1-1.2) X10*3/uL Eos # (Auto) 0.2 (0.0-0.4) X10*3/uL Baso # (Auto) 0.1 (0.0-0.2) X10*3/uL Abs Immat Gran (auto) 0.01 (0.00-0.03) X10*3/uL Absolute Neuts (auto) 4.0 (2.0-8.3) x10*3/uL Absolute Nucleated RBC 0.000 (0.0-0.012) X10*3/uL Nucleated RBC % (auto) 0.0 (0.0-0.2) /100WBC Sodium 137 (135-145) mmol/L Potassium 4.3 (3.3-5.1) mmol/L Chloride 106 (96-108) mmol/L Carbon Dioxide 24 (22-29) mmol/L Anion Gap 11 L (12-20) BUN 17 H (9-16) mg/dL Creatinine 1.04 (0.5-1.4) mg/dL Estim Creat Clear Calc 86.9 Estimated GFR > 60 POC Glucose 362 H* 239 H (60-115) mg/dL Random Glucose 465 H* (60-115) mg/dL Calcium 8.7 D (8.4-10.2) mg/dL Magnesium 1.9 (1.6-2.6) mg/dL Total Bilirubin 1.3 H (0.0-1.0) mg/dL AST 14 (5-37) U/L ALT 10 (0-40) U/L Alkaline Phosphatase 66 (39-117) U/L Total Protein 5.9 L (6.5-8.0) g/dL Albumin 3.2 L (3.5-5.0) g/dL Independent Interpretation I performed an independent interpretation of an: CT Scan Interpretation: Agree with Radiology interpretation Radiology Impression Discussion of test interpretation with radiology: I have reviewed the radiologist's reading. Radiologist Impression: Findings: No intra-axial mass, midline shift, hydrocephalus, or acute hemorrhage. No significant atrophy-like change or white matter disease. Again noted is iaie-bxuhewu-dprk-right white matter hypoattenuation in the bilateral occipital lobes, which can be seen in posterior reversible encephalopathy syndrome in this patient with hypertension and ocular symptoms. Mastoid air cells well aerated. Left maxillary sinus disease. The orbits are unremarkable. There is no acute fracture. IMPRESSION: Suggestion of posterior reversible encephalopathy syndrome in this patient with hypertension and ocular symptoms, as seen on 05/01/2024 CT. No intracranial hemorrhage. This document has been electronically signed by: Abdi Call MD on 01/01/2025 17:57:41 Discharge Plan Discharge Clinical Impression: Headache, Acute hyperglycemia, Hypertension Patient Disposition: Home, Self-Care Instructions: Acute Headache (ED) Additional Instructions: Your blood sugar and your blood pressure both quite elevated in the emergency department today. Follows up with your primary doctor. Your CT scan showed posterior reversible encephalopathy syndrome or PRES. This is not a new finding, as your last head CT and brain MRI showed similar findings. This can be contributing to your headaches. You may use Tylenol as needed for further headaches. Follow up with your primary doctor, return for new or worsening symptoms Prescriptions: No Action (DME) CeQur Simplicity Cardiac Cath Tech Misc See Rx Instructions .Route Qty: 1 0RF Rx Instructions: As directed (DME) CeQur Simplicity 2 unit device See Rx Instructions .Route Qty: 8 5RF Rx Instructions: As directed to administer short acting insulin three times daily before meals. pantoprazole 40 mg tablet,delayed release (DR/EC) 40 mg PO QAM Qty: 30 2RF Trulicity 1.5 mg/0.5 mL pen injector 1.5 mg subcut QWEEK Qty: 2 0RF atorvastatin [Lipitor] 80 mg tablet 80 mg PO QPM Qty: 90 0RF hydrochlorothiazide 12.5 mg tablet 12.5 mg PO DAILY amlodipine 5 mg tablet 5 mg PO DAILY hydralazine 25 mg tablet 25 mg PO BID (DME) lancets [TRUEplus Lancets] 33 gauge misc See Rx Instructions Not Applicable QID Qty: 100 Rx Instructions: As directed cholecalciferol (vitamin D3) [Vitamin D3] 25 mcg (1,000 unit) capsule 25 mcg PO QAM fluoxetine 20 mg capsule 20 mg PO QAM losartan 50 mg tablet 50 mg PO QAM glucose [Dex4 Glucose] 4 gram tablet,chewable 16 g PO Q15M PRN (Reason: hypoglycemia) Qty: 30 4RF Rx Instructions: until symptoms of low blood sugar are controlled metformin 500 mg tablet extended release 24 hr 1,000 mg PO BID insulin glargine [Lantus Solostar U-100 Insulin] 100 unit/mL (3 mL) insulin pen 74 unit subcut BEDTIME (DME) FreeStyle Mary 3 Plus Sensor Device See Rx Instructions .ROUTE .MEDSUPPLY Qty: 2 11RF Rx Instructions: Apply 1 new sensor every 15 days as directed to monitor blood glucose continuously. docusate sodium 100 mg capsule 100 mg PO BEDTIME Qty: 90 3RF gabapentin 100 mg capsule 100 mg PO hydroxyzine HCl 25 mg tablet 25 mg PO Q6H PRN (Reason: itch) trazodone 50 mg tablet 50 mg PO BEDTIME insulin lispro 100 unit/mL insulin pen 14 unit subcut TID Print Language: Chadian
--- NOTE | 2025-01-01 15:57 | ECG_ITS ---
Test Reason : HYPERTENSIVE Blood Pressure : */* mmHG Vent. Rate : 95 BPM Atrial Rate : 95 BPM P-R Int : 148 ms QRS Dur : 74 ms QT Int : 376 ms P-R-T Axes : 45 3 59 degrees QTcB Int : 472 ms Normal sinus rhythm Inferior infarct , age undetermined Abnormal ECG When compared with ECG of 22-Apr-2024 10:06, Inferior infarct is now Present Nonspecific T wave abnormality now evident in Lateral leads QT has lengthened Referred By: Nathaly Foley Electronically Signed By: АННА CERVANTES
[2025-01-01 16:14] LABS: MANUAL DIFF FLAG NO
[2025-01-01 16:18] LABS: Hematocrit 36.7 % (42.0-52.0); Hemoglobin 12.2 g/dl (14.0-18.0); Imm Gran Abs Auto 0.01 X10*3/uL (0.00-0.03); Imm Gran Pct Auto 0.2 % (0.0-0.4); Lymphocytes Absolute Auto 1.1 X10*3/uL (1.2-4.9); Mean Corpuscular HGB Conc 33.2 g/dl (31.0-36.0); Mean Corpuscular Hemoglobin 26.3 pg (27.0-33.0); Mean Corpuscular Volume 79.3 fL (80.0-98.0); NRBC Abs Auto 0.000 X10*3/uL (0.0-0.012); NRBC Pct Auto 0.0 /100WBC (0.0-0.2); Platelet Count 300 X10*3/uL (160-400); Red Blood Count 4.63 X10*6/uL (4.60-5.80); White Blood Count 5.8 X10*3/uL (4.8-10.8)
--- OUTSIDE RECORDS SUMMARY | 2025-01-01 16:20 | XMS_ITS | Encounter Summary ---
Author Organization [email or web address] Address [address] [place] [address] Care Team Providers Care Cosmetologist Name Role Phone Vince Maya MD Primary Care Provide r Melanie Reyes PharmD Unavailable [phone] Reason for Visit * Reason Comments Med Refill Encounter Details Date Type Department Care Team ([facility] Contact Info) Description 07/26/2022 Refill [facility] [address] [place], [place] [phone] Vince Maya MD [address] [place] [address] Mixed hyperlipidemia (Primary Dx); Primary hypertension Social [...] Upcoming Encounters Date Type Department Care Team ([facility] Contact Info) Description 02/03/2025 10:30 AM EDT Office Visit [facility] [address] [place], [place] [phone] Vince Maya MD [address] [place] [address] 02/03/2025 1:45 PM EDT Office Visit [facility] [address] [place] [address] Alesha Potts, OD [address] [place] [address] documented as of this encounter Visit Diagnoses Diagnosis Mixed hyperlipidemia- Primary Primary hypertension Unspecified essential hypertension documented in this encounter Care Teams Cosmetologist Relationship Specialty Start Date End Date Vince Maya MD [address] [place], [place] [phone] PCP - General Internal Medicine 12/20/16 Melanie Reyes PharmD [address] [place], [place] [phone] Pharmacist Internal Medicine 06/15/24 documented as of this encounter
--- OUTSIDE RECORDS SUMMARY | 2025-01-01 16:20 | XMS_ITS | Clinical Summary ---
Author Organization [facility] Address [address] [place] [address] Care Team Providers Care Flask Carrier Name Role Phone Unknown Primary Care Provider [phone] Artie Vivas DO Unavailable [phone] Allergies No known active allergies Social History [...] 01/13/2024 Influenza Vaccine 12/10/2024 Insurance O BOX [facility] LATA [id number] [place]ICAID OUT OF [place] [facility] [place] [facility] [address] [facility] LATA BRICEÑO [id number] Care Teams Flask Carrier Relationship Specialty Start Date End Date Unknown Unknow Provider Address PCP - General 05/29/21 Artie Vivas DO [address] [place] [address] [address] [place] [address] 05/29/21
--- OUTSIDE RECORDS SUMMARY | 2025-01-01 16:20 | XMS_ITS | Clinical Summary ---
Author Organization [facility] Address [address] [place] [id number] Care Team Providers Care Medical Imaging Technician Name Role Phone Pcp, No Primary Care [...] this topic Insurance MEDICAID OUT-STATE Care Teams Medical Imaging Technician Relationship Specialty Start Date End Date Pcp, No No PCP On File COLTON Garcia [id number] PCP - General 01/03/20
--- OUTSIDE RECORDS SUMMARY | 2025-01-01 16:20 | XMS_ITS | Clinical Summary ---
Author Organization [facility] Facility Address [address] [address] Care Team Providers Care Diesel Technology Instructor Name Role Phone Vince Patel MD Primary [...] Visit [facility] [address] [place] [phone] Kei Moreno MD [address] [facility] [address] [place] [address] Health Maintenance Due Date Last [...] (6 to 49 Years) Discontinued 07/30/2007 Insurance [facility] Medicaid [facility] Medicaid Care Teams Diesel Technology Instructor Relationship Specialty Start Date End Date Vince Patel MD PCP - General 05/22/20
[2025-01-01 16:36] LABS: Anion Gap 11 (12-20); Blood Urea Nitrogen 17 mg/dL (9-16); Calcium 8.7 mg/dL (8.4-10.2); Carbon Dioxide 24 mmol/L (22-29); Chloride 106 mmol/L (96-108); Creatinine Clr Calc Pharmacy 86.9; Estimated Glomerular Filt Rate > 60; Magnesium 1.9 mg/dL (1.6-2.6); Potassium 4.3 mmol/L (3.3-5.1); Sodium 137 mmol/L (135-145)
[2025-01-01 16:37] LABS: Alanine Aminotransferase 10 U/L (0-40); Albumin Level 3.2 g/dL (3.5-5.0); Alkaline Phosphatase 66 U/L (39-117); Aspartate Amino Transferase 14 U/L (5-37); Total Protein 5.9 g/dL (6.5-8.0)
[2025-01-01 17:18] LABS: Glucose, Whole Blood 362 mg/dL (60-115)
[2025-01-01 18:29] VITALS: BP 166/88; PULSE 88; RESP 18; O2SAT 99
[2025-01-01 18:33] LABS: Glucose, Whole Blood 239 mg/dL (60-115)
[2025-01-01 19:53] LABS: Glucose, Whole Blood 340 mg/dL (60-115)
[2025-01-01 20:01] VITALS: BP 172/83; PULSE 78; RESP 18; TEMP 36.7; O2SAT 99
== END 2025-01-01 20:02 | disposition home or self-care (01) ==
PROVIDERS: Physician Assistant Medical; Emergency Provider Student in an Organized Health Care Education/Training Program; PCP Internal Medicine
DX: R42 Dizziness and giddiness (principal); I10 Essential (primary) hypertension; E11.9 Type 2 diabetes mellitus without complications; D64.9 Anemia, unspecified; N18.30 Chronic kidney disease, stage 3 unspecified; Z79.4 Long term (current) use of insulin; Z79.899 Other long term (current) drug therapy
CPT/HCPCS: 36415; 70450; 80053; 82947; 83735; 85025; 93005; 96361; 96374; 96375; 99284; 99285; J1885

== ENCOUNTER → 2025-01-01 15:57 | Outpatient (BNV) | payer OTHER, SELFPAY | PROVIDERS: Emergency Provider Student in an Organized Health Care Education/Training Program; PCP Internal Medicine; Visit Provider Internal Medicine | DX: R94.31 Abnormal electrocardiogram [ECG] [EKG] (principal); I10 Essential (primary) hypertension | CPT/HCPCS: 93010 ==

== ENCOUNTER → 2025-01-01 15:57 | Outpatient (BNV) | payer OTHER, SELFPAY | PROVIDERS: Emergency Provider Student in an Organized Health Care Education/Training Program; PCP Internal Medicine; Visit Provider Student in an Organized Health Care Education/Training Program | DX: R51.9 Headache, unspecified (principal); H53.8 Other visual disturbances | CPT/HCPCS: 70450 ==

== ENCOUNTER 2025-02-15 13:51 | Outpatient (AMB) | payer OTHER, SELFPAY ==
[2025-02-15 13:57] VITALS: BP 132/78; PULSE 91; O2SAT 98; BMI 30.7
--- NOTE | 2025-02-15 13:57 | A.OFFVIS_ITS ---
Vital Signs 02/15/25 13:57 Height 5 ft 7 in Weight 196 lb 3.382 oz BMI 30.7 BP 132/78 Blood Pressure Location Rt brachial Position Sitting Pulse 91 Pulse Source Pulse Oximeter Pulse Oximetry (%) 98 Oxygen Delivery Method Room Air Intake Visit Reasons: T2DM Intake Note: Patient present today for T2DM follow up. Last Diabetic Eye exam: [facility] 11/04/24 Last Podiatry Visit: Doesn't have one Random Glucose: 289 mg/dL HgA1C: 11.2%, 02/15/2025 Bushel Girl Required: Yes Bushel Girl Language: Vacuum Furnace Operator Services: Bushel Girl Present Accompanied by: Self / Same As Patient Allergies No Known Allergies Allergy (Verified 01/01/25 15:57) Medication List - Last Reconciled 02/15/25 by GUANACO Albrecht amlodipine 5 mg PO DAILY atorvastatin (Lipitor) 80 mg PO QPM blood-glucose sensor (FreeStyle Mary 3 Plus Sensor device) Apply 1 new sensor every 15 days as directed to monitor blood glucose continuously. cholecalciferol (vitamin D3) (Vitamin D3) 25 mcg PO QAM docusate sodium 100 mg PO BEDTIME dulaglutide (Trulicity) 3 mg (0.5 mL) subcut QWEEK fluoxetine 20 mg PO QAM gabapentin 100 mg PO glucose (Dex4 Glucose) 16 grams (4 x 4 gram) PO Q15M PRN hydralazine 25 mg PO BID hydrochlorothiazide 12.5 mg PO DAILY hydroxyzine HCl 25 mg PO Q6H PRN insulin glargine (Lantus Solostar U-100 Insulin) 74 units (0.74 mL) subcut BEDTIME insulin lispro 14 units (0.14 mL) subcut TID lancets (TRUEplus Lancets) As directed losartan 50 mg PO QAM metformin ER 1,000 mg (2 x 500 mg) PO BID pantoprazole 40 mg PO QAM trazodone 50 mg PO BEDTIME HPI Comments 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 He was diagnosed with Type II diabetes more than 12.5 years ago. He endorses a family history of Type II diabetes (mother, father, uncle). Reviewed Mary data CGM active 96% Average glucose 313 G IA 10.8% Glucose variability 27.8% Very high 76% High 15% Target range 9% 0% hypoglycemia My interpretation as he has hyperglycemia throughout 24 hours. Hemoglobin A1c 11.2% today 02/15/2025 down from 14% 10/22/2024. No history of DKA. MEREDITH antibody, islet cell antibody and C-peptide normal. Current medication regimen: Trulicity 1.5 mg weekly (patient says he has been taking it, but he only received a 1 month supply at the beginning of December per EMR), Lantus 74 units at bedtime (missing doses 2-3 times per week), lispro 14 units before meals (does not take consistently), metformin ER 1000 mg 2 tablets twice daily (only taking 500 mg twice daily). Past meds: Jardiance discontinued in the past-unclear why He saw the mold filler and drainer today. Cequr appeal was denied. He also saw the dietitian. Hypoglycemia symptoms: He had 1 low sugar 65, he treated with glucose tablets and this resolved Microvascular complications: neuropathy, nephropathy (CKD and microalbuminuria- followed by nephrology), Bilateral retinopathy ([facility]) Macrovascular complications: none Hypertension: treated with amlodipine 5 mg, hydralazine 25 mg b.i.d., hydrochlorothiazide 12.5 mg daily, losartan 50 mg daily YARITZA inhibitor discontinued in the past due to PRANEETH. Hyperlipidemia: treated with atorvastatin 40 mg, LDL in 12/10/2060, noncompliant with medication ROS: Constitutional: No weight loss, fevers, chills or fatigue Eyes: Denies vision loss or vision changes Respiratory: No shortness of breath or cough Cardiovascular: No chest pain, chest pressure or chest discomfort. No palpitations or pedal edema. Gastrointestinal: No anorexia, nausea, vomiting or diarrhea. No abdominal pain Neurologic: Denies confusion, numbness, tingling, weakness, seizures or tremors Skin: No wounds or ulcers. Endocrine: See HPI Physical exam: Constitutional: Alert, in no distress. Head: Normocephalic. Neck: Supple, Full range of motion. No lymphadenopathy. No palpable thyroid masses. Respiratory: Clear to auscultation. Cardiovascular: S1 S2 regular. No murmurs. Feet: Warm and well perfused, no clubbing, cyanosis or edema. Intact DP pulses. No open wounds or rashes. [facility] Medical History (Updated 02/15/25 @ 15:42 by GUANACO Albrecht) Pure hypercholesterolemia Diabetes mellitus with microalbuminuria CKD stage 3a, GFR 45-59 ml/min Proliferative diabetic retinopathy of both eyes Type 2 diabetes mellitus with hyperglycemia Tubular adenoma Elevated cholesterol HTN (hypertension) Endocarditis Diabetes Surgical History Hx of colonoscopy History of esophagogastroduodenoscopy (EGD) H/O eye surgery Family History Father No problems noted. Mother No problems noted. Paternal Uncle Bone cancer Paternal Uncle Prostate cancer Paternal Uncle Lung cancer Paternal Uncle Heart attack Throat cancer Social History Alcohol intake: never Patient Tobacco Use Status: Current everyday Tobacco user Physical Exam Vital Signs: Last Vital Signs Pulse 91 02/15/25 13:57 BP 132/78 02/15/25 13:57 Pulse Ox 98 02/15/25 13:57 Oxygen Delivery Method Room Air 02/15/25 13:57 BMI result Body Mass Index 30.7 Office Procedures Glucose Monitoring Details Details: See [facility] [address] - Glucose monitoring, continuous-physician I&R Procedure code (CPT) selection complete Results AMB Hemoglobin A1c AMB Hemoglobin A1c 11.2 % Last Edit by CAROL Moss on 02/15/25 14:1 1 Results Reviewed Results Reviewed: Laboratory Last Values Glucose (Clinic) 289 mg/dL (60-115) H 02/15/25 14:01 Hgb A1c (Clinic) 11.2 % (4.0-6.0) H 02/15/25 14:07 Laboratory Tests 11/08/23 05/07/24 12/11/24 08:12 11:49 09:12 Creatinine Estimated GFR AST ALT B-Natriuretic Peptide < 10 Triglycerides 101 LDL Cholesterol, Calc 108 H Cholesterol HDL Cholesterol 44 Vitamin B12 TSH 0.58 Urine Creatinine 106.98 Urine Microalbumin > 2000.0 Microalb/Creat Ratio 1869.5 H 12/11/24 01/01/25 09:13 16:08 Creatinine 1.04 Estimated GFR > 60 AST 14 ALT 10 B-Natriuretic Peptide Triglycerides 108 LDL Cholesterol, Calc 161 H Cholesterol 225 H HDL Cholesterol 43 Vitamin B12 440 TSH 0.61 Urine Creatinine Urine Microalbumin Microalb/Creat Ratio Assessment & Plan Assessment & Plan (1) Type 2 diabetes mellitus with hyperglycemia: Code(s): E11.65 - Type 2 diabetes mellitus with hyperglycemia Category: Medical Qualifiers: 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: with intermodal owner operator truck driver use Qualified Code(s): E11.65 - Type 2 diabetes mellitus with hyperglycemia; Z79.4 - MCC (current) use of insulin (2) Proliferative diabetic retinopathy of both eyes: Code(s): E11.3593 - Type 2 diabetes mellitus with proliferative diabetic retinopathy without macular edema, bilateral Category: Medical Qualifiers: Diabetes mellitus type: type 2 (3) CKD stage 3a, GFR 45-59 ml/min: Code(s): N18.31 - Chronic kidney disease, stage 3a Category: Medical (4) Diabetes mellitus with microalbuminuria: Code(s): E11.29 - Type 2 diabetes mellitus with other diabetic kidney complication; R80.9 - Proteinuria, unspecified Category: Medical (5) HTN (hypertension): Code(s): I10 - Essential (primary) hypertension Category: Medical Qualifiers: Hypertension type: primary hypertension Qualified Code(s): I10 - Essential (primary) hypertension Plan: His systolic blood pressure is mildly elevated today. We will monitor this. He will continue his current regimen. He is on an Arb for renal protection. (6) Pure hypercholesterolemia: Code(s): E78.00 - Pure hypercholesterolemia, unspecified Category: Medical Plan: Recommended Mediterranean diet and I stressed the importance of compliance with atorvastatin. Refills sent to pharmacy. Plan In summary this is a 49-year-old male with uncontrolled type 2 diabetes and noncompliance with his treatment regimen. Increase Trulicity to 3 mg weekly. I stressed the importance of taking his diabetic medications. He has worsening microalbuminuria. We reviewed complications of uncontrolled diabetes. Take lispro 14 units 3 times daily before meals. He needs to carry his insulin with him when he is at work. Insurance denied Cequr simplicity unfortunately. Take Lantus 75 units every night. Metformin dosing is 1000 mg twice a day. Once he has better glycemic control we can discuss restarting SGLT2. I reviewed this plan with him. We reviewed complications of uncontrolled diabetes and lifestyle modifications in detail. Declined referral back to dietitian. The patient has a prescription for ketone urine strips and instructions and information on DKA. Reviewed treatment of hypoglycemia and advised not to drive if blood sugar is low or he has symptoms of low blood sugar or does not have a way to monitor his blood sugar accurately. Follow up in 1 month. Orders: Orders AMB Hemoglobin A1c Today E11.65 - Type 2 diabetes mellitus with hyperglycemia, Z79.4 - MCC (current) use of insulin AMB Glucose Monitoring Today E11.9 - Type 2 diabetes mellitus without complications Medications: New insulin lispro 14 units (0.14 mL) subcut TID 15 mL 5RF metformin ER 1,000 mg (2 x 500 mg) PO BID 270 tabs 1RF dulaglutide (Trulicity) 3 mg (0.5 mL) subcut QWEEK 2 mL 3RF insulin glargine (Lantus Solostar U-100 Insulin) 74 units (0.74 mL) subcut BEDTIME 15 mL 5RF Refilled atorvastatin (Lipitor) 80 mg PO QPM 90 tabs 0RF Discontinued dulaglutide (Trulicity) Discontinued Reason: Doctor's Order 1.5 mg (0.5 mL) subcut QWEEK 2 mL 0RF Patient Instructions: Increase Trulicity to 3 mg weekly Continue Metformin ER 1000 mg twice daily Take Lispro 14 units 15 minutes before meals Take Lantus 74 units nightly Please make sure you are taking Atorvastatin 80 mg every evening. Aumente la dosis de Trulicity a 3 mg semanales. Contin?e con Metformina de liberaci?n prolongada (ER) 1000 mg dos veces al d?a. [place] 14 unidades de Lispro 15 minutos antes de las comidas. [place] 74 unidades de Lantus cada noche. Aseg?rese de carrillo Atorvastatina 80 mg todas las noches. Coding Level of Care Code Est Pt Level 4 (94666) Diagnoses Type 2 diabetes mellitus with hyperglycemia, with long-term current use of insulin E11.65; Z79.4 Diabetes mellitus senior living insulin use: with intermodal owner operator truck driver use Proliferative diabetic retinopathy of both eyes E11.3593 Diabetes mellitus type: type 2 CKD stage 3a, GFR 45-59 ml/min N18.31 Diabetes mellitus with microalbuminuria E11.29; R80.9 Primary hypertension I10 Hypertension type: primary hypertension Pure hypercholesterolemia E78.00 CPT Codes Details - CPT: 98569 - Glucose monitoring, continuous-physician I&R ([id number])
[2025-02-15 14:05] LABS: Glucose, Whole Blood 289 mg/dL (60-115)
--- OUTSIDE RECORDS SUMMARY | 2025-02-15 17:06 | XMS_ITS | Encounter Summary ---
Author Organization [employer] Address [address] [place] [address] Care Team Providers Care Supervisor Plastering Name Role Phone Vince Maya MD Primary Care Provide r Melanie Reyes PharmD Unavailable [phone] Reason for Visit * Reason Comments Med Refill Encounter Details Date Type Department Care Team ([facility] Contact Info) Description 03/08/2024 Refill [facility] [address] [place], [place] [phone] Vince Maya MD [address] [place] [address] Social History Tobacco Use Types Packs/Day Years [...] the past 12 months, has t he [employer] gas, oil or water company threatened to [...] Care Team (Late st Contact Info) Description 04/26/2025 11:30 AM EST Office Visit [facility] [address] [place] [phone] Vince Maya MD [address] [place] [phone] documented as of this encounter Visit Diagnoses Not on filedocumented in this encounter Additional Health Concerns Assessment Noted Time PHQ-9 Depression Total Score: 5 11/04/19 24 1:48 PM EDT documented as of this encounter Care Teams Supervisor Plastering Relationship Specialty Start Date End Date Vince Maya MD [address] [place] [phone] PCP - General Internal Medicine 12/20/16 Melanie Reyes PharmD [address] [place] [phone] Pharmacist Internal Medicine 06/15/24 documented as of this encounter
--- OUTSIDE RECORDS SUMMARY | 2025-02-15 17:06 | XMS_ITS | Encounter Summary ---
Author Organization [employer] [facility] Address [address] [place] [address] [address] [place] [address] Care Team Providers Care Rubber Molder Name Role Phone Vince Maya MD Primary Care Provide r Melanie Reyes PharmD Unavailable [phone] Encounter Details Date Type Department Care Team (Late st Contact Info) Description 03/29/2022 Abstract [facility] [address] [place] [address] [phone] Vince Maya MD [address] [place] [address] [phone] Social History Tobacco Use Types Packs/Day Years [...] Description 04/26/2025 11:30 AM EST Office Visit [facility] [address] [place] [address] [phone] Vince Maya MD [address] [place], [place] [phone] documented as of this encounter Procedures Procedure Name Priority Date/Time Associated Diagnosis Comments HEMOGLOBIN A1C Routine 12/04/2021 LIPID PANEL, STANDARD Routine 08/23/2021 documented in this encounter Results * (ABNORMAL) Hemoglobin A1c (12/04/2021) Hemoglobin A1C 8.8(A) 4.0 - 6.0 % Blood Venous blood specimen / Unknown [facility] Provider LAB BLOOD ORDERABLES [place] l Result * (ABNORMAL) Lipid Panel, Standard (08/23/2021) LDL HDL Ratio 4.6 Triglycerides 121 40 - 160 mg/dL Cholesterol 227(A) 0 - 200 mg/dL HDL Cholesterol 49 35 - 70 mg/dL LDL Cholesterol 154 mg/dL Blood Venous blood specimen / Unknown [facility] Provider LAB BLOOD ORDERABLES [place] l Result documented in this encounter Visit Diagnoses Not on filedocumented in this encounter Care Teams Rubber Molder Relationship Specialty Start Date End Date Vince Maya MD [address] [place] [address] PCP - General Internal Medicine 12/20/16 Melanie Reyes PharmD [address] [place] [address] Pharmacist Internal Medicine 06/15/24 documented as of this encounter
--- OUTSIDE RECORDS SUMMARY | 2025-02-15 17:06 | XMS_ITS | Encounter Summary ---
Author Organization [employer] Address [address] [facility] [address] [place] [address] Care Team Providers Care Online Project Manager Name Role Phone Vince Maya MD Primary Care Provide r Melanie Reyes PharmD Unavailable [phone] Reason for Visit * Reason Comments Med Refill Encounter Details Date Type Department Care Team ([facility] st Contact Info) Description 09/02/2023 Refill [facility] [address] [place], [place] [phone] Vince Maya MD [address] [place] [address] Primary hypertension Social History Tobacco Use Types [...] Description 04/26/2025 11:30 AM EST Office Visit [facility] [address] [place] [address] Vince Maya MD [address] [place] [address] documented as of this encounter Visit Diagnoses Diagnosis Primary hypertension Unspecified essential hypertension documented in this encounter Additional Health Concerns Assessment Noted Time PHQ-9 Depression Total Score: 3 09/06/19 10:39 AM EDT documented as of this encounter Care Teams Online Project Manager Relationship Specialty Start Date End Date Vince Maya MD [address] [place] [id number] PCP - General Internal Medicine 12/20/16 Melanie Reyes PharmD [address] [place] [phone] Pharmacist Internal Medicine 06/15/24 documented as of this encounter
--- OUTSIDE RECORDS SUMMARY | 2025-02-15 17:06 | XMS_ITS | Clinical Summary ---
Author Organization [employer] Address [address] [place] [phone] Care Team Providers Care Hobber Name Role Phone Pcp, No Primary Care [...] for nausea or vomiting. 12 tablet 01/03/20 20 Active Social History Tobacco Use Types Packs/Day [...] Physical Exam 01/13/1992 Urine Protein Screening 1993 Pneumococcal Vaccine: 50+ Years (2 of 2 - PCV) 01/13/2024 07/30/2007 Zoster Vaccines (1 of 2) 01/13/2024 Tdap and Td Vaccines Adult 11/07/202411/07, 07/30/2007 COVID-19 Vaccine (3 - 2024-2 6 season) 2025 09/28/2020, 08/31/2020 Influenza Vaccine (#1) 2025 MMR Vaccines Discontinued 03/22/2008 HIB Vaccines Aged [...] this topic Insurance MEDICAID OUT-STATE Care Teams Hobber Relationship Specialty Start Date End Date Pcp, No No PCP On File [place] [id number] PCP - General 01/03/20
--- OUTSIDE RECORDS SUMMARY | 2025-02-15 17:06 | XMS_ITS | Clinical Summary ---
Author Organization [employer] Address [address] [place] [address] Care Team Providers Care Director Of Manufacturing Operations Name Role Phone Vince Maya MD Primary Care Provide r Melanie Reyes PharmD Unavailable [phone] Allergies No known active allergies Medications * This document contains information received from the source organization and may not represent a complete record from that organization. triamcinolone (Kenalog) 0.025 % cream Apply topically twice a day. 12/05/19 22 Active famotidine (Pepcid) 20 MG tablet Take 20 mg by mouth at bedtime. 04/10/20 22 Active senna (Senokot) 8.6 MG tablet TAKE 1 TABLET BY MOUTH AT BEDTIME FOR CONSTIPATION 05/07/20 22 Active sildenafil (Viagra) 100 MG tabletIndications:Er ectile dysfunction due to diseases classified elsewhere Take 1 tablet (100 mg) by mouth if needed for erectile dysfunction. 40 tablet 01/25/20 23 Active atorvastatin (Lipitor) 40 MG tabletIndications:Mi xed hyperlipidemia Take 1 tablet (40 mg) by mouth at bedtime. 90 tablet 3 11/04/19 24 Active fluticasone (Flonase) 50 MCG/ACT nasal sprayIndications:Ear ache on left Administer 1-2 sprays into each nostril 2 times daily. Shake gently. Before first use, prime pump. After use, clean tip and replace cap. 16 g 2 11/11/19 24 Active gabapentin (Neurontin) 100 MG capsule TAKE 1 CAPSULE BY MOUTH TWICE DAILY IN THE MORNING AND IN THE EVENING 04/04/20 23 Active pantoprazole (ProtoNix) 40 MG EC tablet Take 40 mg by mouth before breakfast. 12/23/19 24 Active Alcohol Swabs 70 % pads Use 4 times a day as needed for insulin injection or checking BG 100 each 02/02/20 Active glucose blood (FREESTYLE LITE) test stripIndications:Typ e 2 diabetes mellitus with right eye affected by severe nonproliferative retinopathy without macular edema, with long-term current use of insulin (HCC) Test TID 100 strip 02/03/20 Active TRUEplus Lancets 33G [place] [facility] Check blood sugar 4 times a day, 3 month supply 100 each 02/03/20 Active metFORMIN XR (Glucophage-XR) 500 MG 24 hr tablet Take 1,000 mg by mouth 2 times daily. Do not crush, chew, or split. Active metFORMIN (Glucophage) 500 MG tabletIndications:Ty pe 2 diabetes mellitus with right eye affected by severe nonproliferative retinopathy without macular edema, with long-term current use of insulin ([facility]) TAKE 2 TABLETS BY MOUTH TWICE DAILY IN THE MORNING AND IN THE EVENING WITH MEALS 360 tablet 07/14/19 25 Active glucose 4 g chewable tablet TAKE 4 TABLETS BY MOUTH EVERY 15 MINUTES NEEDED FOR HYPOGLYCEMIA UNTIL SYMPTOMS IMPROVE 04/20/20 24 Active acetaminophen (Tylenol) 500 MG tablet Take 2 tablets (1,000 mg) by mouth every 6 (six) hours if needed for moderate pain or fever for up to 25 doses. 50 tablet 07/22/19 25 Active amLODIPine (Norvasc) 2.5 MG tabletIndications:Pr imary hypertension Take 1 tablet (2.5 mg) by mouth Once per day. 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 2 mL 09/09/19 25 Active insulin lispro (HumaLOG) 100 UNIT/ML injection Inject 10 Units under the skin with breakfast, with lunch, and with evening meal. 15 mL 5 09/09/19 25 Active D3-1000 25 MCG (1000 UT) capsule TAKE 1 CAPSULE BY MOUTH EVERY MORNING 90 capsule 10/02/19 25 Active losartan (Cozaar) 50 MG tablet Take 1 tablet (50 mg) by mouth in the morning. 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, with long-term current use of insulin (HCC) USE DIRECTED FOUR TIMES DAILY 100 each 10/20/19 Active hydroCHLOROthiazide (HYDRODiuril) 25 MG tabletIndications:Es sential (primary) hypertension TAKE 1 TABLET BY MOUTH EVERY MORNING 90 tablet 1 11/05/19 25 Active amLODIPine (Norvasc) 5 MG tabletIndications:Es sential (primary) hypertension TAKE 1 TABLET BY MOUTH EVERY MORNING 90 tablet 1 11/05/19 25 Active hydrALAZINE (Apresoline) 25 MG tabletIndications:Pr imary hypertension TAKE 1 TABLET BY MOUTH THREE TIMES DAILY IN THE MORNING, EVENING, AND BEDTIME WITH FOOD 270 tablet 11/05/19 25 Active Lantus SoloStar 100 UNIT/ML pen Inject 65 Units under the skin at bedtime. 15 mL 11/06/19 25 Active Continuous Glucose Fruit Pitter (FreeStyle Mary 3 [place]) deviceIndications:Ty pe 2 diabetes mellitus with right eye affected by severe nonproliferative retinopathy without macular edema, with long-term current use of insulin (HCC) 1 each Once per day. 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, with long-term current use of insulin (HCC) Apply 1 every 15 days as directed for CGM 2 each 11/06/19 25 Active glucose blood (FreeStyle Precision Ajtih Test) test strip Use to test blood sugar 3 times daily in case of CGM failure or extremes of BG 100 each 11/06/19 25 Active Active Problems Problem Noted Date Diagnosed Date Mass of scalp 08/26/2024 Assessment & Plan (02/03/2025 10:54 AM EDT): Evaluated by general surgeon Dr Almeida [...] waiting until his Dm is better controlled Assessment & Plan (08/26/2024 2:56 PM EDT): [...] better controlled Stage 3 chronic kidney disease (CMS/HCC) 025 Posterior reversible encephalopathy syndrome Assessment & Plan (02/03/2025 10:47 AM EDT): Pt here for a follow up Seen at [facility] 01/04/2025 with c/o headaches Repeat Head CT showed: FINDINGS: There is no evidence of acute intracranial hemorrhage or edematous territorial infarction. There is no abnormal attenuation within the brain parenchyma. No-white matter differentiation is preserved. The ventricles are normal in size and configuration. No evidence for obstructive hydrocephalus. No abnormal mass effect or midline shift. No extra-axial fluid collections. No acute soft tissue or osseous abnormalities. Large mucus retention cyst in the left maxillary sinus, otherwise clear paranasal sinuses. The mastoids and middle ear cavities are clear. IMPRESSION: No evidence of acute intracranial hemorrhage or edematous territorial infarction. Previously seen in the ER with c/o headaches as part of the evaluation had Head CT that showed: Findings of white matter hypoattenuation in the left greater than right occipital lobes, new from the prior examination, and highly suggestive of PRES (Posterior Reversible Encephalopathy Syndrome). Pt was referred to Neurology and was seen 06/2024. 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 Left occipital petalia. Questionable cluster of prominent Virchow-Ford spaces, right temporal occipital. Recommend follow-up. Results of MRI faxed to his Neurologist for follow up Assessment & Plan (08/26/2024 2:41 PM EDT): [...] (03/23/2024 1:02 PM EST): According to patient's multimedia teacher Patient had colonoscopy in March of 2022 [...] days Primary hypertension 04/18/2022 Assessment & Plan (02/03/2025 10:54 AM EDT): Pt is here for a follow up. BP controlled Pt is on a regimen of: Amlodipine 7.5 mg po daily, Hydralazine 25 mg po TID, Losartan 50 mg po daily, and Hctz 25 mg po daily Most recent electrolytes, Bun and Creatinine done on: Lab Results Component Value Date NA 137 01/01/2025 NA 136 04/22/2024 K 4.3 01/01/2025 K 4.5 04/22/2024 CL 106 01/01/2025 CL 103 04/22/2024 BUN 17 (H) 01/01/2025 BUN 17 (H) 04/22/2024 CREATININE 1.04 01/01/2025 CREATININE 0.94 12/11/2024 Plan: Continue current regimen Follow up 3 months patient advised to adhere to a low sodium diet, encouraged about medication compliance, counseled about weight loss. Assessment & Plan (08/26/2024 3:06 PM EDT): [...] 2 diabetes mellitus 04/18/2022 Assessment & Plan (02/03/2025 10:50 AM EDT): Under the care of Dr Perkins and Retinal specialist, They recommended panretinal photocoagulation to the left eye. He tells me he has been following with them regularly. Assessment & Plan (11/04/2023 3:23 PM EDT): [...] with them Recurrent major depressive episodes, moderate (C MS/HCC) 03/29/2022 Assessment & Plan (02/03/2025 11:02 AM EDT): Pt is seeing a therapist Used to be under the care of [facility] with Tyshawn quiroz pt tells me he is doing well. Assessment & Plan (12/03/2024 11:34 AM EDT): During [facility] Consult Satya presenting with depressed mood, Tearful, crying spells , loss of interests/pleasure , sense of isolation/loneliness , isolating, change in appetite or weight reduce appetite, changes in sleep difficulty falling asleep and difficulty staying asleep , fatigue/loss of energy, inappropriate/excessive guilt , difficulty concentrating, indecisiveness; for a period of 0-6 mo, for most or all symptoms in the context of financial concern, illness or family illness, employment concern, and housing. Pt with on-going stress and depressive sxs associated with his current housing situation, financial concerns and chronic medical condition. Satya reports having a positive support system. His resilience is main strength. Currently going through different personal stressors leading to increase of his depressed mood. Assessment & Plan (11/04/2023 3:24 PM EDT): Pt is seeing a therapist Used to be under the care of [facility] Previously I had started him on Fluixetine 20 mg po daily, pt tells me he is doing well. Assessment & Plan (04/18/2022 11:52 AM EST): Pt is seeing a therapist Under the care of [facility] I had started him on Fluixetine 20 mg po daily, pt tells me he is doing well 4 months f/u Type 2 diabetes mellitus wit h retinopathy, with long-term current use of insulin 03/29/2022 Assessment & Plan (02/03/2025 10:58 AM EDT): Pt here for a follow up. Under the care of Endocrinology, last note 12/07/2024 being followed by dynamometer tester as well DM improving, although still uncontrolled due to poor adherence to medical treatment and diabetic diet. Pt reports he does not inject his Lantus regularly ( yesterday he did not inject anything) He is supposed to be on a regimen of: Lantus 74 units sc q pm, Metformin ER 2 tabs 500 mg po BID, Januvia 100 mg po daily and Trulicity 1.5 weekly . Radiology Orderly prescribed Farxiga but was denied by insurance. He admits to not using the Novolog Insulin sliding scale He is not adhering to a Diabetic diet Hgb A1c 02/03/2025:11.8 from 12.7 from 15 Eye exam: Pt under the care of retinal specialist ([facility]) has diabetic retinopathy , per pt receiving q 2 mo L eye injections Microalbumin 12/11/2024 was >2,000 Pt is no longer on an YARITZA [...] follow up with me. Assessment & Plan (08/26/2024 2:45 PM EDT): Pt here for a follow up. Under the care of Endocrinology, last note 05/07/2024, being followed by dynamometer tester as well last seen 06/2024 DM improving, although still uncontrolled due to poor adherence to medical treatment and diabetic diet. He did not bring his glucometer. He is supposed to be on a regimen of: Lantus 55 units sc q pm, Metformin ER 2 tabs 500 mg po BID, Januvia 100 mg po daily and Trulicity 0.75 weekly Radiology Orderly prescribed Farxiga but was denied by insurance. He admits to not using the Novolog Insulin sliding scale He is not adhering to a Diabetic diet Hgb A1c 08/26/2024: 12.7 from 15 Eye exam: Pt under the care of retinal specialist ([facility]) has diabetic retinopathy , per [...] a follow up. He is enrolled in [facility] DM uncontrolled due to poor adherence to medical treatment. He did not bring his glucometer. He is supposed to be on a regimen of: Lantus 55 units sc q pm, Metformin ER 2 tabs 500 mg po BID, Januvia 100 mg po daily and Trulicity 0.75 weekly Radiology Orderly prescribed Farxiga but was denied by insurance. He admits to not using the Novolog Insulin sliding scale He is back under the care of Endocrinology, last seen 05/07/2024 He is not adhering to a Diabetic diet Hgb A1c 03/23/2024: 15 Eye exam: Pt under the care of retinal specialist ([facility]) has diabetic retinopathy , per [...] missed previous appointments. He is enrolled in [facility] DM uncontrolled due to poor adherence to [...] tells me he is actually taking it. Radiology Orderly prescribed Farxiga but was denied by insurance. He admits to not using the Novolog Insulin sliding scale No longer under the care of Endocrinology He is not adhering to a Diabetic diet Hgb A1c 03/23/2024: 15 Eye exam: Pt under the care of retinal specialist ([facility]) has diabetic retinopathy , per [...] Patient will continue to follow with our CD team check your blood sugars regularly check [...] on Farxiga 10 mg po daily by Radiology Orderly He admits to not using the Novolog Insulin sliding scale No longer under the care of Endocrinology He reports he is trying to adhere to a Diabetic diet Hgb A1c 11/04/2023: 15 Eye exam: Pt under the care of retinal specialist ([facility] ) has diabetic retinopathy , Pt under the care of retinal specialist ([facility]) has diabetic retinopathy , per [...] Pt under the care of retinal specialist ([facility] ) has diabetic retinopathy , Pt under the care of retinal specialist ([facility]) has diabetic retinopathy , per [...] not taking care of himself Seen in [facility] earlier this month for hyperglycemia. He is [...] Pt under the care of retinal specialist ([facility] ) has diabetic retinopathy , Pt under the care of retinal specialist ([facility]) has diabetic retinopathy , per [...] f/u He tells me he was in [place] and while there he was not taking [...] Pt under the care of retinal specialist ([facility] ) has diabetic retinopathy , Pt under the care of retinal specialist ([facility]) has diabetic retinopathy , per [...] bertrand tells me he left his in [place] Pt advised to: adhere to diabetic diet [...] Pt under the care of retinal specialist ([facility] ) has diabetic retinopathy , Pt under the care of retinal specialist ([facility] ) has diabetic retinopathy , [...] Pt under the care of retinal specialist ([facility] ) has diabetic retinopathy , Pt under the care of retinal specialist ([facility] ) has diabetic retinopathy , [...] his meds regularly Plan: continue f/u with [facility] endocrinology Pt advised to: adhere to diabetic [...] a personal goal for weight loss. Encounters * This document contains information received from the source organization and may not represent a complete record from that organization. 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, with long-term current use of insulin (CMS/HCC) (Primary Dx); Posterior reversible encephalopathy syndrome; Severe nonproliferative diabetic retinopathy of right eye without macular edema associated with type 2 diabetes mellitus (CMS/HCC); Recurrent major depressive episodes, moderate (CMS/HCC); Primary hypertension; Mass of scalp 02/03/2025 Travel 02/01/2025 Telephone [facility] [address] [place] [address] Melanie Reyes PharmD 01/27/2025 Patient Outreach [facility] [address] [place], [place] [id number] Vince Maya MD Pre-visit Planning (SDOH will need to be completed in office.) 01/07/2025 Results Follow-Up [facility] [address] [place] [address] Head w/o Contrast 12/02/2024 Abstract [facility] [address] [place] [address] Melanie Reyes PharmD 12/02/2024 Travel from Last 3 Months Immunizations Immunization Administration Dates Next Due Hep B, adult [...] Answer Date Recorded Patient Health Questionnaire-9 Score 0 02/03/2025 Patient Health Questionnaire-9 Score 0 02/03/2025 Last PHQ-9: Questionnaire Data Not on file 0 02/03/2025 Housing Stability Answer Date Recorded What is your housing situation today? I have joann burden 02/03/[address] you li ve. Do you have problems with any of the following? None of the above 02/03/2025 Food Insecurity Answer Date Recorded Within the past 12 months, y ou worried that your food would run out before you got money to buy more: Not on file 02/03/2025 Within the past 12 months,th e food you bought just didn't last and you didn't have enough money to get more: Never True Transportation Answer Date Recorded In the past 12 months, has l ack of transportation kept you from medical appts, meetings, work or from getting things needed for daily living? No 02/03/2025 Utilities Answer Date Recorded In the past 12 months, has t he electric, gas, oil or water company threatened to shut off services in your home? No 02/03/2025 Depression Answer Date Recorded Patient Health Questionnaire-2 Score 0 02/03/2025 Internet Access Answer Date Recorded Internet Access Q1 Yes 02/03/2025 Internet Access Q2 Not on file 02/03/2025 Sex and Gender Information Value Date Recorded Sex Assigned at Male 03/11/2022 10:20 AM EDT Legal Sex Male 10:20 AM EDT Gender Identity Male 03/11/2022 10:20 AM EDT Sexual Orientation Choose not to disclose 2021 10:20 AM EDT Last Filed Vital Signs Vital Sign Reading Time Taken Comments Blood Pressure 130/82 02/03/2025 10:42 AM EDT Pulse 100 02/03/2025 10:42 AM EDT Temperature 36.2 C (97.2 F) 02/03/2025 10:42 AM EDT Respiratory Rate 20 02/03/2025 10:42 AM EDT Oxygen Saturation 99% 08/26/2024 2:41 PM EDT Inhaled Oxygen Concentration - - Weight 86.8 kg (191 lb 6.4 oz) 02/03/2025 10:42 AM EDT Height 170.2 cm (5' 7 ) 02/03/2025 10:42 AM EDT Body Mass Index 29.98 02/03/2025 10:42 AM EDT Plan of Treatment Upcoming Encounters Date Type Department Care Team (Late st Contact Info) Description 04/26/2025 11:30 AM EST Office Visit [facility] [address] [place] [address] Vince Maya MD [address] [place] [address] Health Maintenance Due Date Last Done Comments CT Colonography 1974 Dental Oral Exam 1974 Dental Prophylaxis 1974 Dental X-Ray: Bitewings 1974 FIT DNA/Cologuard 1974 FIT 1974 FOBT 1975 Sigmoidoscopy 1974 Disability Screening 1974 Diabetes: Foot Exam 01/13/1984 Eye Exam 01/13/1984 Family Planning (PISQ) 1989 Pneumococcal Vaccine: 50+ Years (2 of 2 - PCV) 07/29/2008 07/30/2007 Zoster Vaccines (1 of 2) 01/13/2024 SDOH Screening 11/03/2024 11/04/2023 DTaP/Tdap/Td Vaccines (2 - Td or Tdap) 11/07/2024 11/07/2014, 07/30/2007, 07/30/2007 COVID-19 Vaccine ( - season) 2025 07/02/2021, 09/28/2020, 08/31/2020 Influenza Vaccine (#1) 2025 Colonoscopy 04/10/2025 04/10/2022 Colorectal Cancer Screening 04/10/2025 Diabetes: Hemoglobin A1C 05/05/2025 025, 10/22/2024, 08/26/2024, Additional history exists Alcohol/Substance Use Screening 05/25/2025 05/25/2024 Diabetes: Urine Protein Screening 12/11/2025 12/11/2024, 11/08/2023, 04/10/2022, Additional history exists Lipid Panel 12/11/2025 12/11/2024, 10/11, 04/22/2022, Additional history exists Depression Screening 02/03/2026 02/03/2025, 02/04/20 Tobacco Screening 02/03/2026 02/03/2025 Dental X-Ray: Full Mouth 06/07/2026 06/06/2023 RSV [...] patient's age to complete this topic Meningococcal B Vaccine Aged Out No l onger eligible based on patient's age to complete [...] Procedure Name Priority Date/Time Associated Diagnosis Comments GLUCOSE, WHOLE BLOOD Routine 02/15/2025 2:01 PM EDT POCT GLYCATED HEMOGLOBIN, TOTAL Routine 02/03/2025 10:44 AM EDT 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) GLUCOSE, WHOLE BLOOD Routine 01/01/2025 7:48 PM EDT GLUCOSE, WHOLE BLOOD Routine 01/01/2025 6:[address] HEAD WO CONTRAST Routine 01/01/2025 5 :57 PM EDT GLUCOSE, WHOLE BLOOD Routine 01/01/2025 5:07 PM EDT MAGNESIUM Routine 01/01/2025 4:08 PM EDT COMPREHENSIVE METABOLIC PANEL Routine 01/01/2025 4:08 PM EDT CBC WITH AUTO DIFFERENTIAL Routine 01/01/2025 4:08 PM EDT VITAMIN B12 Routine 12/11/2024 9:13 AM EDT TSH W/REFLEX TO FT4 Routine 12/11/2024 9 :13 AM EDT LIPID PANEL, STANDARD Routine 12/11/2024 9:13 AM EDT ALT Routine 12/11/2024 9:13 AM EDT AST Routine 12/11/2024 9:13 AM EDT CREATININE, SERUM Routine 12/11/2024 9:1 3 AM EDT PLATELET COUNT Routine 12/11/2024 9:13 AM EDT ALBUMIN, RANDOM URINE W/CREATININE Routine 12/11/2024 9:12 AM EDT GLUCOSE, WHOLE BLOOD Routine 12/07/2024 10:01 AM EDT HIV 1/2 ANTIGEN/ANTIBODY, FOURTH GENERATION W/RFL Routine 02/02/2024 4:42 PM EDT Balanitis Localized edema PANORAMIC RADIOGRAPHIC IMAGE Routine 06/06/2023 11:30 AM EST HM COLONOSCOPY Routine 04/10/2022 ZZZ HISTORICAL HEPATITIS C AB W/REFL TO HCV RNA, QN, PCR Routine 08/23/2021 10:46 AM EDT from Last 3 Months or Most Recently Relevant to Health Maintenance Results * (ABNORMAL) Glucose, Whole Blood (02/15/2025 2:01 PM EDT) Only the most recent of2 resultswithin the time period is included. Glucose, Whole Blood 289(H) 60 - 115 mg/dL [facility] Comment:METER #: [id number] Testing performed in the Endocrinology Department [address] , [address], [facility]. 02/15/2025 2:01 PM EDT 02/15/2025 2:05 PM EDT Generic External Data Provider LAB BLOOD ORDERAB LES Final Result [facility] [address] [place] [phone] * (ABNORMAL) POCT Hgb A1c (02/03/2025 10:44 AM EDT) Hemoglobin A1C 11.8(A) 4.0 - 5.7 % Blood 02/03/2025 10:4 4 AM EDT Vince Thomas MD POINT OF CARE TEST EN TER/EDIT ORDERABLES Final Result * (ABNORMAL) POCT Glucose (02/03/2025 10:44 AM EDT) Glucose Blood, POC 387(A) 60 - 200 mg/dL QC Media Lot # [id number] Lot# Expiration Date [id number] Blood Capillary blood specimen / Unknown 02/03/2025 10:44 AM EDT Vince Thomas MD POINT OF CARE TEST EN TER/EDIT ORDERABLES Final Result * (ABNORMAL) Glucose, Whole Blood (01/01/2025 7:48 PM EDT) Only the most recent of3 resultswithin the time period is included. Glucose, Whole Blood 340(H) 60 - 115 mg/dL [facility] Comment:METER #: [id number] 01/01/2025 7:48 PM EDT 01/01/2025 7:52 PM EDT us Generic External Data Provider LAB BLOOD ORDERAB LES Final Result Performing Organization Address City/State/[facility] Co de Phone Number [facility] [address] [place] [phone] * CT Head w/o Contrast (01/01/2025 5:57 PM EDT) Anatomical Region Laterality Modality Head, Neck Computed Tomogra phy 01/01/2025 5:57 PM EDT Narrative 01/01/2025 5:59 PM EDT [address] [address] [address] Scan Report Signed Patient: Satya Vyas MR #: [id number] : 1975 Acct:[id number] Age/Sex: 49 / M ADM Date: 01/01/25 Loc: HO.ED Attending Dr: Ordering Physician: Nathaly Foley Date of Service: 01/01/25 Procedure(s): CT head/brain wo IV con Accession Number(s): [id number] cc: Vince River MD; Nathaly Foley Report Number: [id number]: Total DLP = 665.00 mGy-cm CLINICAL HISTORY: DIAZ hypertensive blurred vision CT head without contrast Comparison: MR - MR HEAD/BRAIN WO CON - 09/03/24 19:[address]/PA/SR - CT HEAD/BRAIN WO IV CON - 04/22/24 13:25 EST Findings: No intra-axial mass, midline shift, hydrocephalus, or acute hemorrhage. No significant atrophy-like change or white matter disease. Again noted is gvrv-gwiwbxv-ixfz-right white matter hypoattenuation in the bilateral occipital lobes, which can be seen in posterior reversible encephalopathy syndrome in this patient with hypertension and ocular symptoms. Mastoid air cells well aerated. Left maxillary sinus disease. The orbits are unremarkable. There is no acute fracture. IMPRESSION: Suggestion of posterior reversible encephalopathy syndrome in this patient with hypertension and ocular symptoms, as seen on 05/01/2024 CT. No intracranial hemorrhage. This document has been electronically signed by: Abdi Call MD on 01/01/2025 17:57:41 Dictated By: Abdi Call MD Signed By: <Electronically signed by Abdi Call MD in OV> 01/01/251757 DD/ 56 TD/TT: 01/01/251756 Switch Engineer: Procedure Note Donotuseinterpreter, Image - 01/01/[address] [place] [id number] [address] Scan Report Signed Patient: Satya Vyas [facility] #: [id number] : [id number]:[id number] Age/Sex: 49 / MADM Date: 01/01/25 Loc: HO.ED Attending Dr: Ordering Physician: Nathaly Foley Date of Service: 01/01/25 Procedure(s): CT head/brain wo IV con Accession Number(s): [id number] cc: Vince River MD; Nathaly Foley Report Number: [id number]: Total DLP = 665.00 mGy-cm CLINICAL HISTORY: DIAZ hypertensive blurred vision CT head without contrast Comparison: MR - MR HEAD/BRAIN WO CON - 09/03/24 19:[address]/PA/SR - CT HEAD/BRAIN WO IV CON - 04/22/24 13:25 EST Findings: No intra-axial mass, midline shift, hydrocephalus, or acute hemorrhage. No significant atrophy-like change or white matter disease. Again noted is qpzr-gixtrjj-uowo-right white matter hypoattenuation in the bilateral occipital lobes, which can be seen in posterior reversible encephalopathy syndrome in this patient with hypertension and ocular symptoms. Mastoid air cells well aerated. Left maxillary sinus disease. The orbits are unremarkable. There is no acute fracture. IMPRESSION: Suggestion of posterior reversible encephalopathy syndrome in this patient with hypertension and ocular symptoms, as seen on 05/01/2024 CT. No intracranial hemorrhage. This document has been electronically signed by: Abdi Call MD on 01/01/2025 17:57:41 Dictated By: Abdi Call MD Signed By: <Electronically signed by Abdi Call MD in OV> 01/01/251757 DD/ 56 TD/TT: 01/01/251756 Switch Engineer: [facility] External Provider IMG CT PROCEDURES Final Result * (ABNORMAL) CBC auto differential (01/01/2025 4:08 PM EDT) White Blood Count 5.8 4.8 - 10.8 X10*3/uL [facility] Red Blood Count 4.63 4.60 - 5.80 X10*6/uL [facility] Hemoglobin 12.2(L) 14.0 - 18.0 g/dl [facility] Hematocrit 36.7(L) 42.0 - 52.0 % [facility] Mean Corpuscular Volume 79.3(L) 80.0 - 98.0 fL [facility] Mean Corpuscular Hemoglobin 26.3(L) 27.0 - 33.0 pg [facility] Mean Corpuscular HGB Conc 33.2 31.0 - 36.0 g/dl [facility] Red Cell Distribution Width 13.2 11.0 - 16.0 % [facility] Platelet Count 300 160 - 400 X10*3/uL [facility] Mean Platelet Volume 9.4 9.4 - 12.4 fL [facility] Neutrophils Percent Auto 69.8 45 - 73 % [facility] Imm Gran Pct Auto 0.2 0.0 - 0.4 % [facility] Lymphocytes Percent Auto 19.0(L) 20 - 40 % [facility] Monocytes Percent Auto 6.0 2 - 11 % [facility] Eosinophils Percent Auto 4.1(H) 0 - 4 % [facility] Basophils Percent Auto 0.9 0 - 2 % [facility] NRBC Pct Auto 0.0 0.0 - 0.2 /100WBC [facility] Neutrophils Absolute Auto 4.0 2.0 - 8.3 x10*3/uL [facility] Imm Gran Abs Auto 0.01 0.00 - 0.03 X10*3/uL [facility] Lymphocytes Absolute Auto 1.1(L) 1.2 - 4.9 X10*3/uL [facility] Monocytes Absolute Auto 0.4 0.1 - 1.2 X10*3/uL [facility] Eosinophils Absolute Auto 0.2 0.0 - 0.4 X10*3/uL [facility] Basophils Absolute Auto 0.1 0.0 - 0.2 X10*3/uL [facility] NRBC Abs Auto 0.000 0.0 - 0.012 X10*3/uL [facility] 01/01/2025 4:08 PM EDT 01/01/2025 4:12 PM EDT Generic External Data Provider LAB BLOOD ORDERAB LES Final Result Performing Organization Address [facility] Co de Phone Number [facility] [address] [place] [phone] * Magnesium (01/01/2025 4:08 PM EDT) Magnesium 1.9 1.6 - 2.6 mg/dL [facility] 01/01/2025 4:08 PM EDT 01/01/2025 4:12 PM EDT Generic External Data Provider LAB BLOOD ORDERAB LES Final Result Performing Organization Address [facility] Co de Phone Number [facility] [address] [place] [phone] * (ABNORMAL) Comprehensive Metabolic Panel (01/01/2025 4:08 PM EDT) Sodium 137 135 - 145 mmol/L [facility] Potassium 4.3 3.3 - 5.1 mmol/L [facility] Chloride 106 96 - 108 mmol/L [facility] Carbon Dioxide 24 22 - 29 mmol/L [facility] Anion Gap 11(L) 12 - 20 [facility] Urea Nitrogen (BUN) 17(H) 9 - 16 mg/dL [facility] Creatinine, Serum 1.04 0.5 - 1.4 mg/dL [facility] Creatinine Clr Calc Pharmacy 86.9 [facility] Comment:eGFR (calculated fro m the MDRD study equation) and eCrCl(calculated from the Cockcroft-Gault equation) are based ondifferent parameters and may not yield comparable results.If eCrCl result is absurd, please check patient'sheight/weight. Estimated Glomerular Filt Rate >60 [facility] Comment:Chronic Kidney Disea se: Estimated GFR < 60 mL/min/1.88d8Yzkqra Kidney Disease: Estimated GFR < 15 mL/min/1.73m2 Glucose 465(HH) 60 - 115 mg/dL [facility] Comment:Critical value for t est(s): GLUR Results called to and readback by: LLUVIA Person calling: BOAZFDate: [id number]:[id number] Calcium 8.7 8.4 - 10.2 mg/dL [facility] Bilirubin, Total 1.3(H) 0.0 - 1.0 mg/dL [facility] Aspartate Amino Transferase 14 5 - 37 U/L [facility] Alanine Aminotransferase 10 0 - 40 U/L [facility] Total Protein 5.9(L) 6.5 - 8.0 g/dL [facility] Albumin Level 3.2(L) 3.5 - 5.0 g/dL [facility] Alkaline Phosphatase 66 39 - 117 U/L [facility] 01/01/2025 4:08 PM EDT 01/01/2025 4:12 PM EDT us Generic External Data Provider LAB BLOOD ORDERAB LES Final Result Performing Organization Address [facility] Co de Phone Number [facility] [address] [place] [phone] * TSH with Reflex to Free T4 (12/11/2024 9:13 AM EDT) TSH reflex Free T4 0.61 0.32 - 4.0 uIU/mL [facility] 12/11/2024 9:13 AM EDT 12/11/2024 9:13 AM EDT us Generic External Data Provider LAB BLOOD ORDERAB LES Final Result Performing Organization Address [facility] de Phone Number [facility] [address] [place] [phone] * Creatinine, Serum (12/11/2024 9:13 AM EDT) Creatinine, Serum 0.94 0.5 - 1.4 mg/dL [facility] Estimated Glomerular Filt Rate >60 [facility] Comment:Chronic Kidney Disea se: Estimated GFR < 60 mL/min/1.71t5Oyalmp Kidney Disease: Estimated GFR < 15 mL/min/1.73m2 12/11/2024 9:13 AM EDT 12/11/2024 9:13 AM EDT us Generic External Data Provider LAB BLOOD ORDERAB LES Final Result Performing Organization Address [facility] Co de Phone Number [facility] [address] [place] [address] [phone] * Platelet Count (12/11/2024 9:13 AM EDT) Platelet Count 302 160 - 400 X10*3/uL [facility] 12/11/2024 9:13 AM EDT 12/11/2024 9:13 AM EDT us Generic External Data Provider LAB BLOOD ORDERAB LES Final Result Performing Organization Address [facility] Co de Phone Number [facility] [address] [place] [phone] * ALT (12/11/2024 9:13 AM EDT) Alanine Aminotransferase 13 0 - 40 U/L [facility] 12/11/2024 9:13 AM EDT 12/11/2024 9:13 AM EDT us Generic External Data Provider LAB BLOOD ORDERAB LES Final Result Performing Organization Address [facility] de Phone Number [facility] [address] [place] [phone] * AST (12/11/2024 9:13 AM EDT) Aspartate Amino Transferase 16 5 - 37 U/L [facility] 12/11/2024 9:13 AM EDT 12/11/2024 9:13 AM EDT us Generic External Data Provider LAB BLOOD ORDERAB LES Final Result Performing Organization Address [facility] de Phone Number [facility] [address] [place] [phone] * Vitamin B12 (12/11/2024 9:13 AM EDT) Vitamin B12 440 200 - 900 pg/mL [facility] Comment:NORMAL 200-900 PG/ML INDETERMINATE 160-199 PG/ML DEFICIENT < 160 PG/ML 12/11/2024 9:13 AM EDT 12/11/2024 9:13 AM EDT us Generic External Data Provider LAB BLOOD ORDERAB LES Final Result Performing Organization Address [facility] Co de Phone Number [facility] [address] [place] [phone] * (ABNORMAL) Lipid Panel, Standard (12/11/2024 9:13 AM EDT) Triglycerides 108 <150 mg/dL [facility] Comment:Desirable Triglyceri de: less than 150 mg/dLBorderline High Triglyceride 150-199 mg/dLHigh Triglyceride: 200-499 mg/dLVery High Triglyceride: greater than or equal to 5OO mg/dL Cholesterol 225(H) <200 mg/dL [facility] Comment:Desirable Cholestero l: less than 200 mg/dLBorderline High Cholesterol: 200-239 mg/dLHigh Cholesterol: greater than 239 mg/dL LDL Cholesterol Calculated 161(H) <100 mg/dL [facility] Comment:Desirable LDL: less than 100 mg/dLNear Optimal/Above Optimal LDL: 110- 129 mg/dLBorderline High LDL: 130-159 mg/dLHigh LDL: 160-189 mg/dLVery High LDL: greater than or equal to 190 mg/dL HDL Cholesterol 43 >40 mg/dL [facility] Comment:Desirable HDL: great er than 40 mg/dL Note: This HDL assay may give artificially low results in patients with liver disease. 12/11/2024 9:13 AM EDT 12/11/2024 9:13 AM EDT us Generic External Data Provider LAB BLOOD ORDERAB LES Final Result [facility] [address] [place] [address] [phone] * (ABNORMAL) Albumin, Random Urine W/Creatinine (12/11/2024 9:12 AM EDT) Creatinine, Urine 106.98 mg/dL [facility] Microalbumin Urine >2,000.0 mg/L [facility] Microalbum Creatinine Ratio Ur 1,869.5(H ) <30 ug/mg cr [facility] Comment:Albumin/Creatinine R atio Reference Ranges: Normal: < 30 ug/mg creatinine Microalbuminuria: 30 - 300 ug/mg creatinineClinical Albuminuria: > 300 ug/mg creatinine 12/11/2024 9:12 AM EDT 12/11/2024 9:50 AM EDT us Generic External Data Provider LAB URINE ORDERAB LES Final Result Performing Organization Address [facility] Co de Phone Number [facility] [address] [place] [phone] * HIV-1/2 Antigen and Antibodies, Fourth Generation, with Reflexes (02/02/2024 4:42 PM EDT) HIV AB/AG Nonreactive Nonreactive [facility] Comment:HIV-1 p24 Ag and/or HIV-1/HIV-2 Ab not detected.A test result that is nonreactive does not exclude thepossibility of exposure to or infection with HIV-1 and/orHIV-2. Nonreactive results in this assay for individualswith prior exposure to HIV-1 and/or HIV-2 may be due toantigen and antibody levels that are below the limit ofdetection of this assay.The [employer] HIV Ag/Ab Combo assay result andsupplemental assay results should be interpreted inconjunction with the patient's clinical presentation,history and other laboratory results. If the results areinconsistent with clinical evidence, additional testing issuggested to confirm the result. Blood Venous blood specimen / Unknown 02/02/2024 4:42 PM EDT 02/02/2024 6:10 PM EDT us Marlin Curiel HEAD WAITER LAB BLOOD ORDERABLES Final Resul t Performing Organization Address [facility]/ZIP Co de Phone Number [facility] [address] [place] [phone] * Hm Colonoscopy (04/10/2022) Colonoscopy Normal Normal Narrative Marlene Torres - 04/10/2022 Recommended 3 years . see external hospital admission note on 04/10/2022 us Historical Provider HEALTH MAINTENANCE Final Result * HEPATITIS C AB W/REFL TO HCV RNA, QN, PCR (08/23/2021 10:46 AM EDT) HEPATITIS C ANTIBODY NON-REACT WILVER NON-REACT WILVER [facility] INDEX 0.01 <1.00 [facility] Comment: HCV antibody was non-reactive. There is no laboratory evidence of HCV infection. In most cases, no further action is required. However, if recent HCV exposure is suspected, a test for HCV RNA (test code 04555) is suggested. For additional information please refer to http://education.[employer]/faq/RMD46c7 (This link is being provided for informational/ educational purposes only.) 08/23/2021 10:4 6 AM EDT Abby Bell NP HISTORICAL/NON ORDERABLE LABS Final Result [facility] [address] from Last 3 Months or Most Recently Relevant to Health Maintenance Insurance [facility] [address] [place] [address] Care Teams Director Of Manufacturing Operations Relationship Specialty Start Date End Date Vince Maya MD [address] [place] [address] PCP - General Internal Medicine 12/20/16 Melanie Reyes PharmD [address] [place] [phone] Pharmacist Internal Medicine 06/15/24
--- OUTSIDE RECORDS SUMMARY | 2025-02-15 17:06 | XMS_ITS | Encounter Summary ---
Author Organization [facility] Address [address] [facility] [address] [facility] [address] [place] [address] Care Team Providers Care Personal Development Mentor Name Role Phone Vince Maya MD Primary Care Provide r Melanie Reyes PharmD Unavailable [phone] Reason for Visit * Reason Comments Med Refill Encounter Details Date Type Department Care Team ([facility] Contact Info) Description 07/26/2022 Refill [facility] MEDICINE [address] [place], [place] [phone] Vince Maya MD [address] [place], [place] [phone] Mixed hyperlipidemia (Primary Dx); Primary hypertension Social [...] Department Care Team (Late Contact Info) Description 04/26/2025 11:30 AM EST Office Visit [facility] MEDICINE [address] [place], [place] [phone] Vince Maya MD [address] [place] [address] documented as of this encounter Visit Diagnoses Diagnosis Mixed hyperlipidemia- Primary Primary hypertension Unspecified essential hypertension documented in this encounter Care Teams Personal Development Mentor Relationship Specialty Start Date End Date Vince Maya MD [address] [place] [phone] PCP - General Internal Medicine 12/20/16 Melanie Reyes PharmD [address] [place] [address] [phone] Pharmacist Internal Medicine 06/15/24 documented as of this encounter
--- OUTSIDE RECORDS SUMMARY | 2025-02-15 17:06 | XMS_ITS | Clinical Summary ---
Author Organization [facility] Facility Address [address] [address] Care Team Providers Care Supervisor Of Guidance And Testing Name Role Phone Vince Patel MD Primary [...] total) in the evening. 180 capsule 2 01/12/20 25 025 Active Active Problems Problem Noted Date Diagnosed Date Proteinuria 01/14/2023 Chronic kidney disease, stage 2 (mild) 2 Chronic kidney disease due to benign hypertensio n 12/25/2020 Type 2 diabetes mellitus wit h diabetic chronic kidney disease 12/25/2020 Acute nontraumatic kidney injury 09/05/2020 Encounters Date Type Department Care Team Description 01/11/2025 Refill [facility] P.. [address] [place] [phone] Kourtney Peralta [place] from Last 3 Months Family History Medical [...] [facility] [address] [place] [phone] Kei Moreno MD [address] [facility] [address] [place] [address] Health Maintenance Due Date Last [...] Cancer Screening: Sigmoidoscopy 2023 Influenza Vaccine (#1) 2025 Diabetes: Hemoglobin A1C 01/22/2025 025, 03/23/2024, 11/04/2023 Pneumococcal Vaccine: Peds ( 0 to 5 Years) and At-Risk Patients (6 to 49 Years) Discontinued 07/30/2007 Insurance [facility] Medicaid [facility] [place] [address] Care Teams Supervisor Of Guidance And Testing Relationship Specialty Start Date End Date Vince Patel MD PCP - General 05/22/20
--- OUTSIDE RECORDS SUMMARY | 2025-02-15 17:06 | XMS_ITS | Clinical Summary ---
Author Organization [facility] Address [address] [place] [address] Care Team Providers Care Time Analysis Clerk Name Role Phone Pcp, No Primary Care Provider Unavailabl e Unknown Unavailable Artie Vivas DO Unavailable Allergies No known active allergies Medications No known medications Encounters Date Type Department Care Team Description 01/04/2025 11:37 AM EDT - 01/04/2025 3:[address] [facility] Emergency Department [address] [place] [address] Marquis Hodges MD Migraine (Primary Dx) Discharge Disposition: Home or Self Care 01/04/2025 Travel from Last 3 Months Social History [...] Sign Reading Time Taken Comments Blood Pressure 163/72 01/04/2025 2:40 PM EDT Pulse 80 01/04/2025 2:40 PM EDT Temperature 35.9 C (96.7 F) 01/04/2025 11:47 AM EDT Respiratory Rate 18 01/04/2025 2:40 PM EDT Oxygen Saturation 98% 01/04/2025 2:40 PM EDT Inhaled Oxygen Concentration - - Weight - - Height - - Body Mass Index - - Plan of Treatment Health Maintenance Due Date Last Done Comments Hepatitis C Virus Screening 1975 Microalbumin/Creatinine Ratio Urine 01/13/1992 DTaP/Tdap/Td Vaccines (1 - Tdap) 1993 Hepatitis B Vaccines (1 of 3 - 19+ 3-dose series) 1993 Colonoscopy 2019 Pneumococcal Vaccines 50+ (1 of 1 - PCV) 01/13/2024 Zoster (Shingles) Vaccine (1 of 2) 01/13/2024 Influenza Vaccine 12/10/2024 COVID-19 Vaccine (3 - 2024- season) 2025, 08/31/2020 HIV Screening Completed 02/02/2024 Procedures Procedure Name Priority Date/Time Associated Diagnosis Comments CT HEAD W/O CONTRAST STAT 01/04/2025 12:16 PM EDT POCT GLUCOSE, FINGERSTICK (CHARGE) Routine 01/04/2025 11:44 AM EDT from Last 3 Months Results * CT Head w/o contrast (01/04/2025 12:16 PM EDT) Anatomical Region Laterality Modality Head Computed Tomogra phy 01/04/2025 12:0 5 PM EDT Impressions 01/04/2025 12:30 PM EDT No evidence of acute intracranial hemorrhage or edematous territorial infarction. Narrative 01/04/2025 12:30 PM EDT EXAMINATION: CT HEAD WITHOUT CONTRAST CLINICAL INFORMATION: Headache. COMPARISON: None TECHNIQUE: Contiguous axial imaging was performed from the skull base to vertex without intravenous administration of contrast. This CT examination was performed using dose optimization techniques as appropriate, variously including the following: *Automated exposure control *Adjustment of mA and/or kV according to patient size (this includes techniques or standardized protocols for targeted exams where dose is matched to indication/reason for exam; i.e. extremities or head) *Use of iterative reconstruction technique DLP: 739.31 mGy-cm FINDINGS: There is no evidence of acute [...] mastoids and middle ear cavities are clear. Procedure Note Christal Reyes MD - 01/04/2025 EXAMINATION: CT HEAD WITHOUT CONTRAST CLINICAL INFORMATION: Headache. COMPARISON: None TECHNIQUE: Contiguous axial imaging was performed from the skull base to vertex without intravenous administration of contrast. This CT examination was performed using dose optimization techniques as appropriate, variously including the following: *Automated exposure control *Adjustment of mA and/or kV according to patient size (this includes techniques or standardized protocols for targeted exams where dose is matched to indication/reason for exam; i.e. extremities or head) *Use of iterative reconstruction technique DLP: 739.31 mGy-cm FINDINGS: There is no evidence of acute [...] acute intracranial hemorrhage or edematous territorial infarction. Marquis Hodges MD [facility] [place] ORDERABLES Fin al Result * (ABNORMAL) POCT Glucose, Fingerstick (01/04/2025 11:44 AM EDT) POC Glucose 164(H) 65 - 99 mg/dL 01/04/2025 11:44 AM EDT Blood specimen / Unknown 01/04/2025 11:44 AM EDT 01/04/2025 11:45 AM EDT Generic Provider POINT OF CARE TEST ORDERABLES F inal Result [facility] See Below from Last 3 Months Insurance LATA BRICEÑO [id number] MEDICAID OUT OF STATE [facility] [place] [address] [place] [address] Care Teams Time Analysis Clerk Relationship Specialty Start Date End Date Pcp, No PCP - General General Medicine 11/17/23 Unknown Unknow Provider Address 11/17/23 Artie Vivas DO [address] [place] [address] [address] [place] [address] 05/29/21
--- OUTSIDE RECORDS SUMMARY | 2025-02-15 17:06 | XMS_ITS | Encounter Summary ---
Author Organization [employer] Address [address] [place] [address] Care Team Providers Care Health Services Manager Name Role Phone Vince Maya MD Primary Care Provide r Melanie Reyes PharmD Unavailable [phone] Encounter Details Date Type Department Care Team ([facility] st Contact Info) Description 06/06/2023 Telephone [facility] [address] [place], [place] [phone] Duran Barnett DDS [address] [place], [place] [phone] Social History Tobacco Use Types Packs/Day Years Used Date Smoking Tobacco: Never Passive Smoke Exposure: Never Smokeless Tobacco: Never Alcohol Use Standard Drinks/Week Comments Defer 0 (1 standard drink = 0.6 oz pur e alcohol) Depression Answer Date Recorded Patient Health Questionnaire-9 Score 3 09/05/2022 Housing Stability Answer Date Recorded What is your housing situation today? I have joann budren 03/03/[address] you li [...] Description 04/26/2025 11:30 AM EST Office Visit [facility] MEDICINE [address] [place] [address] Vince Maya MD [address] [place] [address] documented as of this encounter Visit Diagnoses Not on filedocumented in this encounter Additional Health Concerns Assessment Noted Time PHQ-9 Depression Total Score: 3 09/06/19 23 10:39 AM EDT documented as of this encounter Care Teams Health Services Manager Relationship Specialty Start Date End Date Vince Maya MD [address] [place] [phone] PCP - General Internal Medicine 12/20/16 Melanie Reyes PharmD [address] [place] [address] Pharmacist Internal Medicine 06/15/24 documented as of this encounter
--- OUTSIDE RECORDS SUMMARY | 2025-02-15 17:06 | XMS_ITS | Encounter Summary ---
Author Organization [employer] Address [address] [place] [address] Care Team Providers Care Die Maker Bench Stamping Name Role Phone Vince Maya MD Primary Care Provide r Melanie Reyes PharmD Unavailable [phone] Encounter Details Date Type Department Care Team ([facility] Contact Info) Description 01/07/2025 Results Follow-Up [facility] MEDICINE [address] [place] [address] Vince Maya MD [address] [place] [address] CT Head w/o Contrast Social History Tobacco Use Types Packs/Day Years [...] the past 12 months, has t he [employer], gas, oil or water [employer] threatened to shut off services in your [...] 11:30 AM EST Office Visit [facility] MEDICINE [address] [place] [phone] Vince Maya MD [address] [place] [phone] documented as of this encounter Visit Diagnoses Not on filedocumented in this encounter Additional Health Concerns Assessment Noted Time PHQ-9 Depression Total Score: 11 025 11:23 AM EDT documented as of this encounter Care Teams Die Maker Bench Stamping Relationship Specialty Start Date End Date Vince Maya MD [address] [place] [id number] PCP - General Internal Medicine 12/20/16 Melanie Reyes PharmD [address] [place] [phone] Pharmacist Internal Medicine 06/15/24 documented as of this encounter
--- OUTSIDE RECORDS SUMMARY | 2025-02-15 17:06 | XMS_ITS | Encounter Summary ---
Author Organization [facility] Address [address] [place] [address] Care Team Providers Care Medical Receptionist Assistant Name Role Phone Pcp, No Primary Care Provider Unavailabl e Encounter Details Date Type Department Care Team (Late st Contact Info) Description 10/28/2023 Procedure Pass [facility], Radiology (CT Scan) [address] [place] [address] [phone] Social History Tobacco Use Types Packs/Day Years [...] on filedocumented in this encounter Care Teams Medical Receptionist Assistant Relationship Specialty Start Date End Date Pcp, [place] [address] PCP - General 01/03/20 documented as of this encounter
--- OUTSIDE RECORDS SUMMARY | 2025-02-15 17:06 | XMS_ITS | Encounter Summary ---
Author Organization [employer] Address [address] [facility] [address] [place] [address] Care Team Providers Care Prototype Carpenter Name Role Phone Vince Maya MD Primary Care Provide r Melanie Reyes PharmD Unavailable [phone] Reason for Visit * Reason Comments Med Refill Encounter Details Date Type Department Care Team ([facility] Contact Info) Description 12/11/[address] [facility] MEDICINE [address] [place], [place] [phone] Holly Singh MD [address] [place], [place] [phone] Social History Tobacco Use Types Packs/Day Years [...] AM EST Office Visit [facility] MEDICINE [address] [place] [address] Vince Maya MD [address] [place] [address] documented as of this encounter Visit Diagnoses Not on filedocumented in this encounter Additional Health Concerns Assessment Noted Time PHQ-9 Depression Total Score: 5 11/04/19 24 1:48 PM EDT documented as of this encounter Care Teams Prototype Carpenter Relationship Specialty Start Date End Date Vince Maya MD [address] [place] [id number] PCP - General Internal Medicine 12/20/16 Melanie Reyes PharmD [address] [place] [address] Pharmacist Internal Medicine 06/15/24 documented as of this encounter
== END 2025-02-15 14:39 | disposition home or self-care (01) ==
LOC: HO.ENCR 13:51
PROVIDERS: PCP Internal Medicine; Visit Provider Physician Assistant Medical
DX: E11.65 Type 2 diabetes mellitus with hyperglycemia (principal); Z79.4 Long term (current) use of insulin; E11.3593 Type 2 diabetes mellitus with proliferative diabetic retinopathy without macular edema, bilateral; N18.31 Chronic kidney disease, stage 3a; E11.29 Type 2 diabetes mellitus with other diabetic kidney complication; R80.9 Proteinuria, unspecified; I10 Essential (primary) hypertension; E78.00 Pure hypercholesterolemia, unspecified

== ENCOUNTER → 2025-02-15 13:51 | Outpatient (BNVA) | payer OTHER, SELFPAY | PROVIDERS: PCP Internal Medicine; Visit Provider Physician Assistant Medical | DX: E11.65 Type 2 diabetes mellitus with hyperglycemia (principal); N18.31 Chronic kidney disease, stage 3a; R80.9 Proteinuria, unspecified; I10 Essential (primary) hypertension; E78.00 Pure hypercholesterolemia, unspecified; Z79.4 Long term (current) use of insulin; E11.3593 Type 2 diabetes mellitus with proliferative diabetic retinopathy without macular edema, bilateral | CPT/HCPCS: 82947; 83036; 99212 ==

== ENCOUNTER 2025-03-18 14:31 | Outpatient (AMB) | payer OTHER, SELFPAY ==
--- NOTE | 2025-03-18 14:32 | MHC.OFFVIS ---
Vital Signs 03/18/25 14:36 Height 5 ft 7 in Weight 207 lb 7.28 oz BMI 32.5 BP 144/82 H Blood Pressure Location Lt brachial Position Sitting Pulse 95 Pulse Source Pulse Oximeter Pulse Oximetry (%) 97 Oxygen Delivery Method Room Air Intake Visit Reasons: Type II Diabetes Intake Note: Patient present today for T2DM follow up. Last Diabetic Eye exam: Patient had injection on the right eye today, left eye is in April 2025. Last Podiatry Visit: Does not see a Manager Civil Random Glucose: 422 mg/dL at 2:41 pm, 337 mg/dL at 3:18 pm HgA1C: 11.2%, 02/15/2025 Urine Ketone: Negative Door Liner Helper Required: Yes Door Liner Helper Language: Transliterator Services: Door Liner Helper Present Door Liner Helper Name: Dariela Hickman [phone] Information Interpreted: non-clinical & clinical Accompanied by: Self / Same As Patient Allergies No Known Allergies Allergy (Verified 03/18/25 14:38) Medication List - Last Reconciled 03/18/25 by GUANACO Albrecht amlodipine 5 mg PO DAILY atorvastatin (Lipitor) 80 mg PO QPM blood-glucose sensor (FreeStyle Mary 3 Plus Sensor device) Apply 1 new sensor every 15 days as directed to monitor blood glucose continuously. cholecalciferol (vitamin D3) (Vitamin D3) 25 mcg PO QAM docusate sodium 100 mg PO BEDTIME empagliflozin (Jardiance) 10 mg PO QAM fluoxetine 20 mg PO QAM gabapentin 100 mg PO glucose (Dex4 Glucose) 16 grams (4 x 4 gram) PO Q15M PRN hydralazine 25 mg PO BID hydrochlorothiazide 12.5 mg PO DAILY hydroxyzine HCl 25 mg PO Q6H PRN insulin aspart U-100 (Novolog FlexPen U-100 Insulin aspart) 18 units subcut TID insulin glargine (Lantus Solostar U-100 Insulin) 74 units (0.74 mL) subcut BEDTIME insulin lispro 14 units (0.14 mL) subcut TID lancets (TRUEplus Lancets) As directed losartan 50 mg PO QAM metformin ER 1,000 mg (2 x 500 mg) PO BID pantoprazole 40 mg PO QAM tirzepatide (Mounjaro) 5 mg (0.5 mL) subcut QWEEK trazodone 50 mg PO BEDTIME HPI Comments Details: This is a 50-year-old male with a past medical history of hypertension, endocarditis, tubular adenoma, CKD 3a, diabetic retinopathy and palpitations presenting for diabetic management. He was diagnosed with Type II diabetes more than 12.5 years ago. He endorses a family history of Type II diabetes (mother, father, uncle). POC 422. Patient ate bread, putting and [employer] around 12:30. Did not administer lispro prior to eating. He took it around 14:15 before his appointment. Denies symptoms of hyperglycemia/DKA. Reviewed 14 day Mary data CGM active 90% Average glucose 281 G DC 10% Glucose variability 34.5% Very high 60% High 21% Target range 19% 0% low He has hyperglycemia throughout 24 hours. Hemoglobin A1c 11.2% 02/15/2025 down from 14% 10/22/2024. No history of DKA. Lab proven type 2 diabetes. Current medication regimen: Trulicity 3 mg weekly, Lantus 74 units at bedtime , lispro 14 units before meals (does not take consistently), metformin ER 1000 mg 2 tablets twice daily. Past meds: Previously on Jardiance. Denies side effects. He saw the community nutrition educator. Cequr appeal was denied. He also saw the dietitian. Hypoglycemia symptoms: No interval episodes Microvascular complications: neuropathy, nephropathy (CKD and microalbuminuria-followed by nephrology), Bilateral retinopathy ([facility]) Macrovascular complications: none Hypertension: treated with amlodipine 5 mg, hydralazine 25 mg b.i.d., hydrochlorothiazide 12.5 mg daily, losartan 50 mg daily YARITZA inhibitor discontinued in the past due to PRANEETH. Hyperlipidemia: treated with atorvastatin 40 mg. Has not been compliant with med. ROS: Constitutional: No weight loss, fevers, chills or fatigue Eyes: Denies vision loss or vision changes Respiratory: No shortness of breath or cough Cardiovascular: No chest pain, chest pressure or chest discomfort. No palpitations or pedal edema. Gastrointestinal: No anorexia, nausea, vomiting or diarrhea. No abdominal pain Neurologic: Denies confusion, numbness, tingling, weakness, seizures or tremors Skin: No wounds or ulcers. Endocrine: See HPI Physical exam: Constitutional: Alert, in no distress. Head: Normocephalic. Neck: Supple, Full range of motion. No lymphadenopathy. No palpable thyroid masses. Respiratory: Clear to auscultation. Cardiovascular: S1 S2 regular. No murmurs. Feet: Warm and well perfused, no clubbing, cyanosis or edema [facility] Medical History (Updated 02/15/25 @ 15:42 by GUANACO Albrecht) Pure hypercholesterolemia Diabetes mellitus with microalbuminuria CKD stage 3a, GFR 45-59 ml/min Proliferative diabetic retinopathy of both eyes Type 2 diabetes mellitus with hyperglycemia Tubular adenoma Elevated cholesterol HTN (hypertension) Endocarditis Diabetes Surgical History Hx of colonoscopy History of esophagogastroduodenoscopy (EGD) H/O eye surgery Family History Father No problems noted. Mother No problems noted. Paternal Uncle Bone cancer Paternal Uncle Prostate cancer Paternal Uncle Lung cancer Paternal Uncle Heart attack Throat cancer Social History Alcohol intake: never Patient Tobacco Use Status: Current everyday Tobacco user Physical Exam Vital Signs: Last Vital Signs Pulse 95 03/18/25 14:36 BP 144/82 H 03/18/25 14:36 Pulse Ox 97 03/18/25 14:36 Oxygen Delivery Method Room Air 03/18/25 14:36 BMI result Body Mass Index 32.5 Office Procedures Glucose Monitoring Details Details: See [facility] [address] - Glucose monitoring, continuous-physician I&R Procedure code (CPT) selection complete Results UR Ketone Dip UR Ketone Dip Negative Last Edit by CAROL Edwards on 03/18/25 15:22 Results Reviewed Results Reviewed: Laboratory Last Values Glucose (Clinic) 422 mg/dL (60-115) H* 03/18/25 14:41 Laboratory Tests 11/08/23 05/07/24 12/11/24 08:12 11:49 09:12 Creatinine Estimated GFR AST ALT B-Natriuretic Peptide < 10 Triglycerides 101 LDL Cholesterol, Calc 108 H Cholesterol HDL Cholesterol 44 Vitamin B12 TSH 0.58 Urine Creatinine 106.98 Urine Microalbumin > 2000.0 Microalb/Creat Ratio 1869.5 H 12/11/24 01/01/25 09:13 16:08 Creatinine 1.04 Estimated GFR > 60 AST 14 ALT 10 B-Natriuretic Peptide Triglycerides 108 LDL Cholesterol, Calc 161 H Cholesterol 225 H HDL Cholesterol 43 Vitamin B12 440 TSH 0.61 Urine Creatinine Urine Microalbumin Microalb/Creat Ratio Assessment & Plan Assessment & Plan (1) Type 2 diabetes mellitus with hyperglycemia: Code(s): E11.65 - Type 2 diabetes mellitus with hyperglycemia Category: Medical Qualifiers: Diabetes mellitus long term care pharmacist insulin use: with long term care pharmacist use Qualified Code(s): E11.65 - Type 2 diabetes mellitus with hyperglycemia; Z79.4 - shelter (current) use of insulin (2) Proliferative diabetic retinopathy of both eyes: Code(s): E11.3593 - Type 2 diabetes mellitus with proliferative diabetic retinopathy without macular edema, bilateral Category: Medical Qualifiers: Diabetes mellitus type: type 2 (3) CKD stage 3a, GFR 45-59 ml/min: Code(s): N18.31 - Chronic kidney disease, stage 3a Category: Medical (4) Diabetes mellitus with microalbuminuria: Code(s): E11.29 - Type 2 diabetes mellitus with other diabetic kidney complication; R80.9 - Proteinuria, unspecified Category: Medical (5) HTN (hypertension): Code(s): I10 - Essential (primary) hypertension Category: Medical Qualifiers: Hypertension type: primary hypertension Qualified Code(s): I10 - Essential (primary) hypertension Plan: His systolic blood pressure is mildly elevated today. We will monitor this. He will continue his current regimen. He is on an Arb for renal protection. (6) Pure hypercholesterolemia: Code(s): E78.00 - Pure hypercholesterolemia, unspecified Category: Medical Plan: Recommended Mediterranean diet and I stressed the importance of compliance with atorvastatin. Plan In summary this is a 49-year-old male with uncontrolled type 2 diabetes and noncompliance with his treatment regimen. Patient was monitored and given water to drink. Did not administer Humalog in the office because he administered 14 units of lispro before the visit. His blood sugar was rechecked at 15:15, and it decreased to 337. Urine negative for ketones. Patient asymptomatic. Patient has weight gain and uncontrolled diabetes despite titrating dose of Trulicity. Stopped Trulicity and start Mounjaro 5 mg weekly. Reviewed potential side effects. Increase lispro to 18 units 3 times daily before meals. Continue Lantus 75 units nightly. Continue metformin 1000 mg twice a day. Since GMI is now down to 10% we will restart Jardiance. Reviewed potential side effects including genitourinary infections and PRANEETH. He will monitor for symptoms and contact the office if he has any difficulty. We reviewed complications of uncontrolled diabetes and lifestyle modifications in detail. Declined referral back to dietitian. The patient has a prescription for ketone urine strips and instructions and information on DKA. Reviewed treatment of hypoglycemia and advised not to drive if blood sugar is low or he has symptoms of low blood sugar or does not have a way to monitor his blood sugar accurately. Follow up in 1 month. Orders: Orders AMB Glucose Monitoring Today GUANACO Albrecht E11.9 - Type 2 diabetes mellitus without complications AMB Ketone Urine Dipstick Today GUANACO Albrecht E11.65 - Type 2 diabetes mellitus with hyperglycemia Medications: New empagliflozin (Jardiance) 10 mg PO QAM 90 tabs 0RF GUANACO Albrecht tirzepatide (Mounjaro) 5 mg (0.5 mL) subcut QWEEK 2 mL 0RF GUANACO Albrecht Changed From insulin aspart U-100 (Novolog FlexPen U-100 Insulin aspart) 14 units (0.14 mL) subcut TID 15 mL 0RF To insulin aspart U-100 (Novolog FlexPen U-100 Insulin aspart) 18 units subcut TID Paradise Rivas PA-C Discontinued dulaglutide (Trulicity) Discontinued Reason: Doctor's Order 3 mg (0.5 mL) subcut QWEEK 2 mL 3RF Patient Instructions: Start Mounjaro 5 mg weekly after your last dose of Trulicity and stop Trulicity. Continue Lantus 75 units nightly Increase Lispro to 18 units 3 times daily before meals Start Jardiance 10 mg every morning Metformin dosing is 1000 mg twice a day. Comience con Mounjaro 5 mg semanalmente despu?s de la ?ltima dosis de Trulicity y suspenda Trulicity. Contin?e con Lantus 75 unidades por la noche. Aumente la dosis de Lispro a 18 unidades ginny veces al d?a antes de las comidas. Comience con Jardiance 10 mg cada ma?martell. La dosis de Metformina es de 1000 mg dos veces al d?a. Coding Level of Care Code Est Pt Level 5 (66539) Diagnoses Type 2 diabetes mellitus with hyperglycemia, with long-term current use of insulin E11.65; Z79.4 Diabetes mellitus long term care pharmacist insulin use: with skilled nursing use Proliferative diabetic retinopathy of both eyes E11.3593 Diabetes mellitus type: type 2 CKD stage 3a, GFR 45-59 ml/min N18.31 Diabetes mellitus with microalbuminuria E11.29; R80.9 Primary hypertension I10 Hypertension type: primary hypertension Pure hypercholesterolemia E78.00 CPT Codes Details - CPT: 87108 - Glucose monitoring, continuous-physician I&R ([id number]) Time Spent (min) 60 Comment Monitoring patient, direct patient care, completing documentation
[2025-03-18 14:36] VITALS: BP 144/82; PULSE 95; O2SAT 97; BMI 32.5
[2025-03-18 14:49] LABS: Glucose, Whole Blood 422 mg/dL (60-115)
[2025-03-18 15:23] LABS: Glucose, Whole Blood 337 mg/dL (60-115)
--- OUTSIDE RECORDS SUMMARY | 2025-03-18 16:07 | XMS_ITS | Clinical Summary ---
Author Organization [employer] Address [address] [place] [address] Care Team Providers Care Director Of Curriculum Name Role Phone Vince Maya MD Primary Care Provide r Allergies No known active allergies Medications * [...] for erectile dysfunction. 40 tablet 023 Active fluticasone (Flonase) 50 MCG/ACT nasal sprayIndications:E arache on left Administer 1-2 sprays into each nostril 2 times daily. Shake gently. Before first use, prime pump. After use, clean tip and replace cap. 16 g 2 024 Active gabapentin (Neurontin) 100 MG capsule TAKE 1 CAPSULE BY MOUTH TWICE DAILY IN THE MORNING AND IN THE EVENING 023 Active pantoprazole (ProtoNix) 40 MG EC tablet Take 40 mg by mouth before breakfast. 024 Active metFORMIN XR (Glucophage-XR) 500 MG 24 hr tablet Take 1,000 mg by mouth 2 times daily. Do not crush, chew, or split. Active glucose 4 g chewable tablet TAKE 4 TABLETS BY MOUTH EVERY 15 MINUTES NEEDED FOR HYPOGLYCEMIA UNTIL SYMPTOMS IMPROVE 024 Active acetaminophen (Tylenol) 500 MG tablet Take 2 tablets (1,000 mg) by mouth every 6 (six) hours if needed for moderate pain or fever for up to 25 doses. 50 tablet 025 Active amLODIPine (Norvasc) 2.5 MG tabletIndications: Primary hypertension Take 1 tablet (2.5 mg) by mouth Once per day. 60 tablet 3 Active D3-1000 25 MCG (1000 UT) capsule TAKE 1 CAPSULE BY MOUTH EVERY MORNING 90 capsule 3 025 Active Pentips Generic Pen [place] 32G X 4 MM miscIndications:Ty pe 2 diabetes mellitus with right eye affected by severe nonproliferative retinopathy without macular edema, with long-term current use of insulin ([facility]) USE DIRECTED FOUR TIMES DAILY 100 each 025 Active hydroCHLOROthiazid e (HYDRODiuril) 25 MG tabletIndications: Essential (primary) hypertension TAKE 1 TABLET BY MOUTH EVERY MORNING 90 tablet 1 025 Active amLODIPine (Norvasc) 5 MG tabletIndications: Essential (primary) hypertension TAKE 1 TABLET BY MOUTH EVERY MORNING 90 tablet 025 Active hydrALAZINE (Apresoline) 25 MG tabletIndications: Primary hypertension TAKE 1 TABLET BY MOUTH THREE TIMES DAILY IN THE MORNING, EVENING, AND BEDTIME WITH FOOD 270 tablet 025 Active Lantus SoloStar 100 UNIT/ML pen Inject 65 Units under the skin at bedtime. 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 Use as directed for CGM 1 each 025 Active Continuous Glucose Sensor (FreeStyle Mary 3 Plus Sensor) miscIndications:Ty pe 2 diabetes mellitus with right eye affected by severe nonproliferative retinopathy without macular edema, with long-term current use of insulin ([facility]) Apply 1 every 15 days as directed for CGM 2 each 025 Active Alcohol Swabs (Alcohol Prep) 70 % padsIndications:Ty pe 2 diabetes mellitus with right eye affected by severe nonproliferative retinopathy without macular edema, with long-term current use of insulin ([facility]CC) USE DIRECTED FOUR TIMES DAILY FOR INSULIN INJECT 100 each Active TRUEplus Lancets 33G miscIndications:Ty pe 2 diabetes mellitus with right eye affected by severe nonproliferative retinopathy without macular edema, with long-term current use of insulin (HCC) TEST BLOOD SUGAR FOUR TIMES DAILY 100 each Active atorvastatin (Lipitor) 80 MG tablet Take 80 mg by mouth at bedtime. Active Trulicity 3 MG/0.5ML solution auto-injector Active NovoLOG FLEXPEN 100 UNIT/ML pen Active glucose blood (FreeStyle Precision Ajith Test) test strip Use to test blood sugar 3 times daily in case of CGM failure or extremes of BG 100 each Active losartan (Cozaar) 50 MG tablet Take 1 tablet (50 mg) by mouth in the morning. 90 tablet 2 Active atorvastatin (Lipitor) 40 MG tabletIndications: Mixed hyperlipidemia Take 1 tablet (40 mg) by mouth at bedtime. 90 tablet 3 024 2024 Discontinued(M ed list cleanup (will not trigger notification to Pharmacy)) Alcohol Swabs 70 % pads Use 4 times a day as needed for insulin injection or checking BG 100 each 024 2024 Discontinued glucose blood (FREESTYLE LITE) test stripIndications:T ype 2 diabetes mellitus with right eye affected by severe nonproliferative retinopathy without macular edema, with long-term current use of insulin (HCC) Test TID 100 strip 024 2024 Discontinued(M ed list cleanup (will not trigger notification to Pharmacy)) TRUEplus Lancets 33G misc Check blood sugar 4 times a day, 3 month supply 100 each 024 2024 Discontinued metFORMIN (Glucophage) 500 MG tabletIndications: 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 2 mL 11 2024 Discontinued(M ed list cleanup (will not trigger notification to Pharmacy)) insulin lispro (HumaLOG) 100 UNIT/ML injection Inject 10 Units under the skin with breakfast, with lunch, and with evening meal. 15 mL 5 2024 Discontinued(M ed list cleanup (will not trigger notification to Pharmacy)) losartan (Cozaar) 50 MG tablet Take 1 tablet (50 mg) by mouth in the morning. 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 Assessment & Plan (04/18/2022 11:52 AM EST): Pt is seeing a therapist Under the care of [facility] I had started him on Fluixetine 20 mg po daily, pt tells me he is doing well 4 months f/u Type 2 diabetes mellitus wit h retinopathy, with long-term current use of insulin 03/29/2022 Assessment & Plan (02/03/2025 10:58 AM EDT): Pt here for a follow up. Under the care of Endocrinology, last note 12/07/2024 being followed by forest pathology teacher as well DM improving, although still uncontrolled [...] po daily and Trulicity 1.5 weekly . Latent Fingerprint Examiner prescribed Farxiga but was denied by insurance. He admits to not using the Novolog Insulin sliding scale He is not adhering to a Diabetic diet Hgb A1c 02/03/2025:11.8 from 12.7 from 15 Eye exam: Pt under the care of retinal specialist ([facility]) has diabetic retinopathy , per [...] Endocrinology, last note 05/07/2024, being followed by forest pathology teacher as well last seen 06/2024 DM improving, although still uncontrolled due to poor adherence to medical treatment and diabetic diet. He did not bring his glucometer. He is supposed to be on a regimen of: Lantus 55 units sc q pm, Metformin ER 2 tabs 500 mg po BID, Januvia 100 mg po daily and Trulicity 0.75 weekly Latent Fingerprint Examiner prescribed Farxiga but was denied by insurance. He admits to not using the Novolog Insulin sliding scale He is not adhering to a Diabetic diet Hgb A1c 08/26/2024: 12.7 from 15 Eye exam: Pt under the care of retinal specialist ([facility]) has diabetic retinopathy , per [...] a follow up. He is enrolled in [facility] DM uncontrolled due to poor adherence to medical treatment. He did not bring his glucometer. He is supposed to be on a regimen of: Lantus 55 units sc q pm, Metformin ER 2 tabs 500 mg po BID, Januvia 100 mg po daily and Trulicity 0.75 weekly Latent Fingerprint Examiner prescribed Farxiga but was denied by insurance. He admits to not using the Novolog Insulin sliding scale He is back under the care of Endocrinology, last seen 05/07/2024 He is not adhering to a Diabetic diet Hgb A1c 03/23/2024: 15 Eye exam: Pt under the care of retinal specialist ([facility]) has diabetic retinopathy , per [...] Patient will continue to follow with our [facility] team check your blood sugars regularly check your feet on a daily basis 8 weeks follow up with me. Assessment & Plan (03/23/2024 1:22 PM EST): Pt here for a follow up, he missed previous appointments. He is enrolled in [facility] DM uncontrolled due to poor adherence to [...] tells me he is actually taking it. Latent Fingerprint Examiner prescribed Farxiga but was denied by insurance. He admits to not using the Novolog Insulin sliding scale No longer under the care of Endocrinology He is not adhering to a Diabetic diet Hgb A1c 03/23/2024: 15 Eye exam: Pt under the care of retinal specialist ([facility]) has diabetic retinopathy , per [...] on Farxiga 10 mg po daily by Latent Fingerprint Examiner He admits to not using the Novolog Insulin sliding scale No longer under the care of Endocrinology He reports he is trying to adhere to a Diabetic diet Hgb A1c 11/04/2023: 15 Eye exam: Pt under the care of retinal specialist ([facility] ) has diabetic retinopathy , Pt under the care of retinal specialist ([facility]) has diabetic retinopathy , per [...] Pt under the care of retinal specialist ([facility] ) has diabetic retinopathy , Pt under the care of retinal specialist ([facility]) has diabetic retinopathy , per [...] not taking care of himself Seen in [facility] earlier this month for hyperglycemia. He [...] Pt under the care of retinal specialist ([facility] ) has diabetic retinopathy , Pt under the care of retinal specialist ([facility]) has diabetic retinopathy , per [...] f/u He tells me he was in [place] and while there he was not [...] Pt under the care of retinal specialist ([facility] ) has diabetic retinopathy , Pt under the care of retinal specialist ([facility]) has diabetic retinopathy , per [...] bertrand tells me he left his in [place] Pt advised to: adhere to diabetic [...] Pt under the care of retinal specialist ([facility] ) has diabetic retinopathy , Pt under the care of retinal specialist ([facility] ) has diabetic retinopathy , [...] feet on a daily basis F/u 3 [facility] Hemoglobin A1C Date Value Ref Range Status [...] Pt under the care of retinal specialist ([facility] ) has diabetic retinopathy , Pt under the care of retinal specialist ([facility] ) has diabetic retinopathy , [...] his meds regularly Plan: continue f/u with [facility] endocrinology Pt advised to: adhere to [...] Encounters Date Type Department Care Team Description 03/09/2025 Refill [facility] [address] [place] [address] Melanie Reyes PharmD 03/09/2025 Telephone [facility] [address] [place] [address] Melanie Reyes, PharmChago 02/25/2025 Refill [facility] [address] [place] [address] Melanie Reyes, Kiki 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, with long-term current use of insulin ([facility]) 02/03/2025 10:30 AM EDT Office Visit [facility] [address] [place] [address] Vince Maya MD 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, with long-term current use of insulin (CMS/HCC) (Primary Dx); Posterior reversible encephalopathy syndrome; Severe nonproliferative diabetic retinopathy of right eye without macular edema associated with type 2 diabetes mellitus (CMS/HCC); Recurrent major depressive episodes, moderate (CMS/HCC); Primary hypertension; Mass of scalp 02/03/2025 Travel 02/01/2025 Telephone [facility] [address], [place] [phone] Melanie Reyes, PharmD 01/27/2025 Patient Outreach [facility] [address] [place], [place] [phone] Vince Maya MD Pre-visit Planning (SDOH will need to be completed in office.) 01/07/2025 Results Follow-Up [facility] [address] [place] [address] Head w/o Contrast from Last 3 Months Immunizations Immunization Administration [...] your housing situation today? I have joann sing 02/03/[address] you li [...] Description 04/26/2025 11:30 AM EST Office Visit [facility] [address] [place] [address] Vince Maya MD [address] [place] [address] Health Maintenance Due Date Last Done Comments [...] 11/07/2024 11/07/2014, 07/30/2007, 07/30/2007 COVID-19 Vaccine ( season) 2025 07/02/2021, 09/28/2020, 08/31/2020 Influenza Vaccine [...] Associated Diagnosis Comments GLUCOSE, WHOLE BLOOD Routine 03/18/2025 3:18 PM EST GLUCOSE, WHOLE BLOOD Routine 03/18/2025 2:41 PM EST GLUCOSE, WHOLE BLOOD Routine 02/15/2025 2:01 PM EDT POCT GLYCATED HEMOGLOBIN, TOTAL Routine 02/03/2025 10:44 AM EDT 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, with long-term current use of insulin ([facility]) POCT GLUCOSE Routine 02/03/2025 10:44 AM EDT 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, with long-term current use of insulin ([facility]) GLUCOSE, WHOLE BLOOD Routine 01/01/2025 7:48 PM EDT GLUCOSE, WHOLE BLOOD Routine 01/01/2025 6:[address] HEAD WO CONTRAST Routine 01/01/2025 5 :57 PM EDT GLUCOSE, WHOLE BLOOD Routine 01/01/2025 5:07 PM EDT MAGNESIUM Routine 01/01/2025 4:08 PM EDT COMPREHENSIVE METABOLIC PANEL Routine 01/01/2025 4:08 PM EDT CBC WITH AUTO DIFFERENTIAL Routine 01/01/2025 4:08 PM EDT LIPID PANEL, STANDARD Routine 12/11/2024 9:13 AM EDT ALBUMIN, RANDOM URINE W/CREATININE Routine 12/11/2024 9:12 AM EDT HIV 1/2 ANTIGEN/ANTIBODY, FOURTH GENERATION W/RFL Routine 02/02/2024 4:42 PM EDT Balanitis Localized edema PANORAMIC RADIOGRAPHIC IMAGE Routine 06/06/2023 11:30 AM EST HM COLONOSCOPY Routine 04/10/2022 ZZZ HISTORICAL HEPATITIS C AB W/REFL TO HCV RNA, QN, PCR Routine 08/23/2021 10:46 AM EDT from Last 3 Months or Most Recently Relevant to Health Maintenance Results * (ABNORMAL) Glucose, Whole Blood (03/18/2025 3:18 PM EST) Only the most recent of3 resultswithin the time period is included. Glucose, Whole Blood 337(H) 60 - 115 mg/dL [facility] Comment:METER #: [id number] 0Testing performed in the Endocrinology Department [address] , [address], [facility]. 03/18/2025 3:18 PM EST 03/18/2025 3:21 PM EST us Generic External Data Provider LAB BLOOD ORDERAB LES Final Result [facility] [address] [place] [phone] * (ABNORMAL) POCT Hgb A1c (02/03/2025 10:44 AM EDT) [facility] Hemoglobin A1C 11.8(A) 4.0 - 5.7 % Blood 02/03/2025 10:4 4 AM EDT Vince Thomas MD POINT OF CARE TEST EN TER/EDIT ORDERABLES Final Result * (ABNORMAL) POCT Glucose (02/03/2025 10:44 AM EDT) [facility] Glucose Blood, POC 387(A) 60 - 200 mg/dL QC Media Lot # [id number] Lot# Expiration Date Blood Capillary blood specimen / Unknown 02/03/2025 10:44 AM EDT Vince Thomas MD POINT OF CARE TEST EN TER/EDIT ORDERABLES Final Result * (ABNORMAL) Glucose, Whole Blood (01/01/2025 7:48 PM EDT) Only the most recent of3 resultswithin the time period is included. [facility] Glucose, Whole Blood 340(H) 60 - 115 mg/dL [facility] Comment:METER #: [id number] 01/01/2025 7:48 PM EDT 01/01/2025 7:52 PM EDT Generic External Data Provider LAB BLOOD ORDERAB LES Final Result [facility] [address] [place] [phone] * CT Head w/o Contrast (01/01/2025 5:57 PM EDT) Anatomical Region Laterality Modality Head, Neck Computed Tomogra phy 01/01/2025 5:57 PM EDT Narrative 01/01/2025 5:59 PM EDT [address] [address] [address] Scan Report Signed Patient: Satya Vyas MR #: [id number] : 1975 Acct:[id number] Age/Sex: 49 / M ADM Date: 01/01/25 Loc: HO.ED Attending Dr: Ordering Physician: Nathaly Foley Date of Service: 01/01/25 Procedure(s): CT head/brain wo IV con Accession Number(s): [id number] cc: Vince River MD; Nathaly Foley Report Number: [id number]: Total DLP = 665.00 mGy-cm CLINICAL HISTORY: DIAZ hypertensive blurred vision CT head without contrast Comparison: MR - MR HEAD/BRAIN WO CON - 09/03/24 19:[address]/NH/SR - CT HEAD/BRAIN WO IV CON - 04/22/24 13:25 EST Findings: No intra-axial mass, midline shift, hydrocephalus, or acute hemorrhage. No significant atrophy-like change or white matter disease. Again noted is xgqt-zmllhmc-dwen-right white matter hypoattenuation in the bilateral occipital [...] in OV> 01/01/251757 DD/ 56 TD/TT: 01/01/251756 Aurist: Procedure Note Donotuseinterpreter, Image - 08/23/[address] [address] [address] Scan Report Signed Patient: Satya Vyas [facility] #: [id number] : 1975Acct:[id number] Age/Sex: 49 / MADM Date: 01/01/25 Loc: HO.ED Attending Dr: Ordering Physician: Nathaly Foley Date of Service: 01/01/25 Procedure(s): CT head/brain wo IV con Accession Number(s): [id number] cc: Vince River MD; Nathaly Foley Report Number: [id number]: Total DLP = 665.00 mGy-cm CLINICAL HISTORY: DIAZ hypertensive blurred vision CT head without contrast Comparison: MR - MR HEAD/BRAIN WO CON - 09/03/24 19:[address]/NH/SR - CT HEAD/BRAIN WO IV CON - 04/22/24 13:25 EST Findings: No intra-axial mass, midline shift, hydrocephalus, or acute hemorrhage. No significant atrophy-like change or white matter disease. Again noted is tokj-vglrnml-cuye-right white matter hypoattenuation in the bilateral occipital [...] in OV> 01/01/251757 DD/ 56 TD/TT: 01/01/251756 Aurist: [facility] External Provider IMG CT PROCEDURES Final Result * (ABNORMAL) CBC auto differential (01/01/2025 4:08 PM EDT) White Blood Count 5.8 4.8 - 10.8 X10*3/uL [facility] Red Blood Count 4.63 4.60 - 5.80 X10*6/uL [facility] Hemoglobin 12.2(L) 14.0 - 18.0 g/dl [facility] Hematocrit 36.7(L) 42.0 - 52.0 % [facility] Mean Corpuscular Volume 79.3(L) 80.0 - 98.0 fL [facility] Mean Corpuscular Hemoglobin 26.3(L) 27.0 - 33.0 pg [facility] Mean Corpuscular HGB Conc 33.2 31.0 - 36.0 g/dl [facility] Red Cell Distribution Width 13.2 11.0 - 16.0 % [facility] Platelet Count 300 160 - 400 X10*3/uL [facility] Mean Platelet Volume 9.4 9.4 - 12.4 fL [facility] Neutrophils Percent Auto 69.8 45 - 73 % [facility] Imm Gran Pct Auto 0.2 0.0 - 0.4 % [facility] Lymphocytes Percent Auto 19.0(L) 20 - 40 % [facility] Monocytes Percent Auto 6.0 2 - 11 % [facility] Eosinophils Percent Auto 4.1(H) 0 - 4 % [facility] Basophils Percent Auto 0.9 0 - 2 % [facility] NRBC Pct Auto 0.0 0.0 - 0.2 /100WBC [facility] Neutrophils Absolute Auto 4.0 2.0 - 8.3 x10*3/uL [facility] Imm Gran Abs Auto 0.01 0.00 - 0.03 X10*3/uL [facility] Lymphocytes Absolute Auto 1.1(L) 1.2 - 4.9 X10*3/uL [facility] Monocytes Absolute Auto 0.4 0.1 - 1.2 X10*3/uL [facility] Eosinophils Absolute Auto 0.2 0.0 - 0.4 X10*3/uL [facility] Basophils Absolute Auto 0.1 0.0 - 0.2 X10*3/uL [facility] NRBC Abs Auto 0.000 0.0 - 0.012 X10*3/uL [facility] 01/01/2025 4:08 PM EDT 01/01/2025 4:12 PM EDT Generic External Data Provider LAB BLOOD ORDERAB LES Final Result Performing Organization Address [facility] Co de Phone Number [facility] [address] [place] [phone] * Magnesium (01/01/2025 4:08 PM EDT) Pathologist [facility] Magnesium 1.9 1.6 - 2.6 mg/dL [facility] 01/01/2025 4:08 PM EDT 01/01/2025 4:12 PM EDT Generic External Data Provider LAB BLOOD ORDERAB LES Final Result Performing Organization Address [facility] de Phone Number [facility] [address] [place] [phone] * (ABNORMAL) Comprehensive Metabolic Panel (01/01/2025 4:08 PM EDT) Pathologist [facility] Sodium 137 135 - 145 mmol/L [facility] Potassium 4.3 3.3 - 5.1 mmol/L [facility] Chloride 106 96 - 108 mmol/L [facility] Carbon Dioxide 24 22 - 29 mmol/L [facility] Anion Gap 11(L) 12 - 20 [facility] Urea Nitrogen (BUN) 17(H) 9 - 16 mg/dL [facility] Creatinine, Serum 1.04 0.5 - 1.4 mg/dL [facility] Creatinine Clr Calc Pharmacy 86.9 [facility] Comment:eGFR (calculated fro m the MDRD study equation) and eCrCl(calculated from the Cockcroft-Gault equation) are based ondifferent parameters and may not yield comparable results.If eCrCl result is absurd, please check patient'sheight/weight. Estimated Glomerular Filt Rate >60 [facility] Comment:Chronic Kidney Disea se: Estimated GFR < 60 mL/min/1.33j7Pzptvc Kidney Disease: Estimated GFR < 15 mL/min/1.73m2 Glucose 465(HH) 60 - 115 mg/dL [facility] Comment:Critical value for t est(s): GLUR Results called to and readback by: LLUVIA Person calling: KUSFDate: [id number] Calcium 8.7 8.4 - 10.2 mg/dL [facility] Bilirubin, Total 1.3(H) 0.0 - 1.0 mg/dL [facility] Aspartate Amino Transferase 14 5 - 37 U/L [facility] Alanine Aminotransferase 10 0 - 40 U/L [facility] Total Protein 5.9(L) 6.5 - 8.0 g/dL [facility] Albumin Level 3.2(L) 3.5 - 5.0 g/dL [facility] Alkaline Phosphatase 66 39 - 117 U/L [facility] 01/01/2025 4:08 PM EDT 01/01/2025 4:12 PM EDT us Generic External Data Provider LAB BLOOD ORDERAB LES Final Result [facility] [address] [place] [phone] * (ABNORMAL) Lipid Panel, Standard (12/11/2024 9:13 AM EDT) Triglycerides 108 <150 mg/dL [facility] Comment:Desirable Triglyceri de: less than 150 mg/dLBorderline High Triglyceride 150-199 mg/dLHigh Triglyceride: 200-499 mg/dLVery High Triglyceride: greater than or equal to 5OO mg/dL Cholesterol 225(H) <200 mg/dL [facility] Comment:Desirable Cholestero l: less than 200 mg/dLBorderline High Cholesterol: 200-239 mg/dLHigh Cholesterol: greater than 239 mg/dL LDL Cholesterol Calculated 161(H) <100 mg/dL [facility] Comment:Desirable LDL: less than 100 mg/dLNear Optimal/Above Optimal LDL: 110- 129 mg/dLBorderline High LDL: 130-159 mg/dLHigh LDL: 160-189 mg/dLVery High LDL: greater than or equal to 190 mg/dL HDL Cholesterol 43 >40 mg/dL [facility] Comment:Desirable HDL: great er than 40 mg/dL Note: This HDL assay may give artificially low results in patients with liver disease. 12/11/2024 9:13 AM EDT 12/11/2024 9:13 AM EDT Generic External Data Provider LAB BLOOD ORDERAB LES Final Result Performing Organization Address [facility] Co de Phone Number [facility] [address] [place] [phone] * (ABNORMAL) Albumin, Random Urine W/Creatinine (12/11/2024 9:12 AM EDT) Creatinine, Urine 106.98 mg/dL [facility] Microalbumin Urine >2,000.0 mg/L [facility] Microalbum Creatinine Ratio Ur 1,869.5(H ) <30 ug/mg cr [facility] Comment:Albumin/Creatinine R atio Reference Ranges: Normal: < 30 ug/mg creatinine Microalbuminuria: 30 - 300 ug/mg creatinineClinical Albuminuria: > 300 ug/mg creatinine 12/11/2024 9:12 AM EDT 12/11/2024 9:50 AM EDT us Generic External Data Provider LAB URINE ORDERAB LES Final Result Performing Organization Address [facility]/ZIP Co de Phone Number [facility] [address] [place] [phone] * HIV-1/2 Antigen and Antibodies, Fourth Generation, with Reflexes (02/02/2024 4:42 PM EDT) HIV AB/AG Nonreactive Nonreactive [facility] Comment:HIV-1 p24 Ag and/or HIV-1/HIV-2 Ab not detected.A test result that is nonreactive does not exclude thepossibility of exposure to or infection with HIV-1 and/orHIV-2. Nonreactive results in this assay for individualswith prior exposure to HIV-1 and/or HIV-2 may be due toantigen and antibody levels that are below the limit ofdetection of this assay.The [facility] HIV Ag/Ab Combo assay result andsupplemental assay results should be interpreted inconjunction with the patient's clinical presentation,history and other laboratory results. If the results areinconsistent with clinical evidence, additional testing issuggested to confirm the result. Blood Venous blood specimen / Unknown 02/02/2024 4:42 PM EDT 02/02/2024 6:10 PM EDT Marlin Curiel NP LAB BLOOD ORDERABLES Final Resul t [facility] [address] [place] [address] [phone] * Hm Colonoscopy (04/10/2022) [facility] Colonoscopy Normal Normal Narrative Marlene Torres - 04/10/2022 Recommended 3 years . see external hospital admission note on 04/10/2022 Historical Provider HEALTH MAINTENANCE Final Result * HEPATITIS C AB W/REFL TO HCV RNA, QN, PCR (08/23/2021 10:46 AM EDT) [facility] HEPATITIS C ANTIBODY NON-REACT [facility] NON-REACT [facility] INDEX 0.01 <1.00 [facility] Comment: HCV antibody was non-reactive. There is no laboratory evidence of HCV infection. In most cases, no further action is required. However, if recent HCV exposure is suspected, a test for HCV RNA (test code 05299) is suggested. For additional information please refer to http://education.Acrolinx/faq/CDG55c8 (This link is being provided for informational/ educational purposes only.) 08/23/2021 10:4 6 AM EDT Abby Bell NP HISTORICAL/NON ORDERABLE LABS Final Result [facility] [address] from Last 3 Months or Most Recently Relevant to Health Maintenance Insurance [facility] 3 Care Teams Director Of Curriculum Relationship Specialty Start Date End Date Vince Maya MD [address] [place] [address] PCP - General Internal Medicine 12/20/16
--- OUTSIDE RECORDS SUMMARY | 2025-03-18 16:07 | XMS_ITS | Encounter Summary ---
Author Organization [employer] Address [address] [facility] 7t [place] [address] Care Team Providers Care Surface Grinder Tender Name Role Phone Vince Maya MD Primary Care Provide r Melanie Reyes PharmD Unavailable [phone] Reason for Visit * Reason Comments Med Refill Encounter Details Date Type Department Care Team ([facility] Contact Info) Description 12/11/2023 Refill [facility] [address] [place], [place] [phone] Holly Singh MD [address] [place], [place] [phone] Social History Tobacco Use Types Packs/Day Years [...] the past 12 months, has t he Likewise Software, gas, oil or water company threatened to [...] 04/26/2025 11:30 AM EST Office Visit [facility] [address] [place] [address] Vince Maya MD [address] [place] [address] documented as of this encounter Visit Diagnoses Not on filedocumented in this encounter Additional Health Concerns Assessment Noted Time PHQ-9 Depression Total Score: 5 11/04/19 24 1:48 PM EDT documented as of this encounter Care Teams Surface Grinder Tender Relationship Specialty Start Date End Date Vince Maya MD [address] [place] [phone] PCP - General Internal Medicine 12/20/16 Melanie Reyes PharmD [address] [place] [address] Pharmacist Internal Medicine 06/15/24 03/08/25 documented as of this encounter
--- OUTSIDE RECORDS SUMMARY | 2025-03-18 16:07 | XMS_ITS | Encounter Summary ---
Author Organization [id number] Address [address] [facility] 7t [place] [address] Care Team Providers Care Certified Welder Name Role Phone Vince Maya MD Primary Care Provide r Melanie Reyes PharmD Unavailable [phone] Reason for Visit * Reason Comments Med Refill Encounter Details Date Type Department Care Team ([facility] Contact Info) Description 03/08/2024 Refill [facility] [address] [place], [place] [phone] Vince Maya MD [address] [place] [address] Social History Tobacco Use Types Packs/Day Years [...] the past 12 months, has t he e(ye)BRAIN, gas, oil or water company threatened to [...] Description 04/26/2025 11:30 AM EST Office Visit [facility] [address] [place] [phone] Vince Maya MD [address] [place] [phone] documented as of this encounter Visit Diagnoses Not on filedocumented in this encounter Additional Health Concerns Assessment Noted Time PHQ-9 Depression Total Score: 5 11/04/19 24 1:48 PM EDT documented as of this encounter Care Teams Certified Welder Relationship Specialty Start Date End Date Vince Maya MD [address] [place] [phone] PCP - General Internal Medicine 12/20/16 Melanie Reyes PharmD [address] [place] [phone] Pharmacist Internal Medicine 06/15/24 03/08/25 documented as of this encounter
--- OUTSIDE RECORDS SUMMARY | 2025-03-18 16:07 | XMS_ITS | Encounter Summary ---
Author Organization [facility] Address [address] [place] [address] 7t [place] [address] Care Team Providers Care Hospital Librarian Name Role Phone Vince Maya MD Primary Care Provide r Melanie Reyes PharmD Unavailable [phone] Encounter Details Date Type Department Care Team (Late st Contact Info) Description 03/29/2022 Abstract [facility] [address] [place] [address] [phone] Vince Maya MD [address] [place] [address] [phone] Social History Tobacco Use Types Packs/Day Years [...] Description 04/26/2025 11:30 AM EST Office Visit [facility] [address] [place] [address] [phone] Vince Maya MD [address] [place], [place] [phone] documented as of this encounter Procedures Procedure Name Priority Date/Time Associated Diagnosis Comments HEMOGLOBIN A1C Routine 12/04/2021 LIPID PANEL, STANDARD Routine 08/23/2021 documented in this encounter Results * (ABNORMAL) Hemoglobin A1c (12/04/2021) Hemoglobin A1C 8.8(A) 4.0 - 6.0 % Blood Venous blood specimen / Unknown [facility] Provider LAB BLOOD ORDERABLES [place] l Result * (ABNORMAL) Lipid Panel, Standard (08/23/2021) LDL HDL Ratio 4.6 Triglycerides 121 40 - 160 mg/dL Cholesterol 227(A) 0 - 200 mg/dL HDL Cholesterol 49 35 - 70 mg/dL LDL Cholesterol 154 mg/dL Blood Venous blood specimen / Unknown [facility] Provider LAB BLOOD ORDERABLES [place] l Result documented in this encounter Visit Diagnoses Not on filedocumented in this encounter Care Teams Hospital Librarian Relationship Specialty Start Date End Date Vince Maya MD [address] [place] [address] PCP - General Internal Medicine 12/20/16 Melanie Reyes PharmD [address] [place] [address] Pharmacist Internal Medicine 06/15/24 03/08/25 documented as of this encounter
--- OUTSIDE RECORDS SUMMARY | 2025-03-18 16:07 | XMS_ITS | Clinical Summary ---
Author Organization [facility] Address [address] [place] [address] Care Team Providers Care Science Interpreter Name Role Phone Pcp, No Primary Care Provider Unavailabl e Unknown Unavailable Artie Vivas DO Unavailable Allergies No known active allergies Medications No known medications Encounters Date Type Department Care Team Description 01/04/2025 11:37 AM EDT - 01/04/2025 3:48 PM EDT Emergency [facility] Emergency Department [address] [place] [phone] Marquis Hodges MD Migraine (Primary Dx) Discharge [...] 50+ (1 of 1 - PCV) 01/13/2024 RSV Vaccine 50 years and old er and Patients (1 - Risk 50-74 years 1-dose series) 01/13/2024 Zoster (Shingles) Vaccine (1 of 2) [...] or edematous territorial infarction. Marquis Hodges MD IMG CT ORDERABLES Fin al Result * (ABNORMAL) POCT Glucose, Fingerstick (01/04/2025 11:44 AM EDT) POC Glucose 164(H) 65 - 99 mg/dL 01/04/2025 11:44 AM EDT Blood specimen / Unknown 01/04/2025 11:44 AM EDT 01/04/2025 11:45 AM EDT us Generic Provider POINT OF CARE TEST ORDERABLES F inal Result HOSPITAL LAB See Below from Last 3 Months Insurance MEDICAID OUT OF STATE [facility] Member Subscriber Plan / Payer (Ef fective 2021-Present) Name:Satya Reyez Relation to Subscriber:Self Name:Satya Reyez Payer ID:Not on file Group ID:Not on file Type:Not on file Address: [address] [place], [place] [phone] [employer] [facility] [phone] Care Teams Science Interpreter Relationship Specialty Start Date End Date Pcp, No PCP - General General Medicine 11/17/23 Unknown Unknow Provider Address 11/17/23 Artie Vivas DO [address] [facility] [address] [place] [address] 05/29/21
--- OUTSIDE RECORDS SUMMARY | 2025-03-18 16:07 | XMS_ITS | Encounter Summary ---
Author Organization [facility] Address [address] [place] [address] Care Team Providers Care Furniture Manager Name Role Phone Pcp, No Primary Care Provider Unavailabl e Encounter Details Date Type Department Care Team (Late st Contact Info) Description 10/28/2023 Procedure Pass [facility], Radiology (CT Scan) [address] [place] [address] [phone] Social History Tobacco Use Types Packs/Day Years [...] on filedocumented in this encounter Care Teams Furniture Manager Relationship Specialty Start Date End Date Pcp, No [place] [address] PCP - General 01/03/20 documented as of this encounter
--- OUTSIDE RECORDS SUMMARY | 2025-03-18 16:07 | XMS_ITS | Encounter Summary ---
Author Organization [facility] Address [address] [facility] 7t [place] [address] Care Team Providers Care Joint Creaser Name Role Phone Vince Maya MD Primary Care Provide r Melanie Reyes PharmD Unavailable [phone] Reason for Visit * Reason Comments Med Refill Encounter Details Date Type Department Care Team ([facility] Contact Info) Description 07/26/2022 Refill [facility] MED[facility]INE [address] [place], [place] [phone] Vince Maya MD [address] [place], [place] [phone] Mixed hyperlipidemia (Primary Dx); Primary hypertension Social [...] Description 04/26/2025 11:30 AM EST Office Visit [facility] MEDICINE [address] [place], [place] [phone] Vince Maya MD [address] [place] [address] documented as of this encounter Visit Diagnoses Diagnosis Mixed hyperlipidemia- Primary Primary hypertension Unspecified essential hypertension documented in this encounter Care Teams Joint Creaser Relationship Specialty Start Date End Date Vince Maya MD [address] [place] [address] [phone] PCP - General Internal Medicine 12/20/16 Melanie Reyes PharmD [address] [place] [address] [phone] Pharmacist Internal Medicine 06/15/24 03/08/25 documented as of this encounter
--- OUTSIDE RECORDS SUMMARY | 2025-03-18 16:07 | XMS_ITS | Encounter Summary ---
Author Organization [employer] Address [address] [facility] [address] 7[address] [place] [address] Care Team Providers Care Mold Worker Name Role Phone Vince Maya MD Primary Care Provide r Melanie Reyes PharmD Unavailable [phone] Encounter Details Date Type Department Care Team ([facility] st Contact Info) Description 06/06/2023 Telephone [facility] [address] [place], [place] [phone] Duran Barnett DDS [address] [place], [place] [phone] Social History Tobacco Use Types Packs/Day Years [...] Description 04/26/2025 11:30 AM EST Office Visit [facility] MEDICINE [address] [place] [address] Vince Maya MD [address] [place] [address] documented as of this encounter Visit Diagnoses Not on filedocumented in this encounter Additional Health Concerns Assessment Noted Time PHQ-9 Depression Total Score: 3 09/06/19 23 10:39 AM EDT documented as of this encounter Care Teams Mold Worker Relationship Specialty Start Date End Date Vince Maya MD [address] [place] [phone] PCP - General Internal Medicine 12/20/16 Melanie Reyes PharmD [address] [place] [address] Pharmacist Internal Medicine 06/15/24 03/08/25 documented as of this encounter
--- OUTSIDE RECORDS SUMMARY | 2025-03-18 16:07 | XMS_ITS | Encounter Summary ---
Author Organization [employer] Address [address] [facility] [address]t [place] [address] Care Team Providers Care Shingle Catcher Name Role Phone Vince Maya MD Primary Care Provide r Melanie Reyes PharmD Unavailable [phone] Reason for Visit * Reason Comments Med Refill Encounter Details Date Type Department Care Team ([facility] st Contact Info) Description 09/02/2023 Refill [facility] MED[facility]INE [address] [place], [place] [phone] Vince Maya MD [address] [place] [address] Primary hypertension Social History Tobacco Use Types [...] [facility] [address] [place] [address] Vince Maya MD [address] [place] [address] documented as of this encounter Visit Diagnoses Diagnosis Primary hypertension Unspecified essential hypertension documented in this encounter Additional Health Concerns Assessment Noted Time PHQ-9 Depression Total Score: 3 09/06/19 10:39 AM EDT documented as of this encounter Care Teams Shingle Catcher Relationship Specialty Start Date End Date Vince Maya MD [address] [place] [phone] PCP - General Internal Medicine 12/20/16 Melanie Reyes PharmD [address] [place] [phone] Pharmacist Internal Medicine 06/15/24 03/08/25 documented as of this encounter
--- OUTSIDE RECORDS SUMMARY | 2025-03-18 16:07 | XMS_ITS | Clinical Summary ---
Author Organization [employer] Address [address] [place] [address] Care Team Providers Care Jewelry Mechanic Name Role Phone Pcp, No Primary Care [...] this topic Insurance MEDICAID OUT-STATE Care Teams Jewelry Mechanic Relationship Specialty Start Date End Date Pcp, No No PCP On File [place] Garcia [id number] PCP - General 01/03/20
== END 2025-03-18 15:23 | disposition home or self-care (01) ==
LOC: HO.ENCR 14:32
PROVIDERS: PCP Internal Medicine; Visit Provider Physician Assistant Medical
DX: E11.65 Type 2 diabetes mellitus with hyperglycemia (principal); Z79.4 Long term (current) use of insulin; E11.3593 Type 2 diabetes mellitus with proliferative diabetic retinopathy without macular edema, bilateral; N18.31 Chronic kidney disease, stage 3a; E11.29 Type 2 diabetes mellitus with other diabetic kidney complication; R80.9 Proteinuria, unspecified; I10 Essential (primary) hypertension; E78.00 Pure hypercholesterolemia, unspecified

== ENCOUNTER → 2025-03-18 14:31 | Outpatient (BNVA) | payer OTHER, SELFPAY | PROVIDERS: PCP Internal Medicine; Visit Provider Physician Assistant Medical | DX: E11.65 Type 2 diabetes mellitus with hyperglycemia (principal); E11.22 Type 2 diabetes mellitus with diabetic chronic kidney disease; E11.3593 Type 2 diabetes mellitus with proliferative diabetic retinopathy without macular edema, bilateral; E11.29 Type 2 diabetes mellitus with other diabetic kidney complication; R80.9 Proteinuria, unspecified; N18.31 Chronic kidney disease, stage 3a; E78.00 Pure hypercholesterolemia, unspecified; Z79.4 Long term (current) use of insulin; Z83.3 Family history of diabetes mellitus | CPT/HCPCS: 81002; 82947; 99212 ==

== ENCOUNTER 2025-04-29 15:23 | Outpatient (AMB) | payer OTHER, SELFPAY ==
--- NOTE | 2025-04-29 15:33 | A.OFFVIS_ITS ---
Vital Signs 3 04/29/25 15:34 Height 5 ft 7 in Weight 207 lb 3.752 oz BMI 32.5 BP 138/84 Blood Pressure Location Rt brachial Position Sitting Pulse 99 Pulse Source Pulse Oximeter Pulse Oximetry (%) 97 Oxygen Delivery Method Room Air Intake Visit Reasons: Type 2 diabetes Intake Note: Patient present today for T2DM follow up. Last Diabetic Eye exam: Patient had injection on the right eye today, left eye is in April 2025. Last Podiatry Visit: Does not see a Disability Insurance Hearing Officer Most Recent HgA1C: 11.2%, 02/15/2025 Random Glucose: 305 mg/dL L Stripper Color Required: No Stripper Color Name: CAROL Moss/NEGRITO TABARES Information Interpreted: non-clinical & clinical Accompanied by: Self / Same As Patient Allergies No Known Allergies Allergy (Verified 04/29/25 15:42) HPI Comments Details: This is a 50-year-old male with a past medical history of hypertension, endocarditis, tubular adenoma, CKD 3a, diabetic retinopathy and palpitations presenting for diabetic management. He was diagnosed with Type II diabetes more than 12.5 years ago. He endorses a family history of Type II diabetes (mother, father, uncle). He is moving to [place] in July. Reviewed CGM report. G SC 11.5% Average glucose 343 Very high 86% High 8% Target range 6% 0% low. Patient does report he had 1 low blood sugar overnight in the 60s. Treated with glucose tablets. Hemoglobin A1c 11.2% 02/15/2025 down from 14% 10/22/2024. No history of DKA. Lab proven type 2 diabetes. Current medication regimen: Lantus 74 units at bedtime , lispro 18 units before meals, metformin ER 1000 mg 2 tablets twice daily, Trulicity 3 mg weekly. He has been out of Trulicity for 2 weeks. We were switching to Mounjaro, but it requires insurance appeal, and he needed to sign the authorization for the appeal today. Never restarted the Jardiance. Past meds: Previously on Jardiance. Denies side effects. He saw the simulation educator. Cequr appeal was denied. He also saw the dietitian. Microvascular complications: neuropathy, nephropathy (CKD and microalbuminuria- followed by nephrology), Bilateral retinopathy ([facility]) Macrovascular complications: none Hypertension: treated with amlodipine 5 mg, hydralazine 25 mg b.i.d., hydrochlorothiazide 12.5 mg daily, losartan 50 mg daily YARITZA inhibitor discontinued in the past due to PRANEETH. Hyperlipidemia: treated with atorvastatin 40 mg. Has not been compliant with med. ROS: Constitutional: No weight loss, fevers, chills or fatigue Eyes: Denies vision loss or vision changes Respiratory: No shortness of breath or cough Cardiovascular: No chest pain, chest pressure or chest discomfort. No palpitations or pedal edema. Gastrointestinal: No anorexia, nausea, vomiting or diarrhea. No abdominal pain Neurologic: Denies confusion, numbness, tingling, weakness, seizures or tremors Skin: No wounds or ulcers. Endocrine: See HPI Physical exam: Constitutional: Alert, in no distress. Head: Normocephalic. Neck: Supple, Full range of motion. No lymphadenopathy. No palpable thyroid masses. Respiratory: Clear to auscultation. Cardiovascular: S1 S2 regular. No murmurs. Extremities: No edema PFSH Medical History Pure hypercholesterolemia Diabetes mellitus with microalbuminuria CKD stage 3a, GFR 45-59 ml/min Proliferative diabetic retinopathy of both eyes Type 2 diabetes mellitus with hyperglycemia Tubular adenoma Elevated cholesterol HTN (hypertension) Endocarditis Diabetes Surgical History Hx of colonoscopy History of esophagogastroduodenoscopy (EGD) H/O eye surgery Family History Father No problems noted. Mother No problems noted. Paternal Uncle Bone cancer Paternal Uncle Prostate cancer Paternal Uncle Lung cancer Paternal Uncle Heart attack Throat cancer Social History Alcohol intake: never Patient Tobacco Use Status: Current everyday Tobacco user Physical Exam Vital Signs: Last Vital Signs Pulse 99 04/29/25 15:34 BP 138/84 04/29/25 15:34 Pulse Ox 97 04/29/25 15:34 Oxygen Delivery Method Room Air 04/29/25 15:34 BMI result Body Mass Index 32.5 Results Reviewed Results Reviewed: Laboratory Last Values Glucose (Clinic) 305 mg/dL (60-115) H 04/29/25 15:37 Laboratory Tests 11/08/23 05/07/24 12/11/24 08:12 11:49 09:12 Creatinine Estimated GFR AST ALT B-Natriuretic Peptide < 10 Triglycerides 101 LDL Cholesterol, Calc 108 H Cholesterol HDL Cholesterol 44 Vitamin B12 TSH 0.58 Urine Creatinine 106.98 Urine Microalbumin > 2000.0 Microalb/Creat Ratio 1869.5 H 12/11/24 01/01/25 09:13 16:08 Creatinine 1.04 Estimated GFR > 60 AST 14 ALT 10 B-Natriuretic Peptide Triglycerides 108 LDL Cholesterol, Calc 161 H Cholesterol 225 H HDL Cholesterol 43 Vitamin B12 440 TSH 0.61 Urine Creatinine Urine Microalbumin Microalb/Creat Ratio Assessment & Plan Assessment & Plan (1) Type 2 diabetes mellitus with hyperglycemia: Code(s): E11.65 - Type 2 diabetes mellitus with hyperglycemia Category: Medical Qualifiers: Diabetes mellitus assisted insulin use: with assisted use Qualified Code(s): E11.65 - Type 2 diabetes mellitus with hyperglycemia; Z79.4 - custodial (current) use of insulin (2) Proliferative diabetic retinopathy of both eyes: Code(s): E11.3593 - Type 2 diabetes mellitus with proliferative diabetic retinopathy without macular edema, bilateral Category: Medical Qualifiers: Diabetes mellitus type: type 2 (3) CKD stage 3a, GFR 45-59 ml/min: Code(s): N18.31 - Chronic kidney disease, stage 3a Category: Medical (4) Diabetes mellitus with microalbuminuria: Code(s): E11.29 - Type 2 diabetes mellitus with other diabetic kidney complication; R80.9 - Proteinuria, unspecified Category: Medical (5) HTN (hypertension): Code(s): I10 - Essential (primary) hypertension Category: Medical Qualifiers: Hypertension type: primary hypertension Qualified Code(s): I10 - Essential (primary) hypertension Plan: Continue current regimen. He is on an Arb for renal protection. (6) Pure hypercholesterolemia: Code(s): E78.00 - Pure hypercholesterolemia, unspecified Category: Medical Plan: Check lipids. Recommended Mediterranean diet and I stressed the importance of compliance with atorvastatin. Plan In summary this is a 50-year-old male with chronically uncontrolled type 2 diabetes. Mojeanettero-awaiting insurance appeal. He signed labor relations representative form today so this can be submitted now. In the meantime restart Trulicity and increase to 4.5 mg weekly. Continue lispro to 18 units 3 times daily before meals. He has struggled with some noncompliance with lispro. Reinforced the importance of taking his insulin. Switch Lantus to Tresiba and increase to 80 units nightly. Continue metformin 1000 mg twice a day. GMI is now back above 10% so I am hesitant to restart the Jardiance like we had planned due to risk of potential genitourinary infections. Advised patient to hold off on this. He did not pick it up from the pharmacy. We reviewed complications of uncontrolled diabetes and lifestyle modifications in detail. Declined referral back to dietitian. The patient has a prescription for ketone urine strips and instructions and information on DKA. Reviewed treatment of hypoglycemia and advised not to drive if blood sugar is low or he has symptoms of low blood sugar or does not have a way to monitor his blood sugar accurately. Follow up in 3 weeks with endocrinology MD due to high A1c and poor glycemic control. Orders: Orders 2 Aspartate Amino Transferase Today E11.65 - Type 2 diabetes mellitus with hyperglycemia, Z79.4 - custodial (current) use of insulin Lipid Panel Today E11.65 - Type 2 diabetes mellitus with hyperglycemia, E78.5 - Hyperlipidemia, unspecified, Z79.4 - intermediate card tender (current) use of insulin Vitamin B12 Today E11.65 - Type 2 diabetes mellitus with hyperglycemia, Z79.4 - custodial (current) use of insulin, Z91.89 - Other specified personal risk factors, not elsewhere classified TSH reflex Free T4 Today E11.65 - Type 2 diabetes mellitus with hyperglycemia, Z79.4 - intermediate card tender (current) use of insulin Microalbumin, Random (w Creat) Today E11.65 - Type 2 diabetes mellitus with hyperglycemia, E11.9 - Type 2 diabetes mellitus without complications, Z79.4 - intermediate card tender (current) use of insulin Creatinine Today E11.65 - Type 2 diabetes mellitus with hyperglycemia, E11.9 - Type 2 diabetes mellitus without complications, Z79.4 - intermediate card tender (current) use of insulin Alanine Aminotransferase Today E11.65 - Type 2 diabetes mellitus with hyperglycemia, R79.89 - Other specified abnormal findings of blood chemistry, Z79.4 - custodial (current) use of insulin Medications: New 2 dulaglutide (Trulicity) 4.5 mg (0.5 mL) subcut QWEEK 2 mL 0RF Tresiba FlexTouch U-200 (insulin degludec) 80 units (0.4 mL) subcut BEDTIME 12 mL 3RF 30 days NS Discontinued 2 insulin lispro Discontinued Reason: Doctor's Order 14 units (0.14 mL) subcut TID 15 mL 5RF empagliflozin (Jardiance) Discontinued Reason: Doctor's Order 10 mg PO QAM 90 tabs 0RF insulin glargine (Lantus Solostar U-100 Insulin) Discontinued Reason: Doctor's Order 74 units (0.74 mL) subcut BEDTIME 15 mL 5RF Patient Instructions: Switch Lantus to Tresiba and take 80 units nightly. Increase Trulicity to 4.5 mg weekly while we are waiting to hear from insurance about Moujaro appeal. Continue lispro to 18 units 3 times daily before meals. Continue metformin 1000 mg twice a day. If you experience low blood sugar, treat this by eating a chewable fruit candy like skittles or jelly beans (about 8 pieces), 4 ounces (1/2 cup) of fruit juice (not diet), 1 tablespoon of honey or 4 glucose tablets. If your blood sugar is under 50, take double the amount of one of the above. Recheck your blood sugar in 15 minutes. Cambie Lantus por Tresiba y administre 80 unidades por la noche. Reinicie el tratamiento con Trulicity 4.5 mg semanalmente mientras esperamos la respuesta del seguro sobre la apelaci?n de Mounjaro. Contin?e con lispro, 18 unidades 3 veces al d?a antes de las comidas. Contin?e con metformina 1000 mg dos veces al d?a. Si experimenta hipoglucemia, tr?saúl consumiendo un caramelo de frutas masticable, nimco Skittles o gomitas (aproximadamente 8 unidades), 120 ml (1/2 taza) de jugo de frutas (no diet?latirce), 1 cucharada de miel o 4 tabletas de glucosa. Si etienne nivel de az?car en isidro es inferior a 50, duplique la cantidad de cualquiera de las opciones anteriores. Vuelva a medir etienne nivel de az?car en isidro en 15 minutos. Coding Level of Care Code Est Pt Level 5 (79235) Add On Problem Visit Only Diagnoses Type 2 diabetes mellitus with hyperglycemia, with long-term current use of insulin E11.65; Z79.4 Diabetes mellitus medical terminologist insulin use: with medical terminologist use Proliferative diabetic retinopathy of both eyes E11.3593 Diabetes mellitus type: type 2 CKD stage 3a, GFR 45-59 ml/min N18.31 Diabetes mellitus with microalbuminuria E11.29; R80.9 Primary hypertension I10 Hypertension type: primary hypertension Pure hypercholesterolemia E78.00 Time Spent (min) 46 Comment Direct patient care, completing documentation
[2025-04-29 15:34] VITALS: BP 138/84; PULSE 99; O2SAT 97; BMI 32.5
[2025-04-29 15:42] LABS: Glucose, Whole Blood 305 mg/dL (60-115)
--- OUTSIDE RECORDS SUMMARY | 2025-04-29 16:31 | XMS_ITS | Encounter Summary ---
Author Organization [employer] Address [address] [place] [address] Care Team Providers Care Machine Installer Name Role Phone Vince Maya MD Primary Care Provide r Melanie Reyes PharmD Unavailable [phone] Reason for Visit * Reason Comments Med Refill Encounter Details Date Type Department Care Team ([facility] st Contact Info) Description 09/02/2023 Refill [facility] [address] [place], [place] [phone] Vince Maya MD [address] [place] [address] Primary hypertension Social History Tobacco Use Types [...] documented as of this encounter Care Teams Machine Installer Relationship Specialty Start Date End Date Vince Maya MD [address] [place] [address] PCP - General Internal Medicine 12/20/16 Melanie Reyes PharmD [address] [place] [address] Pharmacist Internal Medicine 06/15/24 03/08/25 documented as of this encounter
--- OUTSIDE RECORDS SUMMARY | 2025-04-29 16:31 | XMS_ITS | Clinical Summary ---
Author Organization [facility] Address [address] [place] [id number] Care Team Providers Care Power Washer Name Role Phone Pcp, No Primary Care Provider Unavailabl e Unknown Unavailable Artie Vivas DO Unavailable [phone] Allergies No known active allergies Medications No known medications Social History Tobacco Use Types Packs/Day Years [...] Influenza Vaccine 12/10/2024 COVID-19 Vaccine (3 - season) 2025, 08/31/2020 HIV Screening Completed 02/02/2024 Insurance MEDICAID OUT OF [facility] Care Teams Power Washer Relationship Specialty Start Date End Date Pcp, No PCP - General General Medicine 11/17/23 Unknown Unknow Provider Address 11/17/23 Artie Vivas DO [address] [place] [address] [address] [place] [address] 05/29/21
--- OUTSIDE RECORDS SUMMARY | 2025-04-29 16:31 | XMS_ITS | Encounter Summary ---
Author Organization [facility] Address [address] [place] [address] Care Team Providers Care Coiled Coil Inspector Name Role Phone Pcp, No Primary Care Provider Unavailabl e Encounter Details Date Type Department Care Team (Late st Contact Info) Description 10/28/2023 Procedure Pass [facility], Radiology (CT Scan) [address] [place] [id number] Social History Tobacco Use Types Packs/Day Years [...] on filedocumented in this encounter Care Teams Coiled Coil Inspector Relationship Specialty Start Date End Date Pcp, [place] [address] PCP - General 01/03/20 documented as of this encounter
--- OUTSIDE RECORDS SUMMARY | 2025-04-29 16:31 | XMS_ITS | Encounter Summary ---
Author Organization [employer] Address [address] [place] [address] Care Team Providers Care Healthcare Recruiter Name Role Phone Vince Maya MD Primary Care Provide r Melanie Reyes PharmD Unavailable [phone] Reason for Visit * Reason Comments Med Refill Encounter Details Date Type Department Care Team ([facility] Contact Info) Description 12/11/[address] [facility] MEDICINE [address] [place], [place] [phone] Holly Singh MD [address] [place], [place] [phone] Social History Tobacco Use Types Packs/Day Years [...] the past 12 months, has t he [employer], gas, oil or water company threatened to [...] documented as of this encounter Care Teams Healthcare Recruiter Relationship Specialty Start Date End Date Vince Maya MD [address] [place] [address] PCP - General Internal Medicine 12/20/16 Melanie Reyes PharmD [address] [place] [address] Pharmacist Internal Medicine 06/15/24 03/08/25 documented as of this encounter
--- OUTSIDE RECORDS SUMMARY | 2025-04-29 16:31 | XMS_ITS | Encounter Summary ---
Author Organization [employer] Address [address] [place] [address] Care Team Providers Care Circle Cutting Saw Operator Name Role Phone Vince Maya MD Primary Care Provide r Melanie Reyes PharmD Unavailable [phone] Encounter Details Date Type Department Care Team ([facility] st Contact Info) Description 06/06/2023 Telephone [facility] [address] [place], [place] [phone] Duran Barnett DDS [address] [place], [place] [phone] Social History Tobacco Use Types Packs/Day Years [...] documented in this encounter Plan of Treatment Not on file documented as of this encounter Visit Diagnoses Not on filedocumented in this encounter Additional Health Concerns Assessment Noted Time PHQ-9 Depression Total Score: 3 09/06/19 10:39 AM EDT documented as of this encounter Care Teams Circle Cutting Saw Operator Relationship Specialty Start Date End Date Vince Maya MD [address] [place] [address] PCP - General Internal Medicine 12/20/16 Melanie Reyes PharmD [address] [place] [address] Pharmacist Internal Medicine 06/15/24 03/08/25 documented as of this encounter
--- OUTSIDE RECORDS SUMMARY | 2025-04-29 16:31 | XMS_ITS | Clinical Summary ---
Author Organization [employer] Address [address] [facility] 7t [place] [address] Care Team Providers Care Demonstrator Electric Gas Appliances Name Role Phone Vince Maya MD Primary [...] erectile dysfunction. 40 tablet 01/25/20 23 Active fluticasone (Flonase) 50 MCG/ACT nasal sprayIndications:Ear [...] by mouth before breakfast. 12/23/19 24 Active metFORMIN XR (Glucophage-XR) 500 MG [...] day. 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, with long-term current use of insulin (HCC) USE DIRECTED FOUR TIMES DAILY 100 each 10/20/19 25 Active hydroCHLOROthiazide (HYDRODiuril) 25 MG tabletIndications:Es sential [...] 15 mL 11/06/19 25 Active Continuous Glucose Machinist Helper (FreeStyle Mary 3 [place]) deviceIndications:Ty pe 2 diabetes mellitus with right [...] for CGM 2 each 11/06/19 25 Active Alcohol Swabs (Alcohol Prep) 70 % padsIndications: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 12/18/19 Active Trulicity 3 MG/0.5ML solution auto-injector 02/16/20 Active NovoLOG FLEXPEN 100 UNIT/ML pen 02/19/20 Active glucose blood (FreeStyle Precision Ajith Test) test strip Use to test blood sugar 3 times daily in case of CGM failure or extremes of BG 100 each 11 03/11/20 Active losartan (Cozaar) 50 MG tablet Take 1 tablet (50 mg) by mouth in the morning. 90 tablet 2 03/11/20 Active Active Problems Problem Noted Date Diagnosed [...] here for a follow up Seen at [facility] 01/04/2025 with c/o headaches Repeat Head CT [...] (03/23/2024 1:02 PM EST): According to patient's machine assistant Patient had colonoscopy in March of 2022 [...] under the care of [facility] with Tyshawn gabriella pt tells me he is doing well. [...] Endocrinology, last note 12/07/2024 being followed by milk pickup truck driver as well DM improving, although still uncontrolled [...] po daily and Trulicity 1.5 weekly . Extension Division Director prescribed Farxiga but was denied by insurance. He admits to not using the Novolog Insulin sliding scale He is not adhering to a Diabetic diet Hgb A1c 02/03/2025:11.8 from 12.7 from 15 Eye exam: Pt under the care of retinal specialist ([facility]) has diabetic retinopathy , per [...] Endocrinology, last note 05/07/2024, being followed by milk pickup truck driver as well last seen 06/2024 DM improving, although still uncontrolled due to poor adherence to medical treatment and diabetic diet. He did not bring his glucometer. He is supposed to be on a regimen of: Lantus 55 units sc q pm, Metformin ER 2 tabs 500 mg po BID, Januvia 100 mg po daily and Trulicity 0.75 weekly Extension Division Director prescribed Farxiga but was denied by insurance. He admits to not using the Novolog Insulin sliding scale He is not adhering to a Diabetic diet Hgb A1c 08/26/2024: 12.7 from 15 Eye exam: Pt under the care of retinal specialist ([facility]) has diabetic retinopathy , per [...] a follow up. He is enrolled in [facility] DM uncontrolled due to poor adherence to medical treatment. He did not bring his glucometer. He is supposed to be on a regimen of: Lantus 55 units sc q pm, Metformin ER 2 tabs 500 mg po BID, Januvia 100 mg po daily and Trulicity 0.75 weekly Extension Division Director prescribed Farxiga but was denied by insurance. He admits to not using the Novolog Insulin sliding scale He is back under the care of Endocrinology, last seen 05/07/2024 He is not adhering to a Diabetic diet Hgb A1c 03/23/2024: 15 Eye exam: Pt under the care of retinal specialist ([facility]) has diabetic retinopathy , per [...] missed previous appointments. He is enrolled in [facility] DM uncontrolled due to poor adherence to [...] tells me he is actually taking it. Extension Division Director prescribed Farxiga but was denied by insurance. He admits to not using the Novolog Insulin sliding scale No longer under the care of Endocrinology He is not adhering to a Diabetic diet Hgb A1c 03/23/2024: 15 Eye exam: Pt under the care of retinal specialist ([facility]) has diabetic retinopathy , per [...] on Farxiga 10 mg po daily by Extension Division Director He admits to not using the Novolog Insulin sliding scale No longer under the care of Endocrinology He reports he is trying to adhere to a Diabetic diet Hgb A1c 11/04/2023: 15 Eye exam: Pt under the care of retinal specialist ([facility] ) has diabetic retinopathy , Pt under the care of retinal specialist ([facility]) has diabetic retinopathy , per [...] Pt under the care of retinal specialist ([facility] ) has diabetic retinopathy , Pt under the care of retinal specialist ([facility]) has diabetic retinopathy , per [...] not taking care of himself Seen in [facility] earlier this month for hyperglycemia. He is [...] Pt under the care of retinal specialist ([facility] ) has diabetic retinopathy , Pt under the care of retinal specialist ([facility]) has diabetic retinopathy , per [...] f/u He tells me he was in [place] and while there he was not taking [...] Pt under the care of retinal specialist ([facility] ) has diabetic retinopathy , Pt under the care of retinal specialist ([facility]) has diabetic retinopathy , per [...] bertrand tells me he left his in [place] Pt advised to: adhere to diabetic diet [...] Pt under the care of retinal specialist ([facility] ) has diabetic retinopathy , Pt under the care of retinal specialist ([facility] ) has diabetic retinopathy , [...] feet on a daily basis F/u 3 [facility] Hemoglobin A1C Date Value Ref Range [...] Pt under the care of retinal specialist ([facility] ) has diabetic retinopathy , Pt under the care of retinal specialist ([facility] ) has diabetic retinopathy , [...] his meds regularly Plan: continue f/u with [facility] endocrinology Pt advised to: adhere [...] Encounters Date Type Department Care Team Description 04/29/2025 Orders Only GENERIC EXTERNAL DATA DEPARTMENT Provider, Generic External Data 04/18/2025 Telephone [facility] [address] [place] [address] Vince Maya MD Chart Prep 03/09/2025 Refill [facility] [address] [place] [address] Melanie Reyes PharmD 03/09/2025 Telephone [facility] [address] [place] [address] Melanie Reyes PharmChago 02/25/2025 Refill [facility] [address] [place] [address] Melanie Reyes PharmD 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, with long-term current use of insulin ([facility]) 02/03/2025 10:30 AM EDT Office Visit [facility] [address] [place] [address] Vince Maya MD 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 I have joann jenise 02/03/[address] you li [...] 02/03/2025 10:42 AM EDT Plan of Treatment Health Maintenance Due Date Last Done Comments CT Colonography 1974 Dental Oral Exam 1974 Dental Prophylaxis 1974 Dental X-Ray: Bitewings 1974 FIT DNA/Cologuard 1974 FIT 1974 FOBT 1974 Sigmoidoscopy 1974 Disability Screening 1974 Diabetes: Foot Exam 01/13/1984 Eye Exam 01/13/1984 Family Planning (PISQ) 1989 Pneumococcal Vaccine: 50+ Years (2 of 2 - PCV) 07/29/2008 07/30/2007 RSV Patients and Patients Aged 60 years or older (1 - Risk 50-74 years 1-dose series) 01/13/2024 Zoster Vaccines (1 of 2) 01/13/2024 SDOH Screening 11/03/2024 11/04/2023 DTaP/Tdap/Td Vaccines (2 - Td or Tdap) 11/07/2024 11/07/2014, 07/30/2007, 07/30/2007 COVID-19 Vaccine (4 - season) 2025 07/02/2021, 09/28/2020, 08/31/2020 Influenza [...] 02/03/2025 Dental X-Ray: Full Mouth 06/07/2026 06/06/2023 Hepatitis B Vaccines Completed 01/19/2008, 09/17/2007, 07/30/2007 [...] on patient's age to complete this topic Goals Goal Patient Goal Type Associated Problems Recent Progress Patient-Stated? Author Help patients manage their type 2 diabetes Care Plan Help patients manage their type 2 diabetes No Cyndi Isaacs MA Weekly blood pressure task Care Plan Weekly blood pressure task No Cyndi Isaacs MA Help patients manage their type 2 diabetes Care Plan Help patients manage their type 2 diabetes No Cyndi Isaacs MA Patient has diabetic eye disease Care Plan Patient has diabetic eye disease No Cyndi Isaacs MA Help patients manage their type 2 diabetes Care Plan Help patients manage their type 2 diabetes No Cyndi Isaacs MA Patient has chronic kidney disease Care Plan Patient has chronic kidney disease No Cyndi Isaacs MA Weekly blood pressure task Care Plan Weekly blood pressure task No Cyndi Isaacs MA Weekly blood pressure task Care Plan Weekly blood pressure task No Cyndi Isaacs MA Patient has diabetic eye disease Care Plan Patient has diabetic eye disease No Cyndi Isaacs MA Patient has diabetic eye disease Care Plan Patient has diabetic eye disease No Cyndi Isaacs MA Patient has chronic kidney disease Care Plan Patient has chronic kidney disease No Cyndi Isaacs MA Patient has chronic kidney disease Care Plan Patient has chronic kidney disease No Cyndi Isaacs MA Procedures Procedure Name Priority Date/Time Associated Diagnosis Comments GLUCOSE, WHOLE BLOOD Routine 04/29/2025 3:37 PM EST GLUCOSE, WHOLE BLOOD Routine 03/18/2025 3:18 PM EST GLUCOSE, WHOLE BLOOD Routine 03/18/2025 2:41 PM EST GLUCOSE, WHOLE BLOOD Routine 02/15/2025 2:01 PM EDT POCT GLYCATED HEMOGLOBIN, TOTAL Routine 02/03/2025 10:44 AM EDT 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 Pathologist [facility] Glucose, Whole Blood 305(H) 60 - 115 mg/dL [facility] Comment:METER #: [id number] Testing performed in the Endocrinology Department [address] , [address], [facility]. 04/29/2025 3:37 PM EST 04/29/2025 3:41 PM EST us Generic External Data Provider LAB BLOOD ORDERAB LES Final Result [facility] [address] [place] [phone] * (ABNORMAL) POCT Hgb A1c (02/03/2025 10:44 AM EDT) Pathologist [facility] Hemoglobin A1C 11.8(A) 4.0 - 5.7 % Blood 02/03/2025 10:4 4 AM EDT us Vince Thomas MD POINT OF CARE TEST EN TER/EDIT ORDERABLES Final Result * (ABNORMAL) POCT Glucose (02/03/2025 10:44 AM EDT) Glucose Blood, POC 387(A) 60 - 200 mg/dL QC Media Lot # [id number] Lot# Expiration Date ,[id number] Blood Capillary blood specimen / Unknown 02/03/2025 10:44 AM EDT us Vince Thomas MD POINT OF CARE TEST EN TER/EDIT ORDERABLES Final Result * (ABNORMAL) Lipid Panel, Standard (12/11/2024 9:13 AM EDT) Triglycerides 108 <150 mg/dL [facility] Comment:Desirable Triglyceri de: less than 150 mg/dLBorderline High Triglyceride 150-199 mg/dLHigh Triglyceride: 200-499 mg/dLVery High Triglyceride: greater than or equal to 5OO mg/dL Cholesterol 225(H) <200 mg/dL [facility] Comment:Desirable Cholestero l: less than 200 mg/dLBorderline High Cholesterol: 200-239 mg/dLHigh Cholesterol: greater than 239 mg/dL LDL Cholesterol Calculated 161(H) <100 mg/dL [facility] Comment:Desirable LDL: less than 100 mg/dLNear Optimal/Above Optimal LDL: 110- 129 mg/dLBorderline High LDL: 130-159 mg/dLHigh LDL: 160-189 mg/dLVery High LDL: greater than or equal to 190 mg/dL HDL Cholesterol 43 >40 mg/dL [facility] Comment:Desirable HDL: great er than 40 mg/dL Note: This HDL assay may give artificially low results in patients with liver disease. 12/11/2024 9:13 AM EDT 12/11/2024 9:13 AM EDT Generic External Data Provider LAB BLOOD ORDERAB LES Final Result Performing Organization Address [facility] Co de Phone Number [facility] [address] [place] [phone] * (ABNORMAL) Albumin, Random Urine W/Creatinine (12/11/2024 9:12 AM EDT) Creatinine, Urine 106.98 mg/dL [facility] Microalbumin Urine >2,000.0 mg/L [facility] Microalbum Creatinine Ratio Ur 1,869.5(H ) <30 ug/mg cr [facility] Comment:Albumin/Creatinine R atio Reference Ranges: Normal: < 30 ug/mg creatinine Microalbuminuria: 30 - 300 ug/mg creatinineClinical Albuminuria: > 300 ug/mg creatinine 12/11/2024 9:12 AM EDT 12/11/2024 9:50 AM EDT Generic External Data Provider LAB URINE ORDERAB LES Final Result Performing Organization Address [facility] Co de Phone Number [facility] [address] [place] [phone] * HIV-1/2 Antigen and Antibodies, Fourth Generation, with Reflexes (02/02/2024 4:42 PM EDT) HIV AB/AG Nonreactive Nonreactive [facility] Comment:HIV-1 p24 Ag and/or HIV-1/HIV-2 Ab not detected.A test result that is nonreactive does not exclude thepossibility of exposure to or infection with HIV-1 and/orHIV-2. Nonreactive results in this assay for individualswith prior exposure to HIV-1 and/or HIV-2 may be due toantigen and antibody levels that are below the limit ofdetection of this assay.The IncreaseCard HIV Ag/Ab Combo assay result andsupplemental assay results should be interpreted inconjunction with the patient's clinical presentation,history and other laboratory results. If the results areinconsistent with clinical evidence, additional testing issuggested to confirm the result. Blood Venous blood specimen / Unknown 02/02/2024 4:42 PM EDT 02/02/2024 6:10 PM EDT us Marlin Curiel ORACLE FUSION DEVELOPER LAB BLOOD ORDERABLES Final Resul t [facility] [address] [place] [phone] * Hm Colonoscopy (04/10/2022) Colonoscopy Normal Normal Narrative Marlene Torres - 04/10/2022 Recommended 3 years . see external hospital admission note on 04/10/2022 Historical Provider MD HEALTH MAINTENANCE Final Result * HEPATITIS C AB W/REFL TO HCV RNA, QN, PCR (08/23/2021 10:46 AM EDT) HEPATITIS C ANTIBODY NON-REACT [facility] NON-REACT [facility] INDEX 0.01 <1.00 [facility] Comment: HCV antibody was non-reactive. There is no laboratory evidence of HCV infection. In most cases, no further action is required. However, if recent HCV exposure is suspected, a test for HCV RNA (test code 76048) is suggested. For additional information please refer to [email or web address] Perfecta/faq/FJX30b8 (This link is being provided for informational/ educational purposes only.) 08/23/2021 10:4 6 AM EDT us Abby Bell NP HISTORICAL/NON ORDERABLE LABS Final Result Performing Organization Address City/[facility]/ZIP Co de Phone Number [facility] [address] from Last 3 Months or Most Recently Relevant to Health Maintenance Additional Health Concerns Active Problems Noted Date Diagnosed Date Help patients manage their type 2 diabetes 04/18 Weekly blood pressure task 04/18/2025 Help patients manage their type 2 diabetes 04/18 Patient has diabetic eye disease 04/18/2025 Help patients manage their type 2 diabetes 04/18 Patient has chronic kidney disease 04/18/2025 Weekly blood pressure task 04/18/2025 Weekly blood pressure task 04/18/2025 Patient has diabetic eye disease 04/18/2025 Patient has diabetic eye disease 04/18/2025 Patient has chronic kidney disease 04/18/2025 Patient has chronic kidney disease 04/18/2025 Insurance [facility] [place] [address] [place] [address] Care Teams Demonstrator [employer] Appliances Relationship Specialty Start Date End Date Vince Maya MD [address] [place] [address] PCP - General Internal Medicine 12/20/16
--- OUTSIDE RECORDS SUMMARY | 2025-04-29 16:31 | XMS_ITS | Encounter Summary ---
Author Organization [employer] Address [address] [facility] 7t [place] [address] Care Team Providers Care Diesel Engine Assembler Name Role Phone iVnce Maya MD Primary Care Provide r Melanie Reyes PharmD Unavailable [phone] Reason for Visit * Reason Comments Med Refill Encounter Details Date Type Department Care Team ([facility] st Contact Info) Description 07/26/2022 Refill [facility] [address] [place] [address] Vince Maya MD [address] [place] [address] Mixed hyperlipidemia (Primary Dx); Primary hypertension Social [...] hypertension documented in this encounter Care Teams Diesel Engine Assembler Relationship Specialty Start Date End Date Vince Maya MD [address] [place] [address] PCP - General Internal Medicine 12/20/16 Melanie Reyes PharmD [address] [place] [phone] Pharmacist Internal Medicine 06/15/24 03/08/25 documented as of this encounter
--- OUTSIDE RECORDS SUMMARY | 2025-04-29 16:31 | XMS_ITS | Clinical Summary ---
Author Organization [facility] Address [address] [address] Care Team Providers Care Veneer Sawyer Name Role Phone Vince Patel MD Primary [...] the evening. 180 capsule 2 01/12/20 25 Active Active Problems Problem Noted Date [...] Care Team (Late st Contact Info) Description 07/25/2025 1:30 PM EDT Office Visit [facility] [address] [place] [phone] Kei Moreno MD [address] [facility] [address] [place] [address] Health Maintenance Due Date Last [...] Influenza Vaccine (#1) 2025 Diabetes: Hemoglobin A1C 05/05/2025 025, 10/22/2024, 03/23/2024, Additional history exists Pneumococcal Vaccine: Peds ( 0 to 5 Years) and At-Risk Patients (6 to 49 Years) Discontinued 07/30/2007 Insurance [facility] Medicaid [facility] Medicaid Care Teams Veneer Sawyer Relationship Specialty Start Date End Date Vince Patel MD PCP - General 05/22/20
--- OUTSIDE RECORDS SUMMARY | 2025-04-29 16:31 | XMS_ITS | Clinical Summary ---
Author Organization [employer] Address [address] [place] [phone] Care Team Providers Care Adult Care Provider Name Role Phone Pcp, No Primary Care [...] this topic Insurance MEDICAID OUT-STATE Care Teams Adult Care Provider Relationship Specialty Start Date End Date Pcp, No No PCP On File COLTON Garcia [id number] PCP - General 01/03/20
--- OUTSIDE RECORDS SUMMARY | 2025-04-29 16:31 | XMS_ITS | Encounter Summary ---
Author Organization [employer] Address [address] [facility] [address] 7t [place] [address] Care Team Providers Care Stick Inserter Name Role Phone Vince Maya MD Primary Care Provide r Encounter Details Date Type Department Care Team ([facility] Contact Info) Description 04/29/2025 Orders Only GENERIC EXTERNAL DATA DEPARTMENT Provider, Generic External Data Social History Tobacco Use Types Packs/Day Years [...] on file documented as of this encounter Goals Goal Patient Goal Type Associated Problems [...] chronic kidney disease No Cyndi Isaacs MA documented as of this encounter Procedures Procedure Name Priority Date/Time Associated Diagnosis Comments GLUCOSE, WHOLE BLOOD Routine 04/29/2025 3:37 PM EST documented in this encounter Results * (ABNORMAL) Glucose, Whole Blood (04/29/2025 3:37 PM EST) Glucose, Whole Blood 305(H) 60 - 115 mg/dL [facility] Comment:METER #: [id number] Testing performed in the Endocrinology Department [address] , [address], [facility]. 04/29/2025 3:37 PM EST 04/29/2025 3:41 PM EST us Generic External Data Provider LAB BLOOD ORDERAB LES Final Result [facility] [address] [place] [phone] documented in this encounter Visit Diagnoses Not on filedocumented in this encounter Additional Health Concerns Active Problems Noted Date [...] 04/18/2025 Patient has chronic kidney disease 04/18/2025 Assessment Noted Time PHQ-9 Depression Total Score: 0 02/03/ 25 10:43 AM EDT documented as of this encounter Care Teams Stick Inserter Relationship Specialty Start Date End Date Vince Maya MD [address] [place] [address] PCP - General Internal Medicine 12/20/16 documented as of this encounter
--- OUTSIDE RECORDS SUMMARY | 2025-04-29 16:31 | XMS_ITS | Encounter Summary ---
Author Organization [email or web address] Address [address] [facility] 7t [place] [address] Care Team Providers Care Nuclear Equipment Sales Engineer Name Role Phone Vince Maya MD Primary Care Provide r Melanie Reyes PharmD Unavailable [phone] Reason for Visit * Reason Comments Med Refill Encounter Details Date Type Department Care Team ([facility] Contact Info) Description 03/08/2024 Refill [facility] [address] [place], [place] [phone] Vince Maya MD [address] [place] [address] Social History Tobacco Use Types Packs/Day Years [...] documented as of this encounter Care Teams Nuclear Equipment Sales Engineer Relationship Specialty Start Date End Date Vince Maya MD [address] [place] [address] PCP - General Internal Medicine 12/20/16 Melanie Reyes PharmD [address] [place] [address] Pharmacist Internal Medicine 06/15/24 03/08/25 documented as of this encounter
--- OUTSIDE RECORDS SUMMARY | 2025-04-29 16:31 | XMS_ITS | Encounter Summary ---
Author Organization [facility] [facility] Address [address] [place] [address] Care Team Providers Care Custom Tailor Name Role Phone Vince Maya MD Primary Care Provide r Melanie Reyes PharmD Unavailable Encounter Details Date Type Department Care Team (Late st Contact Info) Description 03/29/2022 Abstract [facility] [address] [place], [place] [phone] Vince Maya MD [address] [place], [place] [phone] Social History Tobacco Use Types Packs/Day Years [...] on file documented as of this encounter Procedures Procedure Name Priority Date/Time Associated Diagnosis Comments HEMOGLOBIN A1C Routine 12/04/2021 LIPID PANEL, STANDARD Routine 08/23/2021 documented in this encounter Results * (ABNORMAL) Hemoglobin A1c (12/04/2021) Hemoglobin A1C 8.8(A) 4.0 - 6.0 % Blood Venous blood specimen / Unknown us [...] on filedocumented in this encounter Care Teams Custom Tailor Relationship Specialty Start Date End Date Vince Maya MD [address] [place] [address] PCP - General Internal Medicine 12/20/16 Melanie Reyes PharmD [address] [place] [address] Pharmacist Internal Medicine 06/15/24 03/08/25 documented as of this encounter
== END 2025-04-29 16:17 | disposition home or self-care (01) ==
LOC: HO.ENCR 15:24
PROVIDERS: PCP Internal Medicine; Visit Provider Physician Assistant Medical
DX: E11.65 Type 2 diabetes mellitus with hyperglycemia (principal); Z79.4 Long term (current) use of insulin; E11.3593 Type 2 diabetes mellitus with proliferative diabetic retinopathy without macular edema, bilateral; N18.31 Chronic kidney disease, stage 3a; E11.29 Type 2 diabetes mellitus with other diabetic kidney complication; R80.9 Proteinuria, unspecified; I10 Essential (primary) hypertension; E78.00 Pure hypercholesterolemia, unspecified

== ENCOUNTER → 2025-04-29 15:23 | Outpatient (BNVA) | payer OTHER, SELFPAY | PROVIDERS: PCP Internal Medicine; Visit Provider Physician Assistant Medical | DX: E11.65 Type 2 diabetes mellitus with hyperglycemia (principal); E11.3593 Type 2 diabetes mellitus with proliferative diabetic retinopathy without macular edema, bilateral; E11.22 Type 2 diabetes mellitus with diabetic chronic kidney disease; I12.9 Hypertensive chronic kidney disease with stage 1 through stage 4 chronic kidney disease, or unspecified chronic kidney disease; N18.31 Chronic kidney disease, stage 3a; E11.29 Type 2 diabetes mellitus with other diabetic kidney complication; R80.9 Proteinuria, unspecified; F17.200 Nicotine dependence, unspecified, uncomplicated; E78.00 Pure hypercholesterolemia, unspecified; Z79.4 Long term (current) use of insulin; Z79.84 Long term (current) use of oral hypoglycemic drugs | CPT/HCPCS: 82947; 99212 ==